=== PATIENT | female | born 1945 | race Caucasian/White ===

== ENCOUNTER 2018-12-17 12:11 | Inpatient (IN) | payer MEDICARE ==
[2018-12-17] VITALS (9 sets, daily range): BP systolic 96–147; BP diastolic 62–96
[~2018-12-17] VITALS: Ht 152.4 cm; Wt 45.4 kg
--- NOTE | 2018-12-17 12:18 | NUR ---
PT CALLED BACK, PT REQUESTS TO USE RESTROOM. THIS RN REMOVED PTS EARRINGS, NECKLACE, AND CLOTHES. PLACED IN PT BELONGING BAG. AFTER USING RESTROOM, PT TAKEN DIRECTLY TO CT SCANNER.
[2018-12-17 12:30] LABS: BILIRUBIN,URINE NEGATIVE (NEGATIVE); CLARITY,URINE VERY CLOUDY; COLOR,URINE YELLOW; GLUCOSE, URINE (UA) NEGATIVE (NEGATIVE); KETONES,URINE NEGATIVE (NEGATIVE); LEUKOCYTE ESTERASE ,URINE 1+ (NEGATIVE); NITRITE,URINE POSITIVE (NEGATIVE); PH,URINE 7 (5-9); PROTEIN,URINE NEGATIVE (NEGATIVE); UROBILINOGEN,URINE NORMAL (NORMAL)
--- NOTE | 2018-12-17 12:39 | Diagnostic Imaging Report ---
PROCEDURE: CT head wo r/o stroke. TECHNIQUE: Multiple contiguous axial images were obtained through the brain without the use of intravenous contrast. Auto Exposure Controls were utilized during the CT exam to meet ALARA standards for radiation dose reduction. INDICATION: Left eye blurred vision as well as dizziness and left-sided headache. FINDINGS: Imaging of the globes does show diffuse homogeneous hyperdensity throughout the left globe. The right globe is unremarkable. Intracranially, the ventricles and sulci are within normal limits. There is no hydrocephalus. No sulcal effacement or midline shift is seen. No acute intra-axial or extra-axial hemorrhage is detected. The cisterns are patent. The visualized paranasal sinuses are clear. IMPRESSION: 1. Homogeneous increased density throughout the left globe. This can be seen with vitreous hemorrhage. Reportedly, the patient has undergone an ophthalmology treatment with injection of the left globe. This could conceivably be post therapeutic. 2. No acute intracranial process is detected. Results were discussed with Dr. Jackman of the Emergency Department prior to this dictation. Dictated by: Dictated on workstation # [id number]
[2018-12-17 12:40] LABS: BACTERIA,URINE MODERATE /HPF
[2018-12-17 12:49] LABS: BASOPHILS % (AUTO) 1 % (0-10); EOSINOPHILS # (AUTO) 0.3 10^3/uL (0.0-0.3); EOSINOPHILS % (AUTO) 4 % (0-10); HEMATOCRIT 29 % (35-52); HEMOGLOBIN 8.6 G/DL (11.5-16.0); LYMPHOCYTES # (AUTO) 1.7 X 10^3 (1.0-4.0); LYMPHOCYTES % (AUTO) 22 % (12-44); MEAN CORPUSCULAR HEMOGLOBIN 23 PG (25-34); MEAN CORPUSCULAR HGB CONC 30 G/DL (32-36); MEAN CORPUSCULAR VOLUME 77 FL (80-99); MEAN PLATELET VOLUME 10.5 FL (7.4-10.4); MONOCYTES # (AUTO) 0.9 X 10^3 (0.0-1.0); MONOCYTES % (AUTO) 11 % (0-12); NEUTROPHILS % (AUTO) 63 % (42-75); PLATELET COUNT 430 10^3/uL (130-400); RED CELL DISTRIBUTION WIDTH 17.2 % (10.0-14.5); WHITE BLOOD COUNT 7.9 10^3/uL (4.3-11.0)
[2018-12-17 13:04] LABS: FIBRIN DEGRADATION PRODUCTS 0.68 UG/ML (0.00-0.49); PROTHROMBIN TIME PATIENT 12.9 SEC (12.2-14.7)
[2018-12-17 13:10] LABS: ALANINE AMINOTRANSFERASE 10 U/L (0-55); ALBUMIN 3.4 GM/DL (3.2-4.5); ALKALINE PHOSPHATASE 104 U/L (40-136); BILIRUBIN,TOTAL 0.3 MG/DL (0.1-1.0); BUN/CREATININE RATIO 16; CALCIUM 8.3 MG/DL (8.5-10.1); CARBON DIOXIDE 23 MMOL/L (21-32); CHLORIDE 110 MMOL/L (98-107); CREATININE SERUM 0.75 MG/DL (0.60-1.30); GFR ESTIMATED > 60; GLUCOSE 90 MG/DL (70-105); POTASSIUM 4.8 MMOL/L (3.6-5.0); SODIUM 139 MMOL/L (135-145)
[2018-12-17] MEDS ORDERED: HYDR-3812 (13:14)
[2018-12-17] MEDS ORDERED: PRED5TAB (13:14)
[2018-12-17] MEDS ORDERED: DEXL60CA (13:14)
[2018-12-17] MEDS ORDERED: CITA40TA11 (13:14)
[2018-12-17] MEDS ORDERED: LORA0.5T (13:14)
[2018-12-17] MEDS ORDERED: OXYB5TAB9 (13:14)
[2018-12-17] MEDS ORDERED: QUET100T69 (13:14)
[2018-12-17] MEDS ORDERED: ALTEPLASE 100 MG/VIAL (ACTIVASE) IV ONE (13:30)
[2018-12-17] MEDS ORDERED: LORazepam INJ 2 MG/ML (ATIVAN) VIAL ONE (13:31)
--- NOTE | 2018-12-17 13:55 | ED Neurological Problem ---
General Chief Complaint: Neuro-Stroke Like Symptoms Stated Complaint: OFF BALANCE EYE HAS MOVED TO THE RIGHT Nursing Triage Note: PT BROUGHT IN BY [employer]ERS FROM WORK. PT STATES SHE IS DIZZY, AND HAS LEFT EYE VISION PROBLEMS. 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 PT AMB TO ER BATHROOM, PT NOTICIABLY LEANING TOWARDS RIGHT SIDE. PT STATES SHE HAS A LEFT SIDED HEADACHE. STATES LEFT EYE VISION IS WORSE THAN NORMAL. Nursing Sepsis Screen: No Definite Risk Source: patient Exam Limitations: no limitations History of Present Illness Date Seen by Provider: Dec 17, 2018 Time Seen by Provider: 12:17 Initial Comments Here with report of acute onset of dizziness at 10 AM this morning when she was out feeding her animals. She went back inside afterwards and noted that her left eye is now pointing in the wrong direction and was pointing upward and outward. She got ready for work and went to work where she was noted to be stumbling when she was walking and having the disconjugate gaze. They brought her here for further evaluation. 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 She has oil infused a I now and is always blurry. She was able to get up and move about without difficulty and would not feed animals. She states that it was right at 10 AM when this started but may have been his late as 10:30. Patient lives in [place]. She has no local doctors. She normally seen in [place] at [facility]. Denies nausea, vomiting, chest pain or weakness. Does report urinary incontinence that is chronic but states that has been worse recently. Timing/Duration: 1-3 hours Severity: moderate Associated Symptoms: No confusion, No fever/chills, No nausea/vomiting, No numbness in legs/feet, No paresthesia, No slurred speech; trouble walking, vision changes; No weakness Allergies and Home Medications Allergies Coded Allergies: No Known Drug Allergies (Unverified , 12/17/18) Patient Home Medication List Home Medication List Reviewed: Yes Review of Systems Review of Systems Constitutional: see HPI; No chills; fever Eyes: See HPI, Blurred Vision, Decreased Acuity, Vision Changes Ears, Nose, Mouth, Throat: no symptoms reported Respiratory: no symptoms reported Cardiovascular: no symptoms reported Gastrointestinal: No abdominal pain, No nausea, No vomiting Genitourinary: No dysuria; incontinence : No Musculoskeletal: no symptoms reported Skin: no symptoms reported Psychiatric/Neurological: See HPI, Anxiety; Denies Cognitive Dysfunction Endocrine: No Symptoms Reported All Other Systems Reviewed Negative Unless Noted: Yes Past Nmbmgct-Mojhmj-Fbysnu Hx Past Med/Social Hx: Reviewed Nursing Past Med/Soc Hx Patient Social History Alcohol Use: Occasionally Uses Recreational Drug Use: No Smoking Status: Never a Smoker Recent Foreign Travel: No Contact w/Someone Who Travel: No Recent Infectious Disease Expo: No Recent Hopitalizations: No Immunizations Up To Date Tetanus Booster (TDap): Unknown Seasonal Allergies Seasonal Allergies: No Past Medical History Surgeries: Yes (esophagus, colostomy) Abdominal, 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 Respiratory: No Cardiac: No Neurological: No CENSUS TAKER History: 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 Genitourinary: No Gastrointestinal: Yes Musculoskeletal: Yes Arthritis Endocrine: No HEENT: Yes (detached retina x3) Colon What Type of Treatment Did You: Surgical Intervention Psychosocial: Yes Anxiety, Depression Integumentary: No Family Medical History Reviewed Nursing Family Hx Physical Exam Vital Signs Vital Signs - First Documented 12/17/18 12:18 Temp 97.7 Pulse 64 Resp 14 B/P (MAP) 147/96 (113) Pulse Ox 100 O2 Delivery Room Air Capillary Refill : Less Than 3 Seconds Height, Weight, BMI Height: 0'0" Weight: 0lbs. oz. 0.706019pf; BMI Method:Stated General Appearance: WD/WN, mild distress HEENT: pharynx normal, other (disconjugate gaze to the left eye pointing lateral and upward. Unable to bring left eye past midline to the medial position.) Neck: full range of motion, supple Respiratory: lungs clear, normal breath sounds Cardiovascular: regular rate, rhythm, no murmur Gastrointestinal: non tender, soft Back: normal inspection, no CVA tenderness, no vertebral tenderness Extremities: non-tender, normal inspection Neurologic/Psychiatric: alert, oriented x 3 Crainal Nerves: normal hearing, normal speech, abnormal eye position, gaze palsy Coordination/Gait: abnormal gait, ABN nose to finger (R) (slowed), ABN nose to finger (L) (slowed) Motor/Sensory: no sensory deficit, no pronator drift Skin: normal color, warm/dry Stroke NIH Stroke Scale Assessment Level of Consciousness: 0=Alert (0), Level of Consciousness-Questions: 0= Answers both month/age (0), Visual Cowan: 0=No visual loss (0), Facial Movement (Facial Paresis): 0=Normal symmetrical mnt (0), Motor Function-Arms Right: 0=No drift (0), Motor Function-Arms Left: 0=No drift (0), Motor Function- Legs Right: 0=No drift (0), Motor Function-Legs Left: 0=No drift (0), Limb Ataxia: 0=Absent (0), Sensory: 0=Normal:no loss (0), Best Language: 0=No aphasia (0), Dysarthria: 0=Normal (0), Extinction & Inattention: 0=No abnormality (0), Total: Focused Exam Lactate Level 12/17/18 13:40: Lactic Acid Level 0.90 Lactic Acid Level Laboratory Tests Test 12/17/18 13:40 Lactic Acid Level 0.90 MMOL/L (0.50-2.00) Progress/Results/Core Measures Results/Orders Lab Results Laboratory Tests Test 12/17/18 12:20 12/17/18 12:40 12/17/18 12:47 12/17/18 13:40 Range/Units Urine Color YELLOW Urine Clarity VERY CLOUDY H Urine pH 7 5-9 Urine Specific Mckinney 1.010 L 1.016-1.022 Urine Protein NEGATIVE NEGATIVE Urine Glucose (UA) NEGATIVE NEGATIVE Urine Ketones NEGATIVE NEGATIVE Urine Nitrite POSITIVE H NEGATIVE Urine Bilirubin NEGATIVE NEGATIVE Urine Urobilinogen NORMAL NORMAL MG/DL Urine Leukocyte Esterase 1+ H NEGATIVE Urine RBC (Auto) NEGATIVE NEGATIVE Urine RBC NONE /HPF Urine WBC 10-25 H /HPF Urine Crystals NONE /LPF Urine Bacteria MODERATE H /HPF Urine Casts NONE /LPF Urine Mucus NEGATIVE /LPF Urine Culture Indicated YES White Blood Count 7.9 4.3-11.0 10^3/uL Red Blood Count 3.80 L 4.35-5.85 10^6/uL Hemoglobin 8.6 L 11.5-16.0 G/DL Hematocrit 29 L 35-52 % Mean Corpuscular Volume 77 L 80-99 FL Mean Corpuscular Hemoglobin 23 L 25-34 PG Mean Corpuscular Hemoglobin Concent 30 L 32-36 G/DL Red Cell Distribution Width 17.2 H 10.0-14.5 % Platelet Count 430 H 130-400 10^3/uL Mean Platelet Volume 10.5 H 7.4-10.4 FL Neutrophils (%) (Auto) 63 42-75 % Lymphocytes (%) (Auto) 22 12-44 % Monocytes (%) (Auto) 11 0-12 % Eosinophils (%) (Auto) 4 0-10 % Basophils (%) (Auto) 1 0-10 % Neutrophils # (Auto) 5.0 1.8-7.8 X 10^3 Lymphocytes # (Auto) 1.7 1.0-4.0 X 10^3 Monocytes # (Auto) 0.9 0.0-1.0 X 10^3 Eosinophils # (Auto) 0.3 0.0-0.3 10^3/uL Basophils # (Auto) 0.0 0.0-0.1 10^3/uL Prothrombin Time 12.9 12.2-14.7 SEC INR Comment 1.0 0.8-1.4 Activated Partial Thromboplast Time 20 L 24-35 SEC D-Dimer 0.68 H 0.00-0.49 UG/ML Sodium Level 139 135-145 MMOL/L Potassium Level 4.8 3.6-5.0 MMOL/L Chloride Level 110 H 98-107 MMOL/L Carbon Dioxide Level 23 21-32 MMOL/L Anion Gap 6 5-14 MMOL/L Blood Urea Nitrogen 12 7-18 MG/DL Creatinine 0.75 0.60-1.30 MG/DL Estimat Glomerular Filtration Rate > 60 BUN/Creatinine Ratio 16 Glucose Level 90 70-105 MG/DL Calcium Level 8.3 L 8.5-10.1 MG/DL Corrected Calcium 8.8 8.5-10.1 MG/DL Total Bilirubin 0.3 0.1-1.0 MG/DL Aspartate Amino Transf (AST/SGOT) 18 5-34 U/L Alanine Aminotransferase (ALT/SGPT) 10 0-55 U/L Alkaline Phosphatase 104 40-136 U/L Troponin I < 0.028 <0.028 NG/ML Total Protein 6.0 L 6.4-8.2 GM/DL Albumin 3.4 3.2-4.5 GM/DL Glucometer 97 70-110 MG/DL Lactic Acid Level 0.90 0.50-2.00 MMOL/L My Orders Orders - ASSINIBOINE [facility] [place],MILLIE D MD Ct Head Perfusion W/ Contrast (12/17/18 12:40) Ct Angio Head/Neck (12/17/18 12:40) Lactic Acid Analyzer (12/17/18 13:07) Blood Culture (12/17/18 13:07) Alteplase (Activase) (Activase Injection (12/17/18 13:30) Post Thrombolytic Adminstratio (12/17/18 13:17) Ct Head Wo (12/18/18 13:17) Lorazepam Injection (Ativan Injection) (12/17/18 13:31) Ceftriaxone For Iv Use (Rocephin For I (12/17/18 15:00) Saline Lock/Iv-Start (12/17/18 15:00) Ns Iv 1000 Ml (Sodium Chloride 0.9%) (12/17/18 15:00) Medications Given in ED Current Medications Medications Dose Ordered Sig/Tequila Route Start Time Stop Time Status Last Admin Dose Admin Alteplase, Recombinant (0.9mg/ kg-max 90mg) with ... ONCE ONCE IV 12/17/18 13:30 12/17/18 13:31 DC 12/17/18 13:46 47 MG Ceftriaxone Sodium 1000 mg/ Sterile Water 10 ml @ 200 mls/hr ONCE ONCE IV 12/17/18 15:00 12/17/18 15:03 DC 12/17/18 15:15 200 MLS/HR Lorazepam 2 mg STK-MED ONCE .ROUTE 12/17/18 13:31 12/17/18 13:33 DC 12/17/18 13:35 0.5 MG Sodium Chloride 1,000 ml @ 0 mls/hr Q0M ONCE IV 12/17/18 15:00 12/17/18 15:03 DC 12/17/18 15:11 0 MLS/HR Vital Signs/I&O 12/17/18 12:18 Temp 97.7 Pulse 64 Resp 14 B/P (MAP) 147/96 (113) Pulse Ox 100 O2 Delivery Room Air iStat Bedside Lab Testing Sodium (Na): 142.00 Potassium (K): 4.70 Chloride (CI): 107.00 TCO2: 25.00 Glucose (Glu): 88.00 Urea Nitrogen (BUN)/Urea: 12.00 Creatinine (Crea): 0.70 Anion Gap*: 15.00 FSBG Bedside Testing Finger Stick Blood Glucose: 97 Progress Progress Note : Progress Note Seen and evaluated on arrival. Stroke team activation initiated. Rapid CT assessment. Difficult to initially determined time of onset but ultimately found to be at about 10 AM to 10:30 AM. No contraindications to TPA. I did discuss this with the patient. We will go ahead and CT angiogram and CT perfusion study. I will discuss the case with the stroke neurologist at . I did initiate call with at 1306 [address] patient was in CT. Patient is at the 3 are marked currently but TPA would be indicated at this point for concerns of posterior circulation stroke. This was discussed with Dr. Red. We did review initial CT scan current labs as well as findings and he agrees that TPA would be indicated. I did discuss this again with the patient and her family as well via phone on her return from CT and they agree to TPA. This was ordered to be initiated. Saba catheter placed. 1458: I have discussed the case with Dr. Crespo and he accepts patient in consult to the ICU. 1505: I discussed the case with Dr. Espitia and she accepts patient for admission, inpatient status. She has requested cardiology consult which will be placed. 1509: Discussed case with cardiology and accepts patient in consult. Reexamination of the patient shows that the eye movement is improved currently. Patient states she is feeling a little better. Rocephin is running. Patient has urinary tract infections but knows findings of sepsis or severe sepsis. This is discussed with Dr. Crespo who agrees after reviewing labs. Admit, inpatient status. Normal saline 1 L bolus ordered to flush contrast and we will keep that going at 75 mL an hour afterwards. Nothing by mouth until after dysphagia screening past. Lipids to be ordered in the morning. Initial ECG Impression Date: Dec 17, 2018 Initial ECG Impression Time: 13:49 Initial ECG Rate: 63 Initial ECG Rhythm: Normal Sinus Comment Sinus rhythm with normal axis. No evidence of ST elevation NC. No previous available for comparison. Interpreted by me. Diagnostic Imaging Diagonstic Imaging: CT Plain Films/CT/US/NM/MRI: head Comments [email or web address] [place], [place] NAME: NYDIA KIRK [facility] REC#: [id number] PT STATUS: REG ER : 1945 PHYSICIAN: LEE ANN RAZO APRN ADMIT DATE: 12/17/18/ER Draft Date of Exam:12/17/18 CT HEAD WO-R/O STROKE PROCEDURE: CT head wo r/o stroke. TECHNIQUE: Multiple contiguous axial images were obtained through the brain without the use of intravenous contrast. Auto Exposure Controls were utilized during the CT exam to meet ALARA standards for radiation dose reduction. INDICATION: Left eye blurred vision as well as dizziness and left-sided headache. FINDINGS: Imaging of the globes does show diffuse homogeneous hyperdensity throughout the left globe. The right globe is unremarkable. Intracranially, the ventricles and sulci are within normal limits. There is no hydrocephalus. No sulcal effacement or midline shift is seen. No acute intra-axial or extra-axial hemorrhage is detected. The cisterns are patent. The visualized paranasal sinuses are clear. IMPRESSION: 1. Homogeneous increased density throughout the left globe. This can be seen with vitreous hemorrhage. Reportedly, the patient has undergone an ophthalmology treatment with injection of the left globe. This could conceivably be post therapeutic. 2. No acute intracranial process is detected. Results were discussed with Dr. Jackman of the Emergency Department prior to this dictation. Dictated on workstation # [id number] Dict: 12/17/18 1231 Trans: 12/17/[address] [facility] [id number] Interpreted by: REGGIE BEGUM MD Electronically signed by: Diagonsduane Imaging: CT Plain Films/CT/US/NM/MRI: head, other Comments [place], [place] NAME: NYDIA KIRK [facility] REC#: [id number] PT STATUS: REG ER : 1945 PHYSICIAN: MILLIE HOLLINS MD ADMIT DATE: 12/17/18/ER Draft Date of Exam:12/17/18 CT ANGIO HEAD/NECK PROCEDURE: CT angiography of the head and CT angiography of the neck with and without contrast. TECHNIQUE: Contiguous noncontrast images were obtained from the skull base through the vertex. After intravenous contrast administration, helical CT angiography of the neck was performed. Source data was reformatted into multiple MIP projections. Delayed post contrast acquisition was also obtained. Auto Exposure Controls were utilized during the CT exam to meet ALARA standards for radiation dose reduction. INDICATION: Left eye blurred vision. FINDINGS: Cervical vertebral arteries are patent, the right dominant, the left somewhat small but nonfocal. The bilateral common carotids are patent. There is mild non-stenosing calcified plaque at the right carotid bulb and bifurcation. Cervical internal carotids are somewhat tortuous but widely patent and showed no substantial plaque. Within the head, the intracranial ICAs were widely patent. The intrathecal vertebral arteries, the basilar and the bilateral [employer]ATIC ART TE[employer]ER segments unremarkable. The right [employer] TE[employer]ER is of origin off the anterior circulation. The anterior and middle cerebral arterial branches and segments were unremarkable. No large vessel occlusion or intraluminal thrombus. No aneurysm or vascular malformation. IMPRESSION: Unremarkable CT angiographic evaluation of the neck and head. No large vessel occlusion, aneurysm, branch occlusion, vascular malformation or hemodynamically significant degree of stenosis. Dictated on workstation # [id number] Dict: 12/17/18 1343 Trans: 12/17/18 1353 [facility] [id number] Interpreted by: KATIE GILLIAM Electronically signed by: Diagonstic Imaging: CT Plain Films/CT/US/NM/MRI: head Comments [facility] [place] [place] NAME: NYDIA KIRK [facility] REC#: [id number] PT STATUS: REG ER : 1945 PHYSICIAN: MILLIE HOLLINS MD ADMIT DATE: 12/17/18/ER Draft Date of Exam:12/17/18 CT HEAD PERFUSION W/ CONTRAST INDICATION: Stroke. CT perfusion protocol was utilized. No prolonged mean transit time or elevated Tmax is identified. No decreased cerebral blood flow or reduced cerebral blood volume is seen. No mismatch is identified. IMPRESSION: Normal CT perfusion study. Dictated on workstation # [id number] Dict: 12/17/18 1344 Trans: 12/17/[address] [facility] [id number] Interpreted by: REGGIE BEGUM MD Electronically signed by: Diagonstic Imaging: Xray Plain Films/CT/US/NM/MRI: chest Comments [email or web address] [place], [place] NAME: NYDIA KIRK [facility] REC#: [id number] PT STATUS: REG ER : 1945 PHYSICIAN: LEE ANN RAZO APRN ADMIT DATE: 12/17/18/ER Draft Date of Exam:12/17/18 CHEST 1 VIEW, AP/PA ONLY INDICATION: Dizziness and left eye visual changes Frontal chest obtained at 159 hours p.m. There is cardiomegaly. Aorta is tortuous. There is no focal infiltrate or pneumothorax or pleural fluid. IMPRESSION: Cardiomegaly with no acute process in the chest. Dictated on workstation # [id number] Dict: 12/17/18 1412 Trans: 12/17/[address] [facility] [id number] Interpreted by: ALISHA MCPHERSON MD Electronically signed by: Departure Communication (Admissions) Time/Spoke to Admitting Phy: 15:05 Time/Spoke to Consulting Phy: 14:58 Impression Primary Impression: Cerebrovascular accident due to cerebral artery occlusion Additional Impression: Urinary tract infection Qualified Codes: N30.00 - Acute cystitis without hematuria Disposition: ADMITTED INPATIENT Condition: Stable Admissions Decision to Admit Reason: Admit from ER (General) Decision to Admit/Date: Dec 17, 2018 Time/Decision to Admit Time: 15:22 MILLIE HOLLINS MD Dec 17, 2018 13:55
--- NOTE | 2018-12-17 14:00 | Diagnostic Imaging Report ---
INDICATION: Stroke. CT perfusion protocol was utilized. No prolonged mean transit time or elevated Tmax is identified. No decreased cerebral blood flow or reduced cerebral blood volume is seen. No mismatch is identified. IMPRESSION: Normal CT perfusion study. Dictated by: Dictated on workstation # [id number]
--- NOTE | 2018-12-17 14:14 | Diagnostic Imaging Report ---
INDICATION: Dizziness and left eye visual changes Frontal chest obtained at 159 hours p.m. There is cardiomegaly. Aorta is tortuous. There is no focal infiltrate or pneumothorax or pleural fluid. IMPRESSION: Cardiomegaly with no acute process in the chest. Dictated by: Dictated on workstation # [id number]
[2018-12-17] MEDS ORDERED: cefTRIAXone FOR IV USE 1,000 MG in WATER (STERILE) FOR INJECTION 10 ML IV ONE (15:00)
[2018-12-17] MEDS ORDERED: NS IV 1000 ML 1,000 ML IV ONE (15:00)
--- NOTE | 2018-12-17 16:21 | Consultation-Cardiology ---
HPI-Cardiology Cardiology Consultation Date of Consultation 12/17/18 Date of Admission Time Seen by Provider: 16:17 Indication: acute CVA HPI 73-year-old lady with history of depression, admitted with acute CVA, reported episode of dizziness around 10 in the morning then noted that her left eye was pointing in the wrong direction, contrary to boric and noted that she had difficulty walking, slurred speech and facial droop. Came to the emergency room and the stroke team were activated and she was given TPA. Patient reported improvement in her gaze and her facial weakness. Denied any chest pain. Denied any syncope or near syncopal episode. Denied any palpitation. She reported that she follows with a physician in [facility], no local physician. Home Medications & Allergies Allergies: Coded Allergies: No Known Drug Allergies (Unverified , 12/17/18) [id number] Hx Patient Social History Alcohol Use: Occasionally Uses Recreational Drug Use: No Smoking Status: Never a Smoker Recent Foreign Travel: No Recent Infectious Disease Expo: No Recent Hopitalizations: No Immunizations Up To Date Tetanus Booster (TDap): Unknown Past Medical History Past medical history as described below Family Medical History Family Medical Hx Noncontributory to her current condition Review of Systems Constitutional: see HPI, malaise EENTM: see HPI Respiratory: see HPI; No cough, No dyspnea on exertion, No hemoptysis, No orthopnea, No phlegm, No short of breath, No stridor, No wheezing, No other Cardiovascular: see HPI; No chest pain, No edema, No Hx of Intervention, No palpitations, No syncope, No vascular heart diseas, No other Gastrointestinal: no symptoms reported, see HPI Genitourinary: no symptoms reported, see HPI Musculoskeletal: see HPI, joint pain, muscle weakness Skin: see HPI Psychiatric/Neurological: No Symptoms Reported, See HPI Reviewed Test Results Reviewed Test Results Lab Laboratory Tests Test 12/17/18 12:20 12/17/18 12:40 12/17/18 12:47 12/17/18 13:40 Range/Units Urine Color YELLOW Urine Clarity VERY CLOUDY H Urine pH 7 5-9 Urine Specific [place] 1.010 L 1.016-1.022 Urine Protein NEGATIVE NEGATIVE Urine Glucose (UA) NEGATIVE NEGATIVE Urine Ketones NEGATIVE NEGATIVE Urine Nitrite POSITIVE H NEGATIVE Urine Bilirubin NEGATIVE NEGATIVE Urine Urobilinogen NORMAL NORMAL MG/DL Urine Leukocyte Esterase 1+ H NEGATIVE Urine RBC (Auto) NEGATIVE NEGATIVE Urine RBC NONE /HPF Urine WBC 10-25 H /HPF Urine Crystals NONE /LPF Urine Bacteria MODERATE H /HPF Urine Casts NONE /LPF Urine Mucus NEGATIVE /LPF Urine Culture Indicated YES White Blood Count 7.9 4.3-11.0 10^3/uL Red Blood Count 3.80 L 4.35-5.85 10^6/uL Hemoglobin 8.6 L 11.5-16.0 G/DL Hematocrit 29 L 35-52 % Mean Corpuscular Volume 77 L 80-99 FL Mean Corpuscular Hemoglobin 23 L 25-34 PG Mean Corpuscular Hemoglobin Concent 30 L 32-36 G/DL Red Cell Distribution Width 17.2 H 10.0-14.5 % Platelet Count 430 H 130-400 10^3/uL Mean Platelet Volume 10.5 H 7.4-10.4 FL Neutrophils (%) (Auto) 63 42-75 % Lymphocytes (%) (Auto) 22 12-44 % Monocytes (%) (Auto) 11 0-12 % Eosinophils (%) (Auto) 4 0-10 % Basophils (%) (Auto) 1 0-10 % Neutrophils # (Auto) 5.0 1.8-7.8 X 10^3 Lymphocytes # (Auto) 1.7 1.0-4.0 X 10^3 Monocytes # (Auto) 0.9 0.0-1.0 X 10^3 Eosinophils # (Auto) 0.3 0.0-0.3 10^3/uL Basophils # (Auto) 0.0 0.0-0.1 10^3/uL Prothrombin Time 12.9 12.2-14.7 SEC INR Comment 1.0 0.8-1.4 Activated Partial Thromboplast Time 20 L 24-35 SEC D-Dimer 0.68 H 0.00-0.49 UG/ML Sodium Level 139 135-145 MMOL/L Potassium Level 4.8 3.6-5.0 MMOL/L Chloride Level 110 H 98-107 MMOL/L Carbon Dioxide Level 23 21-32 MMOL/L Anion Gap 6 5-14 MMOL/L Blood Urea Nitrogen 12 7-18 MG/DL Creatinine 0.75 0.60-1.30 MG/DL Estimat Glomerular Filtration Rate > 60 BUN/Creatinine Ratio 16 Glucose Level 90 70-105 MG/DL Calcium Level 8.3 L 8.5-10.1 MG/DL Corrected Calcium 8.8 8.5-10.1 MG/DL Total Bilirubin 0.3 0.1-1.0 MG/DL Aspartate Amino Transf (AST/SGOT) 18 5-34 U/L Alanine Aminotransferase (ALT/SGPT) 10 0-55 U/L Alkaline Phosphatase 104 40-136 U/L Troponin I < 0.028 <0.028 NG/ML Total Protein 6.0 L 6.4-8.2 GM/DL Albumin 3.4 3.2-4.5 GM/DL Glucometer 97 70-110 MG/DL Lactic Acid Level 0.90 0.50-2.00 MMOL/L Physical Exam Vital Signs Vital Signs - First Documented 12/17/18 12:18 Temp 97.7 Pulse 64 Resp 14 B/P (MAP) 147/96 (113) Pulse Ox 100 O2 Delivery Room Air Capillary Refill : Less Than 3 Seconds Height, Weight, BMI Height: 5'0.00" Weight: 115lbs. 0.6oz. 52.516197ly; 22.5 BMI Method:Stated General Appearance: WD/WN, Mild Distress Eyes: Bilateral Eye Normal Inspection, Bilateral Eye PERRL, Bilateral Eye EOMI HEENT: PERRL/EOMI, TMs Normal, Normal ENT Inspection, Pharynx Normal Neck: Full Range of Motion, Normal Inspection, Non Tender, Supple, Carotid Bruit Respiratory: Chest Non Tender, Lungs Clear, Normal Breath Sounds, No Accessory Muscle Use, No Respiratory Distress Cardiovascular: Regular Rate, Rhythm, No Edema, No Gallop, No JVD, Normal Peripheral Pulses, Systolic Murmur Gastrointestinal: Normal Bowel Sounds, No Organomegaly, No Pulsatile Mass, Non Tender, Soft Back: Normal Inspection, No CVA Tenderness, No Vertebral Tenderness Extremity: Normal Capillary Refill, Normal Inspection, Normal Range of Motion, Non Tender, No Calf Tenderness, No Pedal Edema Neurologic/Psychiatric: Alert, Oriented x3, Normal Mood/Affect, Other (slight weakness in the left lower extremity) Skin: Normal Color, Warm/Dry Lymphatic: No Adenopathy A/P-Cardiology Admission Diagnosis Acute CVA Anemia Mitral regurgitation Sinus bradycardia Assessment/Plan Acute CVA, given TPA in the emergency room and reported significant improvement , still having mild weakness in the left lower extremity. Managed by primary care team, started physical therapy. Anemia, received TPA, monitor H&H closely and consider transfusion if needed. Systolic murmur at the left sternal border suggestive of mitral regurgitation and aortic sclerosis. I will evaluate 2-D echocardiogram. Sinus bradycardia, noted on telemetry, continue to monitor at this time, did not initiate any beta blockers Questionable hyperlipidemia, I will evaluate lipid profile Depression, managed by primary care physician Psoriasis. Managed by primary care physician Clinical Quality Measures DVT/VTE Risk/Contraindication: Risk Factor Score Per Nursin RFS Level Per Nursing on Admit: 3=High Stroke: Date of last known well: Dec 17, 2018 DIONNE MALAVE MD Dec 17, 2018 16:21
[2018-12-17] MEDS ORDERED: FLU QUADRIvalent (5+ YOA) 2018-2019 (AFLURIA) 0.5 ML IM ONE (16:45)
[2018-12-17] MEDS ORDERED: ONDANSETRON 4 MG/2 ML (SDV) Z0FRAN IV PRN (16:45)
[2018-12-17] MEDS ORDERED: CATHETER FLUSH 10 ML SYR IV PRN (16:45)
[2018-12-17] MEDS: NS IV 1000 ML 1,000 ML IV SCH (16:52)
[2018-12-17] MEDS ORDERED: RT-ALBUTEROL SULF 2.5 MG/3 ML PRE-MIX VIAL INH PRN (17:00)
[2018-12-17] MEDS ORDERED: CALCIUM CARBONATE 500 MG (TUMS) TAB.CHEW PO PRN (22:15)
[2018-12-17] MEDS ORDERED: MELATONIN 3 MG TABLET PO PRN (22:15)
[2018-12-17] MEDS ORDERED: diphenhydrAMINE 25 MG TAB (BENADRYL) PO PRN (22:15)
[2018-12-17] MEDS ORDERED: fentaNYL INJECTION 100 MCG/2 ML AMP IVP PRN (22:15)
[2018-12-17] MEDS ORDERED: HYDROcodone/APAP 5 MG/325 MG (LORTAB) TAB PO PRN (22:15)
[2018-12-17] MEDS ORDERED: LOPERAMIDE 2 MG (IMODIUM) CAP PO PRN (22:15)
[2018-12-17] MEDS ORDERED: DOCUSATE SODIUM 100 MG (COLACE) CAP PO PRN (22:15)
[2018-12-18] VITALS (23 sets, daily range): BP systolic 86–147; BP diastolic 55–91
[2018-12-18] MEDS: ALPRAZolam 0.25 MG (XANAX) TAB PO PRN ×2 (02:33→21:29)
[2018-12-18 03:48] LABS: MEAN PLATELET VOLUME 10.3 FL (7.4-10.4); RED CELL DISTRIBUTION WIDTH 17.4 % (10.0-14.5); WHITE BLOOD COUNT 8.7 10^3/uL (4.3-11.0)
[2018-12-18 04:15] LABS: ALANINE AMINOTRANSFERASE 8 U/L (0-55); ALBUMIN 2.8 GM/DL (3.2-4.5); ALKALINE PHOSPHATASE 88 U/L (40-136); BILIRUBIN,TOTAL 0.2 MG/DL (0.1-1.0); BUN/CREATININE RATIO 13; CALCIUM 7.7 MG/DL (8.5-10.1); CARBON DIOXIDE 20 MMOL/L (21-32); CHLORIDE 112 MMOL/L (98-107); CHOLESTEROL 164 MG/DL (< 200); CREATININE SERUM 0.76 MG/DL (0.60-1.30); GFR ESTIMATED > 60; GLUCOSE 150 MG/DL (70-105); HDL CHOLESTEROL 41 MG/DL (40-60); MAGNESIUM 1.9 MG/DL (1.8-2.4); POTASSIUM 3.5 MMOL/L (3.6-5.0); SODIUM 142 MMOL/L (135-145); TRIGLYCERIDES 75 MG/DL (<150); VLDL CHOLESTEROL 15 MG/DL (5-40)
--- NOTE | 2018-12-18 05:15 | NUR ---
PATIENT COMPLAINS OF CHEST PAIN. RATES IT AT 9/10 FROM LEFT SHOULDER THROUGH HER CHEST AND IN HER BACK. EKG OBTAINED. DR. NORIEGA ON THE FLOOR LOOKED AT EKG, ORDERED TROPONIN AND A GI COCKTAIL. 0600-PATIENT STATES THAT PAIN IS STILL THERE BUT HAS DECREASED AND SHE FELT LIKE THE COCKTAIL HELPED.
--- NOTE | 2018-12-18 05:41 | Pulmonary Consultation ---
History of Present Illness History of Present Illness Date of Consultation 12/18/18 05:41 Date of Admission Reason for Visit: acute CVA Allergies and Home Medications Allergies Coded Allergies: No Known Drug Allergies (Unverified , 12/17/18) Past Wfyfeal-Hqwnwv-Knzswu Hx Past Med/Social Hx: Reviewed Nursing Past Med/Soc Hx Patient Social History Alcohol Use: Occasionally Uses Recreational Drug Use: No Smoking Status: Never a Smoker Recent Foreign Travel: No Contact w/Someone Who Travel: No Recent Infectious Disease Expo: No Recent Hopitalizations: No Immunizations Up To Date Tetanus Booster (TDap): Unknown Seasonal Allergies Seasonal Allergies: No Past Medical History Surgeries: Yes (esophagus, colostomy) Abdominal, 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 Respiratory: No Cardiac: No Neurological: 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 0.6oz. 52.005020fy; 22.5 BMI Method:Stated Exam Exam Vital Signs Date Time Temp Pulse Resp B/P (MAP) Pulse Ox O2 Delivery O2 Flow Rate FiO2 12/18/18 04:00 95 Room Air 12/18/18 01:00 57 12/18/18 01:00 57 20 111/75 (87) 94 Room Air 12/18/18 00:00 53 17 116/71 (86) 93 Room Air 12/18/18 00:00 98.2 12/18/18 00:00 95 Room Air 12/17/18 23:00 64 13 109/86 (94) 95 Room Air 12/17/18 22:00 62 28 120/89 (99) 98 Room Air 12/17/18 21:00 61 21 101/72 (82) 96 Room Air 12/17/18 20:00 96 Room Air 12/17/18 20:00 51 14 96/62 (73) 95 Room Air 12/17/18 20:00 97.4 12/17/18 19:00 70 19 115/68 (84) 97 Room Air 12/17/18 19:00 70 12/17/18 18:00 70 55 98/80 (86) 96 Room Air 12/17/18 17:00 67 145/86 (105) 99 Room Air 12/17/18 16:35 64 100 21 12/17/18 16:21 55 12/17/18 16:15 64 20 154/87 (109) 97 Room Air 12/17/18 16:00 45 128/74 (92) 98 Room Air 12/17/18 12:18 97.7 64 14 147/96 (113) 100 Room Air I & O 12/18/18 07:00 Intake Total 1605 ml Output Total 2100 ml Balance -495 ml Height & Weight Height: 5'0.00" Weight: 115lbs. 0.6oz. 52.531757ox; 22.5 BMI Method:Stated General Appearance: WD/WN, Mild Distress HEENT: PERRL/EOMI, TMs Normal, Normal ENT Inspection, Pharynx Normal Neck: Full Range of Motion, Normal Inspection, Non Tender, Supple, Carotid Bruit Respiratory: Chest Non Tender, Lungs Clear, Normal Breath Sounds, No Accessory Muscle Use, No Respiratory Distress Cardiovascular: Regular Rate, Rhythm, No Edema, No Gallop, No JVD, Normal Peripheral Pulses, Systolic Murmur Capillary Refill: Less Than 3 Seconds Gastrointestinal: non tender, soft Extremity: Normal Capillary Refill, Normal Inspection, Normal Range of Motion, Non Tender, No Calf Tenderness, No Pedal Edema Neurologic/Psychiatric: Alert, Oriented x3, Normal Mood/Affect, Other (slight weakness in the left lower extremity) Skin: Normal Color, Warm/Dry Lymphatic: No Adenopathy Results Lab Laboratory Tests 12/17/18 12:40 12/18/18 03:20 BRADNON NORIEGA DO Dec 18, 2018 05:41
[2018-12-18] MEDS ORDERED: ANTACID SUSP 30 ML UDC (MYLANTA) PO ONE (05:45)
[2018-12-18] MEDS ORDERED: LIDOCAINE 2% VISCOUS 15 ML UDC PO ONE (05:45)
[2018-12-18] MEDS: NS IV 1000 ML 1,000 ML IV SCH ×2 (05:51→19:26)
[2018-12-18] MEDS ORDERED: POTASSIUM CL 10MEQ/50ML IVPB 50 ML IV SCH (06:00)
[2018-12-18] MEDS ORDERED: MAGNESIUM 1 GM/100 ML IVPB 100 ML IV SCH (06:00)
[2018-12-18] MEDS ORDERED: KCL 20 MEQ TAB (K-DUR) PO SCH (06:00)
[2018-12-18] MEDS ORDERED: KCL 20 MEQ TAB (K-DUR) PO ONE (06:00)
--- NOTE | 2018-12-18 06:52 | Diagnostic Imaging Report ---
Indication: Respiratory distress Portable chest 3:59 AM The patient has bilateral breast implants with calcified fibrous capsules. Heart size and pulmonary vascularity are normal. Lungs are clear. There are no effusions or pneumothoraces. Impression: No acute abnormalities in the chest. Dictated by: Dictated on workstation # [id number]
--- NOTE | 2018-12-18 06:58 | Pulmonary Progress Note ---
Subjective Time Seen by a Provider: 06:58 Subjective/Events-last exam Pt is doing better. She states left sided weakness is improved. Sepsis Event Evaluation Height, Weight, BMI Height: 5'0.00" Weight: 115lbs. 0.6oz. 52.353268vo; 22.5 BMI Method:Stated Focused Exam Lactate Level 12/17/18 13:40: Lactic Acid Level 0.90 Exam Exam Vital Signs Date Time Temp Pulse Resp B/P (MAP) Pulse Ox O2 Delivery O2 Flow Rate FiO2 12/18/18 06:00 98.4 12/18/18 06:00 69 17 99/55 (70) 91 Room Air 12/18/18 05:20 63 8 130/77 (94) 100 Room Air 12/18/18 04:00 95 Room Air 12/18/18 04:00 75 11 95 Room Air 12/18/18 03:00 56 20 108/68 (81) 93 Room Air 12/18/18 02:00 62 23 145/90 (108) 95 Room Air 12/18/18 01:00 57 12/18/18 01:00 57 20 111/75 (87) 94 Room Air 12/18/18 00:00 53 17 116/71 (86) 93 Room Air 12/18/18 00:00 98.2 12/18/18 00:00 95 Room Air 12/17/18 23:00 64 13 109/86 (94) 95 Room Air 12/17/18 22:00 62 28 120/89 (99) 98 Room Air 12/17/18 21:00 61 21 101/72 (82) 96 Room Air 12/17/18 20:00 96 Room Air 12/17/18 20:00 51 14 96/62 (73) 95 Room Air 12/17/18 20:00 97.4 12/17/18 19:00 70 19 115/68 (84) 97 Room Air 12/17/18 19:00 70 12/17/18 18:00 70 55 98/80 (86) 96 Room Air 12/17/18 17:00 67 145/86 (105) 99 Room Air 12/17/18 16:35 64 100 21 12/17/18 16:21 55 12/17/18 16:15 64 20 154/87 (109) 97 Room Air 12/17/18 16:00 45 128/74 (92) 98 Room Air 12/17/18 12:18 97.7 64 14 147/96 (113) 100 Room Air I & O 12/18/18 07:00 Intake Total 2605 ml Output Total 3150 ml Balance -545 ml Height & Weight Height: 5'0.00" Weight: 115lbs. 0.6oz. 52.057718ne; 22.5 BMI Method:Stated General Appearance: No Apparent Distress, WD/WN HEENT: PERRL/EOMI, TMs Normal, Normal ENT Inspection, Pharynx Normal Neck: Full Range of Motion, Normal Inspection, Non Tender, Supple, Carotid Bruit Respiratory: Chest Non Tender, Lungs Clear, Normal Breath Sounds, No Accessory Muscle Use, No Respiratory Distress Cardiovascular: Regular Rate, Rhythm, No Edema, No Gallop, No JVD, Normal Peripheral Pulses, Systolic Murmur Capillary Refill: Less Than 3 Seconds Gastrointestinal: non tender, soft Extremity: Normal Capillary Refill, Normal Inspection, Normal Range of Motion, Non Tender, No Calf Tenderness, No Pedal Edema Neurologic/Psychiatric: Alert, Oriented x3, Normal Mood/Affect, Other (slight weakness in the left lower extremity) Skin: Normal Color, Warm/Dry Lymphatic: No Adenopathy Results Lab Laboratory Tests 12/17/18 12:40 12/18/18 03:20 Assessment/Plan Assessment/Plan Acute CVA s/p TPA -Echo pending -Repeat CT scan today possible FRANTZ -Out pt testing CP - improved after GI cocktail Anemia -Monitor Sinus luisa -Cardiology is following BRANDON NORIEGA DO Dec 18, 2018 06:58
[2018-12-18] MEDS: PANTOPRAZOLE 40 MG (PROTONIX) TAB PO SCH (07:30)
--- NOTE | 2018-12-18 08:46 | Cardiology Progress Note ---
Subjective Date Seen by Provider: Dec 18, 2018 Time Seen by Provider: 08:44 Subjective/Events-last exam patient is laying down in bed, reporting improvement in her symptoms, muscle strength is back to normal. Review of Systems General: No Chills, No Night Sweats, No Fatigue, No Malaise, No Appetite, No Other HEENT: No Head Aches, No Visual Changes, No Eye Pain, No Ear Pain, No Dysphasia , No Sinus Congestion, No Post Nasal Drip, No Sore Throat, No Other Pulmonary: No Dyspnea, No Cough, No Pleuritic Chest Pain, No Other Cardiovascular: No: Chest Pain, Palpitations, Orthopnea, Paroxysmal Noc. Dyspnea, Edema, Lt Headedness, Other Focused Exam Lactate Level 12/17/18 13:40: Lactic Acid Level 0.90 Objective-Cardiology Exam Last Set of Vital Signs Vital Signs 12/17/18 12/18/18 12/18/18 16:35 07:47 08:00 Temp 98.0 Pulse 58 Resp 20 B/P (MAP) 91/59 (70) Pulse Ox 95 O2 Delivery Room Air FiO2 21 Capillary Refill : Less Than 3 Seconds I&O Intake and Output 12/18/18 00:00 Intake Total 1485 ml Output Total 1750 ml Balance -265 ml Intake Oral 475 ml IV Total 1010 ml Output Urine Total 1750 ml Daily Weight Change No General: Alert, Oriented X3, Cooperative HEENT: Atraumatic, PERRLA Neck: Supple, No JVD, No Thyromegaly Lungs: Clear to Auscultation, Normal Air Movement Heart: Regular Rate, Normal S1, Normal S2, Other (systolic murmur at the left sternal border) Abdomen: Normal Bowel Sounds, Soft, No Tenderness, No Hepatosplenomegaly, No Masses Extremities: No Clubbing, No Cyanosis, No Edema, Normal Pulses, No Tenderness/ Swelling Skin: No Rashes, No Breakdown, No Significant Lesion Neuro: Normal Gait, Normal Speech, Strength at 5/5 X4 Ext, Normal Tone, Sensation Intact Psych/Mental Status: Mental Status NL, Mood NL Results Lab Laboratory Tests 12/17/18 12:40 12/18/18 03:20 A/P-Cardiology Admission Diagnosis Acute CVA Anemia Mitral regurgitation Sinus bradycardia Assessment/Plan Acute CVA, given TPA in the emergency room and reported significant improvement , for repeat CTA. Continue on current medication Anemia, received TPA, monitor H&H closely and consider transfusion if needed. Systolic murmur at the left sternal border suggestive of mitral regurgitation and aortic sclerosis. echo is pending Sinus bradycardia, noted on telemetry, continue to monitor at this time, did not initiate any beta blockers Lipid profile showed total cholesterol 164, LDL 112, I will start low-dose statin Depression, managed by primary care physician Psoriasis. Managed by primary care physician Clinical Quality Measures DVT/VTE Risk/Contraindication: Risk Factor Score Per Nursin RFS Level Per Nursing on Admit: 3=High Stroke: Date of last known well: Dec 17, 2018 DIONNE MALAVE MD Dec 18, 2018 08:46
--- NOTE | 2018-12-18 09:35 | NUR ---
PHYSICAL THERAPY IN ROOM WITH PATIENT, SAT PATIENT UP ON SIDE OF BED, PATIENT BECAME NAUSEOUS AT THIS TIME ET COMPLAINED OF HEADACHE. THIS NURSE ENTERED ROOM TO ASSESS PATIENT. PATIENT LAYED BACK DOWN IN BED, PATIENT STATED HEAD ET NAUSEA FEELS BETTER LAYING DOWN. 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
[2018-12-18] MEDS: ACETAMINOPHEN 500 MG TAB (TYLENOL) PO PRN (09:51)
[2018-12-18] MEDS: POLYETHYLENE GLYCOL 17 GM (MIRALAX) PACK PO SCH ×2 (09:51→21:31)
--- NOTE | 2018-12-18 09:56 | Physical Therapy Evaluation ---
PT Evaluation-General Medical Diagnosis Admission Date Dec 17, 2018 at 15:19 Medical Diagnosis: CVA/UTI Onset Date: Dec 17, 2018 Therapy Diagnosis Therapy Diagnosis: generalized weakness/debility Height/Weight Height (Feet): 5 Height (Inches): 0.00 Weight (Pounds): 115 Weight (Ounces): 8.0 Precautions Precautions/Isolations: Fall Prevention, Standard Precautions Referral Physician: Omkar Reason for Referral: Evaluation/Treatment Medical History Additional Medical History detached retina x 3 left Current History ER via coworkers secondary to neuro like symptoms and left eye deviation/s/p TPA Reviewed History: Yes Social History Home: Single Level Current Living Status: Alone Prior/Core FIM Prior Level of Function Therapy Code Descriptions/Definitions Functional [place] Measure: 0=Not Assessed/NA 4=Minimal Assistance 1=Total Assistance 5=Supervision or Setup 2=Maximal Assistance 6=Modified [place] 3=Moderate Assistance 7=Complete [place] Therapy Quality Codes: 6 Independent with activity with or without an assistive device 5 Patient requires set up or clean up by helper. Patient completes activity by themselves 4 Supervision or touching assist (CGA). [place] provide cues , steadying assist 3 The helper provides less than half the effort to complete the activity 2 The helper provides more than half the effort to complete the activity 1 Dependent. The helper does all the effort to complete an activity 7 Patient refused to complete or attempt activity 9 The patient did not perform the activity before the current illness or injury 88 Not attempted due to Medical conditions or safety concerns Functional Abilities and Goals: Independent: Patient completed the activities by him/herself, with or without an assistive device, with no assistance from a helper. Needed Some Help: Patient needed partial assistance from another person to complete activities. Dependent: A helper completed the activities for the patient. Unknown: Not Applicable: Bed Mobility: 7 Transfers (B,C,W/C) (FIM): 7 Gait: 7 Stairs: 7 Indoor Mobility (Ambulation): Independent Stairs: Independent Prior Devices Use: None works at [employer] PT Evaluation-Current Subjective Patient states she is feeling much better than yesterday and feels like she is back to normal. Agrees to PT. Pain Numeric Pain Scale: 10-Worst Possible Pain Location: Left Location Body Site: Temporal Pain Description: Ache, Pressure, Stabbing Comment: RN notified this began as patient attained sitting EOB from supine Objective Patient Orientation: Normal For Age Problem Solving: Good Attachments: Saba Catheter, IV ROM/Strength ROM Lower Extremities bilateral LE WFL Strength Lower Extremities bilateral LE 4/5 grossly bilateral LE Integumentary/Posture Integumentary refer to nursing notes Bladder Incontinence: Saba Cath Posture WFL Neuromuscular (Tone, Coordination, Reflexes) noted total body tremor with sit to stand and sidestepping (this continued in supine after RN notified of increase in symptoms) Sensory Vision: Wears Glasses Hearing: Functional Sensation Right Lower Extremit: Intact Sensation Left Lower Extremity: Intact Transfers Therapy Code Descriptions/Definitions Functional [place] Measure: 0=Not Assessed/NA 4=Minimal Assistance 1=Total Assistance 5=Supervision or Setup 2=Maximal Assistance 6=Modified [place] 3=Moderate Assistance 7=Complete [place] Transfers (B, C, W/C) (FIM): 6 Scootin Rollin Supine to/from Sit: 6 Sit to/from Stand: 6 Gait Mode of Locomotion: Walk Anticipated Mode of Locomotion: Walk Gait (FIM): 1 Distance (FIM): 1=up to 49 ft Distance: 5' Gait Level of Assist: 5 Gait Persons Needed: 1 Gait Assistive Device: None Comments/Gait Description did to perform distance due to increase in WELCH and tremors Balance Sitting Static: Normal Sitting Dynamic: Normal Standing Static: Fair Standing Dynamic: Fair Assessment/Needs 73 y.o. female, will benefit from skilled PT to address functional mobility to ensure safe return to home and work. Patient had increase c/o WELCH left temporal region with RN notified and performing neuro check. Rehab Potential: Guarded PT Nursing Home Goals Roving Winder Goals PT Roving Winder Goals Time Frame: Dec 27, 2018 Transfers (B,C,W/C) (FIM): 7 Gait (FIM): 7 Gait distance (FIM): 3=150 ft Distance: >300' Gait Level of Assist: 7 Gait Assistive Device: None PT Plan Problem List Problem List: Activity Tolerance, Functional Strength, Balance, Gait Treatment/Plan Treatment Plan: Continue Plan of Care Treatment Plan: Bed Mobility, Education, Functional Activity Snheal, Functional Strength, Gait, Safety, Therapeutic Exercise, Transfers Treatment Duration: Dec 27, 2018 Frequency: 6-11/wk Estimated Hrs Per Day: .25 hour per day Patient and/or Family Agrees t: Yes Safety Risks/Education Patient Education: Safety Issues Teaching Recipient: Patient Teaching Methods: Discussion Response to Teaching: Verbalize Understanding Discharge Recommendations Therapy D/C Recommendations: Home Independently Time/GCodes Time In: 915 Time Out: 928 Total Billed Treatment Time: 13 [facility] DORIS GIRARD PT Dec 18, 2018 09:56
--- NOTE | 2018-12-18 10:45 | History & Physical-Hospitalist ---
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 She lives in [place] and has a doctor in [place]. She is given TPA after stroke protocol followed at this current time her deficits are much improved. She will start aspirin at 1500 today following TPA protocol and cardiology and pulmonology critical care consultations are appreciated. Physical therapy did get her up today and did well although dizziness and has a headache. CT scan of the brain without contrast will be obtained in the very near future. Inpatient rehabilitation eval will be placed in case she has any needs or residual from stroke. Source: patient, RN/MD Exam Limitations: no limitations Date Seen 12/18/18 Time Seen by a Provider: 09:30 Attending Physician Cecile Espitia DO PCP [place],Bertha Malhotra MD Referring Physician Date of Admission Dec 17, 2018 at 15:19 Home Medications & Allergies Home Medications Reviewed patient Home Medication Reconciliation performed by pharmacy medication reconciliations sugarcane research technician and/or nursing. Patients Allergies have been reviewed. Allergies Allergies Coded Allergies No Known Drug Allergies (Unverified12/17/18) Past Bhtpzpf-Cwxodx-Hwvyqw Hx Past Med/Social Hx: Reviewed Nursing Past Med/Soc Hx, Reviewed and Corrections made Patient Social History Marrital Status: single Employed/Student: employed Alcohol Use: Occasionally Uses Recreational Drug Use: No Smoking Status: Never a Smoker Recent Foreign Travel: No Contact w/other who traveled: No Recent Hopitalizations: No Recent Infectious Disease Expo: No Immunizations Up To Date Tetanus Booster (TDap): Unknown Seasonal Allergies Seasonal Allergies: No Past Medical History Surgeries: Abdominal, 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 Musculoskeletal: Arthritis Cancer: Colon What Type of Treatment Did You: Surgical Intervention Psychosocial: Anxiety, Depression Family History Reviewed Nursing Family Hx Review of Systems Constitutional: see HPI, weakness EENTM: blurred vision, double vision, eye pain, vision loss Respiratory: no symptoms reported Cardiovascular: no symptoms reported Gastrointestinal: no symptoms reported Genitourinary: no symptoms reported Musculoskeletal: no symptoms reported Skin: no symptoms reported Psychiatric/Neurological: Numbness, Weakness All Other Systems Reviewed Negative Unless Noted: Yes Physical Exam Physical Exam Vital Signs Vital Signs - First Documented 12/17/18 12/17/18 12:18 16:35 Temp 97.7 Pulse 64 Resp 14 B/P (MAP) 147/96 (113) Pulse Ox 100 O2 Delivery Room Air FiO2 21 Capillary Refill : Less Than 3 Seconds Height, Weight, BMI Height: 5'0.00" Weight: 115lbs. 8.0oz. 52.119790lm; 22.5 BMI Method:Stated General Appearance: No Apparent Distress, WD/WN, Chronically ill, Thin Eyes: Right Eye Normal Inspection, Right Eye PERRL HEENT: PERRL/EOMI, Normal ENT Inspection, Pharynx Normal, Moist Mucous Membranes Neck: Full Range of Motion, Normal Inspection, Non Tender Respiratory: Chest Non Tender, Lungs Clear, Normal Breath Sounds, No Accessory Muscle Use, No Respiratory Distress Cardiovascular: Regular Rate, Rhythm, No Edema, No Gallop, No JVD, No Murmur, Normal Peripheral Pulses Gastrointestinal: Normal Bowel Sounds, No Organomegaly, No Pulsatile Mass, Non Tender, Soft Back: Normal Inspection, No CVA Tenderness, No Vertebral Tenderness Extremity: Normal Capillary Refill, Normal Inspection, Normal Range of Motion, Non Tender, No Calf Tenderness, No Pedal Edema Neurologic/Psychiatric: Alert, Oriented x3, No Motor/Sensory Deficits, Motor Weakness (subtle weakness 4.5/5 all extremities, left eye direction to left) Skin: Normal Color, Warm/Dry Lymphatic: No Adenopathy Results Results/Procedures Labs Laboratory Tests 12/17/18 12:40 12/18/18 03:20 Patient resulted labs reviewed. 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
--- NOTE | 2018-12-18 11:00 | NUR ---
Pastoral care visit.
--- NOTE | 2018-12-18 11:35 | Physical Therapy Daily Note ---
PT Daily Note-Current Subjective Patient seen for second session with decrease c/o WELCH and improved mobility. Agrees to PT. Mental Status Patient Orientation: Normal For Age Attachments: Saba Catheter, IV Transfers Therapy Code Descriptions/Definitions Functional [facility] Measure: 0=Not Assessed/NA 4=Minimal Assistance 1=Total Assistance 5=Supervision or Setup 2=Maximal Assistance 6=Modified [facility] 3=Moderate Assistance 7=Complete [facility] Therapy Quality Codes: 6 Independent with activity with or without an assistive device 5 Patient requires set up or clean up by helper. Patient completes activity by themselves 4 Supervision or touching assist (CGA). [place] provide cues , steadying assist 3 The helper provides less than half the effort to complete the activity 2 The helper provides more than half the effort to complete the activity 1 Dependent. The helper does all the effort to complete an activity 7 Patient refused to complete or attempt activity 9 The patient did not perform the activity before the current illness or injury 88 Not attempted due to Medical conditions or safety concerns Transfers (B, C, W/C) (FIM): 7 Scootin Supine to/from Sit: 7 Sit to/from Stand: 7 Gait Training Gait (FIM): 7 Distance (FIM): 3=150 ft Distance: 225' Gait Level of Assist: 7 Gait Assistive Device: None NBOS and decreased step length due to fear per patient report Assessment Patient tolerated treatment well and returned to bed with needs met. PT to increase activity as tolerated by patient. PT Chcf Goals Chcf Goals PT Chcf Goals Time Frame: Dec 27, 2018 Transfers (B,C,W/C) (FIM): 7 Gait (FIM): 7 Gait distance (FIM): 3=150 ft Distance: >300' Gait Level of Assist: 7 Gait Assistive Device: None PT Plan Treatment/Plan Treatment Plan: Continue Plan of Care Treatment Plan: Bed Mobility, Education, Functional Activity Snehal, Functional Strength, Gait, Safety, Therapeutic Exercise, Transfers Treatment Duration: Dec 27, 2018 Frequency: 6-11/wk Estimated Hrs Per Day: .25 hour per day Patient and/or Family Agrees t: Yes Time/GCodes Time In: 1105 Time Out: 1120 Total Billed Treatment Time: 15 Total Billed Treatment 1 visit GT 15 min DORIS GIRARD PT Dec 18, 2018 11:35
--- NOTE | 2018-12-18 13:25 | Occupational Therapy Eval ---
OT Evaluation-General/PLF Medical Diagnosis Admission Date Dec 17, 2018 at 15:19 Medical Diagnosis: CVA/UTI Onset Date: Dec 17, 2018 Therapy Diagnosis Therapy Diagnosis: decreased self care Height/Weight Height (Feet): 5 Height (Inches): 0.00 Weight (Pounds): 115 Weight (Ounces): 8.0 Precautions Precautions/Isolations: Fall Prevention, Standard Precautions Safety Interventions: None Referral Physician: Omkar Medical History Additional Medical History detached retina, depression, anxiety Reviewed History: Yes Social History Home: Single Level Current Living Status: Alone ADL-Prior Level of Function Therapy Code Descriptions/Definitions Functional [place] Measure: 0=Not Assessed/NA 4=Minimal Assistance 1=Total Assistance 5=Supervision or Setup 2=Maximal Assistance 6=Modified [place] 3=Moderate Assistance 7=Complete [place] Therapy Quality Codes: 6 Independent with activity with or without an assistive device 5 Patient requires set up or clean up by helper. Patient completes activity by themselves 4 Supervision or touching assist (CGA). [place] provide cues , steadying assist 3 The helper provides less than half the effort to complete the activity 2 The helper provides more than half the effort to complete the activity 1 Dependent. The helper does all the effort to complete an activity 7 Patient refused to complete or attempt activity 9 The patient did not perform the activity before the current illness or injury 88 Not attempted due to Medical conditions or safety concerns Functional Abilities and Goals: Independent: Patient completed the activities by him/herself, with or without an assistive device, with no assistance from a helper. Needed Some Help: Patient needed partial assistance from another person to complete activities. Dependent: A helper completed the activities for the patient. Unknown: Not Applicable: ADL PLOF Comments Pt reports being independent with self care and mobility. Pt states she is active and still carries feed for her horses. Was not using any assistive devices. 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 Denied pain at this time. Mental Status/Objective Patient Orientation: Person, Place, Situation Attachments: Saba Catheter, IV Current Glasses/Contacts: Yes Hearing Aids: No Dentures/Partials: Yes Hand Dominance: Right Upper Extremity ROM Grossly WFL Upper Extremity Coordination Intact Upper Extremity Sensation Intact per pt report ADL-Treatment ADL-Current Pt supine to sit with SBA. Pt sit to stand and transfer to chair with SBA secondary to multiple lines. UE assessment completed while seated. Pt demonstrated ability to doff/don socks without assist while seated. Pt states she was able to feed herself breakfast without assistance. Education provided regarding role of OT and plan of care. Pt states understanding and is in agreement. Will increase activity as tolerated. Pt sitting in chair with needs met after session. RN notified. Therapy Code Descriptions/Definitions Functional [place] Measure: 0=Not Assessed/NA 4=Minimal Assistance 1=Total Assistance 5=Supervision or Setup 2=Maximal Assistance 6=Modified [place] 3=Moderate Assistance 7=Complete [place] Therapy Quality Codes: 6 Independent with activity with or without an assistive device 5 Patient requires set up or clean up by helper. Patient completes activity by themselves 4 Supervision or touching assist (CGA). [place] provide cues , steadying assist 3 The helper provides less than half the effort to complete the activity 2 The helper provides more than half the effort to complete the activity 1 Dependent. The helper does all the effort to complete an activity 7 Patient refused to complete or attempt activity 9 The patient did not perform the activity before the current illness or injury 88 Not attempted due to Medical conditions or safety concerns Eating (FIM): 6 (Per pt report) Lower Body Dressing (FIM): 5 (socks only) Transfers (B, C, W/C) (FIM): 5 Education OT Patient Education: Rehab process Teaching Recipient: Patient Teaching Methods: Discussion Response to Teaching: Verbalize Understanding OT Short Term Goals Short Term Goals 1=Demonstrate adherence to instructed precautions during ADL tasks. 2=Patient will verbalize/demonstrate understanding of assistive devices/ modifications for ADL. 3=Patient will improve strength/tolerance for activity to enable patient to perform ADL's. OT Group Home Goals Gun Examiner Goals Time Frame: Dec 25, 2018 Grooming(FIM): 6 Bathing(FIM): 6 Upper Body Dressing(FIM): 6 Lower Body Dressing(FIM): 6 Toileting(FIM): 6 Toilet/Commode Transfer(FIM): 6 Additional Goals: 1-Demonstrate ADL Tasks, 2-Verbalize Understanding, 3- ImproveStrength/Snehal 1=Demonstrate adherence to instructed precautions during ADL tasks. 2=Patient will verbalize/demonstrate understanding of assistive devices/ modifications for ADL. 3=Patient will improve strength/tolerance for activity to enable patient to perform ADL's. OT Education/Plan Problem List/Assessment Assessment: Decreased UE Strength, Dependent Transfers, Impaired Self-Care Skills Pt to benefit from skilled OT intervention for ADL training, transfers, strengthening, and safety education to increase level of function and allow safe discharge Discharge Recommendations Plan/Recommendations: Continue POC Treatment Plan/Plan of Care Treatment,Training & Education: Yes Patient would benefit from OT for education, treatment and training to promote independence in ADL's, mobility, safety and/or upper extremity function for ADL' s. Plan of Care: ADL Retraining, Functional Mobility, UE Funct Exercise/Act Treatment Duration: Dec 25, 2018 Frequency: 5 times per week Estimated Hrs Per Day: .25 hour per day Agreement: Yes Rehab Potential: Good Time/GCodes Start Time: 10:38 Stop Time: 10:57 Total Time Billed (hr/min): 19 Billed Treatment Time 1 visit, EVMarya(19minutes) FAUSTO WILLARD OT Dec 18, 2018 13:25
--- NOTE | 2018-12-18 13:50 | Diagnostic Imaging Report ---
PROCEDURE: CT head without contrast. TECHNIQUE: Multiple contiguous axial images were obtained through the brain without the use of intravenous contrast. Auto Exposure Controls were utilized during the CT exam to meet ALARA standards for radiation dose reduction. INDICATION: Status post infarct. Left-sided headache. Left blurred vision. Right-sided weakness COMPARISON: 12/17/2018 FINDINGS: The ventricles and cortical sulci are diffusely prominent, compatible with age-related volume loss. There are confluent areas of abnormal, low attenuation in the periventricular white matter. This is consistent with chronic small vessel ischemic changes. There is no midline shift or mass-effect. No acute intra-axial hemorrhage is seen. There are no abnormal areas of increased or decreased density to suggest acute hemorrhage or edema. No extra-axial masses or collections are present. The bony calvarium is intact. The visualized paranasal sinuses are unremarkable. The mastoid air cells are clear. Note is again made of diffuse increased density of the left globe. IMPRESSION: 1. No acute intracranial abnormality. No CT evidence of mass, acute infarct or intracranial hemorrhage. 2. Chronic small vessel ischemic changes in deep white matter. 3. Stable persistent diffuse increased density of the left globe with same differential considerations as before. Dictated by: Dictated on workstation # [id number]
--- NOTE | 2018-12-18 14:38 | NUR ---
IRF Evaluation: Order received to evaluate patient for the ARU. Chart reviewed and according to PT/OT notes patient does not require intensive therapies at this time. Patient is ambulating (225ft, no AD) and transferring with independence. Additionally, patient is supervision with LE dressing. Thank you for this referral.
[2018-12-18] MEDS ORDERED: cefTRIAXone 1,000 MG/SWFI 10 ML IV PUSH IV SCH ×2 (15:00)
--- NOTE | 2018-12-18 15:00 | NUR ---
REPORT CALLED TO CRISTOBAL RONQUILLO ON 4TH FLOOR AT THIS TIME.
[2018-12-18] MEDS: ASPIRIN 81 MG CHEW (CHILDREN'S ASA) PO SCH (15:11)
--- NOTE | 2018-12-18 15:38 | NUR ---
PATIENT TRANSPORTED TO ROOM 426 BY THIS NURSE AT THIS TIME. BELONGINGS SENT WITH PATIENT.
--- NOTE | 2018-12-18 15:39 | NUR ---
RECEIVED FROM ICU, ALERT, SAUNDERS PATENT WITH RICKY COLOR URINE, IV SITE WITHOUT REDNESS OR SWELLING, CALL LIGHT WITHIN REACH, MOVES ALL EXTREMITIES WITHOUT DIFFICULTY, HAND MANAGER ROOM EQUAL AND STRONG, SPEECH CLEAR, DENIES PAIN OR BLURRED VISION, ON ROOM AIR, SAT 98 PERCENT, WILL CONTINUE TO MONITOR
[2018-12-18] MEDS ORDERED: ATORVASTATIN 10 MG (LIPITOR) TABLET PO SCH (21:00)
[2018-12-19 00:42] VITALS: BP 142/76
[2018-12-19 04:26] VITALS: BP 122/71
[2018-12-19] MEDS: ALPRAZolam 0.25 MG (XANAX) TAB PO PRN (06:07)
[2018-12-19] MEDS: ACETAMINOPHEN 500 MG TAB (TYLENOL) PO PRN (06:08)
--- NOTE | 2018-12-19 06:27 | NUR ---
PT COMPLAINING OF LEFT EYE PAIN. SWELLING AND BLURRED VISION. PT STATES SHE NORMALLY HAS BLURRED VISION BUT FELT LIKE IT WAS WORSENING. NIH STOKE SCALE IS 1. TYLENOL AND XANAX GIVEN. SPOKE WITH DR. MCCLELLAN AND INFORMED HIM OF PTS NEW FINDINGS. NO NEW ORDERS AT THIS TIME. WILL CONTINUE TO MONITOR PT.
[2018-12-19 07:18] LABS: BUN/CREATININE RATIO 9; CALCIUM 8.3 MG/DL (8.5-10.1); CARBON DIOXIDE 23 MMOL/L (21-32); CHLORIDE 110 MMOL/L (98-107); CREATININE SERUM 0.64 MG/DL (0.60-1.30); GFR ESTIMATED > 60; GLUCOSE 90 MG/DL (70-105); MAGNESIUM 2.1 MG/DL (1.8-2.4); POTASSIUM 4.4 MMOL/L (3.6-5.0); SODIUM 139 MMOL/L (135-145)
[2018-12-19 08:00] VITALS: BP 91/53
--- NOTE | 2018-12-19 08:00 | Pulmonary Progress Note ---
Subjective Time Seen by a Provider: 07:58 Subjective/Events-last exam No complications noted. Sepsis Event Evaluation Height, Weight, BMI Height: 5'0.00" Weight: 100lbs. 3.2oz. 45.477994be; 22.5 BMI Method:Stated Focused Exam Lactate Level 12/17/18 13:40: Lactic Acid Level 0.90 Exam Exam Vital Signs Date Time Temp Pulse Resp B/P (MAP) Pulse Ox O2 Delivery O2 Flow Rate FiO2 12/19/18 07:00 60 12/19/18 04:26 97.6 66 12 122/71 (88) 97 Room Air 12/19/18 01:00 61 12/19/18 00:42 98.7 56 20 142/76 (98) 96 Room Air 12/18/18 20:18 Room Air 12/18/18 20:00 98.8 63 20 147/68 (94) 99 Room Air 12/18/18 20:00 Room Air 12/18/18 19:00 73 12/18/18 16:22 96 Room Air 12/18/18 14:00 57 26 112/59 (76) 95 Room Air 12/18/18 13:00 67 19 138/88 (105) 96 Room Air 12/18/18 13:00 56 12/18/18 12:00 65 17 114/70 (85) 96 Room Air 12/18/18 12:00 96 Room Air 12/18/18 11:00 64 12 98/65 (76) 95 Room Air 12/18/18 10:00 70 16 128/81 (97) 95 Room Air 12/18/18 09:30 70 129/91 (104) Room Air 12/18/18 09:15 66 13 95/72 (80) 98 Room Air 12/18/18 09:00 70 22 114/68 (83) 95 Room Air 12/18/18 08:45 66 9 116/71 (86) 95 Room Air 12/18/18 08:30 64 14 104/63 (77) 96 Room Air 12/18/18 08:15 58 22 95/62 (73) 93 Room Air 12/18/18 08:00 58 20 91/59 (70) 95 Room Air I & O 12/19/18 07:00 Intake Total 1392 ml Output Total 3850 ml Balance -2458 ml Height & Weight Height: 5'0.00" Weight: 100lbs. 3.2oz. 45.683581kk; 22.5 BMI Method:Stated General Appearance: No Apparent Distress, WD/WN, Chronically ill, Thin HEENT: PERRL/EOMI, Normal ENT Inspection, Pharynx Normal, Moist Mucous Membranes Neck: Full Range of Motion, Normal Inspection, Non Tender Respiratory: Chest Non Tender, Lungs Clear, Normal Breath Sounds, No Accessory Muscle Use, No Respiratory Distress Cardiovascular: Regular Rate, Rhythm, No Edema, No Gallop, No JVD, No Murmur, Normal Peripheral Pulses Capillary Refill: Less Than 3 Seconds Gastrointestinal: non tender, soft Extremity: Normal Capillary Refill, Normal Inspection, Normal Range of Motion, Non Tender, No Calf Tenderness, No Pedal Edema Neurologic/Psychiatric: Alert, Oriented x3, No Motor/Sensory Deficits, Motor Weakness (subtle weakness 4.5/5 all extremities, left eye direction to left) Skin: Normal Color, Warm/Dry Lymphatic: No Adenopathy Results Lab Laboratory Tests 12/17/18 12:40 12/18/18 03:20 12/19/18 06:25 Assessment/Plan Assessment/Plan Acute CVA s/p TPA -Echo reviewed -Repeat CT scan is negative possible FRANTZ -Out pt testing CP - improved after GI cocktail Anemia -Monitor Sinus luisa -Cardiology is following I am going to sign off. Please call with any questions or concerns. BRANDON NORIEGA DO Dec 19, 2018 08:00
[2018-12-19] MEDS: ASPIRIN 81 MG CHEW (CHILDREN'S ASA) PO SCH (08:55)
[2018-12-19] MEDS: POLYETHYLENE GLYCOL 17 GM (MIRALAX) PACK PO SCH (08:55)
[2018-12-19] MEDS: PANTOPRAZOLE 40 MG (PROTONIX) TAB PO SCH (08:55)
[2018-12-19] MEDS ORDERED: ASPI-586 PO (09:05)
--- NOTE | 2018-12-19 09:33 | Physical Therapy Daily Note ---
PT Daily Note-Current Subjective States that she is doing well and ready to go home. Transfers Therapy Code Descriptions/Definitions Functional [place] Measure: 0=Not Assessed/NA 4=Minimal Assistance 1=Total Assistance 5=Supervision or Setup 2=Maximal Assistance 6=Modified [place] 3=Moderate Assistance 7=Complete [place] Therapy Quality Codes: 6 Independent with activity with or without an assistive device 5 Patient requires set up or clean up by helper. Patient completes activity by themselves 4 Supervision or touching assist (CGA). [place] provide cues , steadying assist 3 The helper provides less than half the effort to complete the activity 2 The helper provides more than half the effort to complete the activity 1 Dependent. The helper does all the effort to complete an activity 7 Patient refused to complete or attempt activity 9 The patient did not perform the activity before the current illness or injury 88 Not attempted due to Medical conditions or safety concerns Transfers (B, C, W/C) (FIM): 7 Scootin Rollin Supine to/from Sit: 7 Sit to/from Stand: 7 Gait Training Gait (FIM): 7 Distance: 1500' Gait Level of Assist: 7 Gait Persons Needed: 0 Gait Assistive Device: None Assessment Current Status: Excellent Progress Patient should be safe returning home. PT Penitentiary Goals Penitentiary Goals PT Penitentiary Goals Time Frame: Dec 27, 2018 Transfers (B,C,W/C) (FIM): 7 Gait (FIM): 7 Gait distance (FIM): 3=150 ft Distance: >300' Gait Level of Assist: 7 Gait Assistive Device: None PT Plan Treatment/Plan Treatment Plan: Continue Plan of Care Treatment Plan: Bed Mobility, Education, Functional Activity Snehal, Functional Strength, Gait, Safety, Therapeutic Exercise, Transfers Treatment Duration: Dec 27, 2018 Frequency: 6-11/wk Estimated Hrs Per Day: .25 hour per day Patient and/or Family Agrees t: Yes Time/GCodes Time In: 919 Time Out: 929 Total Billed Treatment Time: 10 Total Billed Treatment 1, GT x 10' PAUL LORENZO PT Dec 19, 2018 09:33
--- NOTE | 2018-12-19 09:44 | Cardiology Progress Note ---
Subjective Date Seen by Provider: Dec 19, 2018 Time Seen by Provider: 09:43 Subjective/Events-last exam patient is laying down in bed, feeling well, asking to go home. No new complaint Review of Systems General: No Chills, No Night Sweats, No Fatigue, No Malaise, No Appetite, No Other HEENT: No Head Aches, No Visual Changes, No Eye Pain, No Ear Pain, No Dysphasia , No Sinus Congestion, No Post Nasal Drip, No Sore Throat, No Other Pulmonary: No Dyspnea, No Cough, No Pleuritic Chest Pain, No Other Cardiovascular: No: Chest Pain, Palpitations, Orthopnea, Paroxysmal Noc. Dyspnea, Edema, Lt Headedness, Other Focused Exam Lactate Level 12/17/18 13:40: Lactic Acid Level 0.90 Objective-Cardiology Exam Last Set of Vital Signs Vital Signs 12/17/18 12/19/18 16:35 08:00 Temp 97.2 Pulse 50 Resp 18 B/P (MAP) 91/53 (66) Pulse Ox 94 O2 Delivery Room Air FiO2 21 Capillary Refill : Less Than 3 Seconds I&O Intake and Output 12/19/18 00:00 Intake Total 2412 ml Output Total 4250 ml Balance -1838 ml Intake Oral 1412 ml IV Total 1000 ml Output Urine Total 4250 ml General: Alert, Oriented X3, Cooperative HEENT: Atraumatic, PERRLA Neck: Supple, No JVD, No Thyromegaly Lungs: Clear to Auscultation, Normal Air Movement Heart: Regular Rate, Normal S1, Normal S2, Other (systolic murmur at the left sternal border) Abdomen: Normal Bowel Sounds, Soft, No Tenderness, No Hepatosplenomegaly, No Masses Extremities: No Clubbing, No Cyanosis, No Edema, Normal Pulses, No Tenderness/ Swelling Skin: No Rashes, No Breakdown, No Significant Lesion Neuro: Normal Gait, Normal Speech, Strength at 5/5 X4 Ext, Normal Tone, Sensation Intact Psych/Mental Status: Mental Status NL, Mood NL Results Lab Laboratory Tests 12/19/18 06:25 A/P-Cardiology Admission Diagnosis Acute CVA Anemia Mitral regurgitation Sinus bradycardia Assessment/Plan Status post acute CVA, given TPA in the emergency room and reported significant improvement, continue current medication Anemia, received TPA, monitor H&H closely and consider transfusion if needed. Systolic murmur at the left sternal border suggestive of mitral regurgitation and aortic sclerosis. echo is pending Sinus bradycardia, noted on telemetry, continue to monitor at this time, did not initiate any beta blockers Lipid profile showed total cholesterol 164, LDL 112, I will start low-dose statin Depression, managed by primary care physician Psoriasis. Managed by primary care physician Follow-up as an outpatient Clinical Quality Measures DVT/VTE Risk/Contraindication: Risk Factor Score Per Nursin RFS Level Per Nursing on Admit: 3=High Stroke: Date of last known well: Dec 17, 2018 DIONNE MALAVE MD Dec 19, 2018 09:44
--- NOTE | 2018-12-19 12:00 | Discharge Summary-Hospitalist ---
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 (3) Urinary tract infection Status: Acute Discharge Summary Discharge Physical Exam Allergies: Coded Allergies: No Known Drug Allergies (Unverified , 12/17/18) Vitals & I&Os Vital Signs Date Time Temp Pulse Resp B/P (MAP) Pulse Ox O2 Delivery O2 Flow Rate FiO2 12/19/18 08:55 Room Air 12/19/18 08:00 97.2 50 18 91/53 (66) 94 12/17/18 16:35 21 General Appearance: No Apparent Distress, WD/WN Respiratory: Chest Non Tender, Lungs Clear, Normal Breath Sounds, No Accessory Muscle Use, No Respiratory Distress Cardiovascular: Regular Rate, Rhythm, No Edema, No Gallop, No JVD, No Murmur, Normal Peripheral Pulses Neurologic/Psychiatric: Alert, Oriented x3, Other (Gaze intermittently disconjugate chronic poor vision in the left eye of due to previous retinal detachment and the fact that patient still has an oil emulsion in the left eye from previous injection therapy per her report. The right pupil is several millimeters bigger than the left likely due to oil installation both react normally and extraocular muscles are intact with no gaze palsies being noted currently.) Hospital Course Due to concerns of possible posterior circulation CVA and despite normal CTA of the head and neck the patient received TPA. Follow-up CT head revealed no evidence for bleed. The following morning left-sided headache symptoms were better and other than some disconjugate gaze that appeared to be intermittent no other neurologic abnormalities were appreciated. Echocardiography revealed no potential embolic sites with an ejection fraction of 55 percent mild tricuspid insufficiency was present with mild elevation in pulmonary systolic pressure estimated at 43 mmHg. Patient had evidence for aortic sclerosis without evidence for aortic stenosis and left atrium was mildly dilated at 4 cm with no thrombus being identified on transthoracic echo. 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 She was discharged stable vital signs and what appears to be baseline neurologic status safe for possible intermittent disconjugate gaze. On UA evaluation the patient did have a moderate number of bacteria and 10-25 white cells. She denied any UTI type symptomatology that she received 2 doses of Rocephin with subsequent culture reports revealing Klebsiella oxytoca sensitive to Rocephin 2 doses were deemed to be enough considering she reported no urinary tract symptoms. She is not being discharged on antibiotic therapy. She was told to be wary of any burning frequency hematuria or pyuria would need further investigation. Labs (last 24 hrs) Laboratory Tests 12/19/18 06:25: Sodium Level 139, Potassium Level 4.4, Chloride Level 110H, Carbon Dioxide Level 23, Anion Gap 6, Blood Urea Nitrogen 6L, Creatinine 0.64, Estimat Glomerular Filtration Rate > 60, BUN/Creatinine Ratio 9, Glucose Level 90, Calcium Level 8.3L, Magnesium Level 2.1 Microbiology 12/17/18 Blood Culture - Preliminary, Resulted No growth 12/17/18 MRSA Screen - Final, Complete MRSA not isolated 12/17/18 Urine Culture - Final, Complete Klebsiella oxytoca Patient resulted labs reviewed. Pending Labs Laboratory Tests 12/19/18 06:25: Sodium Level 139, Potassium Level 4.4, Chloride Level 110, Carbon Dioxide Level 23, Anion Gap 6, Blood Urea Nitrogen 6, Creatinine 0.64, Estimat Glomerular Filtration Rate > 60, BUN/Creatinine Ratio 9, Glucose Level 90, Calcium Level 8.3, Magnesium Level 2.1 Discussion & Recommendations Discharge Planning: >30 minutes discharge planning Discharge Home Medications: Active Scripts Active Aspir 81 (Aspirin) 81 Mg Tablet. 81 Mg PO DAILY 30 Days Reported Dexilant (Dexlansoprazole) 60 Mg Cap.bp Lorazepam 0.5 Mg Tablet Oxybutynin Chloride 5 Mg Tablet Citalopram HBr (Citalopram Hydrobromide) 40 Mg Tablet Quetiapine Fumarate 100 Mg Tablet Prednisone 5 Mg Tablet Hydrocodone-Acetamin 5-325 mg (Hydrocodone/Acetaminophen) 1 Each Tablet Instructions to patient/family Please see electronic discharge instructions given to patient. Clinical Quality Measures DVT/VTE Risk/Contraindication: Risk Factor Score Per Nursin RFS Level Per Nursing on Admit: 3=High Stroke: Date of last known well: Dec 17, 2018 Copy Copies To 2: LUISA KESSLER MD Problem Qualifiers (1) Urinary tract infection: Urinary tract infection type: acute cystitis Hematuria presence: without hematuria Qualified Codes: N30.00 - Acute cystitis without hematuria MYNOR MCCLELLAN MD Dec 19, 2018 12:00
[2018-12-19 13:36] VITALS: BP 100/54
== END 2018-12-19 13:36 | disposition home or self-care (01) | DRG 62 ==
LOC: ER 12:17 → ICU 15:19 → 4TH 12-18 15:28
PROVIDERS: ADMIT Internal Medicine; ATTEND Internal Medicine
DX: I63.50 Cerebral infarction due to unspecified occlusion or stenosis of unspecified cerebral artery (principal); G81.94 Hemiplegia, unspecified affecting left nondominant side; H53.8 Other visual disturbances; N30.00 Acute cystitis without hematuria; I34.0 Nonrheumatic mitral (valve) insufficiency; R00.1 Bradycardia, unspecified; R01.1 Cardiac murmur, unspecified; F41.9 Anxiety disorder, unspecified; F32.9 Major depressive disorder, single episode, unspecified; R32 Unspecified urinary incontinence; D64.9 Anemia, unspecified; L40.9 Psoriasis, unspecified; G47.33 Obstructive sleep apnea (adult) (pediatric); Z85.038 Personal history of other malignant neoplasm of large intestine
CPT/HCPCS: 0042T; 36415; 51702; 70450; 70496; 70498; 71045; 80048; 80053; 80061; 81000; 82962; 83605; 83735; 84484; 85025; 85027; 85379; 85610; 85730; 87040; 87077; 87081; 87088; 87186; 93005; 93041; 93306; 96361; 96365; 96367; 96375

== ENCOUNTER 2019-09-05 08:57 | Emergency (ER) | payer MEDICARE ==
[~2019-09-05] VITALS: Ht 149.8 cm; Wt 47.8 kg
[~2019-09-05 08:57] MED LIST: ASPI-586 PO; CITA40TA11; DEXL60CA; HYDR-3812; LORA0.5T; OXYB5TAB13; PRED5TAB; QUET100T69
[2019-09-05] MEDS ORDERED: NS IV 500 ML 500 ML IV ONE (09:13)
[2019-09-05] MEDS ORDERED: PANTOPRAZOLE 40 MG (PROTONIX) VIAL IV ONE (09:15)
[2019-09-05] MEDS ORDERED: RT-ALBUTEROL SULF 2.5 MG/3 ML PRE-MIX VIAL INH STA (09:18)
--- NOTE | 2019-09-05 09:18 | ED Cough/URI ---
General Chief Complaint: General Problems/Pain Stated Complaint: WEAKNESS Source: patient, other Exam Limitations: no limitations History of Present Illness Date Seen by Provider: Sep 05, 2019 Time Seen by Provider: 09:03 Initial Comments Patient presents with chief complaint of cough and cold-like syndrome worse over the past 5 days with runny nose, productive cough, malaise, fatigue. She's also having a headache in her left sikh region which she gets from time to time and will typically use Tylenol 3 but she does not want anything for it right now. She has a history of left-sided detached retina secondary to infection secondary to cataract surgery years ago. She's having no visual changes today. She denies any fever or chills. She denies a history of COPD asthma or smoking or tobacco use. She has a history of colon cancer and spent 8 weeks on chemotherapy radiation and has colostomy. She is followed by primary care in [place]. Her surgeons are in [place] as well. She is on excellent for esophageal ectasia and says whenever she runs out of it she feels pressure nausea and increased indigestion. She says oftentimes she will come to the ER and they will give her Prevacid which usually fixes her symptoms. She says she has a prescription at the pharmacy she just has not had the energy to go get it since she has a cold. She has not been on antibiotics or steroids recently. She has nausea but no vomiting. When asked to rate her pain she says she does not actually consider it a pain just some pressure and indigestion. When pressed to put a number to it she calls it a 10 out of 10. She denies any cardiovascular history but does have a history of right-sided stroke status post TPA with no residual deficits. Allergies and Home Medications Allergies Coded Allergies: No Known Drug Allergies (Unverified , 12/17/18) Home Medications Aspirin 81 Mg Tablet., 81 MG PO DAILY Prescribed by: MYNOR MCCLELLAN on 12/19/18 0905 Patient Home Medication List Home Medication List Reviewed: Yes Review of Systems Review of Systems Constitutional: No chills, No diaphoresis EENTM: nose congestion; No ear discharge, No ear pain Respiratory: cough, phlegm; No short of breath, No wheezing Cardiovascular: No chest pain, No edema, No Hx of Intervention, No syncope, No vascular heart diseas Gastrointestinal: No abdominal pain, No constipation, No diarrhea, No heartburn Genitourinary: No discharge, No dysuria : No Musculoskeletal: No back pain, No joint pain Skin: No pruritus, No rash Psychiatric/Neurological: Headache; Denies Numbness, Denies Paresthesia, Denies Seizure Past Ufbbyeb-Uxpsly-Vnvsqz Hx Patient Social History Alcohol Use: Denies Use Recreational Drug Use: No Smoking Status: Never a Smoker Recent Hopitalizations: No Immunizations Up To Date Tetanus Booster (TDap): Unknown Seasonal Allergies Seasonal Allergies: No Past Medical History Surgeries: Yes (esophagus, colostomy) Abdominal, 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 Respiratory: No Cardiac: No 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 3.2oz. [id number]; 22.5 BMI Method:Stated General Appearance: WD/WN, no apparent distress Eyes: Bilateral Eye Normal Inspection, Bilateral Eye PERRL, Bilateral Eye EOMI HEENT: PERRL/EOMI, normal ENT inspection, TMs normal (mild mucoid effusion but no loss of landmarks); No pharynx normal (oropharynx is dry mildly erythematous without exudate) Neck: non-tender, full range of motion, normal inspection Respiratory: chest non-tender, no respiratory distress (oxygen saturation 98% on room air.), no accessory muscle use, wheezing, expiration Cardiovascular: normal peripheral pulses, regular rate, rhythm Gastrointestinal: normal bowel sounds, non tender, soft, other (colostomy with dusky RAYMUNDO pink appearance.) Extremities: non-tender, normal inspection, normal capillary refill Neurologic/Psychiatric: alert, oriented x 3, other (anxious affect) Skin: normal color, warm/dry Progress/Results/Core Measures Suspected Sepsis SIRS Temperature: Pulse: Respiratory Rate: Laboratory Tests 09/05/19 09:25: White Blood Count 13.2H Blood Pressure / Mean: Laboratory Tests 12/8/19 09:25: Creatinine 0.72, Platelet Count 483H, Total Bilirubin 0.3 Results/Orders Lab Results Laboratory Tests Test 09/05/19 09:00 09/05/19 09:25 Range/Units Urine Color YELLOW Urine Clarity CLOUDY H Urine pH 7.5 5-9 Urine Specific [place] 1.015 L 1.016-1.022 Urine Protein NEGATIVE NEGATIVE Urine Glucose (UA) NEGATIVE NEGATIVE Urine Ketones NEGATIVE NEGATIVE Urine Nitrite POSITIVE H NEGATIVE Urine Bilirubin NEGATIVE NEGATIVE Urine Urobilinogen 0.2 < = 1.0 MG/DL Urine Leukocyte Esterase 2+ H NEGATIVE Urine RBC (Auto) NEGATIVE NEGATIVE Urine RBC NONE /HPF Urine WBC >100 H /HPF Urine Squamous Epithelial Cells 5-10 /HPF Urine Crystals NONE /LPF Urine Bacteria LARGE H /HPF Urine Casts NONE /LPF Urine Mucus SMALL H /LPF Urine Culture Indicated YES White Blood Count 13.2 H 4.3-11.0 10^3/uL Red Blood Count 4.70 4.35-5.85 10^6/uL Hemoglobin 10.2 L 11.5-16.0 G/DL Hematocrit 35 35-52 % Mean Corpuscular Volume 74 L 80-99 FL Mean Corpuscular Hemoglobin 22 L 25-34 PG Mean Corpuscular Hemoglobin Concent 30 L 32-36 G/DL Red Cell Distribution Width 18.8 H 10.0-14.5 % Platelet Count 483 H 130-400 10^3/uL Mean Platelet Volume 9.4 7.4-10.4 FL Neutrophils (%) (Auto) 65 42-75 % Lymphocytes (%) (Auto) 19 12-44 % Monocytes (%) (Auto) 9 0-12 % Eosinophils (%) (Auto) 6 0-10 % Basophils (%) (Auto) 1 0-10 % Neutrophils # (Auto) 8.6 H 1.8-7.8 X 10^3 Lymphocytes # (Auto) 2.5 1.0-4.0 X 10^3 Monocytes # (Auto) 12.0 H 0.0-1.0 X 10^3 Eosinophils # (Auto) 0.7 H 0.0-0.3 10^3/uL Basophils # (Auto) 0.1 0.0-0.1 10^3/uL Erythrocyte Sedimentation Rate 25 0-30 MM/HR Sodium Level 140 135-145 MMOL/L Potassium Level 3.8 3.6-5.0 MMOL/L Chloride Level 106 98-107 MMOL/L Carbon Dioxide Level 22 21-32 MMOL/L Anion Gap 12 5-14 MMOL/L Blood Urea Nitrogen 8 7-18 MG/DL Creatinine 0.72 0.60-1.30 MG/DL Estimat Glomerular Filtration Rate > 60 BUN/Creatinine Ratio 11 Glucose Level 101 70-105 MG/DL Calcium Level 8.5 8.5-10.1 MG/DL Corrected Calcium 8.8 8.5-10.1 MG/DL Total Bilirubin 0.3 0.1-1.0 MG/DL Aspartate Amino Transf (AST/SGOT) 13 5-34 U/L Alanine Aminotransferase (ALT/SGPT) 8 0-55 U/L Alkaline Phosphatase 104 40-136 U/L Troponin I < 0.30 <0.30 NG/ML C-Reactive Protein 0.28 <0.50 MG/DL Total Protein 6.8 6.4-8.2 GM/DL Albumin 3.6 3.2-4.5 GM/DL Micro Results Microbiology 09/05/19 Influenza Types A,B Antigen (AYANA) - Final, Complete My Orders Orders - LUCIAN FELDMAN Chest Pa/Lat (2 View) (09/05/19 09:13) Cbc With Automated Diff (09/05/19 09:13) Comprehensive Metabolic Panel (09/05/19 09:13) Crp Fs (09/05/19 09:13) Erythrocyte Sedimentation Rate (09/05/19 09:13) Influenza A And B Antigens (09/05/19 09:13) Ua Culture If Indicated (09/05/19 09:13) Ed Iv/Invasive Line Start (09/05/19 09:13) Ns Iv 500 Ml (Sodium Chloride 0.9%) (09/05/19 09:13) Pantoprazole Injection (Protonix Injecti (09/05/19 09:15) Ondansetron Injection (Zofran Injectio (09/05/19 09:30) Albuterol Pre-Mix Nebs (Rt) (Proventil (09/05/19 09:18) Svn Small Volume Nebulizer (09/05/19 09:18) Troponin I Fs (09/05/19 09:27) Ekg Tracing (09/05/19 09:27) Continuous Ekg Monitoring (09/05/19 09:27) Urine Culture (09/05/19 09:00) Ceftriaxone For Iv Use (Rocephin For I (09/05/19 10:15) Ns (Ivpb) (Sodium Chloride 0.9% Ivpb Bag (09/05/19 10:31) Ns (Ivpb) (Sodium Chloride 0.9% Ivpb Bag (09/05/19 10:45) Medications Given in ED Current Medications Medications Dose Ordered Sig/Tequila Route Start Time Stop Time Status Last Admin Dose Admin Ceftriaxone Sodium 1000 mg/ Sterile Water 10 ml @ 200 mls/hr ONCE ONCE IV 09/05/19 10:15 09/05/19 10:17 DC 09/05/19 10:20 200 MLS/HR Ondansetron HCl 4 mg ONCE ONCE IVP 09/05/19 09:30 09/05/19 09:31 DC 09/05/19 09:45 4 MG Pantoprazole 40 mg ONCE ONCE IV 09/05/19 09:15 09/05/19 09:16 DC 09/05/19 09:44 40 MG Sodium Chloride 100 ml ONCE ONCE IV 09/05/19 10:45 09/05/19 10:46 DC 09/05/19 10:38 100 ML Sodium Chloride 500 ml @ 0 mls/hr Q0M ONCE IV 09/05/19 09:13 09/05/19 09:16 DC 09/05/19 09:44 999 MLS/HR Vital Signs/I&O 09/05/19 09:00 Temp 36.5 Pulse 96 Resp 16 B/P (MAP) 126/94 (105) Pulse Ox 99 O2 Delivery Room Air Capillary Refill : Progress Note #1: Time: 09:25 Progress Note Plan to give her pantoprazole for her indigestion and since she has a wheeze we'll give her an albuterol treatment get a chest x-ray and some basic labs. Since she's having a headache in her left sikh mildly reproducible to direct tapping we'll check a CRP and ESR to rule out GCA. She seems to be having upper respiratory cold/bronchitis likely viral. Finally she's been having symptoms for 5 days single EKG and troponin should be adequate to rule out acute coronary syndrome. She denies having any chest pain just pressure in her epigastric region that is consistent with her indigestion. If the pantoprazole helps her symptoms then were on the right track. Zofran for her nausea. Echocardiogram Dr. Jackson November 2018: Cavity size is normal wall thickness mildly increased left ventricle and an EF of 55-65%. Grade 1 diastolic dysfunction. Mildly calcified annulus of the mitral valve with mild regurgitation. Aortic valve is thickened, sclerotic. Peak gradient across the aortic valve is 18 mmHg. Progress Note #2: Time: 10:51 Progress Note ESR and CRP are unremarkable. Influenza B with aseptic vital signs and good oxygenation no labored breathing. Breath sounds improved after the albuterol so we'll send her home with a inhaler prescription. We gave her a gram of Rocephin and some fluids and we'll put her on Keflex. We have discussed return precautions. At this time would be reasonable to trial outpatient therapy. Since her symptoms started on Friday, 6 days ago it would be of little value to start Tamiflu. After discussing this plan and the patient is in agreement and will go get her dexilant as well. We'll send some Zofran case she experiences nausea. ECG Initial ECG Impression Date: Sep 05, 2019 Initial ECG Impression Time: 09:30 Initial ECG Rate: 82 Initial ECG Rhythm: Normal Sinus Initial ECG Intervals: Normal Initial ECG Impression: Normal Initial ECG Comparisson: Unchanged Comment No clinically relevant ST elevation or depression noted. Diagnostic Imaging Diagonstic Imaging: Xray Plain Films/CT/US/NM/MRI: chest (2v) Comments NAME: NYIDA KIRK [facility] REC#: [id number] PT STATUS: REG ER : 1945 PHYSICIAN: LUCIAN FELDMAN MD ADMIT DATE: 09/05/19/ER FS Draft POSDate of Exam:09/05/19 CHEST PA/LAT (2 VIEW) INDICATION: Weakness, not feeling well. COMPARISON: 12/18/2018. TECHNIQUE: 2 radiographs of the chest dated 09/05/2019. FINDINGS: Bilateral peripherally calcified breast implants are present. The lungs are clear. No pleural effusion. No pneumothorax. Lungs are mildly hyperinflated. Cardiac silhouette is within normal limits in size. No significant pulmonary vascular congestion. Post surgical changes associated with the left shoulder. No acute osseous abnormality. IMPRESSION: Mild pulmonary hyperinflation. No additional superimposed acute cardiopulmonary abnormality with postsurgical and chronic findings as above. Dictated on workstation # [id number] Dict: 09/05/19 0946 Trans: 09/05/19 0950 [id number] Interpreted by: RASHAD DAVIS MD Electronically signed by: Reviewed: Reviewed by Me Departure Impression Primary Impression: Influenza B Additional Impressions: GERD (gastroesophageal reflux disease) Qualified Codes: K21.0 - Gastro-esophageal reflux disease with esophagitis UTI (urinary tract infection) Qualified Codes: N30.00 - Acute cystitis without hematuria Disposition: HOME, SELF-CARE Condition: Stable Departure-Patient Inst. Decision time for Depature: 10:52 Referrals: MICHAEL ELY MD (PCP/Family) Primary Care Physician Patient Instructions: Urinary Tract Infection, Adult (DC), Flu Add. Discharge Instructions: Drink plenty of fluids. Sports drinks are encouraged. If you have nausea you can use one tablet of ondansetron every 6 hours under the tongue as needed. Tylenol 1000 g every 8 hours as needed for body aches, fever or pain. Ibuprofen 600 mg every 8 hours as needed for body aches, fever or pain. Keflex one capsule twice daily starting tomorrow for the next 5 days for a bladder infection. Humidifiers and vapor rubs such as Vicks or Mentholatum can be helpful. Expect to be sick for one to 2 weeks. If you're having increasing shortness of breath or unable to keep up with your fluid intake or other worrisome symptoms please return to the nearest ER for further evaluation. All discharge instructions reviewed with patient and/or family. Voiced understanding. Scripts Cephalexin (Keflex) 500 Mg Capsule 500 MG PO BID for 5 Days, #10 CAP 0 Refills Prov: LUCIAN FELDMAN 09/05/19 Ondansetron (Ondansetron Odt) 4 Mg Tab.rapdis 4 MG PO Q6H PRN for NAUSEA/VOMITING, #8 TAB 0 Refills Prov: LUCIAN FELDMAN 09/05/19 Work/School Note: Work Release Form Date Seen in the Emergency Department: Sep 05, 2019 Return to Work: Sep 13, 2019 Restrictions: No Restrictions LUCIAN FELDMAN Sep 05, 2019 09:18 POS
[2019-09-05] MEDS ORDERED: ONDANSETRON 4 MG/2 ML (SDV) Z0FRAN IVP ONE (09:30)
--- NOTE | 2019-09-05 09:50 | Diagnostic Imaging Report ---
INDICATION: Weakness, not feeling well. COMPARISON: 12/18/2018. TECHNIQUE: 2 radiographs of the chest dated 09/05/2019. FINDINGS: Bilateral peripherally calcified breast implants are present. The lungs are clear. No pleural effusion. No pneumothorax. Lungs are mildly hyperinflated. Cardiac silhouette is within normal limits in size. No significant pulmonary vascular congestion. Post surgical changes associated with the left shoulder. No acute osseous abnormality. IMPRESSION: Mild pulmonary hyperinflation. No additional superimposed acute cardiopulmonary abnormality with postsurgical and chronic findings as above. Dictated by: Dictated on workstation # [id number]
[2019-09-05 10:06] LABS: HEMATOCRIT 35 % (35-52); HEMOGLOBIN 10.2 G/DL (11.5-16.0); MEAN CORPUSCULAR HEMOGLOBIN 22 PG (25-34); MEAN CORPUSCULAR HGB CONC 30 G/DL (32-36); MEAN CORPUSCULAR VOLUME 74 FL (80-99); MEAN PLATELET VOLUME 9.4 FL (7.4-10.4); PLATELET COUNT 483 10^3/uL (130-400); RED CELL DISTRIBUTION WIDTH 18.8 % (10.0-14.5); WHITE BLOOD COUNT 13.2 10^3/uL (4.3-11.0)
[2019-09-05 10:07] LABS: BASOPHILS # (AUTO) 0.1 10^3/uL (0.0-0.1); BASOPHILS % (AUTO) 1 % (0-10); EOSINOPHILS # (AUTO) 0.7 10^3/uL (0.0-0.3); EOSINOPHILS % (AUTO) 6 % (0-10); LYMPHOCYTES # (AUTO) 2.5 X 10^3 (1.0-4.0); LYMPHOCYTES % (AUTO) 19 % (12-44); MONOCYTES % (AUTO) 9 % (0-12); NEUTROPHILS # (AUTO) 8.6 X 10^3 (1.8-7.8); NEUTROPHILS % (AUTO) 65 % (42-75)
[2019-09-05 10:08] LABS: BILIRUBIN,URINE NEGATIVE (NEGATIVE); CLARITY,URINE CLOUDY; COLOR,URINE YELLOW; GLUCOSE, URINE (UA) NEGATIVE (NEGATIVE); KETONES,URINE NEGATIVE (NEGATIVE); LEUKOCYTE ESTERASE ,URINE 2+ (NEGATIVE); NITRITE,URINE POSITIVE (NEGATIVE); PH,URINE 7.5 (5-9); PROTEIN,URINE NEGATIVE (NEGATIVE); WBC,URINE >100 /HPF
[2019-09-05 10:09] LABS: BACTERIA,URINE LARGE /HPF
[2019-09-05] MEDS ORDERED: cefTRIAXone FOR IV USE 1,000 MG in WATER (STERILE) FOR INJECTION 10 ML IV ONE (10:15)
[2019-09-05 10:21] LABS: ALANINE AMINOTRANSFERASE 8 U/L (0-55); ALKALINE PHOSPHATASE 104 U/L (40-136); BILIRUBIN,TOTAL 0.3 MG/DL (0.1-1.0); BUN/CREATININE RATIO 11; CALCIUM 8.5 MG/DL (8.5-10.1); CARBON DIOXIDE 22 MMOL/L (21-32); CHLORIDE 106 MMOL/L (98-107); CREATININE SERUM 0.72 MG/DL (0.60-1.30); GFR ESTIMATED > 60; GLUCOSE 101 MG/DL (70-105); POTASSIUM 3.8 MMOL/L (3.6-5.0); SODIUM 140 MMOL/L (135-145)
[2019-09-05 10:22] LABS: ALBUMIN 3.6 GM/DL (3.2-4.5); TOTAL PROTEIN 6.8 GM/DL (6.4-8.2)
[2019-09-05] MEDS ORDERED: NS (IVPB) 100 ML ONE (10:31)
[2019-09-05 10:35] LABS: ERYTHROCYTE SEDIMENTATION RATE 25 MM/HR (0-30)
[2019-09-05] MEDS ORDERED: NS 100 ML (IVPB) BAG IV ONE (10:45)
[2019-09-05] MEDS ORDERED: ONDA4TAB11 PO (10:57)
[2019-09-05] MEDS ORDERED: CEPH-507 PO (10:57)
[2019-09-05 11:25] VITALS: BP 124/68
--- NOTE | 2019-09-05 11:25 | NUR ---
Pt discharged to home driven by a neighbor which is an [employer]PER[employer] provider. Pt verbalizes understanding of home instructions and the understanding of expectation of continued illness sx for 1-2 weeks more. Pt is to return to ED if worsening and no longer able to manage at home. Pt's friend is going to drive to [place] to obtain patient's meds at [facility] as pt works there and chosen as her pharmacy. Work note provided off to 09/13/19.
--- OUTSIDE RECORDS SUMMARY | 2019-09-30 18:17 | XMS REPORT | Continuity of Care Document ---
Author Organization Unknown Address Unknown Phone Unavailable Allergies There is no data. Medications There is no data. Problems There is no data. Procedures There is no data. Results There is no data. Encounters ACCT No. Visit Date/Time Discharge Status Pt. Type Provider Facility Loc./Unit Complaint [id number] 09/13/2019 12:00:00 09/13/2019 23:59: 59 CLS Outpatient [facility]
== END 2019-09-05 11:25 | disposition home or self-care (01) ==
LOC: EDUNIT# 08:57 → ER FS 08:58
DX: J10.1 Influenza due to other identified influenza virus with other respiratory manifestations (principal); K21.9 Gastro-esophageal reflux disease without esophagitis; N39.0 Urinary tract infection, site not specified; Z85.038 Personal history of other malignant neoplasm of large intestine; Z86.73 Personal history of transient ischemic attack (TIA), and cerebral infarction without residual deficits; Z79.82 Long term (current) use of aspirin; Z90.710 Acquired absence of both cervix and uterus
CPT/HCPCS: 36415; 71046; 80053; 81000; 84484; 85025; 85652; 86141; 87077; 87088; 87186; 87804; 93005; 96374; 96375

== ENCOUNTER 2020-09-23 07:00 | Observation (INO) | payer MEDICARE ==
[~2020-09-23] VITALS: Ht 152 cm; Wt 46.2 kg
[~2020-09-23 07:00] MED LIST changes: +ACHD5005; +CEPH-507 PO; -HYDR-3812; +ONDA4TAB11 PO; +QUET100T33; -QUET100T69
[2020-09-23] MEDS ORDERED: ONDANSETRON 4 MG/2 ML (SDV) Z0FRAN IVP STA (07:15)
[2020-09-23] MEDS ORDERED: NS IV 1000 ML 1,000 ML IV STA (07:15)
[2020-09-23] MEDS ORDERED: PANTOPRAZOLE 40 MG (PROTONIX) VIAL IV STA (07:17)
--- NOTE | 2020-09-23 07:32 | ED GI ---
General Chief Complaint: Abdominal/GI Problems Stated Complaint: N/V & DIARRHEA Source of Information: Patient, EMS History of Present Illness Date Seen by Provider: Sep 23, 2020 Time Seen by Provider: 07:03 Initial Comments 75 yo female presenting by EMS with complaints of n/v for the last several days. She states that she has a history of bowel obstructions and has a colostomy because of that. She has had decreased output from the colostomy since yesterday. She states that she has not been able to eat or drink anything for the last 2 days. She has not had any nausea medicine. Her primary care provider is in [facility]. She also has had some intermittent chills and subjective fevers. She is chronically incontinent of urine. Allergies and Home Medications Allergies Coded Allergies: No Known Drug Allergies (Unverified , 12/17/18) Home Medications Aspirin 81 Mg Tablet.dr, 81 MG PO DAILY Prescribed by: MYNOR MCCLELLAN on 12/19/18 0905 Cephalexin 500 Mg Capsule, 500 MG PO BID Prescribed by: LUCIAN FELDMAN on 09/05/19 1057 Ondansetron 4 Mg Tab.rapdis, 4 MG PO Q6H PRN for NAUSEA/VOMITING Prescribed by: LUCIAN FELDMAN on 09/05/19 1057 Patient Home Medication List Home Medication List Reviewed: Yes Review of Systems Review of Systems Constitutional: see HPI EENTM: No Symptoms Reported Respiratory: No Symptoms Reported Cardiovascular: No Symptoms Reported Gastrointestinal: See HPI, Abdominal Pain (cramping pain), Nausea, Vomiting, Other (decreased output into the colostomy in last 48 hours) Genitourinary: Burning, Incontinence (chronic) Musculoskeletal: no symptoms reported Skin: no symptoms reported Psychiatric/Neurological: Anxiety, Weakness (general) Past Nmszaqa-Ebwsck-Xwhiiw Hx Past Med/Social Hx: Reviewed Nursing Past Med/Soc Hx Patient Social History Alcohol Use: Denies Use Recreational Drug Use: No Smoking Status: Never a Smoker 2nd Hand Smoke Exposure: No Recent Hopitalizations: No Immunizations Up To Date Tetanus Booster (TDap): Unknown Seasonal Allergies Seasonal Allergies: No Past Medical History Surgeries: Yes (esophagus, colostomy) Abdominal, 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 Respiratory: No Cardiac: Yes (states Murmur but did not f/u with Dr Jackson) 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 Stroke 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 3.2oz. 45.837700wk; 21.00 BMI Method:Stated General Appearance: mild distress, thin HEENT: other (slightly dry mucous membranes) Neck: non-tender, full range of motion, supple Respiratory: chest non-tender, lungs clear, normal breath sounds, no respiratory distress, no accessory muscle use Cardiovascular: normal peripheral pulses, regular rate, rhythm Gastrointestinal: soft, no pulsatile mass, abnormal bowel sounds (decreased), guarding; No rebound; tenderness (diffuse) Rectal: deferred Extremities: normal range of motion, non-tender, normal capillary refill Neurologic/Psychiatric: alert, oriented x 3, other (anxious) Skin: normal color, warm/dry Images 1 - complains of diffuse pain 2 - colostomy present with no output in bag that she reports placing yesterday Focused Exam Lactate Level 09/23/20 07:30: Lactic Acid Level 1.36 Lactic Acid Level Laboratory Tests Test 09/23/20 07:30 Lactic Acid Level 1.36 MMOL/L (0.50-2.00) Progress/Results/Core Measures Results/Orders Lab Results Laboratory Tests Test 09/23/20 07:30 09/23/20 08:05 Range/Units White Blood Count 6.8 4.3-11.0 10^3/uL Red Blood Count 4.63 4.35-5.85 10^6/uL Hemoglobin 10.3 L 11.5-16.0 G/DL Hematocrit 34 L 35-52 % Mean Corpuscular Volume 73 L 80-99 FL Mean Corpuscular Hemoglobin 22 L 25-34 PG Mean Corpuscular Hemoglobin Concent 31 L 32-36 G/DL Red Cell Distribution Width 18.1 H 10.0-14.5 % Platelet Count 367 130-400 10^3/uL Mean Platelet Volume 9.7 7.4-10.4 FL Immature Granulocyte % (Auto) 0 % Neutrophils (%) (Auto) 73 42-75 % Lymphocytes (%) (Auto) 11 L 12-44 % Monocytes (%) (Auto) 14 H 0-12 % Eosinophils (%) (Auto) 1 0-10 % Basophils (%) (Auto) 0 0-10 % Neutrophils # (Auto) 5.0 1.8-7.8 X 10^3 Lymphocytes # (Auto) 0.8 L 1.0-4.0 X 10^3 Monocytes # (Auto) 0.9 0.0-1.0 X 10^3 Eosinophils # (Auto) 0.1 0.0-0.3 10^3/uL Basophils # (Auto) 0.0 0.0-0.1 10^3/uL Immature Granulocyte # (Auto) 0.0 0.0-0.1 10^3/uL Sodium Level 136 135-145 MMOL/L Potassium Level 3.8 3.6-5.0 MMOL/L Chloride Level 101 98-107 MMOL/L Carbon Dioxide Level 25 21-32 MMOL/L Anion Gap 10 5-14 MMOL/L Blood Urea Nitrogen 8 7-18 MG/DL Creatinine 0.70 0.60-1.30 MG/DL Estimat Glomerular Filtration Rate > 60 BUN/Creatinine Ratio 11 Glucose Level 96 70-105 MG/DL Lactic Acid Level 1.36 0.50-2.00 MMOL/L Calcium Level 8.4 L 8.5-10.1 MG/DL Corrected Calcium 8.6 8.5-10.1 MG/DL Total Bilirubin 0.4 0.1-1.0 MG/DL Aspartate Amino Transf (AST/SGOT) 20 5-34 U/L Alanine Aminotransferase (ALT/SGPT) 11 0-55 U/L Alkaline Phosphatase 109 40-136 U/L Total Protein 6.6 6.4-8.2 GM/DL Albumin 3.8 3.2-4.5 GM/DL Lipase 26 8-78 U/L Urine Color YELLOW Urine Clarity CLEAR Urine pH 7.0 5-9 Urine Specific [place] 1.015 L 1.016-1.022 Urine Protein TRACE H NEGATIVE Urine Glucose (UA) NEGATIVE NEGATIVE Urine Ketones NEGATIVE NEGATIVE Urine Nitrite NEGATIVE NEGATIVE Urine Bilirubin NEGATIVE NEGATIVE Urine Urobilinogen 0.2 < = 1.0 MG/DL Urine Leukocyte Esterase NEGATIVE NEGATIVE Urine RBC (Auto) NEGATIVE NEGATIVE Urine RBC NONE /HPF Urine WBC 0-2 /HPF Urine Squamous Epithelial Cells RARE /HPF Urine Crystals NONE /LPF Urine Bacteria NONE /HPF Urine Casts NONE /LPF Urine Mucus SMALL H /LPF Urine Culture Indicated NO My Orders Orders - RIKA DAS MD Comprehensive Metabolic Panel (09/23/20 07:15) Lipase (09/23/20 07:15) Ua Culture If Indicated (09/23/20 07:15) Ed Iv/Invasive Line Start (09/23/20 07:15) Cbc With Automated Diff (09/23/20 07:15) Ns Iv 1000 Ml (Sodium Chloride 0.9%) (09/23/20 07:15) Ondansetron Injection (Zofran Injectio (09/23/20 07:15) Straight Cath For Spec.-Adult (09/23/20 07:16) Pantoprazole Injection (Protonix Injecti (09/23/20 07:17) Ct Abdomen/Pelvis Wo (09/23/20 07:17) Lactic Acid Analyzer (09/23/20 07:32) Fentanyl Injection (Sublimaze Injection (09/23/20 07:38) Metoclopramide Injection (Reglan Injecti (09/23/20 08:12) Diphenhydramine Injection (Benadryl Inje (09/23/20 08:12) Urine Culture (09/23/20 08:05) Vital Signs/I&O 09/23/20 07:23 Temp 38.0 Pulse 70 Resp 20 B/P (MAP) 133/77 (95) Pulse Ox 98 Progress Progress Note #1: Progress Note check labs, urine, CT abd/pelvis to look for obstruction or blockage. Give IVF for hydration, Zofran for nausea since she reports that usually helps her, Fentanyl for pain, Protonix for pain/gastritis. Lactic acid to help look for ischemia Progress Note #2: Time: 08:07 Progress Note Labs show CBC with normal WBC count of 6.8 without left shift. She has chronic anemia with stable Hgb 10.3 and low MCV that appears stable from Aug 2019. Ch emistry and Lactic acid do not show any acute significant abnormality to account for her symptoms. she has no acute significant electrolyte abnormality considering she reports not eating or drinking for 2-3 days due to n/v and not being able to keep anything down. CT scan shows abdominal wall hernia without obstruction. No definite source for obstruction or reason for her to be having n/v. She continues to have n/v after zofran. Can try Reglan with low dose benadryl and see if that does any better. Will see what the urine shows. Progress Note #3: Time: 08:54 Progress Note her urine does not show UTI. Her symptoms are slightly improved after reglan and benadryl. D/w Dr. Varela for hospitalist and he was agreeable to admit as observation stay for hydration, pain control and making sure she tolerates po before discharge home. Consult Dr. Varela from surgery as well in case his assistance is needed since pt has had recurrent obstructions in the past. Diagnostic Imaging Diagonstic Imaging: CT Plain Films/CT/US/NM/MRI: abdomen, pelvis Comments NAME: NYDIA KIRK [facility] REC#: [id number] PT STATUS: REG ER : 1945 PHYSICIAN: RIKA DAS MD ADMIT DATE: 09/23/20/ER FS Draft Date of Exam:09/23/20 CT ABDOMEN/PELVIS WO PROCEDURE: CT abdomen and pelvis without contrast. TECHNIQUE: Multiple contiguous axial images were obtained through the abdomen and pelvis without the use of intravenous contrast. Auto Exposure Controls were utilized during the CT exam to meet ALARA standards for radiation dose reduction. DATE: September 23, 2020. COMPARISON: None. INDICATION: 75-year-old female, nausea and vomiting. Abdominal pain. History of colon cancer. FINDINGS: There are limitations for evaluation of the abdominal organs, neoplastic processes, abscess, and limited evaluation of the vasculature relating to the lack of intravenous contrast. There are bilateral breast implants. The visualized portions of the lung bases are clear. The heart is not enlarged. There is no identified pericardial effusion. There is low-attenuation of the blood pool suggesting anemia. Recommend correlation with laboratory values. The liver is unremarkable in size and contour. The gallbladder is unremarkable. There is no biliary ductal dilation. The main pancreatic duct is not abnormally dilated. Limited noncontrast evaluation of the pancreatic parenchyma is unremarkable. The spleen is normal in size. The adrenal glands are unremarkable. There is mild right hydronephrosis. There is no identified right or left renal or ureteral stone. Urinary bladder is grossly unremarkable in appearance. There are sutures at the level of the distal sigmoid colon. There is a small hiatal hernia. There is an anterior abdominal wall hernia containing segments of bowel without associated obstruction. There is a mildly distended segment of bowel in the right lower quadrant on axial image 64 measuring up to 3.0 cm in diameter. The intestinal tract is otherwise nondistended. There is fecalization of contents in small bowel compatible with slow intestinal transit. There is no free intraperitoneal air. There is no drainable fluid collection. There is no free pelvic fluid. There are atherosclerotic calcifications. There is scoliosis. There are multilevel degenerative changes of the spine. There is grade 1 anterolisthesis of L3 on L4. There is no identified acute bony abnormality. IMPRESSION: CT ABDOMEN AND PELVIS. 1. Anterior abdominal wall hernia containing segments of bowel without associated obstruction. No clear evidence of a bowel obstruction. There is fecalization of contents within small bowel consistent with slow intestinal transit. 2. Mild right hydronephrosis without identified cause of etiology. 3. Small hiatal hernia. Dictated on workstation # [id number] Dict: 09/23/20 0755 Trans: 09/23/20 0806 [facility] [id number] Interpreted by: PRETTY KAM MD Electronically signed by: Departure Communication (Admissions) Time/Spoke to Admitting Phy: 08:54 d/w Dr. Varela about hospitalist admit for observation stay with her having intractable n/v, abdominal pain and decreased colostomy output. He did request surgery consult so will notify Dr. Arias as well. Time/Spoke to Consulting Phy: 08:58 d/w Dr. Arias and advised of consult for patient. Impression Primary Impression: Intractable nausea and vomiting Additional Impression: Diffuse abdominal pain Disposition: 30 STILL A PATIENT Condition: Stable Admissions Decision to Admit Reason: Admit from ER (General) Decision to Admit/Date: Sep 23, 2020 Time/Decision to Admit Time: 08:54 Departure-Patient Inst. Referrals: FELLOWS,MICHAEL Malhotra MD (PCP/Family) Primary Care Physician RIKA DAS MD Sep 23, 2020 07:32
[2020-09-23] MEDS ORDERED: fentaNYL INJECTION 100 MCG/2 ML AMP IVP STA (07:38)
[2020-09-23 07:43] LABS: EOSINOPHILS % (AUTO) 1 % (0-10); HEMATOCRIT 34 % (35-52); HEMOGLOBIN 10.3 G/DL (11.5-16.0); LYMPHOCYTES % (AUTO) 11 % (12-44); MEAN CORPUSCULAR HEMOGLOBIN 22 PG (25-34); MEAN CORPUSCULAR HGB CONC 31 G/DL (32-36); MEAN CORPUSCULAR VOLUME 73 FL (80-99); MEAN PLATELET VOLUME 9.7 FL (7.4-10.4); MONOCYTES % (AUTO) 14 % (0-12); NEUTROPHILS % (AUTO) 73 % (42-75); PLATELET COUNT 367 10^3/uL (130-400); WHITE BLOOD COUNT 6.8 10^3/uL (4.3-11.0)
[2020-09-23 07:44] LABS: BASOPHILS % (AUTO) 0 % (0-10); EOSINOPHILS # (AUTO) 0.1 10^3/uL (0.0-0.3); LYMPHOCYTES # (AUTO) 0.8 X 10^3 (1.0-4.0); MONOCYTES # (AUTO) 0.9 X 10^3 (0.0-1.0)
[2020-09-23 08:02] LABS: ALANINE AMINOTRANSFERASE 11 U/L (0-55); ALBUMIN 3.8 GM/DL (3.2-4.5); ALKALINE PHOSPHATASE 109 U/L (40-136); BILIRUBIN,TOTAL 0.4 MG/DL (0.1-1.0); BUN/CREATININE RATIO 11; CALCIUM 8.4 MG/DL (8.5-10.1); CARBON DIOXIDE 25 MMOL/L (21-32); CHLORIDE 101 MMOL/L (98-107); GFR ESTIMATED > 60; GLUCOSE 96 MG/DL (70-105); LIPASE 26 U/L (8-78); POTASSIUM 3.8 MMOL/L (3.6-5.0); SODIUM 136 MMOL/L (135-145); TOTAL PROTEIN 6.6 GM/DL (6.4-8.2)
--- NOTE | 2020-09-23 08:06 | Diagnostic Imaging Report ---
PROCEDURE: CT abdomen and pelvis without contrast. TECHNIQUE: Multiple contiguous axial images were obtained through the abdomen and pelvis without the use of intravenous contrast. Auto Exposure Controls were utilized during the CT exam to meet ALARA standards for radiation dose reduction. DATE: September 23, 2020. COMPARISON: None. INDICATION: 75-year-old female, nausea and vomiting. Abdominal pain. History of colon cancer. FINDINGS: There are limitations for evaluation of the abdominal organs, neoplastic processes, abscess, and limited evaluation of the vasculature relating to the lack of intravenous contrast. There are bilateral breast implants. The visualized portions of the lung bases are clear. The heart is not enlarged. There is no identified pericardial effusion. There is low-attenuation of the blood pool suggesting anemia. Recommend correlation with laboratory values. The liver is unremarkable in size and contour. The gallbladder is unremarkable. There is no biliary ductal dilation. The main pancreatic duct is not abnormally dilated. Limited noncontrast evaluation of the pancreatic parenchyma is unremarkable. The spleen is normal in size. The adrenal glands are unremarkable. There is mild right hydronephrosis. There is no identified right or left renal or ureteral stone. Urinary bladder is grossly unremarkable in appearance. There are sutures at the level of the distal sigmoid colon. There is a small hiatal hernia. There is an anterior abdominal wall hernia containing segments of bowel without associated obstruction. There is a mildly distended segment of bowel in the right lower quadrant on axial image 64 measuring up to 3.0 cm in diameter. The intestinal tract is otherwise nondistended. There is fecalization of contents in small bowel compatible with slow intestinal transit. There is no free intraperitoneal air. There is no drainable fluid collection. There is no free pelvic fluid. There are atherosclerotic calcifications. There is scoliosis. There are multilevel degenerative changes of the spine. There is grade 1 anterolisthesis of L3 on L4. There is no identified acute bony abnormality. IMPRESSION: CT ABDOMEN AND PELVIS. 1. Anterior abdominal wall hernia containing segments of bowel without associated obstruction. No clear evidence of a bowel obstruction. There is fecalization of contents within small bowel consistent with slow intestinal transit. 2. Mild right hydronephrosis without identified cause of etiology. 3. Small hiatal hernia. Dictated by: Dictated on workstation # [id number]
[2020-09-23] MEDS ORDERED: diphenhydrAMINE 50 MG/ML INJ (BENADRYL) IVP STA (08:12)
[2020-09-23] MEDS ORDERED: METOCLOPRAMIDE INJ 10 MG/2 ML (REGLAN) IVP STA (08:12)
[2020-09-23 08:13] LABS: BILIRUBIN,URINE NEGATIVE (NEGATIVE); CLARITY,URINE CLEAR; COLOR,URINE YELLOW; GLUCOSE, URINE (UA) NEGATIVE (NEGATIVE); KETONES,URINE NEGATIVE (NEGATIVE); LEUKOCYTE ESTERASE ,URINE NEGATIVE (NEGATIVE); NITRITE,URINE NEGATIVE (NEGATIVE); PROTEIN,URINE TRACE (NEGATIVE); SQUAMOUS EPITHELIAL CELL,UR RARE /HPF; WBC,URINE 0-2 /HPF
--- NOTE | 2020-09-23 10:30 | NUR ---
NYDIA KIRK admitted to room 424-1, with an admitting diagnosis of N/V AB AIN, on 09/23/20 from ED via AMBULANCE, accompanied by EMS.NYDIA KIRK introduced to surroundings, call light, bed controls, phone, TV, temperature control, lights, meal times, smoking policy, visitor policy, side rail policy, bathrooms and showers. Patient Rights given to patient in the handbook. NYDIA KIRK verbalizes understanding that [facility] is not responsible for the loss or damage to any personal effects or valuables that are kept in the patients posession during their hospitalization.
[2020-09-23] MEDS ORDERED: METOCLOPRAMIDE INJ 10 MG/2 ML (REGLAN) ONE (10:38)
[2020-09-23] MEDS ORDERED: fentaNYL INJECTION 100 MCG/2 ML AMP ONE (10:55)
[2020-09-23 10:56] VITALS: BP 163/88
[2020-09-23] MEDS ORDERED: fentaNYL INJECTION 100 MCG/2 ML AMP IVP PRN (11:15)
--- NOTE | 2020-09-23 11:26 | Consultation - Surgery ---
History of Present Illness History of Present Illness Patient Consulted On(ree/time) 09/23/20 11:19 Time Seen by Provider: 10:28 History of Present Illness Surgery asked to consult regarding PSBO, abd pain, intractable N/V. HPI per ED: 75 yo female presenting by EMS with complaints of n/v for the last several days. She states that she has a history of bowel obstructions and has a colostomy because of that. She has had decreased output from the colostomy since yesterday. She states that she has not been able to eat or drink anything for the last 2 days. She has not had any nausea medicine. Her primary care provider is in [facility]. She also has had some intermittent chills and subjective fevers. She is chronically incontinent of urine. When I saw pt she had just gotten to the floor and she was writhing in pain, getting up to walk and move because it was so bad. She described a 10 out of 10 pain, sharp and crampy all over her abdomen. She has hx of intestinal resection 6 yrs ago for perforation; but can't tell me what perforated. She states 2weeks after that she went back in for surgery; "for herniation". She states she gets occasional bowel obstructions but it has been more than 2 years "at least" that she has needed to be hospitalized for one. She denies any abdominal surgery since the last one 6 years ago. She was told she could not get reversal of the ostomy, she is unsure exactly what intestine was removed. She states small and large intestine removed. Pt states this episode started with N/V and pain at around the same time, she also had diarrhea for a few days and now hasn't had any output in her bag for a day or so. Allergies and Home Medications Allergies Coded Allergies: No Known Drug Allergies (Unverified , 12/17/18) Home Medications Aspirin 81 Mg Tablet.dr, 81 MG PO DAILY Prescribed by: MYNOR MCCLELLAN on 12/19/18 0905 Cephalexin 500 Mg Capsule, 500 MG PO BID Prescribed by: LUCIAN FELDMAN on 09/05/19 1057 Ondansetron 4 Mg Tab.rapdis, 4 MG PO Q6H PRN for NAUSEA/VOMITING Prescribed by: LUCIAN FELDMAN on 09/05/19 1057 Patient Home Medication List Home Medication List Reviewed: Yes Past Qcjcncs-Rbhled-Cpjjzr Hx Patient Social History Alcohol Use: Denies Use Recreational Drug Use: No Smoking Status: Never a Smoker 2nd Hand Smoke Exposure: No Recent Foreign Travel: No Contact w/Someone Who Travel: No Recent Infectious Disease Expo: No Recent Hopitalizations: No Immunizations Up To Date Tetanus Booster (TDap): Unknown Seasonal Allergies Seasonal Allergies: No Surgeries History of Surgeries: Yes (esophagus, colostomy) Surgeries: Abdominal, 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 Respiratory History of Respiratory Disorde: No Cardiovascular History of Cardiac Disorders: Yes (states Murmur but did not f/u with Dr Jackson) Neurological History of Neurological Disord: Yes Neurological Disorders: Stroke 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: 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 Genitourinary History of Genitourinary Disor: Yes (incontinent of urine, can't control when it occurs and wears "a pad") Gastrointestinal History of Gastrointestinal Di: Yes (Colostomy) Gastrointestinal Disorders: Gastroesophageal Reflux, Obstructive Bowel, Esophagitis, Hiatal Hernia Musculoskeletal History of Musculoskeletal Dis: Yes Musculoskeletal Disorders: Arthritis Endocrine History of Endocrine Disorders: No HEENT History of HEENT Disorders: Yes (detached retina x3-surgeries x 5) Hearing Impairment: Denies Cancer History of Cancer: Yes Cancer: Colon Psychosocial History of Psychiatric Problem: Yes Behavioral Health Disorders: Anxiety, Depression Integumentary History of Skin or Integumenta: No Blood Transfusions History of Blood Disorders: No Family Medical History Significant Family History: Heart Disease (Mother - thinks she of CAD), Cancer (Father - lung and colon) Review of Systems-General Constitutional: malaise, weakness EENTM: No blurred vision, No mouth pain, No mouth swelling, No epistaxis, No throat swelling Respiratory: No cough, No dyspnea on exertion, No hemoptysis, No phlegm Cardiovascular: No edema, No palpitations Gastrointestinal: abdominal pain; No hematemesis, No jaundice; loss of appetite, nausea, vomiting Genitourinary: No dysuria, No hematuria; incontinence Musculoskeletal: joint pain, joint swelling, muscle pain, muscle stiffness Skin: No change in color, No change in hair/nails Psychiatric/Neurological: Anxiety, Depressed; Denies Seizure, Denies Tremors Other Pt denies any hx of abnormal bleeding or bruising Physical Exam-General Problems Physical Exam Vital Signs Vital Signs - First Documented 09/23/20 09/23/20 07:23 10:56 Temp 38.0 Pulse 70 Resp 20 B/P (MAP) 133/77 (95) Pulse Ox 98 O2 Delivery Room Air Capillary Refill : Less Than 3 Seconds General Appearance: severe distress Eyes: Bilateral Eye PERRL, Bilateral Eye EOMI HEENT: pharynx normal; No scleral icterus (R), No scleral icterus (L); other (edentulous) Neck: non-tender, supple Respiratory: lungs clear, normal breath sounds, no respiratory distress, no accessory muscle use Cardiovascular: regular rate, rhythm, no murmur Gastrointestinal: abnormal bowel sounds, guarding (voluntary), rebound, tenderness (diffusely), other (ostomy is pink, no fxn) Back: no CVA tenderness, no vertebral tenderness Extremities: no pedal edema, no calf tenderness, normal capillary refill Neurologic/Psychiatric: 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 room supervisor II-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 nml as tested, alert, oriented x 3 Skin: normal color, warm/dry Lymphatic: no adenopathy (neck, axilla or groin) Data Review Labs Laboratory Tests 09/23/20 07:30: White Blood Count 6.8, Red Blood Count 4.63, Hemoglobin 10.3L, Hematocrit 34L, Mean Corpuscular Volume 73L, Mean Corpuscular Hemoglobin 22L, Mean Corpuscular Hemoglobin Concent 31L, Red Cell Distribution Width 18.1H, Platelet Count 367, Mean Platelet Volume 9.7, Immature Granulocyte % (Auto) 0, Neutrophils (%) (Auto) 73, Lymphocytes (%) (Auto) 11L, Monocytes (%) (Auto) 14H, Eosinophils (%) (Auto) 1, Basophils (%) (Auto) 0, Neutrophils # (Auto) 5.0, Lymphocytes # (Auto) 0.8L, Monocytes # (Auto) 0.9, Eosinophils # (Auto) 0.1, Basophils # (Auto) 0.0, Immature Granulocyte # (Auto) 0.0, Sodium Level 136, Potassium Level 3.8, Chloride Level 101, Carbon Dioxide Level 25, Anion Gap 10, Blood Urea Nitrogen 8, Creatinine 0.70, Estimat Glomerular Filtration Rate > 60, BUN/Creatinine Ratio 11, Glucose Level 96, Lactic Acid Level 1.36, Calcium Level 8.4L, Corrected Calcium 8.6, Total Bilirubin 0.4, Aspartate Amino Transf (AST/SGOT) 20, Alanine Aminotransferase (ALT/SGPT) 11, Alkaline Phosphatase 109, Total Protein 6.6, Albumin 3.8, Lipase 26 09/23/20 08:05: Urine Color YELLOW, Urine Clarity CLEAR, Urine pH 7.0, Urine Specific [place] 1.015L, Urine Protein TRACEH, Urine Glucose (UA) NEGATIVE, Urine Ketones NEGATIVE, Urine Nitrite NEGATIVE, Urine Bilirubin NEGATIVE, Urine Urobilinogen 0.2, Urine Leukocyte Esterase NEGATIVE, Urine RBC (Auto) NEGATIVE, Urine RBC NONE, Urine WBC 0-2, Urine Squamous Epithelial Cells RARE, Urine Crystals NONE, Urine Bacteria NONE, Urine Casts NONE, Urine Mucus SMALLH, Urine Culture Indicated NO Radiology Date of Exam:09/23/20 CT ABDOMEN/PELVIS WO PROCEDURE: CT abdomen and pelvis without contrast. TECHNIQUE: Multiple contiguous axial images were obtained through the abdomen and pelvis without the use of intravenous contrast. Auto Exposure Controls were utilized during the CT exam to meet ALARA standards for radiation dose reduction. DATE: September 23, 2020. COMPARISON: None. INDICATION: 75-year-old female, nausea and vomiting. Abdominal pain. History of colon cancer. FINDINGS: There are limitations for evaluation of the abdominal organs, neoplastic processes, abscess, and limited evaluation of the vasculature relating to the lack of intravenous contrast. There are bilateral breast implants. The visualized portions of the lung bases are clear. The heart is not enlarged. There is no identified pericardial effusion. There is low-attenuation of the blood pool suggesting anemia. Recommend correlation with laboratory values. The liver is unremarkable in size and contour. The gallbladder is unremarkable. There is no biliary ductal dilation. The main pancreatic duct is not abnormally dilated. Limited noncontrast evaluation of the pancreatic parenchyma is unremarkable. The spleen is normal in size. The adrenal glands are unremarkable. There is mild right hydronephrosis. There is no identified right or left renal or ureteral stone. Urinary bladder is grossly unremarkable in appearance. There are sutures at the level of the distal sigmoid colon. There is a small hiatal hernia. There is an anterior abdominal wall hernia containing segments of bowel without associated obstruction. There is a mildly distended segment of bowel in the right lower quadrant on axial image 64 measuring up to 3.0 cm in diameter. The intestinal tract is otherwise nondistended. There is fecalization of contents in small bowel compatible with slow intestinal transit. There is no free intraperitoneal air. There is no drainable fluid collection. There is no free pelvic fluid. There are atherosclerotic calcifications. There is scoliosis. There are multilevel degenerative changes of the spine. There is grade 1 anterolisthesis of L3 on L4. There is no identified acute bony abnormality. IMPRESSION: CT ABDOMEN AND PELVIS. 1. Anterior abdominal wall hernia containing segments of bowel without associated obstruction. No clear evidence of a bowel obstruction. There is fecalization of contents within small bowel consistent with slow intestinal transit. 2. Mild right hydronephrosis without identified cause of etiology. 3. Small hiatal hernia. Dictated by: Dictated on workstation # [id number] Dict: 09/23/20 0755 Trans: 09/23/20 0851 [facility] [id number] Interpreted by: PRETTY KAM MD Electronically signed by: PRETTY KAM MD 09/23/20 0851 Assessment/Plan Assessment/Plan Assessment/Plan PSBO Abdominal pain Nausea and Vomiting Arthritis Anxiety and Depression Parastomal hernia Pt appears to be in distress secondary to the pain; did get some relief with pain meds. I spoke with ER physician and IM/Hospitalist regarding her case; I also went over the CT myself and saw the anastomoses and parastomal hernias. She has small bowel and large bowel in the hernia. There is a lot of stool in the colon with fecalization into small intestine. Pt needs pain relief, anti-emetics, IV fluids and will order a SBFT to make sure there is not a complete obstruction. I am also trying to get old Op reports sent to us from [facility] and may try to get initial Op report; however, she was not sure which hospital in [place] it was done at....."maybe [facility]". Will keep her NPO for now, encouraged to ambulate and take deep breaths. Ok to start home meds for anxiety and depression. We did talk a little about possible surgery and even in the future reversal of colostomy; need to get all reports and info first for possible reversal. LONA SY DO Sep 23, 2020 11:25
--- NOTE | 2020-09-23 11:59 | NUR ---
PT HAVING SEVERE AB PAIN WHEN SHE CAME TO FLOOR. EMS REPORTED THAT [facility]GL[facility] WORKED THE BEST FOR HER. THIS RN ADMIN BEFORE TIME DUE. DR SY AWARE, IN ROOM AT THE TIME I ADMIN MED.
[2020-09-23] MEDS ORDERED: DIATRIZOATE MEGLUM/SODIUM 37% 120 ML (GASTROGRAFIN) PO ONE (12:00)
[2020-09-23 12:05] VITALS: BP 152/94
[2020-09-23] MEDS ORDERED: LORazepam INJ 2 MG/ML (ATIVAN) VIAL IVP PRN (12:15)
[2020-09-23] MEDS ORDERED: ONDANSETRON 4 MG/2 ML (SDV) Z0FRAN ONE (12:16)
[2020-09-23] MEDS: HYDROmorphone 2 MG/ML VIAL (DILAUDID) IV PRN ×3 (12:39→20:19)
[2020-09-23] MEDS ORDERED: METOCLOPRAMIDE INJ 10 MG/2 ML (REGLAN) IVP PRN (14:00)
[2020-09-23] MEDS ORDERED: diphenhydrAMINE 50 MG/ML INJ (BENADRYL) IVP PRN (14:00)
--- NOTE | 2020-09-23 14:14 | History & Physical-Hospitalist ---
History of Present Illness HPI/Chief Complaint Loan Acevedo is a 75 year old female with PMH bowel resection, colostomy in place, depression, anxiety, who presented with nausea and vomiting. Upon my examination, she is writhing in pain. She is having diffuse abdominal pain. She has to get up to move around the room because it is so bad. She has a history of bowel resection and colostomy. She reports that she had two different surgeries for bowel resections. She says they were unable to reverse her colostomy for unclear reasons. She has been having decreased ostomy output. She has reportedly been having fevers and chills. She did not report any shortness of breath or cough. Source: patient Exam Limitations: no limitations Date Seen 09/23/20 Time Seen by a Provider: 10:45 Attending Physician Peri Bagley MD PCP Goltry,Bertha Malhotra MD Referring Physician Date of Admission Sep 23, 2020 at 08:54 Home Medications & Allergies Home Medications Reviewed patient Home Medication Reconciliation performed by pharmacy medication reconciliations installation and repair technician and/or nursing. Patients Allergies have been reviewed. Allergies Allergies Coded Allergies No Known Drug Allergies (Unverified12/17/18) Past Ireoqmh-Zxapfr-Vencuv Hx Past Med/Social Hx: Reviewed Nursing Past Med/Soc Hx Patient Social History Alcohol Use: Denies Use Recreational Drug Use: No Smoking Status: Never a Smoker 2nd Hand Smoke Exposure: No Recent Foreign Travel: No Contact w/other who traveled: No Recent Hopitalizations: No Recent Infectious Disease Expo: No Immunizations Up To Date Tetanus Booster (TDap): Unknown Seasonal Allergies Seasonal Allergies: No Past Medical History Surgeries: Abdominal, 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 Neurological: Stroke 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 Gastrointestinal: Gastroesophageal Reflux, Obstructive Bowel, Esophagitis, Hiatal Hernia Musculoskeletal: Arthritis Hearing Impairment: Denies Cancer: Colon What Type of Treatment Did You: Surgical Intervention Psychosocial: Anxiety, Depression History of Blood Disorders: No Family History Heart Disease (Mother - thinks she of CAD), Cancer (Father - lung and colon) Review of Systems Constitutional: chills, fever EENTM: no symptoms reported Respiratory: no symptoms reported Cardiovascular: no symptoms reported Gastrointestinal: abdominal pain, nausea, vomiting, other (decreased ostomy output) Genitourinary: incontinence Musculoskeletal: no symptoms reported Skin: no symptoms reported Psychiatric/Neurological: No Symptoms Reported Physical Exam Physical Exam Vital Signs Vital Signs - First Documented 09/23/20 09/23/20 07:23 10:56 Temp 38.0 Pulse 70 Resp 20 B/P (MAP) 133/77 (95) Pulse Ox 98 O2 Delivery Room Air Capillary Refill : Less Than 3 Seconds Height, Weight, BMI Height: 5'0.00" Weight: 100lbs. 3.2oz. [id number]; 19.99 BMI Method:Stated General Appearance: Severe Distress (uncomfortable, writhing in pain) HEENT: PERRL/EOMI, Pharynx Normal Neck: Normal Inspection, Supple Respiratory: Lungs Clear, Normal Breath Sounds, No Respiratory Distress Cardiovascular: Regular Rate, Rhythm, No Edema, No Murmur Gastrointestinal: Normal Bowel Sounds, Soft, Tenderness, Other (colostomy in place) Extremity: Normal Inspection, Non Tender, No Pedal Edema Neurologic/Psychiatric: Alert, No Motor/Sensory Deficits, Normal Mood/Affect Results Results/Procedures Labs Laboratory Tests 09/23/20 07:30 Patient resulted labs reviewed. Imaging: Reviewed Imaging Report Assessment/Plan Admission Diagnosis Intractable nausea and vomiting Admission Status: Observation Assessment and Plan Intractable nausea and vomiting Abdominal pain History of small bowel obstruction History of bowel resection Colostomy in place General surgery consulted, appreciate assistance CT without evidence of obstruction Small bowel follow through negative for obstruction Pain regimen Antiemetics Fever COVID-19 COVID SUHA positive Obtain chest xray No respiratory symptoms at this time Microcytic anemia Hgb 10 Check iron studies Depression Anxiety GERD Chronic steroid use Continue home meds DVT prophylaxis: Lovenox Diagnosis/Problems Diagnosis/Problems (1) Intractable nausea and vomiting Status: Acute (2) Diffuse abdominal pain Status: Acute (3) Colostomy in place Status: Chronic (4) History of small bowel obstruction Status: Chronic (5) History of bowel resection Status: Chronic (6) COVID-19 Status: Acute (7) Fever Status: Acute (8) GERD (gastroesophageal reflux disease) Status: Chronic (9) Chronic steroid use Status: Chronic (10) Anxiety and depression Status: Chronic (11) Anemia Status: Acute PERI BAGLEY MD Sep 23, 2020 14:14
[2020-09-23] MEDS ORDERED: LORazepam 0.5 MG (ATIVAN) TABLET PO PRN (14:15)
[2020-09-23] MEDS ORDERED: PATIENT MAY USE OWN MED,SINGLE MED PO SCH (14:45)
[2020-09-23] MEDS: LACTATED RINGERS 1,000 ML IV SCH (15:49)
--- NOTE | 2020-09-23 16:21 | NUR ---
PT CAME TO HOSPITAL WITH INTRACTABLE N/V, LACK OF APPETITE, HEADACHE, BODY ACHES AND RN WAS TOLD SHE WORKED AT [facility] WITH THE PUBLIC. THIS RN ASKED LEONELA ESQUIVEL RN AT ED BEFORE TRANSFER IF SHE HAD BEEN TESTED FOR COVID AND THEY HAD NOT D/T NO TESTING AVAILABLE IN ED. RN ADMITTED PT AND ASKED DR BAGLEY IF WE COULD RAPID TEST HER D/T WORKING AT [facility] AND THE LATTER SYMPTOMS LISTED ABOVE. PT ALSO HAD LOW GRADE FEVER AT 100.4 F AT ED AND HAD COME DOWN TO 98.8 BEFORE TRANSFER. PT DOES HAVE LOTS OF ABD PAIN ALONG WITH HEADACHE. RAPID COVID WAS DONE BY THIS RN AND COMPA CALLED ME AT 1545 TO LET ME KNOW THAT PT WAS IN FACT POSITIVE FOR COVID. EMERGENCY CONTACT, OSCAR ANTHONY, NOTIFIED ALONG WITH MATERIAL HANDLER, PHARMACY, DR BAGLEY AND DR SY. SHE WILL BE TRANSFERRED TO ROOM 424. 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
[2020-09-23 16:30] VITALS: BP 107/68
[2020-09-23] MEDS: DEXLANSOPRAZOLE 60 MG PO SCH (17:00)
--- NOTE | 2020-09-23 17:38 | Diagnostic Imaging Report ---
Exam: Small bowel follow-through exam. Date: September 23, 2020. Indication: 75-year-old female, nausea and vomiting. History of bowel obstruction. Abdominal pain. History of colon cancer. Comparison: CT abdomen pelvis September 23, 2020. Findings: Patient swallowed contrast material by mouth. Subsequent images were serially obtained. There is contrast in the distal esophagus which could relate to slow passage of administered contrast material and/or gastroesophageal reflux. There is a small hiatal hernia present. There is prompt passage of contrast from the stomach into small bowel. There are mildly dilated segments of small bowel in the pelvis measuring up to an estimated 2.8 cm in diameter. There is passage of contrast into the colon by 2 hours. Impression: 1. Contrast extending into the colon by 2 hours excluding a complete small bowel obstruction. 2. Mildly dilated segments of small bowel in the pelvis measuring up to roughly 3 cm in diameter. Dictated by: Dictated on workstation # [id number]
[2020-09-23] MEDS ORDERED: ENOXAPARIN 30 MG/0.3 ML (LOVENOX) SYR SC SCH (18:00)
--- NOTE | 2020-09-23 18:30 | Diagnostic Imaging Report ---
EXAMINATION: Chest 1 view. HISTORY: Covid positive. COMPARISON: 09/05/2019. FINDINGS: Calcified breast implants are present. No pleural effusion or pneumothorax. No edema or pneumonia. Heart size is normal. IMPRESSION: Clear lungs. Dictated by: Dictated on workstation # [id number]
[2020-09-23] MEDS ORDERED: ENOXAPARIN 30 MG/0.3 ML (LOVENOX) SYR ONE (19:57)
[2020-09-23 20:04] VITALS: BP 136/75
[2020-09-23] MEDS: ONDANSETRON 4 MG/2 ML (SDV) Z0FRAN IVP PRN (20:19)
[2020-09-23] MEDS ORDERED: QUEtiapine 100 MG (SEROquel) TAB IMMEDIATE RELEASE PO SCH (21:00)
[2020-09-23] MEDS: ACETAMINOPHEN 325 MG TABLET PO PRN (21:46)
[2020-09-23 23:33] VITALS: BP 82/58
[2020-09-23 23:52] VITALS: BP 85/53
[2020-09-24] MEDS: LACTATED RINGERS 1,000 ML IV SCH ×2 (01:53→13:21)
[2020-09-24] MEDS: ACETAMINOPHEN 325 MG TABLET PO PRN (01:54)
[2020-09-24 04:35] VITALS: BP 110/57
[2020-09-24 06:06] LABS: BASOPHILS % (AUTO) 0 % (0-10); EOSINOPHILS % (AUTO) 1 % (0-10); HEMATOCRIT 29 % (35-52); HEMOGLOBIN 8.4 g/dL (11.5-16.0); LYMPHOCYTES # (AUTO) 1.3 10^3/uL (1.0-4.0); LYMPHOCYTES % (AUTO) 25 % (12-44); MEAN CORPUSCULAR HEMOGLOBIN 22 pg (25-34); MEAN CORPUSCULAR HGB CONC 29 g/dL (32-36); MEAN CORPUSCULAR VOLUME 76 fL (80-99); MEAN PLATELET VOLUME 10.3 fL (9.0-12.2); MONOCYTES # (AUTO) 0.9 10^3/uL (0.0-1.0); MONOCYTES % (AUTO) 18 % (0-12); NEUTROPHILS # (AUTO) 2.9 10^3/uL (1.8-7.8); NEUTROPHILS % (AUTO) 56 % (42-75); PLATELET COUNT 221 10^3/uL (130-400); WHITE BLOOD COUNT 5.2 10^3/uL (4.3-11.0)
[2020-09-24 06:18] LABS: CHLORIDE 105 MMOL/L (98-107); POTASSIUM 3.8 MMOL/L (3.6-5.0); SODIUM 136 MMOL/L (135-145)
[2020-09-24 06:20] LABS: CALCIUM 7.7 MG/DL (8.5-10.1)
[2020-09-24 06:21] LABS: GLUCOSE 103 MG/DL (70-105); TOTAL PROTEIN 5.5 GM/DL (6.4-8.2)
[2020-09-24 06:22] LABS: CARBON DIOXIDE 21 MMOL/L (21-32)
[2020-09-24 06:23] LABS: BILIRUBIN,TOTAL 0.6 MG/DL (0.1-1.0)
[2020-09-24 06:24] LABS: ALKALINE PHOSPHATASE 70 U/L (40-136); CREATININE SERUM 0.75 MG/DL (0.60-1.30); GFR ESTIMATED > 60
[2020-09-24 06:25] LABS: BUN/CREATININE RATIO 21
[2020-09-24 06:27] LABS: ALANINE AMINOTRANSFERASE 32 U/L (0-55)
[2020-09-24] MEDS ORDERED: predniSONE 5 MG TAB PO SCH (07:00)
[2020-09-24 08:00] VITALS: BP 99/54
[2020-09-24] MEDS: DEXLANSOPRAZOLE 60 MG PO SCH (08:40)
--- NOTE | 2020-09-24 11:26 | Progress Note - Surgery ---
Subjective Time Seen by a Provider: 09:13 Subjective/Events-last exam Pt seen and examined, states she feels much better than yesterday. Still has some abdominal pain, but is having output in ostomy bag. Review of Systems General: No Night Sweats; Fatigue, Malaise Pulmonary: No Dyspnea, No Cough Cardiovascular: No: Chest Pain, Palpitations Gastrointestinal: Nausea, Abdominal Pain; No: Vomiting Focused Exam Lactate Level 09/23/20 07:30: Lactic Acid Level 1.36 Objective Exam Vital Signs Date Time Temp Pulse Resp B/P (MAP) Pulse Ox O2 Delivery O2 Flow Rate FiO2 09/24/20 08:00 Room Air 09/24/20 08:00 36.2 64 16 99/54 (69) 96 Nasal Cannula 2.00 09/24/20 04:35 36.3 60 20 110/57 (74) 97 Nasal Cannula 2.00 09/24/20 03:00 36.8 09/24/20 01:54 37.6 09/23/20 23:52 82 20 85/53 (64) 93 Nasal Cannula 2.00 09/23/20 23:33 38.5 80 19 82/58 (66) 92 Nasal Cannula 2.00 09/23/20 22:29 37.3 09/23/20 21:46 38.0 09/23/20 20:19 92 Room Air 09/23/20 20:04 38.0 73 22 136/75 (95) 92 Room Air 09/23/20 16:30 37.5 79 20 107/68 (81) 92 Room Air 09/23/20 12:05 37.0 90 18 152/94 (113) 98 Room Air I & O 09/24/20 07:00 Intake Total 1660 ml Output Total 850 ml Balance 810 ml Capillary Refill : Less Than 3 Seconds General Appearance: Mild Distress HEENT: PERRL/EOMI, Pharynx Normal Respiratory: Lungs Clear, Normal Breath Sounds, No Respiratory Distress Cardiovascular: Regular Rate, Rhythm, No Murmur Gastrointestinal: abnormal bowel sounds, guarding (voluntary), rebound, tenderness (diffusely but mild and much better than yesterday), other (ostomy is pin and fxn today) Extremity: Non Tender, No Pedal Edema Neurologic/Psychiatric: Alert Results Lab Laboratory Tests 09/23/20 15:14: Coronavirus 2019 (SUHA) PositiveH 09/24/20 05:31: White Blood Count 5.2, Red Blood Count 3.83, Hemoglobin 8.4L, Hematocrit 29L, Mean Corpuscular Volume 76L, Mean Corpuscular Hemoglobin 22L, Mean Corpuscular Hemoglobin Concent 29L, Red Cell Distribution Width 17.8H, Platelet Count 221, Mean Platelet Volume 10.3, Immature Granulocyte % (Auto) 0, Neutrophils (%) (Auto) 56, Lymphocytes (%) (Auto) 25, Monocytes (%) (Auto) 18H, Eosinophils (%) (Auto) 1, Basophils (%) (Auto) 0, Neutrophils # (Auto) 2.9, Lymphocytes # (Auto) 1.3, Monocytes # (Auto) 0.9, Eosinophils # (Auto) 0.0, Basophils # (Auto) 0.0, Immature Granulocyte # (Auto) 0.0, Sodium Level 136, Potassium Level 3.8, Chloride Level 105, Carbon Dioxide Level 21, Anion Gap 10, Blood Urea Nitrogen 16, Creatinine 0.75, Estimat Glomerular Filtration Rate > 60, BUN/Creatinine Ratio 21, Glucose Level 103, Calcium Level 7.7L, Corrected Calcium 8.5, Total Bilirubin 0.6, Aspartate Amino Transf (AST/SGOT) 24, Alanine Aminotransferase (ALT/SGPT) 32, Alkaline Phosphatase 70, Total Protein 5.5L, Albumin 3.0L 09/24/20 05:35: D-Dimer 0.67H, C-Reactive Protein High Sensitivity 3.55H Assessment/Plan Assessment/Plan Assessment/Plan PSBO - resolved Abdominal pain -improving Nausea and Vomiting -resolved Arthritis Anxiety and Depression Parastomal hernia Covid-19 positive Pt appears to be much better today with minimal pain. SBFT showed no obstruction. I am still trying to get old Op reports sent to us from [facility] and may try to get initial Op report; however, she was not sure which hospital in it was done at....."maybe [facility]". She is on diet as tolerated, encouraged to ambulate and take deep breaths. Ok to start home meds for anxiety and depression. I told her to f/u as outpt regarding future reversal of colostomy; need to get all reports and info first for possible reversal. Clinical Quality Measures DVT/VTE Risk/Contraindication: Risk Factor Score Per Nursin RFS Level Per Nursing on Admit: 4+=Very High LONA SY DO Sep 24, 2020 11:26
[2020-09-24 12:00] VITALS: BP 102/57
[2020-09-24] MEDS: HYDROmorphone 2 MG/ML VIAL (DILAUDID) IV PRN (12:26)
[2020-09-24] MEDS: ONDANSETRON 4 MG/2 ML (SDV) Z0FRAN IVP PRN (12:26)
--- NOTE | 2020-09-24 12:50 | Discharge Summary ---
Discharge Summary Hospital Course Was the Problem List Reviewed?: Yes Problems/Dx: (1) Intractable nausea and vomiting Status: Acute (2) Diffuse abdominal pain Status: Acute (3) Colostomy in place Status: Chronic (4) History of small bowel obstruction Status: Chronic (5) History of bowel resection Status: Chronic (6) COVID-19 Status: Acute (7) Fever Status: Acute (8) GERD (gastroesophageal reflux disease) Status: Chronic (9) Chronic steroid use Status: Chronic (10) Anxiety and depression Status: Chronic (11) Anemia Status: Acute Hospital Course Date of Admission: Sep 23, 2020 at 08:54 Admission Diagnosis: intractable nausea and vomiting, abdominal pain Family Physician/Provider: Bertha Alexander MD Date of Discharge: 09/24/20 Discharge Diagnosis: COVID-19, intractable nausea and vomiting, abdominal pain Hospital Course: Loan Acevedo is a 75-year-old female who presented with intractable nausea, vomiting, and abdominal pain. Surgery was consulted and assisted with her care. She has a complex past surgical history involving two surgeries with colon resections and a colostomy in place currently. She had a CT scan which did not reveal any evidence of obstruction or other explanation for her abdominal pain. She had a small bowel follow-through which again revealed no evidence of obstruction. She was having good output from her ostomy. Her nausea, vomiting, and abdominal pain resolved. She had one fever and was thus swab for COVID and the rapid test came back positive. She is not having any respiratory symptoms. She was discharged home in stable condition. She should follow-up with her primary care physician in a couple weeks. She should follow-up with surgery in a month to discuss ostomy reversal. Labs and Pending Lab Test: Laboratory Tests 09/23/20 15:14: Coronavirus 2019 ([facility]) PositiveH 09/24/20 05:31: White Blood Count 5.2, Red Blood Count 3.83, Hemoglobin 8.4L, Hematocrit 29L, Mean Corpuscular Volume 76L, Mean Corpuscular Hemoglobin 22L, Mean Corpuscular Hemoglobin Concent 29L, Red Cell Distribution Width 17.8H, Platelet Count 221, Mean Platelet Volume 10.3, Immature Granulocyte % (Auto) 0, Neutrophils (%) (Auto) 56, Lymphocytes (%) (Auto) 25, Monocytes (%) (Auto) 18H, Eosinophils (%) (Auto) 1, Basophils (%) (Auto) 0, Neutrophils # (Auto) 2.9, Lymphocytes # (Auto) 1.3, Monocytes # (Auto) 0.9, Eosinophils # (Auto) 0.0, Basophils # (Auto) 0.0, Immature Granulocyte # (Auto) 0.0, Sodium Level 136, Potassium Level 3.8, Chloride Level 105, Carbon Dioxide Level 21, Anion Gap 10, Blood Urea Nitrogen 16, Creatinine 0.75, Estimat Glomerular Filtration Rate > 60, BUN/Creatinine Ratio 21, Glucose Level 103, Calcium Level 7.7L, Corrected Calcium 8.5, Iron Level [Pending], Total Iron Binding Capacity [Pending], Unsaturated Iron Binding Capacity [Pending], Transferrin % Saturation [Pending], Ferritin [Pending], T otal Bilirubin 0.6, Aspartate Amino Transf (AST/SGOT) 24, Alanine Aminotransferase (ALT/SGPT) 32, Alkaline Phosphatase 70, Total Protein 5.5L, Albumin 3.0L 09/24/20 05:35: D-Dimer 0.67H, C-Reactive Protein High Sensitivity 3.55H Home Meds Active Keflex (Cephalexin) 500 Mg Capsule 500 Mg PO BID 5 Days Ondansetron Odt (Ondansetron) 4 Mg Tab.rapdis 4 Mg PO Q6H PRN Aspir 81 (Aspirin) 81 Mg Tablet. 81 Mg PO DAILY 30 Days Reported Dexilant (Dexlansoprazole) 60 Mg Cap.bp Lorazepam 0.5 Mg Tablet Oxybutynin Chloride 5 Mg Tablet Citalopram HBr (Citalopram Hydrobromide) 40 Mg Tablet Quetiapine Fumarate 100 Mg Tablet Prednisone 5 Mg Tablet Lortab 5 Mg Tablet (Acetaminophen/Hydrocodone Bitart) 1 Each Tablet Assessment/Pt Instructions take medications as prescribed. Follow-up with your primary care physician. Follow-up with surgery. Return with worsening abdominal pain, intractable nausea and vomiting, shortness of breath, or if you feel like you're getting worse. Discharge Planning: <30 minutes discharge planning Discharge Instructions Discharge Diet: No Restrictions Activity as Tolerated: Yes Pneumonia Vaccine Order Indica: Yes Discharge Physical Examination Vital Signs Vital Signs Date Time Temp Pulse Resp B/P (MAP) Pulse Ox O2 Delivery O2 Flow Rate FiO2 09/24/20 08:00 Room Air 09/24/20 08:00 36.2 64 16 99/54 (33) 96 2.00 General Appearance: No Apparent Distress, Thin HEENT: PERRL/EOMI, Pharynx Normal Respiratory: Lungs Clear, Normal Breath Sounds, No Respiratory Distress Cardiovascular: Regular Rate, Rhythm, No Edema, No Murmur Gastrointestinal: Normal Bowel Sounds, Soft, Tenderness (mild), Other (c olostomy in place) Extremity: Normal Inspection, Non Tender, No Pedal Edema Skin: Normal Color, Warm/Dry Neurologic/Psychiatric: Alert, Oriented x3, No Motor/Sensory Deficits, Normal Mood/Affect Allergies: Coded Allergies: No Known Drug Allergies (Unverified , 12/17/18) Discharge Summary Date of Admission Sep 23, 2020 at 08:54 Date of Discharge Discharge Date: Sep 24, 2020 Discharge Time: 12:49 Admission Diagnosis Intractable nausea and vomiting Consults/Procedures Consulations general surgery Discharge Diagnosis COVID-19, intractable nausea and vomiting, abdominal pain (1) Intractable nausea and vomiting Status: Acute (2) Diffuse abdominal pain Status: Acute (3) Colostomy in place Status: Chronic (4) History of small bowel obstruction Status: Chronic (5) History of bowel resection Status: Chronic (6) COVID-19 Status: Acute (7) Fever Status: Acute (8) GERD (gastroesophageal reflux disease) Status: Chronic (9) Chronic steroid use Status: Chronic (10) Anxiety and depression Status: Chronic (11) Anemia Status: Acute Clinical Quality Measures DVT/VTE Risk/Contraindication: Risk Factor Score Per Nursin RFS Level Per Nursing on Admit: 4+=Very High PERI BAGLEY MD Sep 24, 2020 12:49
[2020-09-24 15:53] VITALS: BP 102/57
[2020-09-24] MEDS ORDERED: ENOXAPARIN 40 MG/0.4 ML (LOVENOX) SYR SC SCH (18:00)
== END 2020-09-24 12:41 | disposition home or self-care (01) ==
LOC: EDUNIT# 07:00 → ER FS 07:06 → UNDOADMOB 08:54 → 4TH 08:54 → ER FS 09:42 → 4TH 10:30 → UNDODISOB 09-24 15:00
PROVIDERS: ADMIT Internal Medicine; ATTEND Internal Medicine
DX: U07.1 COVID-19 (principal); R11.2 Nausea with vomiting, unspecified; R10.9 Unspecified abdominal pain; R50.9 Fever, unspecified; F41.9 Anxiety disorder, unspecified; F32.9 Major depressive disorder, single episode, unspecified; D64.9 Anemia, unspecified; K21.00 Gastro-esophageal reflux disease with esophagitis, without bleeding; K44.9 Diaphragmatic hernia without obstruction or gangrene; M19.90 Unspecified osteoarthritis, unspecified site; Z79.82 Long term (current) use of aspirin; Z79.899 Other long term (current) drug therapy; Z90.710 Acquired absence of both cervix and uterus; Z93.3 Colostomy status; Z90.49 Acquired absence of other specified parts of digestive tract; Z80.1 Family history of malignant neoplasm of trachea, bronchus and lung; Z80.0 Family history of malignant neoplasm of digestive organs
CPT/HCPCS: 36415; 51701; 71045; 74176; 74250; 80053 ×2; 81000; 82728; 83540; 83605; 83690; 85025 ×2; 85379; 86141; 87088; 99284; G0378; U0002; 87635

== ENCOUNTER → 2020-10-06 | Outpatient (CLI) | payer MEDICARE ==
--- NOTE | 2020-10-06 15:24 | Diagnostic Imaging Report ---
Indication: Shortness of breath and fever. Time of exam: 1:16 PM Correlation is made with prior chest 09/23/2020. Heart size is stable. There is some minimal infiltrate or atelectasis in the right base. Otherwise lungs are clear. No effusion or pneumothorax is seen. Impression: Minimal right basilar infiltrate or atelectasis. Dictated by: Dictated on workstation # [id number]
== END ==
LOC: RAD FS 13:03
PROVIDERS: ATTEND Nurse Practitioner Family
DX: R06.02 Shortness of breath (principal); R50.9 Fever, unspecified
CPT/HCPCS: 71046

== ENCOUNTER 2020-10-11 14:52 | Emergency (ER) | payer MEDICARE ==
[~2020-10-11] VITALS: Ht 152 cm; Wt 55.0 kg
[2020-10-11] MEDS ORDERED: NS IV 1000 ML 1,000 ML IV SCH (15:15)
[2020-10-11] MEDS ORDERED: fentaNYL INJECTION 100 MCG/2 ML AMP IVP PRN (15:15)
--- NOTE | 2020-10-11 15:15 | ED Abdominal Pain ---
General Chief Complaint: Abdominal/GI Problems Stated Complaint: NAUSEA; ABD PAIN; HEADACHE Source of Information: Patient Exam Limitations: No Limitations History of Present Illness Date Seen by Provider: Oct 11, 2020 Time Seen by Provider: 15:10 Initial Comments 75-year-old female presents with 1 week of abdominal pain, across her lower abdomen that is waxed and waned since "her last ER visit". Patient with a history of a colostomy for the past 5 years, states that she's had normal stool without blood. Denies fever or chills, but is having some shortness of air. Diagnosed with COVID-19 around 22 September while she was in the hospital. Allergies and Home Medications Allergies Coded Allergies: No Known Drug Allergies (Unverified , 12/17/18) Home Medications Aspirin 81 Mg Tablet.dr, 81 MG PO DAILY Prescribed by: MYNOR MCCLELLAN on 12/19/18 0905 Hyoscyamine Sulfate 0.125 Mg Tab.subl, 0.125 MG SL Q4H Prescribed by: JULIA HARDY on 10/11/20 1628 Ondansetron 4 Mg Tab.rapdis, 4 MG PO Q6H PRN for NAUSEA/VOMITING Prescribed by: LUCIAN FELDMAN on 09/05/19 1057 Patient Home Medication List Home Medication List Reviewed: Yes Review of Systems Review of Systems Constitutional: see HPI; No fever; malaise, weakness EENTM: No Symptoms Reported Respiratory: Denies Cough; Shortness of Air; Denies Stridor, Denies Wheezing Cardiovascular: Denies Chest Pain, Denies Edema, Denies Irregular Heart Rate, Denies Palpitations, Denies Syncope Gastrointestinal: Abdominal Pain (lower abdomen); Denies Diarrhea, Denies Nausea; Poor Appetite; Denies Vomiting Skin: No change in color, No rash Psychiatric/Neurological: Denies Headache, Denies Numbness, Denies Paresthesia, Denies Seizure Past Rxwkehv-Fsfzwr-Avzszg Hx Past Med/Social Hx: Reviewed Nursing Past Med/Soc Hx Patient Social History Alcohol Use: Denies Use 2nd Hand Smoke Exposure: No Recent Hopitalizations: No Immunizations Up To Date Tetanus Booster (TDap): Unknown Seasonal Allergies Seasonal Allergies: No Past Medical History Surgeries: Yes (esophagus, colostomy) Abdominal, 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 Respiratory: No Cardiac: Yes (states Murmur but did not f/u with Dr Jackson) 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 Genitourinary: Yes (incontinent of urine, can't control when it occurs and wears "a pad") Gastrointestinal: Yes (Colostomy) Gastroesophageal Reflux, Obstructive Bowel, Esophagitis, Hiatal Hernia Musculoskeletal: Yes Arthritis Endocrine: No HEENT: Yes (detached retina x3-surgeries x 5) Hearing Impairment: Denies Cancer: Yes Colon What Type of Treatment Did You: Surgical Intervention Psychosocial: Yes Anxiety, Depression Integumentary: No Blood Disorders: No Family Medical History Heart Disease, Cancer Physical Exam Vital Signs Vital Signs - First Documented 10/11/20 15:00 Temp 36.5 Pulse 70 Resp 18 B/P (MAP) 130/84 (99) Pulse Ox 97 O2 Delivery Room Air Capillary Refill : Height/Weight/BMI Height: 5'0.00" Weight: 100lbs. 3.2oz. [id number]; 19.99 BMI Method:Stated General Appearance: WD/WN, no apparent distress HEENT: PERRL/EOMI, normal ENT inspection Respiratory: chest non-tender, lungs clear, normal breath sounds, no respiratory distress, no accessory muscle use Cardiovascular: regular rate, rhythm, no edema, no gallop, no JVD Gastrointestinal: normal bowel sounds, soft, no organomegaly, no pulsatile mass; No distended; guarding; No rebound; tenderness (diffuse lower abdomen ) Extremities: normal range of motion, non-tender, no pedal edema Back: normal inspection, no CVA tenderness Focused Exam Lactate Level 10/11/20 15:25: Lactic Acid Level 0.99 Lactic Acid Level Laboratory Tests Test 10/11/20 15:25 Lactic Acid Level 0.99 MMOL/L (0.50-2.00) Progress/Results/Core Measures Results/Orders Lab Results Laboratory Tests Test 10/11/20 15:25 Range/Units White Blood Count 10.4 4.3-11.0 10^3/uL Red Blood Count 4.34 L 4.35-5.85 10^6/uL Hemoglobin 9.5 L 11.5-16.0 G/DL Hematocrit 32 L 35-52 % Mean Corpuscular Volume 74 L 80-99 FL Mean Corpuscular Hemoglobin 22 L 25-34 PG Mean Corpuscular Hemoglobin Concent 30 L 32-36 G/DL Red Cell Distribution Width 18.2 H 10.0-14.5 % Platelet Count 448 H 130-400 10^3/uL Mean Platelet Volume 9.7 7.4-10.4 FL Immature Granulocyte % (Auto) 1 % Neutrophils (%) (Auto) 75 42-75 % Lymphocytes (%) (Auto) 13 12-44 % Monocytes (%) (Auto) 9 0-12 % Eosinophils (%) (Auto) 2 0-10 % Basophils (%) (Auto) 0 0-10 % Neutrophils # (Auto) 7.8 1.8-7.8 X 10^3 Lymphocytes # (Auto) 1.4 1.0-4.0 X 10^3 Monocytes # (Auto) 0.9 0.0-1.0 X 10^3 Eosinophils # (Auto) 0.2 0.0-0.3 10^3/uL Basophils # (Auto) 0.0 0.0-0.1 10^3/uL Immature Granulocyte # (Auto) 0.1 0.0-0.1 10^3/uL Sodium Level 138 135-145 MMOL/L Potassium Level 3.9 3.6-5.0 MMOL/L Chloride Level 106 98-107 MMOL/L Carbon Dioxide Level 25 21-32 MMOL/L Anion Gap 7 5-14 MMOL/L Blood Urea Nitrogen 11 7-18 MG/DL Creatinine 0.67 0.60-1.30 MG/DL Estimat Glomerular Filtration Rate > 60 BUN/Creatinine Ratio 16 Glucose Level 89 70-105 MG/DL Lactic Acid Level 0.99 0.50-2.00 MMOL/L Calcium Level 8.2 L 8.5-10.1 MG/DL Corrected Calcium 8.8 8.5-10.1 MG/DL Total Bilirubin 0.3 0.1-1.0 MG/DL Aspartate Amino Transf (AST/SGOT) 13 5-34 U/L Alanine Aminotransferase (ALT/SGPT) 8 0-55 U/L Alkaline Phosphatase 105 40-136 U/L Troponin I < 0.30 <0.30 NG/ML Total Protein 6.0 L 6.4-8.2 GM/DL Albumin 3.2 3.2-4.5 GM/DL Lipase 19 8-78 U/L My Orders Orders - JULIA HARDY DO Ed Iv/Invasive Line Start (10/11/20 15:15) Cbc With Automated Diff (10/11/20 15:15) Comprehensive Metabolic Panel (10/11/20 15:15) Urinalysis (10/11/20 15:15) Lipase (10/11/20 15:15) Lactic Acid Analyzer (10/11/20 15:15) Troponin I Fs (10/11/20 15:15) Acute Abd Series (10/11/20 15:15) Ns Iv 1000 Ml (Sodium Chloride 0.9%) (10/11/20 15:15) Fentanyl Injection (Sublimaze Injection (10/11/20 15:15) Medications Given in ED Current Medications Medications Dose Ordered Sig/Tequila Route Start Time Stop Time Status Last Admin Dose Admin Fentanyl Citrate 25 mcg Q1H PRN IVP 10/11/20 15:15 10/11/20 16:42 DC 10/11/20 15:39 25 MCG Vital Signs/I&O 10/11/20 10/11/20 15:00 16:39 Temp 36.5 36.0 Pulse 70 62 Resp 18 18 B/P (MAP) 130/84 (99) 112/72 Pulse Ox 97 99 O2 Delivery Room Air Room Air Initial ECG Impression Date: Oct 11, 2020 Initial ECG Impression Time: 15:15 Initial ECG Rate: 60 Initial ECG Rhythm: Normal Sinus Initial ECG Intervals: Normal Initial ECG Impression: Normal Diagnostic Imaging Diagonstic Imaging: Xray Plain Films/CT/US/NM/MRI: chest, abdomen Comments Date of Exam:10/11/20 ACUTE ABD SERIES EXAMINATION: Acute abdomen series at 3:34 PM INDICATION: Abdominal pain The accompanying erect PA chest shows the heart size to be stable when compared to the prior exam of 10/06/2020. The right basilar atelectasis/infiltrate and small right pleural effusion seen previously are also again evident and no different. There may be a small amount of fluid in the left lung base as well. This finding is unchanged as well. The upper lungs are generally clear. Bilateral calcified breast implants are again noted. There is no sign of a pneumoperitoneum. Supine and erect views of the abdomen were obtained. There is some gas in both the large and small bowel in a nonspecific fashion. There does seem to be much less gas within the ascending and transverse colon than noted on the prior small bowel exam of 09/23/2020. The bowel gas pattern is nonspecific. There is no evidence for bowel obstruction. There is no mass or organomegaly appreciated. Surgical clips are again seen. The osseous structures are intact. IMPRESSION: 1. The bowel gas pattern is nonspecific. There is no acute abnormality identified. 2. There is persistent involvement of the right lung base by atelectasis/infiltrate and fluid. A small amount of fluid is also suspected in the left lung base. Dictated on workstation # [id number] Dict: 10/11/20 1549 Trans: 10/11/20 1555 [facility] [id number] Interpreted by: KELSEY MONET MD Electronically signed by: Departure Impression Primary Impression: Abdominal pain Qualified Codes: R10.30 - Lower abdominal pain, unspecified Disposition: HOME, SELF-CARE Condition: Improved Departure-Patient Inst. Decision time for Depature: 16:27 Referrals: MICHAEL ELY MD (PCP/Family) Primary Care Physician Patient Instructions: Severe Abdominal Pain, Adult (DC) Add. Discharge Instructions: see your doctor for your scheduled appointment on 16 October. REturn to the ER for any worsening of your abdominal pain All discharge instructions reviewed with patient and/or family. Voiced understanding. Scripts Hyoscyamine Sulfate (Levsin-Sl) 0.125 Mg Tab.subl 0.125 MG SL Q4H, #10 TAB 0 Refills Prov: JULIA HARDY DO 10/11/20 JULIA HARDY DO Oct 11, 2020 15:15
[2020-10-11 15:50] LABS: HEMATOCRIT 32 % (35-52); HEMOGLOBIN 9.5 G/DL (11.5-16.0); MEAN CORPUSCULAR HEMOGLOBIN 22 PG (25-34); MEAN CORPUSCULAR HGB CONC 30 G/DL (32-36); MEAN CORPUSCULAR VOLUME 74 FL (80-99); MEAN PLATELET VOLUME 9.7 FL (7.4-10.4); PLATELET COUNT 448 10^3/uL (130-400); WHITE BLOOD COUNT 10.4 10^3/uL (4.3-11.0)
[2020-10-11 15:51] LABS: BASOPHILS % (AUTO) 0 % (0-10); EOSINOPHILS % (AUTO) 2 % (0-10); LYMPHOCYTES % (AUTO) 13 % (12-44); MONOCYTES % (AUTO) 9 % (0-12); NEUTROPHILS # (AUTO) 7.8 X 10^3 (1.8-7.8); NEUTROPHILS % (AUTO) 75 % (42-75)
[2020-10-11 15:52] LABS: EOSINOPHILS # (AUTO) 0.2 10^3/uL (0.0-0.3); LYMPHOCYTES # (AUTO) 1.4 X 10^3 (1.0-4.0); MONOCYTES # (AUTO) 0.9 X 10^3 (0.0-1.0)
--- NOTE | 2020-10-11 15:56 | Diagnostic Imaging Report ---
EXAMINATION: Acute abdomen series at 3:34 PM INDICATION: Abdominal pain The accompanying erect PA chest shows the heart size to be stable when compared to the prior exam of 10/06/2020. The right basilar atelectasis/infiltrate and small right pleural effusion seen previously are also again evident and no different. There may be a small amount of fluid in the left lung base as well. This finding is unchanged as well. The upper lungs are generally clear. Bilateral calcified breast implants are again noted. There is no sign of a pneumoperitoneum. Supine and erect views of the abdomen were obtained. There is some gas in both the large and small bowel in a nonspecific fashion. There does seem to be much less gas within the ascending and transverse colon than noted on the prior small bowel exam of 09/23/2020. The bowel gas pattern is nonspecific. There is no evidence for bowel obstruction. There is no mass or organomegaly appreciated. Surgical clips are again seen. The osseous structures are intact. IMPRESSION: 1. The bowel gas pattern is nonspecific. There is no acute abnormality identified. 2. There is persistent involvement of the right lung base by atelectasis/infiltrate and fluid. A small amount of fluid is also suspected in the left lung base. Dictated by: Dictated on workstation # [id number]
[2020-10-11 16:06] LABS: ALANINE AMINOTRANSFERASE 8 U/L (0-55); ALBUMIN 3.2 GM/DL (3.2-4.5); ALKALINE PHOSPHATASE 105 U/L (40-136); BILIRUBIN,TOTAL 0.3 MG/DL (0.1-1.0); BUN/CREATININE RATIO 16; CALCIUM 8.2 MG/DL (8.5-10.1); CARBON DIOXIDE 25 MMOL/L (21-32); CHLORIDE 106 MMOL/L (98-107); CREATININE SERUM 0.67 MG/DL (0.60-1.30); GFR ESTIMATED > 60; GLUCOSE 89 MG/DL (70-105); POTASSIUM 3.9 MMOL/L (3.6-5.0); SODIUM 138 MMOL/L (135-145)
[2020-10-11 16:07] LABS: LIPASE 19 U/L (8-78)
[2020-10-11] MEDS ORDERED: HYOS0.1283 SL (16:28)
[2020-10-11 16:39] VITALS: BP 112/72
== END 2020-10-11 16:42 | disposition home or self-care (01) ==
LOC: EDUNIT# 14:52 → ER FS 14:55
DX: R10.84 Generalized abdominal pain (principal); Z82.49 Family history of ischemic heart disease and other diseases of the circulatory system; Z80.9 Family history of malignant neoplasm, unspecified; Z85.038 Personal history of other malignant neoplasm of large intestine; Z79.82 Long term (current) use of aspirin
CPT/HCPCS: 36415; 74022; 80053; 83605; 83690; 84484; 85025; 93005

== ENCOUNTER 2020-11-07 07:12 | Outpatient (RCR) | payer MEDICARE ==
[~2020-11-07] VITALS: Ht 152.4 cm; Wt 48.0 kg
[~2020-11-07 07:12] MED LIST changes: -CITA40TA11; +CITA40TA11 PO; -DEXL60CA; +DEXL60CA PO; +HYOS0.1283 SL; -OXYB5TAB13; +OXYB5TAB13 PO; -PRED5TAB; +PRED5TAB PO; -QUET100T33; +QUET100T33 PO
[2020-11-08] MEDS ORDERED: LORA-404 PO (09:39)
[2020-11-08] MEDS ORDERED: ASPI-999 PO (09:39)
[2020-11-08] MEDS ORDERED: IBUP-30 PO (09:39)
[2020-11-08] MEDS ORDERED: ACET1TAB43 PO (09:39)
== END 2020-11-09 09:54 | disposition home or self-care (01) ==
LOC: PREOP 07:12
PROVIDERS: ATTEND Surgery
DX: Z01.818 Encounter for other preprocedural examination (principal)

== ENCOUNTER 2020-11-13 09:32 | Day surgery (SDC) | payer MEDICARE ==
[~2020-11-13] VITALS: Ht 152 cm; Wt 48.0 kg
[~2020-11-13 09:32] MED LIST changes: +ACET1TAB43 PO; +ASPI-999 PO; +IBUP-30 PO; +LACTATED RINGERS 1,000 ML IV ONE; +LORA-404 PO; +MIDAZOLAM 2 MG/2 ML (VERSED) VIAL ONE; +PROPOFOL INJECTION 50 ML IV ONE
[2020-11-13] MEDS ORDERED: LACTATED RINGERS 1,000 ML IV STA (09:42)
--- NOTE | 2020-11-13 09:45 | Progress Note-Pre Operative ---
Pre-Operative Progress Note H&P Reviewed The H&P was reviewed, patient examined and no changes noted. Time Seen by Provider: 09:43 Date H&P Reviewed: Nov 13, 2020 Time H&P Reviewed: 09:44 Pre-Operative Diagnosis: Hx of bowel perf, work-up for possible colostomy r LONA Barney DO Nov 13, 2020 09:45
[2020-11-13 09:51] VITALS: BP 127/66
[2020-11-13 10:40] VITALS: BP 83/53
[2020-11-13 10:45] VITALS: BP 95/66
--- NOTE | 2020-11-13 10:49 | Progress Note-Post Operative ---
Post-Operative Progess Note Surgeon (s)/Healthcare Translator (s) Surgeon LONA SY DO Healthcare Translator: none Pre-Operative Diagnosis Hx of bowel perf, work-up for possible colostomy reversal Post-Operative Diagnosis Colonic ulcer internal hemorrhoids ?Colitis Procedure & Operative Findings Date of Procedure 11/13/20 Procedure Performed/Findings Colon with bx Flex Sig Anesthesia Type IV sedation by [employer] Estimated Blood Loss Estimated blood loss (mL): scant Specimens/Packing Specimens Removed colon bx, near stoma LONA SY DO Nov 13, 2020 10:49
--- NOTE | 2020-11-13 10:50 | Endoscopy Discharge Instruct ---
Endo Procedure/Findings Findings 1.: Other Findings (Colonic ulcer) 2.: Other Findings (??Colitis) 3.: Internal Hemorrhoids Discharge Instructions - Activity: You might feel a little sleepy until tomorrow. This is due to the medicine you received to relax you. Until tomorrow, you should: NOT drive a car, operate machinery or power tools. NOT drink any alcoholic beverages. NOT make any important decisions or sign importortant papers. Do not return to work until tomorrow, unless otherwise instructed. Resume previ ous activities tomorrow. Diet: Start by taking liquids. If you tolerate liquids, advance to solid food. 1.: Colonoscopy in 1 year Notify Physician - If you experience excessive bleeding, unusual abdominal pain, fever, or chest pain, contact your doctor immediately. LONA SY DO Nov 13, 2020 10:50
[2020-11-13 11:20] VITALS: BP 82/50
[2020-11-13 11:35] VITALS: BP 82/50
--- NOTE | 2020-11-13 11:52 | Anesthesia-General Post-Op ---
MAC Patient Condition Mental Status/LOC: Same as Preop Cardiovascular: Satisfactory Nausea/Vomiting: Absent Respiratory: Satisfactory Pain: Controlled Complications: Absent Post Op Complications Complications None Follow Up Care/Instructions Patient Instructions None needed. Anesthesiology Discharge Order Discharge Order Patient is doing well, no complaints, stable vital signs, no apparent adverse anesthesia problems. No complications reported per nursing. KAVIN ROBISON CRNA Nov 13, 2020 11:52
--- NOTE | 2020-11-14 03:12 | OPERATIVE REPORT ---
DATE OF SERVICE: 11/13/2020 PREOPERATIVE DIAGNOSES: History of bowel perforation with colostomy formation, need for assessment of colon for possible colostomy reversal. PROCEDURE: Colonoscopy, which included a flex-sig for the distal segment and colonoscopy for the upper segment. SURGEON: Todd Arias DO REELER OPERATOR: None. ANESTHESIA: IV sedation by the QUARANTINE INSPECTOR. SPECIMEN: Biopsies from the descending colon. BLOOD LOSS: Scant. FLUIDS: Per anesthesia. POSTOPERATIVE CONDITION: Stable. INDICATION FOR PROCEDURE: The patient is a 75-year-old female who has had a colostomy formed for bowel perforation and then actually had to go back and have a small portion of small bowel removed. She has been having some rectal bleeding and would like to get a reversal. FINDINGS: The patient had some mild disuse colitis. She had what looked like colonic ulcers and she had some internal hemorrhoids. Procedure was colonoscopy, which included basically a flex-sig for below and then a completion colonoscopy through the colostomy. PROCEDURE NOTE: After informed consent was obtained, the patient was brought to the endoscopy suite, placed in bed in left lateral decubitus position. She was administered IV sedation by the QUARANTINE INSPECTOR who then monitored her vitals the entire time, heart rate, blood pressure and pulse ox and started by placing the scope through the rectum up to the sigmoid colon about the 30 cm in, got to the distal portion could see the staple line, took a picture of this, there was some mild bleeding, looked like might have been the colitis or probably just a disuse colitis, also noted to have some hemorrhoids. No other obvious pathology. I then went above and placed the scope through the colostomy, pushed all the way to the cecum, took a picture of appendiceal orifice, noted the ileocecal valve and then slowly withdrew the scope insufflating the circumferential walker looking at the cecum, up the ascending colon to the hepatic flexure, then down the transverse colon to the splenic flexure and then up to the descending colon just proximal to the colostomy, saw some large what looked like ulcers, took a picture of this and then did a biopsy of these, they also looked like they could have been caused by the scope, but there was no bleeding. So, this looked like it was old, may have been from her parastomal hernia. A picture was taken. Biopsy done. At this point, then removed the scope. The patient tolerated the procedure, recovered in endoscopy suite. Job ID: [id number] DocumentID: [id number] Dictated Date: 11/13/2020 14:41:46 Utilization Review Rn Date: 11/13/2020 19:01:59 Dictated By: DO KITTY PADILLA
== END 2020-11-13 11:35 | disposition home or self-care (01) ==
LOC: ENDO 09:32
PROVIDERS: ATTEND Surgery
DX: K55.9 Vascular disorder of intestine, unspecified (principal); F41.9 Anxiety disorder, unspecified; F32.9 Major depressive disorder, single episode, unspecified; K21.9 Gastro-esophageal reflux disease without esophagitis; D64.9 Anemia, unspecified; I34.0 Nonrheumatic mitral (valve) insufficiency; K43.5 Parastomal hernia without obstruction or gangrene; K56.51 Intestinal adhesions [bands], with partial obstruction; U07.1 COVID-19; Z79.899 Other long term (current) drug therapy; Z79.51 Long term (current) use of inhaled steroids; Z86.73 Personal history of transient ischemic attack (TIA), and cerebral infarction without residual deficits; Z87.891 Personal history of nicotine dependence; Z90.710 Acquired absence of both cervix and uterus; Z93.3 Colostomy status
CPT/HCPCS: 88305

== ENCOUNTER 2020-11-27 10:19 | Outpatient (RCR) | payer MEDICARE ==
[~2020-11-27] VITALS: Ht 152.4 cm; Wt 48.2 kg
[~2020-11-27 10:19] MED LIST changes: -LACTATED RINGERS 1,000 ML IV ONE; -MIDAZOLAM 2 MG/2 ML (VERSED) VIAL ONE; -PROPOFOL INJECTION 50 ML IV ONE
== END 2020-11-27 10:42 | disposition home or self-care (01) ==
LOC: PREOP 10:19
PROVIDERS: ATTEND Surgery
DX: Z01.818 Encounter for other preprocedural examination (principal)

== ENCOUNTER 2020-11-29 07:43 | Inpatient (IN) | payer MEDICARE ==
[~2020-11-29] VITALS: Ht 152 cm; Wt 48.2 kg
[2020-11-29] VITALS (12 sets, daily range): BP systolic 94–124; BP diastolic 58–75
[2020-11-29] MEDS ORDERED: ceFAZolin 2 GM IV Premixed 50 ML IV ONE (08:30)
[2020-11-29] MEDS ORDERED: metroNIDAZOLE 500MG/100ML IVPB 100 ML IV ONE (08:30)
[2020-11-29] MEDS: LACTATED RINGERS 1,000 ML IV PRN ×2 (08:55→15:53)
[2020-11-29 09:02] LABS: BASOPHILS % (AUTO) 1 % (0-10); EOSINOPHILS # (AUTO) 0.6 10^3/uL (0.0-0.3); EOSINOPHILS % (AUTO) 10 % (0-10); HEMATOCRIT 30 % (35-52); HEMOGLOBIN 8.8 g/dL (11.5-16.0); LYMPHOCYTES # (AUTO) 2.2 10^3/uL (1.0-4.0); LYMPHOCYTES % (AUTO) 38 % (12-44); MEAN CORPUSCULAR HEMOGLOBIN 22 pg (25-34); MEAN CORPUSCULAR HGB CONC 29 g/dL (32-36); MEAN CORPUSCULAR VOLUME 77 fL (80-99); MEAN PLATELET VOLUME 9.4 fL (9.0-12.2); MONOCYTES # (AUTO) 0.6 10^3/uL (0.0-1.0); MONOCYTES % (AUTO) 10 % (0-12); NEUTROPHILS # (AUTO) 2.5 10^3/uL (1.8-7.8); NEUTROPHILS % (AUTO) 42 % (42-75); PLATELET COUNT 467 10^3/uL (130-400); WHITE BLOOD COUNT 5.9 10^3/uL (4.3-11.0)
--- NOTE | 2020-11-29 09:33 | Progress Note-Pre Operative ---
Pre-Operative Progress Note H&P Reviewed The H&P was reviewed, patient examined and no changes noted. Time Seen by Provider: 09:28 Date H&P Reviewed: Nov 29, 2020 Time H&P Reviewed: 09:29 Pre-Operative Diagnosis: Colostomy complications LONA SY DO Nov 29, 2020 09:33
[2020-11-29] MEDS ORDERED: LIDOCAINE PF 2% 5 ML (XYLOCAINE) VIAL ONE (09:40)
[2020-11-29] MEDS ORDERED: ROCURONIUM 10 MG/ML 5 ML SYRINGE IV ONE (09:40)
[2020-11-29] MEDS ORDERED: ONDANSETRON 4 MG/2 ML (SDV) Z0FRAN ONE (09:40)
[2020-11-29] MEDS ORDERED: LIDOCAINE/EPI 1%-1:100,000 (XYLOCAINE) 50 ML ONE (09:40)
[2020-11-29] MEDS ORDERED: proPOfol 200 MG/20 ML (DIPRIVAN) VIAL IV ONE (09:40)
[2020-11-29] MEDS ORDERED: MIDAZOLAM 2 MG/2 ML (VERSED) VIAL ONE (09:41)
[2020-11-29] MEDS ORDERED: fentaNYL INJECTION 100 MCG/2 ML AMP ONE (09:41)
[2020-11-29] MEDS ORDERED: NEOSTIGMINE 3 MG/3 ML VIAL ONE (12:18)
[2020-11-29] MEDS ORDERED: GLYCOPYRROLATE 0.2 MG/ML (ROBINUL) 2 ML VIAL ONE (12:18)
[2020-11-29] MEDS ORDERED: HYDROCORTISONE 100 MG/2 ML (Solu-CORTEF) VIAL ONE (12:19)
[2020-11-29] MEDS ORDERED: PHENYLEPHRINE 100 MCG/ML 10 ML (ANESTHESIA) SYR ONE (12:19)
--- NOTE | 2020-11-29 12:24 | Progress Note-Post Operative ---
Post-Operative Progess Note Surgeon (s)/Air Quality Technician (s) Surgeon LONA SY DO Air Quality Technician: [place] Pre-Operative Diagnosis Colostomy complications Post-Operative Diagnosis same Procedure & Operative Findings Date of Procedure 11/29/20 Procedure Performed/Findings Partial Colon resection with colostomy reversal and colo-rectal anastomosis, below oeritoneal reflection Anesthesia Type GET Estimated Blood Loss Estimated blood loss (mL): less than 50ml Specimens/Packing Specimens Removed portion of colon, anastomotic rings LONA SY DO Nov 29, 2020 12:24
[2020-11-29] MEDS ORDERED: BUPIVACAINE 0.5% 30 ML (SENSORCAINE) VIAL ONE (12:56)
[2020-11-29] MEDS ORDERED: ONDANSETRON 4 MG/2 ML (SDV) Z0FRAN IVP PRN (13:00)
[2020-11-29] MEDS ORDERED: HYDROmorphone 2 MG/ML VIAL (DILAUDID) IV ONE (13:00)
[2020-11-29] MEDS ORDERED: morphine INJ 10 MG/ML 1ML (SYR OR VIAL) IVP ONE (13:00)
[2020-11-29] MEDS ORDERED: KETOROLAC 30 MG/ML VIAL ONE (13:27)
[2020-11-29] MEDS ORDERED: morphine INJ 10 MG/ML 1ML (SYR OR VIAL) ONE (13:28)
[2020-11-29] MEDS: KETOROLAC 30 MG/ML VIAL IVP SCH ×2 (13:34→19:43)
[2020-11-29] MEDS: ACETAMINOPHEN 500 MG TAB (TYLENOL) PO SCH ×2 (14:15→21:04)
[2020-11-29] MEDS: ONDANSETRON 4 MG/2 ML (SDV) Z0FRAN IVP PRN (14:46)
[2020-11-29] MEDS: morphine INJ 4 MG/ML 1 ML (VIAL/SYRINGE) IVP PRN ×3 (15:53→21:07)
[2020-11-29] MEDS: metroNIDAZOLE 500MG/100ML IVPB 100 ML IV SCH (16:20)
--- NOTE | 2020-11-29 17:15 | OPERATIVE REPORT ---
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 POSTOPERATIVE DIAGNOSIS: Colostomy complication in colostomy status as well as a parastomal hernia. PROCEDURE: Partial colon resection with colostomy reversal and low colorectal anastomosis below the peritoneal reflection as well as repair of parastomal hernia. SURGEON: Lona Arias DO TIMBER SELECTOR: Bruce Momin DO ANESTHESIA: General endotracheal tube. SPECIMEN: Portion of colon and an anastomotic rings. BLOOD LOSS: Less than 50 mL. FLUIDS: Per anesthesia. POSTOPERATIVE CONDITION: Stable. INDICATION FOR PROCEDURE: The patient is a 75-year-old female who had a colostomy. She actually had a perforation of the intestine at a colostomy and then had another anastomotic leak or another perforation had at her second surgery. She has had this colostomy now for a number of years and she has been having complications with trouble with the ostomy bag, diarrhea and is wanted to get this reversed. She also had trouble because she had a parastomal hernia and a lot of intestine was up through the fascia at the colostomy site. FINDINGS: The patient had a parastomal hernia. She had a lot of adhesions in the abdomen and we did a colostomy reversal. PROCEDURE NOTE: After informed consent was obtained, the patient was brought to the operating room, placed on the operating table in supine lithotomy position. Had thought about possibly trying to do this laparoscopically; however, because she had her colostomy move it was up a little bit too high in the left upper quadrant to be able to start with the scopes and she is very, very small patient so elected to just do a midline incision. Main incision with #15 blade, carried down through the skin into subcutaneous tissue, then deepened down to subcutaneous tissue with Bovie electrocautery down to the fascia. Fascia was incised with Bovie electrocautery, then placed a hand in the abdomen and protecting the bowel and then opened superiorly and inferiorly to get a better access to grasp the sides with Uzma's and then used some Haji's started taking the adhesions down. Once able to take all the adhesions down, could see the colostomy and elected to come across this with a BENI-75 clamped and fired, thereby transecting, dropped this back into the abdomen and then elected to remove the colostomy. Cut this out with a #15 blade, an elliptical incision to cut this out. Carried down through the skin into subcutaneous tissue, then deepened down to subcutaneous tissue with Bovie electrocautery, going down and around this portion of colon to the fascia and then able to get into the abdomen and then carefully start taking this colon and hernia sac out. Once it was completely removed, then elected to close this with #1 double stranded PDS suture running from the lateral aspect to the medial aspect tying to itself. I then went down below, had started trying to find the sigmoid colon. It was deep in the pelvis, lot of adhesions, had to take the cecum as well as small intestine out of the pelvis to move this out away to be able to find the sigmoid colon. There were also adhesions of the bladder. These were carefully pushed away with some blunt dissection as well as Bovie electrocautery. Once we had everything freed up, Dr. Momin went down below, placed a 25, 28 and then 31 dilator. Able to get this to go in, but unfortunately did not go up the rest of the colon. It was just below the peritoneal reflection. The rest of the sigmoid colon or rectum was stuck down on the right side of the pelvis and actually could not even get the rigid sigmoidoscope up in here, so I elected to just come out at this point with the anastomosis, placed a pursestring applicator across the proximal portion of the descending colon, clamped and fired then cut this off and then placed a 29 ILS anvil into here and then tied this down, cut off the fat around this to free it up, so just the intestine was attached and visible to make a good connection with ILS stapler. Dr. Momin then placed the ILS stapler. The patient was in slight Trendelenburg position, watched this come through had most pushed everything out of the way, came through nicely without any difficulty. Attached the anvil and then tightened this down till went to the bottom portion of the green section of the stapler, held for 30 seconds, clamped and fired, held for 20 seconds and then turned 3/4 turn, able to easily remove this, had 2 good anastomotic rings. At this point, I then placed some fluid in the pelvis and clamped the descending colon. Dr. Momin then insufflated good distention of the colon. No leak or bubble seen. At this point, I released the air, pulled the small intestine, which had been kind of under the descending colon, pulled it out. Pulled on top, so we could not get an internal hernia. I irrigated little bit more with a liter of warm normal saline, suctioned this out and at this point, then placed the patient supine. She had been slightly Trendelenburg and elected to close the midline incision with #1 double stranded PDS suture running from the inferior portion to superior portion tying to itself, copiously irrigated all incisions then closed the two incisions with kavon. Area was cleaned and dried, dressings placed. The patient tolerated the procedure. She was transferred to recovery room in stable condition. Sponge, instrument and needle count correct at the end of the case. Dr. Momin assisted on this case helping to make incisions, close incisions, identify anatomy and hold anatomy out of the way. Job ID: [id number] DocumentID: [id number] Dictated Date: 11/29/2020 14:02:08 Operating System Programmer Date: 11/29/2020 17:14:54 Dictated By: LONA ARIAS DO MTDGarret
[2020-11-29] MEDS: ceFAZolin 2 GM IV Premixed 50 ML IV SCH (17:30)
[2020-11-30] MEDS: ceFAZolin 2 GM IV Premixed 50 ML IV SCH (00:44)
[2020-11-30] MEDS: KETOROLAC 30 MG/ML VIAL IVP SCH ×2 (00:45→05:42)
[2020-11-30] MEDS: metroNIDAZOLE 500MG/100ML IVPB 100 ML IV SCH (00:45)
[2020-11-30 03:50] VITALS: BP 110/56
[2020-11-30] MEDS: ACETAMINOPHEN 500 MG TAB (TYLENOL) PO SCH ×3 (05:43→21:38)
[2020-11-30] MEDS: morphine INJ 4 MG/ML 1 ML (VIAL/SYRINGE) IVP PRN ×3 (06:30→21:43)
[2020-11-30] MEDS: ONDANSETRON 4 MG/2 ML (SDV) Z0FRAN IVP PRN ×2 (06:53→10:12)
--- NOTE | 2020-11-30 07:27 | Progress Note - Surgery ---
KRYSTEN DANG MED STUDENT 11/30/20 0727: Subjective Date Seen by a Provider: Nov 30, 2020 Time Seen by a Provider: 07:15 Subjective/Events-last exam Patient is laying in bed awake and alert watching TV. States that she is pretty uncomfortable but the pain medications she received earlier in the morning are helping a lot. Has been passing gas this morning and feels that the pain in her abdomen is gas pains. No bowel movement yet. Has been given water to drink but states she is not thirsty and has not drank very much. no nausea, vomiting, or other problems with drinking clear liquids. Has not ambulated yet. Collins catheter in place, which she states she also has urinary incontinence so its helpful to her. Breathing okay, 94% on RA, states she does not have a history of COPD or other breathing problems. Pain limiting her ability to inhale deeply. No had labs drawn today yet. No other questions or concerns this morning. Objective Exam Vital Signs Date Time Temp Pulse Resp B/P (MAP) Pulse Ox O2 Delivery O2 Flow Rate FiO2 11/30/20 03:50 37.0 68 18 110/56 (74) 94 Room Air 11/29/20 23:46 36.8 65 16 101/60 (74) 91 Room Air 11/29/20 20:59 92 Room Air 11/29/20 20:59 35.8 68 16 94/58 (70) 92 Room Air 11/29/20 19:48 93 Room Air 11/29/20 16:00 35.8 61 18 99/58 (72) 93 Room Air 11/29/20 14:05 35.1 58 20 105/69 (81) 95 Room Air 11/29/20 14:05 95 Room Air 11/29/20 13:50 Room Air 11/29/20 13:50 36.7 16 114/68 (83) 100 Room Air 11/29/20 13:40 15 124/75 (91) 100 OxyMask 11/29/20 13:30 18 111/74 (86) 100 OxyMask 1 11/29/20 13:30 OxyMask 1 11/29/20 13:20 20 122/66 (84) 100 OxyMask 2 11/29/20 13:15 OxyMask 4 11/29/20 13:10 19 121/73 (89) 100 OxyMask 4 11/29/20 13:00 36.5 20 123/75 (91) 100 OxyMask 6 11/29/20 13:00 OxyMask 6 11/29/20 12:46 OxyMask 10 11/29/20 12:46 18 109/71 (84) 100 OxyMask 10 11/29/20 08:47 36.1 56 20 111/65 (80) 100 Room Air 11/29/20 08:42 100 I & O 11/30/20 07:00 Intake Total 750 ml Output Total 600 ml Balance 150 ml Capillary Refill : General Appearance: No Apparent Distress Respiratory: Chest Non Tender, Lungs Clear, Normal Breath Sounds, No Respiratory Distress Cardiovascular: Regular Rate, Rhythm, No Edema, No Murmur, Normal Peripheral Pulses Peripheral Pulses: 2+ Radial Pulses (R), 2+ Radial Pulses (L) Gastrointestinal: normal bowel sounds, soft, other (Incision covered with pad, no leaking, bleeding, or redness noted around incision. ) Extremity: No Calf Tenderness, No Pedal Edema Neurologic/Psychiatric: Alert, Oriented x3 Skin: Normal Color, Warm/Dry Results Lab Laboratory Tests 11/29/20 08:50: White Blood Count 5.9, Red Blood Count 3.92, Hemoglobin 8.8L, Hematocrit 30L, Mean Corpuscular Volume 77L, Mean Corpuscular Hemoglobin 22L, Mean Corpuscular Hemoglobin Concent 29L, Red Cell Distribution Width 18.2H, Platelet Count 467H, Mean Platelet Volume 9.4, Immature Granulocyte % (Auto) 1, Neutrophils (%) (Auto) 42, Lymphocytes (%) (Auto) 38, Monocytes (%) (Auto) 10, Eosinophils (%) (Auto) 10, Basophils (%) (Auto) 1, Neutrophils # (Auto) 2.5, Lymphocytes # (Auto) 2.2, Monocytes # (Auto) 0.6, Eosinophils # (Auto) 0.6H, Basophils # (Auto) 0.0, Immature Granulocyte # (Auto) 0.0 Assessment/Plan Assessment/Plan Admission Diagonsis Status post colostomy reversal Assessment/Plan 1. Status post colostomy reversal -Patient passing gas, no BM -Tolerating clear liquids, remain on liquid diet. -Pain is controlled with IV and oral medications, Continue medications -Ambulate with PT when pain is more tolerable -Catheter remain until pt can ambulate 2. Anemia -Draw CBC, ensure no elevated white count or worsening anemia -Obtain BMP to check basic metabolites -Already received T/S TODD SY DO 11/30/20 1103: Subjective Time Seen by a Provider: 15:49 Subjective/Events-last exam Pt seen and examined, states she has moderate amount of pain; which she calls gas pain. She is not able to drink very much because of the pain and is not really moving around much either. Review of Systems General: Fatigue, Malaise Pulmonary: No Dyspnea, No Cough Cardiovascular: No: Chest Pain, Palpitations Gastrointestinal: Nausea, Abdominal Pain Objective Exam General Appearance: Mild Distress (secondary to pain), Thin Respiratory: Lungs Clear, Normal Breath Sounds, No Respiratory Distress Cardiovascular: Regular Rate, Rhythm, No Murmur Gastrointestinal: soft, abnormal bowel sounds (hypoactive), tenderness (mostly at incisions), other (Incision covered with pad, no leaking, bleeding, or redness noted around incision. ) Assessment/Plan Assessment/Plan Assessment/Plan S/P Colostomy reversal - Pt encouraged to ambulate and use IS, collins d/c'd and told to increase PO intake. Continue pain control and anti-emetics as needed. Anemia - chronic for pt and has not changed Supervisory-Addendum Brief Verification & Attestation Participated in pt care: history, MDM, physical Personally performed: exam, history, MDM Care discussed with: Medical Student Procedures: n/a Verification and Attestation of Medical Student E/M Service A medical student performed and documented this service. I then reviewed and verified all information documented by the medical student and made modifications to such information, when appropriate. I personally performed a physical exam, medical decision making and then discussed any differences between the notes and made revisions as necessary to create one note. Todd Sy , 11/30/20 , 11:05 KRYSTEN DANG MED STUDENT Nov 30, 2020 07:27 TODD SY DO Nov 30, 2020 11:03
[2020-11-30 08:00] VITALS: BP 93/55
--- NOTE | 2020-11-30 08:08 | Anesthesia-General Post-Op ---
General Patient Condition Mental Status/LOC: Same as Preop Cardiovascular: Satisfactory Nausea/Vomiting: Absent Respiratory: Satisfactory Pain: Controlled Complications: Absent Post Op Complications Complications None Follow Up Care/Instructions Patient Instructions None needed. Anesthesia/Patient Condition Patient Condition Patient is doing well, is C/O abdominal and gas pain which is to be expected, stable vital signs, no apparent adverse anesthesia problems. MILLIE LORENZO DO Nov 30, 2020 08:08
[2020-11-30] MEDS: PANTOPRAZOLE 40 MG (PROTONIX) VIAL IVP SCH (08:16)
[2020-11-30] MEDS ORDERED: SIMETHICONE 80 MG (MYLICON) CHEW PO PRN (09:00)
[2020-11-30 11:53] VITALS: BP 102/63
[2020-11-30] MEDS: ENOXAPARIN 40 MG/0.4 ML (LOVENOX) SYR SC SCH ×2 (12:57→13:31)
[2020-11-30] MEDS: KETOROLAC 15 MG/ML VIAL IV SCH ×3 (12:58→23:25)
[2020-11-30] MEDS ORDERED: LORazepam 0.5 MG (ATIVAN) TABLET PO PRN (14:30)
[2020-11-30 15:24] VITALS: BP 122/74
[2020-11-30 19:45] VITALS: BP 130/82
[2020-11-30] MEDS: QUEtiapine 100 MG (SEROquel) TAB IMMEDIATE RELEASE PO SCH (21:38)
[2020-11-30 23:27] VITALS: BP 107/69
[2020-12-01 04:24] VITALS: BP 107/71
[2020-12-01 05:40] LABS: HEMOGLOBIN 7.3 g/dL (11.5-16.0); MEAN PLATELET VOLUME 9.4 fL (9.0-12.2); WHITE BLOOD COUNT 10.7 10^3/uL (4.3-11.0)
[2020-12-01] MEDS: KETOROLAC 15 MG/ML VIAL IV SCH ×4 (06:15→23:21)
[2020-12-01] MEDS: ACETAMINOPHEN 500 MG TAB (TYLENOL) PO SCH ×3 (06:16→22:34)
--- NOTE | 2020-12-01 07:21 | Progress Note - Surgery ---
KRYSTEN DANG MED STUDENT 12/01/20 0721: Subjective Date Seen by a Provider: Dec 01, 2020 Time Seen by a Provider: 07:10 Subjective/Events-last exam Patient is asleep in bed this morning but easily woken and alert. Pain is a bit better this morning, rated 5/10. Gas pains helped substantially w/ GasX, currently not experiencing gas pains. Still only drinking water, had soda and powerade but won't drink them because she doesn't like them. She ambulated yesterday and went for a lap down the hallway, states she did fine. Is passing blood, nurse states it was minimal amount, no pain, still passing gas. On 1L NC due to sats being a bit low during sleep, she does not use O2 at home. Has used her spirometer a few times, says its helping. No issues with her incision or dressing, does not notice any distension. Has no other questions or concerns this morning. Review of Systems General: No Chills, No Night Sweats, No Fatigue, No Malaise, No Appetite, No Other HEENT: No Head Aches, No Visual Changes, No Sore Throat Pulmonary: No Dyspnea, No Cough, No Pleuritic Chest Pain Cardiovascular: No: Chest Pain, Palpitations, Edema Gastrointestinal: Nausea, Abdominal Pain, Hematochezia (Nurse states minimal amount); No: Vomiting, Diarrhea, Constipation Genitourinary: No Dysuria, No Frequency, No Hematuria Neurological: No: Weakness, Numbness Objective Exam Vital Signs Date Time Temp Pulse Resp B/P (MAP) Pulse Ox O2 Delivery O2 Flow Rate FiO2 12/01/20 04:24 36.7 71 16 107/71 (83) 93 Nasal Cannula 1.00 11/30/20 23:27 36.6 76 20 107/69 (82) 92 Nasal Cannula 1.00 11/30/20 19:45 98 Room Air 11/30/20 19:45 36.6 63 18 130/82 (98) 98 Room Air 11/30/20 15:24 36.7 66 18 122/74 (90) 95 Room Air 11/30/20 11:53 36.5 60 20 102/63 (76) 94 Room Air 11/30/20 09:00 Room Air 11/30/20 08:00 36.6 62 16 93/55 (68) 94 Room Air I & O 12/01/20 07:00 Intake Total 490 ml Output Total 50 ml Balance 440 ml Capillary Refill : General Appearance: No Apparent Distress, Mild Distress (secondary to pain), Thin Respiratory: Lungs Clear, Normal Breath Sounds, No Respiratory Distress Cardiovascular: Regular Rate, Rhythm, No Murmur Peripheral Pulses: 2+ Radial Pulses (R), 2+ Radial Pulses (L) Gastrointestinal: soft, abnormal bowel sounds (hypoactive), tenderness (mostly at incisions), other (Incision covered with pad, no leaking, bleeding, or redness noted around incision. ) Extremity: No Calf Tenderness, No Pedal Edema Neurologic/Psychiatric: Alert, Oriented x3 Skin: Normal Color, Warm/Dry Results Lab Laboratory Tests 12/01/20 05:20: White Blood Count 10.7, Red Blood Count 3.22L, Hemoglobin 7.3L, Hematocrit 24L, Mean Corpuscular Volume 75L, Mean Corpuscular Hemoglobin 23L, Mean Corpuscular Hemoglobin Concent 30L, Red Cell Distribution Width 18.3H, Platelet Count 361, Mean Platelet Volume 9.4, Creatinine 0.64 Microbiology 11/29/20 MRSA Screen - Final, Complete MRSA not isolated Assessment/Plan Assessment/Plan Assessment/Plan S/P Colostomy reversal - Pt encouraged to ambulate and use IS, collins d/c'd and told to increase PO intake. Continue pain control and anti-emetics as needed. Anemia - chronic for pt and has not changed 1. S/P Colostomy Reversal -Continue to ambulate patient -Encourage pt to try other liquids besides water, Increase overall intake -Continue incentive spirometer use -Pain, Gas, and Nausea medication as needed 2. Anemia -Chronic for patient -Decreased to 7.3 this morning -Pt currently asymptomatic, if HGB falls below 7 or becomes symptomatic consider transfusion -Pt already has T/S TODD SY DO 12/01/20 1018: Subjective Time Seen by a Provider: 09:44 Subjective/Events-last exam Pt seen and examined, laying in bed comfortable. Pt states her pain is better and she is passing gas. Tolerating clears, but nurse says not taking much in. Nurse also states she is not moving much. Review of Systems General: No Chills, No Night Sweats; Fatigue, Malaise HEENT: No Head Aches Pulmonary: No Dyspnea, No Cough Cardiovascular: No: Chest Pain, Palpitations Gastrointestinal: Abdominal Pain; No: Diarrhea, Constipation Objective Exam General Appearance: No Apparent Distress, Thin Respiratory: Lungs Clear, Normal Breath Sounds, No Respiratory Distress Cardiovascular: Regular Rate, Rhythm, No Murmur Gastrointestinal: soft, no organomegaly, tenderness (mostly at incisions), other (Incision c/d/i ) Extremity: No Calf Tenderness, No Pedal Edema Assessment/Plan Assessment/Plan Assessment/Plan S/P Colostomy reversal - Pt encouraged to ambulate and use IS, continue pain control and anti-emetics as needed. Increased to soft diet and ordered PT to make pt walk more. Supervisory-Addendum Brief Verification & Attestation Participated in pt care: history, MDM, physical Personally performed: exam, history, MDM Care discussed with: Medical Student Procedures: n/a Verification and Attestation of Medical Student E/M Service A medical student performed and documented this service. I then reviewed and verified all information documented by the medical student and made modifications to such information, when appropriate. I personally performed a physical exam, medical decision making and then discussed any differences between the notes and made revisions as necessary to create one note. Todd Sy , 12/01/20 , 10:28 KRYSTEN DANG MED STUDENT Dec 01, 2020 07:21 TODD SY DO Dec 01, 2020 10:18
[2020-12-01] MEDS: PANTOPRAZOLE 40 MG (PROTONIX) VIAL IVP SCH (07:47)
[2020-12-01] MEDS: LACTATED RINGERS 1,000 ML IV PRN (07:52)
[2020-12-01 08:00] VITALS: BP 88/51
[2020-12-01] MEDS ORDERED: ACET1TAB43 PO ×2 (10:31)
--- NOTE | 2020-12-01 10:31 | Discharge Inst-Surgical ---
Discharge Inst-Surgical Depart Medication/Instructions New, Converted or Re-Newed RX: RX Given to Pt/Family Patient Instructions Follow up Appt: Make appointment for 1 week. [phone] Instructions: No lifting greater than 20 pounds. No strenuous activity. May shower in 24 hours, no tub bath or soaking. Use incentive spirometer at home as directed. No Smoking Skin/Wound Care: May remove bandages in am. You need to leave the Dermabond on incision it will fall off on it's own. Symptoms to Report: Appetite Changes, Extremity Discoloration, Numbness/Tingling, Swelling Increased, Bleeding Excessive, Eyesight Changes, Pain Increased, Urine Color Change, Constipation(Persistent), Fever over 101 degree F, Pain/Pressure in chest, Urinating Difficulty, Cough Up/Vomit Blood, Heart Beat Irreg/Pounding, Pain/Pressure in jaw, Cramps in feet or legs, Lightheadedness, Pain/Pressure in shoulder, Diarrhea(Persistent), Memory Changes Suddenly, Questions/Concerns, Weight gain consecutive days, Dizziness/Fainting, Nausea/Vomiting, Shortness of Breath, Weight gain over 2 pounds If questions or concerns contact your physician Or seek help at emergency department. Activity Activity as Tolerated: Yes Activity Instructions: Avoid Stress to Incision Driving Instructions: No Driving/Refer to Dr. Marquez Discharge Diet: No Restrictions Diet After 24 Hours: Clear Liquid if Nauseous If Any Problems/Questions/Issu: Contact Your Physician, Go to Emergency Room Skin/Wound Care Infection Signs and Symptoms: Increased Redness, Foul Odor of Wound, Increased Drainage, Skin Itchy or Has a Rash, Increased Swelling, Temperature Above 101 F Bathing Instructions: Shower Stitches/Riky/Dermabond Dis: Care of LONA Urbano DO Dec 01, 2020 10:31
[2020-12-01 12:00] VITALS: BP 129/76
[2020-12-01] MEDS: ENOXAPARIN 40 MG/0.4 ML (LOVENOX) SYR SC SCH (13:05)
--- NOTE | 2020-12-01 14:16 | Physical Therapy Evaluation ---
PT Evaluation-General Medical Diagnosis Admission Date Nov 29, 2020 at 07:43 Medical Diagnosis: colostomy reversal Onset Date: Nov 29, 2020 Therapy Diagnosis Therapy Diagnosis: debility Height/Weight Height (Feet): 5 Height (Inches): 0.00 Weight (Pounds): 100 Weight (Ounces): 3.2 Precautions Precautions/Isolations: Standard Precautions Referral Physician: [place] Reason for Referral: Evaluation/Treatment Medical History Current History s/p SBO in Oct per report Reviewed History: Yes Social History Home: Single Level Current Living Status: Alone Prior Prior Level of Function SCALE: Activities may be completed with or without assistive devices. 5-[id number]-[id number] completes the activity by him/herself with no assistance from a helper. 5-Set-up or Clean-up Assistance-helper sets up or cleans up; patient completes activity. Whiting assists only prior to or following the activity. 4-Supervision or Touching Assistance-helper provides verbal cues and/or touching/steadying and/or contact guard assistance as patient completes activity. Assistance may be provided throughout the activity or intermittently. 3-Partial/Moderate Assistance-helper does LESS THAN HALF the effort. Whiting lifts, holds or supports trunk or limbs, but provides less than half the effort. 2-Substantial/Maximal Assistance-helper does MORE THAN HALF the effort. Whiting lifts or holds trunk or limbs and provides more than half the effort. 4-Moldimzpk-kivyap does ALL the effort. Patient does none of the effort to complete the activity. Or, the assistance of 2 or more helpers is required for the patient to complete the activity. If activity was not attempted, code reason: 7-Patient Refused. 9-Not Applicable-not attempted and the patient did not perform the activity before the current illness, exacerbation or injury. 10-Not Attempted due to Environmental Limitations-(lack of equipment, weather restraints, etc.). 88-Not Attempted due to Medical Conditions or Safety Concerns. Bed Mobility: 6 Transfers (B,C,W/C): 6 Gait: 6 Stairs: 6 Indoor Mobility (Ambulation): Independent Stairs: Independent Prior Devices Use: None PT Evaluation-Current Subjective Patient reports she has been up independently in room PRN. Reluctantly agrees to PT. Pain Numeric Pain Scale: 5-Moderate Pain Location: Right, Lower Location Body Site: Abdomen Pain Description: Ache Objective Patient Orientation: Normal For Age Attachments: IV ROM/Strength ROM Lower Extremities bilateral LE WFL Strength Lower Extremities 4/5 grossly bilateral LE Integumentary/Posture Integumentary refer to nursing notes Bowel Incontinence: No Bladder Incontinence: No Posture WFL Neuromuscular (Tone, Coordination, Reflexes) grossly intact Sensory Vision: Functional Hearing: Functional Sensation Right Lower Extremit: Intact Sensation Left Lower Extremity: Intact Transfers Roll Left to Right (QC): 6 Sit to Lying (QC): 6 Lying to Sitting/Side of Bed(Q: 6 Sit to Stand (QC): 6 Chair/Mgy-rk-Ecsff Xfer(QC): 6 Toilet Transfer (QC): 6 Gait Does the Patient Walk?: Yes Mode of Locomotion: Walk Anticipated Mode of Locomotion: Walk Walk 10 feet (QC): 6 Walk 50 ft with 2 Turns(QC): 6 Walk 150 ft (QC): 6 Distance: 300' Gait Assistive Device: FWW Comments/Gait Description safe and functional with no deviation Wheelchair Training Does the Pt Use a Wheelchair?: No Balance Sitting Static: Normal Sitting Dynamic: Normal Standing Static: Normal Standing Dynamic: Normal Assessment/Needs 75 y.o. female, is currently at independent [facility] with all gross motor skills and does not require skilled therapy intervention. Patient instructed to ambulate PRN in hallway independently with mask on. RN notified. Rehab Potential: Fair PT Plan Treatment/Plan Treatment Plan: Discontinue PT, goals met Treatment Duration: Dec 01, 2020 Frequency: 1 time per week Patient and/or Family Agrees t: Yes Time/GCodes Time In: 1330 Time Out: 1343 Total Billed Treatment Time: 13 Total Billed Treatment 1 visit EVLow 13 min DORIS GIRARD PT Dec 01, 2020 14:16
[2020-12-01 15:45] VITALS: BP 116/71
[2020-12-01] MEDS: QUEtiapine 100 MG (SEROquel) TAB IMMEDIATE RELEASE PO SCH (19:57)
[2020-12-01 20:10] VITALS: BP 117/72
[2020-12-01 23:45] VITALS: BP 101/60
[2020-12-02 04:06] VITALS: BP 124/83
[2020-12-02] MEDS: KETOROLAC 15 MG/ML VIAL IV SCH (05:14)
[2020-12-02] MEDS: ACETAMINOPHEN 500 MG TAB (TYLENOL) PO SCH (05:15)
[2020-12-02 07:50] VITALS: BP 101/61
[2020-12-02] MEDS ORDERED: PANTOPRAZOLE 40 MG (PROTONIX) TAB PO SCH (09:00)
--- NOTE | 2020-12-02 10:26 | Progress Note ---
Subjective Date Seen by a Provider: Dec 02, 2020 Time Seen by a Provider: 09:50 Subjective/Events-last exam Patient seen with Dr. Mariscal. Patient reports doing well. Denies any abdominal pain, nausea, vomiting. Tolerating diet. Ambulating and has been having diarrhea. Objective Exam Vital Signs Date Time Temp Pulse Resp B/P (MAP) Pulse Ox O2 Delivery O2 Flow Rate FiO2 12/02/20 07:50 36.4 72 14 101/61 (74) 96 Room Air 12/02/20 04:06 36.6 68 18 124/83 (97) 97 Room Air 12/01/20 23:45 36.7 79 20 101/60 (74) 94 Room Air 12/01/20 20:45 Room Air 12/01/20 20:10 36.6 70 20 117/72 (87) 96 Room Air 12/01/20 15:45 36.5 72 16 116/71 (86) 95 Room Air 12/01/20 12:00 36.4 62 18 129/76 (93) 96 Room Air I & O 12/02/20 07:00 Intake Total 770 ml Balance 770 ml Capillary Refill : General Appearance: No Apparent Distress, WD/WN Neck: Full Range of Motion, Supple Respiratory: Normal Breath Sounds, No Accessory Muscle Use, No Respiratory Distress Cardiovascular: Regular Rate, Rhythm, No Edema Gastrointestinal: normal bowel sounds, non tender, soft Extremity: Normal Inspection, Normal Range of Motion Neurologic/Psychiatric: Alert, Oriented x3 Skin: Normal Color, Warm/Dry, Other (Midline abdominal incision C/D/I with no redness, erythema, or drainage noted. Skin kavon in place.) Results Lab Microbiology 11/29/20 MRSA Screen - Final, Complete MRSA not isolated Assessment/Plan Assessment/Plan Assess & Plan/Chief Complaint S/P Colostomy reversal VSS Ambulate and use IS Pain and nausea meds as needed Continue diet Ok to DC home JOHNNY GUERRERO APRN Dec 02, 2020 10:26
[2020-12-02 11:35] VITALS: BP 118/68
== END 2020-12-02 12:55 | disposition home or self-care (01) | DRG 331 ==
LOC: 4TH 07:43 → SURG 07:44 → 4TH 14:00
PROVIDERS: ADMIT Surgery; ATTEND Surgery
PROC: 0WQF0ZZ Repair Abdominal Wall, Open Approach (ICD-10-PCS; 2020-11-29)
PROC: 0DBN0ZZ Excision of Sigmoid Colon, Open Approach (ICD-10-PCS; principal; 2020-11-29 10:06)
DX: K43.5 Parastomal hernia without obstruction or gangrene (principal); D64.9 Anemia, unspecified; J44.9 Chronic obstructive pulmonary disease, unspecified; R32 Unspecified urinary incontinence; F32.9 Major depressive disorder, single episode, unspecified; I34.0 Nonrheumatic mitral (valve) insufficiency; Z86.73 Personal history of transient ischemic attack (TIA), and cerebral infarction without residual deficits
CPT/HCPCS: 36415; 82565; 85025; 85027; 86850; 86900; 86901; 87081; 94760

== ENCOUNTER 2021-01-02 09:57 | Inpatient (IN) | payer MEDICARE ==
[~2021-01-02] VITALS: Ht 157.4 cm; Wt 47.4 kg
--- NOTE | 2021-01-02 10:04 | ED Abdominal Pain ---
General Stated Complaint: VOMITING History of Present Illness Date Seen by Provider: Jan 02, 2021 Time Seen by Provider: 10:04 Initial Comments 75-year-old female presents with abdominal pain, vomiting and diarrhea. Patient reports that she has had some vomiting and diarrhea for about a month but it got worse or the last day or so. That she has had vomiting and diarrhea every hour. She has pain in the middle of her abdomen. She reports that about a month ago she had a hernia repair in [place]. Allergies and Home Medications Allergies Coded Allergies: No Known Drug Allergies (Unverified , 12/17/18) Home Medications Acetaminophen with Codeine 1 Each Tablet, 1 EACH PO Q6HR PRN for PAIN Prescribed by: LONA ARIAS on 12/01/20 1031 Citalopram Hydrobromide 40 Mg Tablet, 40 MG PO HS, (Reported) Dexlansoprazole 60 Mg Frank., 60 MG PO DAILY, (Reported) Lorazepam 0.5 Mg Tablet, 0.5 MG PO HS PRN for RESTLESS LEGS, (Reported) PLACE UNDER TONGUE AND ADD SMALL AMOUNT OF WATER TO DISOLVE TABLET Oxybutynin Chloride 5 Mg Tablet, 5 MG PO HS, (Reported) Prednisone 5 Mg Tablet, 5 MG PO HS, (Reported) Quetiapine Fumarate 100 Mg Tablet, 100 MG PO HS, (Reported) Patient Home Medication List Home Medication List Reviewed: Yes Review of Systems Review of Systems Constitutional: No chills, No fever Respiratory: Denies Cough, Denies Shortness of Air Cardiovascular: Denies Chest Pain Gastrointestinal: Abdomen Distended, Nausea, Vomiting Genitourinary: No Symptoms Reported Musculoskeletal: no symptoms reported Skin: no symptoms reported Psychiatric/Neurological: No Symptoms Reported Endocrine: No Symptoms Reported Hematologic/Lymphatic: No Symptoms Reported Past [id number]-Pqekek-Vmeyfz Hx Past Med/Social Hx: Reviewed Nursing Past Med/Soc Hx Patient Social History 2nd Hand Smoke Exposure: No Recent Hopitalizations: No Immunizations Up To Date Tetanus Booster (TDap): Unknown Seasonal Allergies Seasonal Allergies: No Past Medical History Surgeries: Yes (esophagus, colostomy; BLADDER/RECTAL SURGERY X5) Abdominal, Bladder Surgery, 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, Rectal Respiratory: No Currently Using CPAP: No Currently Using BIPAP: No Cardiac: Yes Heart Murmur 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 (CVA 2019) Stroke [employer] History: 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 Genitourinary: Yes (incontinent of urine, can't control when it occurs and wears "a pad") UTI-Chronic Gastrointestinal: Yes (Colostomy) Gastroesophageal Reflux, Obstructive Bowel, Esophagitis, Hiatal Hernia Musculoskeletal: Yes Arthritis Endocrine: No HEENT: Yes (detached retina x3-surgeries x 5) Cataract Loss of Vision: Left Hearing Impairment: Denies Cancer: Yes Skin, Colon Did You Recieve Any Treatments: Yes What Type of Treatment Did You: Surgical Intervention Psychosocial: Yes Anxiety, Depression Integumentary: Yes ("BREAK OUT IN HIVES.") Blood Disorders: No Family Medical History Heart Disease, Cancer Physical Exam Vital Signs Vital Signs - First Documented 01/02/21 10:02 Temp 36.9 Pulse 83 Resp 18 B/P (MAP) 125/78 (94) Pulse Ox 98 O2 Delivery Room Air Capillary Refill : Height/Weight/BMI Height: 5'0.00" Weight: 100lbs. 3.2oz. 45.613478dm; 20.86 BMI Method:Stated General Appearance: moderate distress Neck: supple, normal inspection Respiratory: lungs clear, normal breath sounds Cardiovascular: normal peripheral pulses, regular rate, rhythm Gastrointestinal: tenderness Extremities: normal range of motion, non-tender Neurologic/Psychiatric: alert, oriented x 3 Skin: other (Mild erythema and induration near surgical incision,) Focused Exam Lactate Level 01/02/21 10:35: Lactic Acid Level 1.89 Lactic Acid Level Laboratory Tests Test 01/02/21 10:35 Lactic Acid Level 1.89 MMOL/L (0.50-2.00) Progress/Results/Core Measures Results/Orders Lab Results Laboratory Tests Test 01/02/21 10:35 Range/Units White Blood Count 10.7 4.3-11.0 10^3/uL Red Blood Count 4.02 L 4.35-5.85 10^6/uL Hemoglobin 8.8 L 11.5-16.0 G/DL Hematocrit 29 L 35-52 % Mean Corpuscular Volume 72 L 80-99 FL Mean Corpuscular Hemoglobin 22 L 25-34 PG Mean Corpuscular Hemoglobin Concent 30 L 32-36 G/DL Red Cell Distribution Width 18.0 H 10.0-14.5 % Platelet Count 451 H 130-400 10^3/uL Mean Platelet Volume 9.7 7.4-10.4 FL Immature Granulocyte % (Auto) 1 % Neutrophils (%) (Auto) 61 42-75 % Lymphocytes (%) (Auto) 20 12-44 % Monocytes (%) (Auto) 15 H 0-12 % Eosinophils (%) (Auto) 3 0-10 % Basophils (%) (Auto) 1 0-10 % Neutrophils # (Auto) 6.6 1.8-7.8 X 10^3 Lymphocytes # (Auto) 2.2 1.0-4.0 X 10^3 Monocytes # (Auto) 1.6 H 0.0-1.0 X 10^3 Eosinophils # (Auto) 0.3 0.0-0.3 10^3/uL Basophils # (Auto) 0.1 0.0-0.1 10^3/uL Immature Granulocyte # (Auto) 0.1 0.0-0.1 10^3/uL Sodium Level 131 L 135-145 MMOL/L Potassium Level 4.0 3.6-5.0 MMOL/L Chloride Level 98 98-107 MMOL/L Carbon Dioxide Level 23 21-32 MMOL/L Anion Gap 10 5-14 MMOL/L Blood Urea Nitrogen 8 7-18 MG/DL Creatinine 0.67 0.60-1.30 MG/DL Estimat Glomerular Filtration Rate > 60 BUN/Creatinine Ratio 12 Glucose Level 100 70-105 MG/DL Lactic Acid Level 1.89 0.50-2.00 MMOL/L Calcium Level 8.0 L 8.5-10.1 MG/DL Corrected Calcium 8.9 8.5-10.1 MG/DL Total Bilirubin 0.6 0.1-1.0 MG/DL Aspartate Amino Transf (AST/SGOT) 10 5-34 U/L Alanine Aminotransferase (ALT/SGPT) 5 0-55 U/L Alkaline Phosphatase 121 40-136 U/L Total Protein 6.1 L 6.4-8.2 GM/DL Albumin 2.9 L 3.2-4.5 GM/DL Lipase 16 8-78 U/L My Orders Orders - SCHULTZ,JAVI L DO Cbc With Automated Diff (01/02/21 10:08) Comprehensive Metabolic Panel (01/02/21 10:08) Lactic Acid Analyzer (01/02/21 10:08) Lipase (01/02/21 10:08) Ua Culture If Indicated (01/02/21 10:08) Fentanyl Inj (Sublimaze Injection) (01/02/21 10:08) Ondansetron Injection (Zofran Injectio (01/02/21 10:15) Lactated Ringers (Lr 1000 Ml Iv Solution (01/02/21 10:08) Acute Abd Series (01/02/21 10:08) Ct Abdomen/Pelvis W (01/02/21 11:25) Iohexol Injection (Omnipaque 350 Mg/Ml 1 (01/02/21 11:30) Received Contrast (Hold Metformin- Contr (01/02/21 11:30) Sodium Chloride Flush (Catheter Flush Sy (01/02/21 11:30) Ns (Ivpb) (Sodium Chloride 0.9% Ivpb Bag (01/02/21 11:30) Medications Given in ED Current Medications Medications Dose Ordered Sig/Tequila Route Start Time Stop Time Status Last Admin Dose Admin Iohexol 100 ml ONCE ONCE IV 01/02/21 11:30 01/02/21 11:31 DC 01/02/21 12:01 100 ML Ondansetron HCl 4 mg ONCE ONCE IVP 01/02/21 10:15 01/02/21 10:16 DC 01/02/21 10:49 4 MG Sodium Chloride 10 ml NEEDED PRN IV 01/02/21 11:30 01/02/21 12:01 10 ML Sodium Chloride 100 ml ONCE ONCE IV 01/02/21 11:30 01/02/21 11:31 DC 01/02/21 12:01 80 ML Vital Signs/I&O 01/02/21 10:02 Temp 36.9 Pulse 83 Resp 18 B/P (MAP) 125/78 (94) Pulse Ox 98 O2 Delivery Room Air Progress Progress Note : Progress Note Patient with ileus, colitis per CT scan. Called and discussed with Dr. Arias. We will admit patient for observation. Patient also has significant amount of stool on CT. We will give her some IV fluids along with Dulcolax suppository. Patient was transferred in stable condition Diagnostic Imaging Diagonstic Imaging: CT Comments PT STATUS: DEP ER : 1945 PHYSICIAN: JAIV SCHULTZ DO ADMIT DATE: 01/02/21/ER FS Signed Date of Exam:01/02/21 CT ABDOMEN/PELVIS W PROCEDURE: CT abdomen and pelvis with contrast. TECHNIQUE: Multiple contiguous axial images were obtained through the abdomen and pelvis after administration of intravenous contrast. Auto Exposure Controls were utilized during the CT exam to meet ALARA standards for radiation dose reduction. All CT scans use one or more of the following dose optimizing techniques: automated exposure control, MA and/or KvP adjustment based on patient size and exam type or iterative reconstruction. INDICATION: Abdominal pain. COMPARISON: September 23, 2020. FINDINGS: Peripherally calcified bilateral breast implants are partially visualized. Small right and trace left pleural effusions are present. Small hiatal hernia. Tiny hypodensity within the right hepatic lobe is too small to completely characterize, though stable from the prior exam. The liver is otherwise unremarkable. The spleen is unremarkable. The adrenal glands are unremarkable. The pancreas is unremarkable. The gallbladder is unremarkable. Right extrarenal pelvis. The kidneys are otherwise unremarkable. No aneurysmal dilatation of the abdominal aorta. The urinary bladder is unremarkable. The uterus is not visualized, likely surgically absent. Interval repair of previously noted bowel-containing anterior abdominal wall hernia. No focal fluid collection at this location. Persisting small fat-containing left periumbilical anterior abdominal wall hernia is present, having decreased in size since the prior exam. Postsurgical changes are noted associated with the bowel. This includes an end-to-side anastomosis involving the distal sigmoid colon. Mural thickening is noted throughout the majority of the colon, greatest involving the sigmoid and descending colon. This is associated with adjacent fat stranding. Postsurgical changes associated with the small bowel are present. No evidence of bowel obstruction. No abnormally dilated loops of large or small bowel. Stool is noted throughout the colon. No pneumatosis. Tiny fluid-containing right inguinal hernia. Small amount of free fluid within the lower pelvis. No significant adenopathy. No free air. Significant apex left curvature of the spine. Postsurgical changes associated with the pubic symphysis. Degenerative grade 1 anterolisthesis of L3 on L4. No acute osseous abnormality. IMPRESSION: Diffuse mural thickening and inflammatory stranding associated with the colon. Findings are favored to relate to underlying colitis, likely of an infectious or inflammatory nature. Ischemic etiology would be an additional consideration, though felt less likely given distribution. Additionally, the superior mesenteric artery and superior mesenteric vein appear patent within the limits of the exam. Postsurgical changes throughout the bowel, including anastomosis within the sigmoid colon. Interval repair of previously noted anterior abdominal wall hernia without focal fluid collection at this location. Small right and trace left bibasilar pleural effusions. Small amount of free fluid and inflammatory stranding throughout the abdomen and pelvis. Departure Impression Primary Impression: Colitis Additional Impressions: Ileus Constipation Qualified Codes: K59.00 - Constipation, unspecified Disposition: 30 STILL A PATIENT Condition: Stable Admissions Decision to Admit Reason: Admit from ER (General) Decision to Admit/Date: Jan 02, 2021 Time/Decision to Admit Time: 13:00 Departure-Patient Inst. Referrals: ZAHIRA WILCOX APRN (PCP) Primary Care Physician [facility] (Family) Primary Care Physician JAVI SCHULTZ DO Jan 02, 2021 10:04
[2021-01-02] MEDS ORDERED: fentaNYL INJ 100 MCG/2 ML AMP IVP STA (10:08)
[2021-01-02] MEDS ORDERED: LACTATED RINGERS 1,000 ML IV STA (10:08)
[2021-01-02] MEDS ORDERED: ONDANSETRON 4 MG/2 ML (SDV) Z0FRAN IVP ONE (10:15)
[2021-01-02 10:53] LABS: HEMATOCRIT 29 % (35-52); HEMOGLOBIN 8.8 G/DL (11.5-16.0); MEAN CORPUSCULAR HEMOGLOBIN 22 PG (25-34); MEAN CORPUSCULAR HGB CONC 30 G/DL (32-36); MEAN CORPUSCULAR VOLUME 72 FL (80-99); WHITE BLOOD COUNT 10.7 10^3/uL (4.3-11.0)
[2021-01-02 10:54] LABS: BASOPHILS # (AUTO) 0.1 10^3/uL (0.0-0.1); BASOPHILS % (AUTO) 1 % (0-10); EOSINOPHILS # (AUTO) 0.3 10^3/uL (0.0-0.3); EOSINOPHILS % (AUTO) 3 % (0-10); LYMPHOCYTES # (AUTO) 2.2 X 10^3 (1.0-4.0); LYMPHOCYTES % (AUTO) 20 % (12-44); MEAN PLATELET VOLUME 9.7 FL (7.4-10.4); MONOCYTES # (AUTO) 1.6 X 10^3 (0.0-1.0); MONOCYTES % (AUTO) 15 % (0-12); NEUTROPHILS # (AUTO) 6.6 X 10^3 (1.8-7.8); NEUTROPHILS % (AUTO) 61 % (42-75); PLATELET COUNT 451 10^3/uL (130-400)
[2021-01-02 11:21] LABS: BUN/CREATININE RATIO 12; CARBON DIOXIDE 23 MMOL/L (21-32); CHLORIDE 98 MMOL/L (98-107); CREATININE SERUM 0.67 MG/DL (0.60-1.30); GFR ESTIMATED > 60; GLUCOSE 100 MG/DL (70-105); SODIUM 131 MMOL/L (135-145)
[2021-01-02 11:22] LABS: ALANINE AMINOTRANSFERASE 5 U/L (0-55); ALBUMIN 2.9 GM/DL (3.2-4.5); ALKALINE PHOSPHATASE 121 U/L (40-136); BILIRUBIN,TOTAL 0.6 MG/DL (0.1-1.0); LIPASE 16 U/L (8-78); TOTAL PROTEIN 6.1 GM/DL (6.4-8.2)
[2021-01-02] MEDS ORDERED: IOHEXOL 350 MG/ML 100 ML (OMNIPAQUE 350) VIAL IV ONE (11:30)
[2021-01-02] MEDS ORDERED: NS 100 ML (IVPB) BAG IV ONE (11:30)
[2021-01-02] MEDS ORDERED: CATHETER FLUSH 10 ML SYR IV PRN ×2 (11:30→16:00)
[2021-01-02] MEDS ORDERED: HOLD METFORMIN - RECEIVED CONTRAST 20 ML VIAL IV SCH (11:30)
--- NOTE | 2021-01-02 12:12 | Diagnostic Imaging Report ---
INDICATION: Abdominal pain, 4 weeks post bowel surgery TECHNIQUE: Single view chest with supine and upright radiographs of the abdomen. CORRELATION STUDY: 10/11/2020 FINDINGS: Heart size enlarged. Calcification of the aortic arch. Vasculature within normal limits. Lung bases are partially obscured by calcification over bilateral breast implants. Elevated right diaphragm is likely minimal atelectasis and effusion at the right lung base. Multiple surgical clips at the epigastric region. There is presence of a few gas-filled loops of small bowel. There is moderate amount of stool particularly in the distal colon. IMPRESSION: 1. Likely combination of effusion and/or pleural thickening along with minimal atelectasis at the right lung base. 2. A few gas-filled small bowel air-fluid levels. Favors probable mild ileus pattern. Partial or early bowel obstruction however is not excluded. Follow-up imaging if clinically warranted. Moderate distal colonic fecal loading. Dictated by: Dictated on workstation # [id number]
--- NOTE | 2021-01-02 12:44 | Diagnostic Imaging Report ---
PROCEDURE: CT abdomen and pelvis with contrast. TECHNIQUE: Multiple contiguous axial images were obtained through the abdomen and pelvis after administration of intravenous contrast. Auto Exposure Controls were utilized during the CT exam to meet ALARA standards for radiation dose reduction. All CT scans use one or more of the following dose optimizing techniques: automated exposure control, MA and/or KvP adjustment based on patient size and exam type or iterative reconstruction. INDICATION: Abdominal pain. COMPARISON: September 23, 2020. FINDINGS: Peripherally calcified bilateral breast implants are partially visualized. Small right and trace left pleural effusions are present. Small hiatal hernia. Tiny hypodensity within the right hepatic lobe is too small to completely characterize, though stable from the prior exam. The liver is otherwise unremarkable. The spleen is unremarkable. The adrenal glands are unremarkable. The pancreas is unremarkable. The gallbladder is unremarkable. Right extrarenal pelvis. The kidneys are otherwise unremarkable. No aneurysmal dilatation of the abdominal aorta. The urinary bladder is unremarkable. The uterus is not visualized, likely surgically absent. Interval repair of previously noted bowel-containing anterior abdominal wall hernia. No focal fluid collection at this location. Persisting small fat-containing left periumbilical anterior abdominal wall hernia is present, having decreased in size since the prior exam. Postsurgical changes are noted associated with the bowel. This includes an end-to-side anastomosis involving the distal sigmoid colon. Mural thickening is noted throughout the majority of the colon, greatest involving the sigmoid and descending colon. This is associated with adjacent fat stranding. Postsurgical changes associated with the small bowel are present. No evidence of bowel obstruction. No abnormally dilated loops of large or small bowel. Stool is noted throughout the colon. No pneumatosis. Tiny fluid-containing right inguinal hernia. Small amount of free fluid within the lower pelvis. No significant adenopathy. No free air. Significant apex left curvature of the spine. Postsurgical changes associated with the pubic symphysis. Degenerative grade 1 anterolisthesis of L3 on L4. No acute osseous abnormality. IMPRESSION: Diffuse mural thickening and inflammatory stranding associated with the colon. Findings are favored to relate to underlying colitis, likely of an infectious or inflammatory nature. Ischemic etiology would be an additional consideration, though felt less likely given distribution. Additionally, the superior mesenteric artery and superior mesenteric vein appear patent within the limits of the exam. Postsurgical changes throughout the bowel, including anastomosis within the sigmoid colon. Interval repair of previously noted anterior abdominal wall hernia without focal fluid collection at this location. Small right and trace left bibasilar pleural effusions. Small amount of free fluid and inflammatory stranding throughout the abdomen and pelvis. Additional findings, as described above. Dictated by: Dictated on workstation # [id number]
[2021-01-02 14:07] LABS: BILIRUBIN,URINE NEGATIVE (NEGATIVE); CLARITY,URINE SL CLOUDY; COLOR,URINE YELLOW; GLUCOSE, URINE (UA) NEGATIVE (NEGATIVE); KETONES,URINE NEGATIVE (NEGATIVE); LEUKOCYTE ESTERASE ,URINE 2+ (NEGATIVE); NITRITE,URINE NEGATIVE (NEGATIVE); PH,URINE 7.5 (5-9); PROTEIN,URINE NEGATIVE (NEGATIVE)
[2021-01-02 14:08] LABS: BACTERIA,URINE LARGE /HPF; YEAST,URINE FEW /HPF
[2021-01-02] MEDS ORDERED: NS IV 1000 ML 1,000 ML ONE (15:36)
[2021-01-02] MEDS ORDERED: ONDANSETRON 4 MG/2 ML (SDV) Z0FRAN ONE (15:43)
[2021-01-02] MEDS: ONDANSETRON 4 MG/2 ML (SDV) Z0FRAN IVP PRN ×2 (15:57→20:04)
[2021-01-02] MEDS: NS IV 1000 ML 1,000 ML IV SCH ×2 (15:57→23:22)
[2021-01-02 16:00] VITALS: BP 126/74
[2021-01-02] MEDS ORDERED: BISACODYL 10 MG SUPP (DULCOLAX) PR PRN (16:00)
--- NOTE | 2021-01-02 16:41 | History & Physical-Surgical ---
LEE ANN BAER MED STUDENT 01/02/21 1641: History of Present Illness History of Present Illness Reason for visit/HPI Loan Acevedo is a 75 yo F with history including colostomy reversal 1 month ago who complains of dairrhea, abdominal pain, and vomiting. The patient reports a month of abdominal pain with diarrhea and some dark stools. She states her episodes of diarrhea have been occurring every hour for most of the month. Loan also complains of non-radiating intermittent sharp mid-abdominal pain, current severity 7/10, at severity 9/10 when at its worst, and worse over the past week. Her pain is worse with movement and improves with pain pills and laying still. She reports several episodes of nausea and vomiting. The patient denies chest pain, back pain, and blood in the vomit. The patient was admitted from the ER due to continued symptoms as well as CT scan indicating colitis. Date of Admission Jan 02, 2021 at 15:00 I consulted on this patient on 01/02/21 16:30 Attending Physician Lona Sy DO Admitting Physician Angi Sainz Aprn Consult Allergies and Home Medications Allergies Coded Allergies: No Known Drug Allergies (Unverified , 12/17/18) Home Medications Acetaminophen with Codeine 1 Each Tablet, 1 EACH PO BID, (Reported) Cephalexin 500 Mg Capsule, 500 MG PO BID, (Reported) FILLED 12-29-2020 #10/5 DAY SUPPLY Citalopram Hydrobromide 40 Mg Tablet, 40 MG PO HS, (Reported) Dexlansoprazole 60 Mg , 60 MG PO DAILY, (Reported) LAST FILLED 10-25-2020 #30 Ferrous Sulfate 325 Mg Tablet, 325 MG PO DAILY, (Reported) Hyoscyamine Sulfate 0.125 Mg Tab.subl, 0.125 MG SL Q4H PRN for ABDOMINAL CRAMPING, (Reported) Ibuprofen 200 Mg Capsule, 400 MG PO Q8H PRN for PAIN-MILD (1-4), (Reported) Loperamide HCl 2 Mg Tablet, 2-4 MG PO UD PRN for DIARRHEA, (Reported) Lorazepam 0.5 Mg Tablet, 0.5 MG PO HS, (Reported) Oxybutynin Chloride 5 Mg Tablet, 5 MG PO HS, (Reported) Peg 400/Hypromellose/Glycerin 15 Ml Drops, 1-2 DROPS OU PRN PRN for DRY EYES, (R eported) Prednisone 5 Mg Tablet, 5 MG PO HS, (Reported) Quetiapine Fumarate 100 Mg Tablet, 100 MG PO HS, (Reported) Past [id number]-[id number]-Ubjxys Hx Patient Social History Smoking Status: Never a Smoker 2nd Hand Smoke Exposure: No Recent Hopitalizations: No Immunizations Up To Date Tetanus Booster (TDap): Unknown Seasonal Allergies Seasonal Allergies: No Surgeries History of Surgeries: Yes (esophagus, colostomy; BLADDER/RECTAL SURGERY X5, anastomosis, hernia repair) Surgeries: Abdominal (colostomy placement d/t perforated bowel (2015), colostomy takedown (Nov 2020)), Bladder Surgery, Bowel Surgery, 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 (no oophorectomy), Rectal Respiratory History of Respiratory Disorde: No Cardiovascular History of Cardiac Disorders: Yes Cardiac Disorders: Heart Murmur Neurological History of Neurological Disord: Yes (CVA 2019 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) Neurological Disorders: Stroke Reproductive System COAL WEIGHER History: 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 Genitourinary History of Genitourinary Disor: Yes (incontinent of urine, can't control when it occurs and wears "a pad") Genitourinary Disorders: UTI-Chronic Gastrointestinal History of Gastrointestinal Di: Yes (Colostomy) Gastrointestinal Disorders: Gastroesophageal Reflux, Obstructive Bowel, Esophagitis, Hiatal Hernia Musculoskeletal History of Musculoskeletal Dis: Yes Musculoskeletal Disorders: Arthritis Endocrine History of Endocrine Disorders: No HEENT History of HEENT Disorders: Yes (detached retina x3-surgeries x 5) HEENT Disorders: Cataract Loss of Vision: Left Hearing Impairment: Denies Cancer History of Cancer: Yes Cancer: Skin, Colon Psychosocial History of Psychiatric Problem: Yes Behavioral Health Disorders: Anxiety, Depression Integumentary History of Skin or Integumenta: Yes ("BREAK OUT IN HIVES.") Blood Transfusions History of Blood Disorders: No Family Medical History Significant Family History: Heart Disease, Cancer, Other Conditions/Hx (unable to obtain detailed family history as patient became frustrated with questions and refused to answer ) Review of Systems Constitutional: chills, fever EENTM: No hearing loss, No vision loss Respiratory: No hemoptysis, No short of breath Cardiovascular: No chest pain, No edema Gastrointestinal: abdominal pain (periumbilicial), diarrhea; No hematemesis; nausea, vomiting, other (incontinence of stool, dark stool) Musculoskeletal: No back pain, No joint pain Skin: No pruritus, No rash Psychiatric/Neurological: Denies Headache, Denies Numbness All Other Systems Reviewed Negative Unless Noted: Yes Physical Exam Vital Signs Vital Signs - First Documented 01/02/21 10:02 Temp 36.9 Pulse 83 Resp 18 B/P (MAP) 125/78 (94) Pulse Ox 98 O2 Delivery Room Air Capillary Refill : Less Than 3 Seconds Height, Weight, BMI Height: 5'0.00" Weight: 100lbs. 3.2oz. [id number]; 19.00 BMI Method:Stated General Appearance: Mild Distress, Thin HEENT: PERRL/EOMI Neck: Normal Inspection Respiratory: Chest Non Tender, Lungs Clear, Normal Breath Sounds, No Accessory Muscle Use, No Respiratory Distress Cardiovascular: Regular Rate, Rhythm, No Edema, No JVD Gastrointestinal: Abnormal Bowel Sounds (hyperactive); No Distended, No Guarding; Tenderness (moderate periumbilical and LLQ tenderness to palpation. Increased abdominal warmth. Midline surgical scar appears well-healed. herniation underlying surgical scar site.) Rectal: Deferred Extremity: No Pedal Edema Neurologic/Psychiatric: Alert, Oriented x3, Depressed Affect Skin: Normal Color, Warm/Dry; No Diaphoresis, No Erythema Data Review Labs Laboratory Tests 01/02/21 10:35: White Blood Count 10.7, Red Blood Count 4.02L, Hemoglobin 8.8L, Hematocrit 29L, Mean Corpuscular Volume 72L, Mean Corpuscular Hemoglobin 22L, Mean Corpuscular Hemoglobin Concent 30L, Red Cell Distribution Width 18.0H, Platelet Count 451H, Mean Platelet Volume 9.7, Immature Granulocyte % (Auto) 1, Neutrophils (%) (Auto) 61, Lymphocytes (%) (Auto) 20, Monocytes (%) (Auto) 15H, Eosinophils (%) (Auto) 3, Basophils (%) (Auto) 1, Neutrophils # (Auto) 6.6, Lymphocytes # (Auto) 2.2, Monocytes # (Auto) 1.6H, Eosinophils # (Auto) 0.3, Basophils # (Auto) 0.1, Immature Granulocyte # (Auto) 0.1, Sodium Level 131L, Potassium Level 4.0, Chloride Level 98, Carbon Dioxide Level 23, Anion Gap 10, Blood Urea Nitrogen 8, Creatinine 0.67, Estimat Glomerular Filtration Rate > 60, BUN/Creatinine Ratio 12, Glucose Level 100, Lactic Acid Level 1.89, Calcium Level 8.0L, Corrected Calcium 8.9, Total Bilirubin 0.6, Aspartate Amino Transf (AST/SGOT) 10, Alanine Aminotransferase (ALT/SGPT) 5, Alkaline Phosphatase 121, Total Protein 6.1L, Al bumin 2.9L, Lipase 16 01/02/21 13:35: Urine Color YELLOW, Urine Clarity SL CLOUDY, Urine pH 7.5, Urine Specific [place] 1.010L, Urine Protein NEGATIVE, Urine Glucose (UA) NEGATIVE, Urine Ketones NEGATIVE, Urine Nitrite NEGATIVE, Urine Bilirubin NEGATIVE, Urine Urobilinogen 0.2, Urine Leukocyte Esterase 2+H, Urine RBC (Auto) 1+H, Urine RBC 2-5H, Urine WBC 10-25H, Urine Squamous Epithelial Cells 2-5, Urine Crystals NONE, Urine Bacteria LARGEH, Urine Casts NONE, Urine Mucus SMALLH, Urine Yeast FEWH, Urine Culture Indicated YES 01/03/21 05:03: White Blood Count 7.5, Red Blood Count 3.44L, Hemoglobin 7.5L, Hematocrit 26L, Mean Corpuscular Volume 75L, Mean Corpuscular Hemoglobin 22L, Mean Corpuscular Hemoglobin Concent 29L, Red Cell Distribution Width 18.3H, Platelet Count 362, Mean Platelet Volume 9.4, Immature Granulocyte % (Auto) 0, Neutrophils (%) (Auto) 54, Lymphocytes (%) (Auto) 21, Monocytes (%) (Auto) 20H, Eosinophils (%) (Auto) 5, Basophils (%) (Auto) 1, Neutrophils # (Auto) 4.0, Lymphocytes # (Auto) 1.6, Monocytes # (Auto) 1.5H, Eosinophils # (Auto) 0.4H, Basophils # (Auto) 0.0, Immature Granulocyte # (Auto) 0.0, Sodium Level 135, Potassium Level 3.4L, Chloride Level 105, Carbon Dioxide Level 19L, Anion Gap 11, Blood Urea Nitrogen 6L, Creatinine 0.62, Estimat Glomerular Filtration Rate > 60, BUN/Creatinine Ratio 10, Glucose Level 90, Calcium Level 7.1L, Corrected Calcium 8.5, Total Bilirubin 0.7, Aspartate Amino Transf (AST/SGOT) 8, Alanine Aminotransferase (ALT/SGPT) 6, Alkaline Phosphatase 82, Total Protein 4.7L, Albumin 2.3L Assessment/Plan Assessment/Plan Admission Diagonsis colitis post-operative diarrhea nausea and vomiting Assessment/Plan 1 month s/p colostomy takedown colitis -nonischemic: 1 week of pain, normal lactate in ER, CT showed patency of SMA and PRINCESS -Toradol 30mg IV PRN diarrhea symptoms -continue IVF -stool culture stool visible throughout intestine on CT. -bisacodyl suppository nausea -give 4mg IV LONA Quintero DO 01/03/21 1047: History of Present Illness History of Present Illness Reason for visit/HPI I saw pt yesterday and put in orders, this is a late entry note. Pt was very distressed yesterday and upset. She had severe diarrhea, which she described as "accidents". She stated she was weak and "very sick", with no energy. Time Seen by a Provider: 16:04 Allergies and Home Medications Allergies Coded Allergies: No Known Drug Allergies (Unverified , 12/17/18) Home Medications Acetaminophen with Codeine 1 Each Tablet, 1 EACH PO BID, (Reported) Cephalexin 500 Mg Capsule, 500 MG PO BID, (Reported) FILLED 12-29-2020 #10/5 DAY SUPPLY Citalopram Hydrobromide 40 Mg Tablet, 40 MG PO HS, (Reported) Dexlansoprazole 60 Mg , 60 MG PO DAILY, (Reported) LAST FILLED 10-25-2020 #30 Ferrous Sulfate 325 Mg Tablet, 325 MG PO DAILY, (Reported) Hyoscyamine Sulfate 0.125 Mg Tab.subl, 0.125 MG SL Q4H PRN for ABDOMINAL CRAMPING, (Reported) Ibuprofen 200 Mg Capsule, 400 MG PO Q8H PRN for PAIN-MILD (1-4), (Reported) Loperamide HCl 2 Mg Tablet, 2-4 MG PO UD PRN for DIARRHEA, (Reported) Lorazepam 0.5 Mg Tablet, 0.5 MG PO HS, (Reported) Oxybutynin Chloride 5 Mg Tablet, 5 MG PO HS, (Reported) Peg 400/Hypromellose/Glycerin 15 Ml Drops, 1-2 DROPS OU PRN PRN for DRY EYES, (Reported) Prednisone 5 Mg Tablet, 5 MG PO HS, (Reported) Quetiapine Fumarate 100 Mg Tablet, 100 MG PO HS, (Reported) Patient Home Medication List Home Medication List Reviewed: Yes Physical Exam General Appearance: Moderate Distress, Thin Respiratory: Chest Non Tender, Lungs Clear, Normal Breath Sounds, No Accessory Muscle Use, No Respiratory Distress Cardiovascular: Regular Rate, Rhythm, Systolic Murmur Gastrointestinal: Abnormal Bowel Sounds (hyperactive); No Distended, No Guarding; Tenderness (moderate periumbilical and LLQ tenderness to palpation. Increased abdominal warmth. Midline surgical scar appears well-healed. herniation underlying surgical scar site.) Assessment/Plan Assessment/Plan Admission Diagonsis colitis post-operative diarrhea nausea and vomiting Admission Status: Inpatient Order (span 2 midnights) Reason for Inpatient Admission: Pt is dehydrated and needs fluids and IV ABX Assessment/Plan colitis -nonischemic: 1 week of pain, normal lactate in ER, CT showed patency of SMA and PRINCESS -Toradol 30mg IV PRN diarrhea symptoms -continue IVF -stool culture stool visible throughout intestine on CT. -bisacodyl suppository nausea -give 4mg IV Zofran When I spoke to pt yesterday she was very upset and stated she had no emma in me, that if she had known "it was gonna be this bad, I wouldn't have done it". I reminded her that I told her she was going to have diarrhea after reconnection, this is normal after surgery. I told her we would try to help her with fluids, meds for pain. We are checking her urine, she may have a UTI. I also told her I would get her a second opinion and that she could have another doctor take over if that would help her. Supervisory-Addendum Brief Verification & Attestation Participated in pt care: history, MDM, physical Personally performed: exam, history, MDM Care discussed with: Medical Student Procedures: n/a Verification and Attestation of Medical Student E/M Service A medical student performed and documented this service. I then reviewed and verified all information documented by the medical student and made mod ifications to such information, when appropriate. I personally performed a physical exam, medical decision making and then discussed any differences between the notes and made revisions as necessary to create one note. Lona Sy , 01/03/21 , 10:48 LEE ANN BAER MED STUDENT Jan 02, 2021 16:41 LONA SY DO Jan 03, 2021 10:47
[2021-01-02] MEDS ORDERED: BISACODYL 10 MG SUPP (DULCOLAX) ONE (18:38)
[2021-01-02 20:00] VITALS: BP 128/74
[2021-01-02] MEDS: CIPROFLOXACIN IV 400MG/200ML 200 ML IV SCH (20:04)
[2021-01-02] MEDS: HYDROcodone/APAP 7.5 MG/325 MG (LORTAB, LORCET PLUS) TABLET PO PRN (20:05)
[2021-01-02] MEDS ORDERED: PANTOPRAZOLE 40 MG (PROTONIX) TAB PO ONE (20:05)
[2021-01-02] MEDS: PANTOPRAZOLE 40 MG (PROTONIX) TAB PO SCH (20:12)
[2021-01-02 23:15] VITALS: BP 94/55
[2021-01-03 04:00] VITALS: BP 109/61
[2021-01-03 05:27] LABS: BASOPHILS % (AUTO) 1 % (0-10); EOSINOPHILS # (AUTO) 0.4 10^3/uL (0.0-0.3); EOSINOPHILS % (AUTO) 5 % (0-10); HEMATOCRIT 26 % (35-52); HEMOGLOBIN 7.5 g/dL (11.5-16.0); LYMPHOCYTES # (AUTO) 1.6 10^3/uL (1.0-4.0); LYMPHOCYTES % (AUTO) 21 % (12-44); MEAN CORPUSCULAR HEMOGLOBIN 22 pg (25-34); MEAN CORPUSCULAR HGB CONC 29 g/dL (32-36); MEAN CORPUSCULAR VOLUME 75 fL (80-99); MEAN PLATELET VOLUME 9.4 fL (9.0-12.2); MONOCYTES # (AUTO) 1.5 10^3/uL (0.0-1.0); MONOCYTES % (AUTO) 20 % (0-12); NEUTROPHILS % (AUTO) 54 % (42-75); PLATELET COUNT 362 10^3/uL (130-400); WHITE BLOOD COUNT 7.5 10^3/uL (4.3-11.0)
[2021-01-03] MEDS: NS IV 1000 ML 1,000 ML IV SCH ×3 (05:33→14:58)
[2021-01-03 05:42] LABS: ALBUMIN 2.3 GM/DL (3.2-4.5); CHLORIDE 105 MMOL/L (98-107); POTASSIUM 3.4 MMOL/L (3.6-5.0); SODIUM 135 MMOL/L (135-145)
[2021-01-03 05:43] LABS: CALCIUM 7.1 MG/DL (8.5-10.1)
[2021-01-03 05:44] LABS: GLUCOSE 90 MG/DL (70-105); TOTAL PROTEIN 4.7 GM/DL (6.4-8.2)
[2021-01-03 05:45] LABS: CARBON DIOXIDE 19 MMOL/L (21-32)
[2021-01-03 05:46] LABS: BILIRUBIN,TOTAL 0.7 MG/DL (0.1-1.0)
[2021-01-03 05:47] LABS: ALKALINE PHOSPHATASE 82 U/L (40-136)
[2021-01-03 05:48] LABS: CREATININE SERUM 0.62 MG/DL (0.60-1.30); GFR ESTIMATED > 60
[2021-01-03 05:49] LABS: BUN/CREATININE RATIO 10
[2021-01-03 05:51] LABS: ALANINE AMINOTRANSFERASE 6 U/L (0-55)
[2021-01-03 07:18] VITALS: BP 104/55
--- NOTE | 2021-01-03 07:58 | Progress Note - Surgery ---
LEE ANN BAER MED STUDENT 01/03/21 0758: Subjective Date Seen by a Provider: Jan 03, 2021 Time Seen by a Provider: 07:35 Subjective/Events-last exam Loan has had 4 episodes of diarrhea overnight. RN said no blood in the stool or tarry stools, states it looks like undigested food. The patient says her pain is "fine, just sore". She denies new pain, nausea, vomiting. Focused Exam Lactate Level 01/02/21 10:35: Lactic Acid Level 1.89 Objective Exam Vital Signs Date Time Temp Pulse Resp B/P (MAP) Pulse Ox O2 Delivery O2 Flow Rate FiO2 01/03/21 07:18 36.8 60 14 104/55 (71) 94 Room Air 01/03/21 04:00 36.4 72 14 109/61 (77) 93 Room Air 01/02/21 23:15 36.6 68 16 94/55 (68) 94 Room Air 01/02/21 20:00 Room Air 01/02/21 20:00 36.9 80 18 128/74 (92) 95 Room Air 01/02/21 16:44 Room Air 01/02/21 16:00 36.7 74 22 126/74 (91) 95 Room Air 01/02/21 14:06 36.9 83 16 136/75 (94) 95 Room Air 01/02/21 10:02 36.9 83 18 125/78 (94) 98 Room Air I & O 01/03/21 07:00 Intake Total 720 ml Balance 720 ml Capillary Refill : Less Than 3 Seconds General Appearance: No Apparent Distress, Thin HEENT: PERRL/EOMI Neck: Normal Inspection Respiratory: Chest Non Tender, Lungs Clear, Normal Breath Sounds, No Accessory Muscle Use, No Respiratory Distress Cardiovascular: Regular Rate, Rhythm, No Edema, No JVD, Systolic Murmur Gastrointestinal: tenderness (mild diffuse abdominal tenderness) Extremity: No Pedal Edema, Other (increased abdominal warmth) Neurologic/Psychiatric: Alert, Oriented x3, Depressed Affect Skin: Normal Color, Warm/Dry; No Diaphoresis, No Erythema Results Lab Laboratory Tests 01/02/21 10:35: White Blood Count 10.7, Red Blood Count 4.02L, Hemoglobin 8.8L, Hematocrit 29L, Mean Corpuscular Volume 72L, Mean Corpuscular Hemoglobin 22L, Mean Corpuscular Hemoglobin Concent 30L, Red Cell Distribution Width 18.0H, Platelet Count 451H, Mean Platelet Volume 9.7, Immature Granulocyte % (Auto) 1, Neutrophils (%) (Auto) 61, Lymphocytes (%) (Auto) 20, Monocytes (%) (Auto) 15H, Eosinophils (%) (Auto) 3, Basophils (%) (Auto) 1, Neutrophils # (Auto) 6.6, Lymphocytes # (Auto) 2.2, Monocytes # (Auto) 1.6H, Eosinophils # (Auto) 0.3, Basophils # (Auto) 0.1, Immature Granulocyte # (Auto) 0.1, Sodium Level 131L, Potassium Level 4.0, Chloride Level 98, Carbon Dioxide Level 23, Anion Gap 10, Blood Urea Nitrogen 8, Creatinine 0.67, Estimat Glomerular Filtration Rate > 60, BUN/Creatinine Ratio 12, Glucose Level 100, Lactic Acid Level 1.89, Calcium Level 8.0L, Corrected Calcium 8.9, Total Bilirubin 0.6, Aspartate Amino Transf (AST/SGOT) 10, Alanine Aminotransferase (ALT/SGPT) 5, Alkaline Phosphatase 121, Total Protein 6.1L, Albumin 2.9L, Lipase 16 01/02/21 13:35: Urine Color YELLOW, Urine Clarity SL CLOUDY, Urine pH 7.5, Urine Specific [place] 1.010L, Urine Protein NEGATIVE, Urine Glucose (UA) NEGATIVE, Urine Ketones NEGATIVE, Urine Nitrite NEGATIVE, Urine Bilirubin NEGATIVE, Urine Urobil inogen 0.2, Urine Leukocyte Esterase 2+H, Urine RBC (Auto) 1+H, Urine RBC 2-5H, Urine WBC 10-25H, Urine Squamous Epithelial Cells 2-5, Urine Crystals NONE, Urine Bacteria LARGEH, Urine Casts NONE, Urine Mucus SMALLH, Urine Yeast FEWH, Urine Culture Indicated YES 01/03/21 05:03: White Blood Count 7.5, Red Blood Count 3.44L, Hemoglobin 7.5L, Hematocrit 26L, Mean Corpuscular Volume 75L, Mean Corpuscular Hemoglobin 22L, Mean Corpuscular Hemoglobin Concent 29L, Red Cell Distribution Width 18.3H, Platelet Count 362, Mean Platelet Volume 9.4, Immature Granulocyte % (Auto) 0, Neutrophils (%) (Auto) 54, Lymphocytes (%) (Auto) 21, Monocytes (%) (Auto) 20H, Eosinophils (%) (Auto) 5, Basophils (%) (Auto) 1, Neutrophils # (Auto) 4.0, Lymphocytes # (Auto) 1.6, Monocytes # (Auto) 1.5H, Eosinophils # (Auto) 0.4H, Basophils # (Auto) 0.0, Immature Granulocyte # (Auto) 0.0, Sodium Level 135, Potassium Level 3.4L, Chloride Level 105, Carbon Dioxide Level 19L, Anion Gap 11, Blood Urea Nitrogen 6L, Creatinine 0.62, Estimat Glomerular Filtration Rate > 60, BUN/Creatinine Ratio 10, Glucose Level 90, Calcium Level 7.1L, Corrected Calcium 8.5, Total Bilirubin 0.7, Aspartate Amino Transf (AST/SGOT) 8, Alanine Aminotransferase (ALT/SGPT) 6, Alkaline Phosphatase 82, Total Protein 4.7L, Albumin 2.3L Assessment/Plan Assessment/Plan Assessment/Plan 1 month s/p colostomy takedown colitis -nonischemic: 1 week of pain, normal lactate in ER, CT showed patency of SMA and PRINCESS diarrhea symptoms -continue IVF -stool culture -stop Cipro until toxin-producing bacteria excluded as cause of diarrhea nausea -IV Zofran PRN -says she is not nauseous unless taking a sip of water hypoalbuminemia -no proteinuria on initial UA; likely enteric loss -states she last ate Friday, nausea is mild enough that she "could try" to eat something today -high protein diet -continue to monitor anemia -HGB 7.5, was 8.8 yesterday -recheck tomorrow, transfuse if under 7 LONA SY DO 01/03/21 1053: Subjective Time Seen by a Provider: 10:31 Subjective/Events-last exam Pt seen, she was talking to Dr. Momin Review of Systems General: Fatigue, Malaise Pulmonary: No Dyspnea, No Cough Cardiovascular: No: Chest Pain, Palpitations Gastrointestinal: Nausea, Abdominal Pain, Diarrhea; No: Vomiting Genitourinary: Dysuria Objective Exam General Appearance: Mild Distress, Thin HEENT: PERRL/EOMI Respiratory: Lungs Clear, Normal Breath Sounds, No Accessory Muscle Use, No Respiratory Distress Cardiovascular: Regular Rate, Rhythm, Systolic Murmur Gastrointestinal: tenderness (mild diffuse abdominal tenderness) Assessment/Plan Assessment/Plan Assessment/Plan 1 month s/p colostomy takedown C. Diff colitis -started on oral Vancomycin diarrhea symptoms - secondary to above UTI - start oral Bactrim DS nausea -IV Zofran PRN -says she is not nauseous unless taking a sip of water hypoalbuminemia -no proteinuria on initial UA; likely enteric loss -states she last ate Friday, nausea is mild enough that she "could try" to eat something today -high protein diet -continue to monitor anemia -HGB 7.5, was 8.8 yesterday -recheck tomorrow, transfuse if under 7 Supervisory-Addendum Brief Verification & Attestation Participated in pt care: history, MDM, physical Personally performed: exam, history, MDM Care discussed with: Medical Student Procedures: n/a Verification and Attestation of Medical Student E/M Service A medical student performed and documented this service. I then reviewed and verified all information documented by the medical student and made modifications to such information, when appropriate. I personally performed a physical exam, medical decision making and then discussed any differences betwe en the notes and made revisions as necessary to create one note. Lona Sy , 01/03/21 , 10:53 LEE ANN BAER MED STUDENT Jan 03, 2021 07:58 LONA SY DO Jan 03, 2021 10:53
[2021-01-03] MEDS: PANTOPRAZOLE 40 MG (PROTONIX) TAB PO SCH (09:15)
[2021-01-03] MEDS: CIPROFLOXACIN IV 400MG/200ML 200 ML IV SCH (09:15)
[2021-01-03] MEDS: HYDROcodone/APAP 7.5 MG/325 MG (LORTAB, LORCET PLUS) TABLET PO PRN (09:16)
[2021-01-03] MEDS ORDERED: PEG15DRO9 OU (09:50)
[2021-01-03] MEDS ORDERED: IBUP-2185 PO (09:50)
[2021-01-03] MEDS ORDERED: LOPE-134 PO (09:50)
[2021-01-03] MEDS ORDERED: CEPH500C PO (09:50)
[2021-01-03] MEDS ORDERED: LORA-404 PO (09:50)
[2021-01-03] MEDS ORDERED: ACET1TAB43 PO (09:50)
[2021-01-03] MEDS ORDERED: HYOS-19 SL (09:50)
[2021-01-03] MEDS ORDERED: FERR-84 PO (09:50)
[2021-01-03] MEDS ORDERED: VANCOMYCIN INJECTION 0.1 MG in NS (IVPB) 250 ML IV SCH (11:00)
[2021-01-03 11:02] VITALS: BP 92/56
[2021-01-03] MEDS: VANCOMYCIN 125 MG CAPSULE PO SCH ×3 (12:35→23:19)
[2021-01-03 16:08] VITALS: BP 96/57
[2021-01-03] MEDS: TRIM/SULFAMETH 160/800 (SEPTRA DS) TAB PO SCH (16:53)
--- NOTE | 2021-01-03 18:14 | Consultation - Surgery ---
History of Present Illness History of Present Illness Patient Consulted On(ree/time) 01/03/21 10:11 Date Seen by Provider: Jan 03, 2021 Time Seen by Provider: 10:11 History of Present Illness Consult requested by Dr. Arias for second opinion requested by patient. Patient is a 75-year-old female who approximately 5 years ago had perforated bowel and had to have a colostomy. Patient thought it was not able to be reversed. Patient was found to be able to have reversed and 1 month ago underwent colostomy reversal and repair of hernia. Patient states ever having this done she always has been having significant diarrhea. She states she has minimal tenderness in the abdomen at this time which is all over. She is having diarrhea every stool. She states that sometimes she feels as if she cannot make it very far before having to have liquid stool. Patient is having nausea and vomiting as well at times. She states now she is just nauseous only when she tries to drink some water. She is taking in some liquids. Patient is in tears and just frustrated over overall condition. She states that she was told she could work but she feels that she cannot due to the diarrhea. Patient denies fever sweats chills shortness of breath or chest pain at this time. CT scan from 01/02/2021 IMPRESSION: Diffuse mural thickening and inflammatory stranding associated with the colon. Findings are favored to relate to underlying colitis, likely of an infectious or inflammatory nature. Ischemic etiology would be an additional consideration, though felt less likely given distribution. Additionally, the superior mesenteric artery and superior mesenteric vein appear patent within the limits of the exam. Postsurgical changes throughout the bowel, including anastomosis within the sigmoid colon. Interval repair of previously noted anterior abdominal wall hernia without focal fluid collection at this location. Small right and trace left bibasilar pleural effusions. Small amount of free fluid and inflammatory stranding throughout the abdomen and pelvis. Allergies and Home Medications Allergies Coded Allergies: No Known Drug Allergies (Unverified , 12/17/18) Home Medications Acetaminophen with Codeine 1 Each Tablet, 1 EACH PO BID, (Reported) Cephalexin 500 Mg Capsule, 500 MG PO BID, (Reported) FILLED 12-29-2020 #10/5 DAY SUPPLY Citalopram Hydrobromide 40 Mg Tablet, 40 MG PO HS, (Reported) Dexlansoprazole 60 Mg , 60 MG PO DAILY, (Reported) LAST FILLED 10-25-2020 #30 Ferrous Sulfate 325 Mg Tablet, 325 MG PO DAILY, (Reported) Hyoscyamine Sulfate 0.125 Mg Tab.subl, 0.125 MG SL Q4H PRN for ABDOMINAL CRAMPING, (Reported) Ibuprofen 200 Mg Capsule, 400 MG PO Q8H PRN for PAIN-MILD (1-4), (Reported) Loperamide HCl 2 Mg Tablet, 2-4 MG PO UD PRN for DIARRHEA, (Reported) Lorazepam 0.5 Mg Tablet, 0.5 MG PO HS, (Reported) Oxybutynin Chloride 5 Mg Tablet, 5 MG PO HS, (Reported) Peg 400/Hypromellose/Glycerin 15 Ml Drops, 1-2 DROPS OU PRN PRN for DRY EYES, (Reported) Prednisone 5 Mg Tablet, 5 MG PO HS, (Reported) Quetiapine Fumarate 100 Mg Tablet, 100 MG PO HS, (Reported) Patient Home Medication List Home Medication List Reviewed: Yes Past Feouxta-Yunsrx-Rrsxvj Hx Patient Social History Smoking Status: Never a Smoker 2nd Hand Smoke Exposure: No Recent Hopitalizations: No Alcohol Use?: No Have you traveled recently?: No Immunizations Up To Date Tetanus Booster (TDap): Unknown Seasonal Allergies Seasonal Allergies: No Surgeries History of Surgeries: Yes (esophagus, colostomy; BLADDER/RECTAL SURGERY X5, anastomosis, hernia repair) Surgeries: Abdominal (colostomy placement d/t perforated bowel (2015), colostomy takedown (Nov 2020)), Bladder Surgery, Bowel Surgery, 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 (no oophorectomy), Rectal Respiratory History of Respiratory Disorde: No Cardiovascular History of Cardiac Disorders: Yes Cardiac Disorders: Heart Murmur Neurological History of Neurological Disord: Yes (CVA 2019 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) Neurological Disorders: Stroke 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 Genitourinary History of Genitourinary Disor: Yes (incontinent of urine, can't control when it occurs and wears "a pad") Genitourinary Disorders: UTI-Chronic Gastrointestinal History of Gastrointestinal Di: Yes (Colostomy) Gastrointestinal Disorders: Gastroesophageal Reflux, Obstructive Bowel, Esophagitis, Hiatal Hernia Musculoskeletal History of Musculoskeletal Dis: Yes Musculoskeletal Disorders: Arthritis Endocrine History of Endocrine Disorders: No HEENT History of HEENT Disorders: Yes (detached retina x3-surgeries x 5) HEENT Disorders: Cataract Loss of Vision: Left Hearing Impairment: Denies Cancer History of Cancer: Yes Cancer: Skin, Colon Psychosocial History of Psychiatric Problem: Yes Behavioral Health Disorders: Anxiety, Depression Integumentary History of Skin or Integumenta: Yes ("BREAK OUT IN HIVES.") Blood Transfusions History of Blood Disorders: No Reviewed Nursing Assessment Reviewed/Agree w Nursing PMH: Yes Family Medical History Significant Family History: Heart Disease, Cancer, Other Conditions/Hx (unable to obtain detailed family history as patient became frustrated with questions and refused to answer ) Review of Systems-General Constitutional: No chills, No diaphoresis; weakness EENTM: No blurred vision, No double vision Respiratory: No dyspnea on exertion, No short of breath Cardiovascular: No chest pain, No palpitations Gastrointestinal: abdominal pain (Diffuse), diarrhea, nausea, vomiting Genitourinary: No decreased output Musculoskeletal: No back pain, No gout, No joint pain Skin: No change in color, No change in hair/nails Psychiatric/Neurological: Anxiety, Emotional Problems All Other Systems Reviewed Negative Unless Noted: Yes (Negative excepted noted.) Physical Exam-General Problems Physical Exam Vital Signs Vital Signs - First Documented 01/02/21 10:02 Temp 36.9 Pulse 83 Resp 18 B/P (MAP) 125/78 (94) Pulse Ox 98 O2 Delivery Room Air Capillary Refill : Less Than 3 Seconds General Appearance: WD/WN (Upset and crying) HEENT: PERRL/EOMI, normal ENT inspection Neck: non-tender, supple Respiratory: chest non-tender, no respiratory distress, no accessory muscle use Cardiovascular: regular rate, rhythm, no JVD Gastrointestinal: soft, tenderness (Minimal diffuse, incision healed no signs of infection) Rectal: deferred Back: no CVA tenderness, no vertebral tenderness Extremities: non-tender, normal inspection Neurologic/Psychiatric: educational advisor II-XII nml as tested, no motor/sensory deficits, alert, oriented x 3, depressed affect Skin: normal color, warm/dry Lymphatic: no adenopathy Data Review Labs Laboratory Tests 01/03/21 05:03: White Blood Count 7.5, Red Blood Count 3.44L, Hemoglobin 7.5L, Hematocrit 26L, Mean Corpuscular Volume 75L, Mean Corpuscular Hemoglobin 22L, Mean Corpuscular Hemoglobin Concent 29L, Red Cell Distribution Width 18.3H, Platelet Count 362, Mean Platelet Volume 9.4, Immature Granulocyte % (Auto) 0, Neutrophils (%) (Auto) 54, Lymphocytes (%) (Auto) 21, Monocytes (%) (Auto) 20H, Eosinophils (%) (Auto) 5, Basophils (%) (Auto) 1, Neutrophils # (Auto) 4.0, Lymphocytes # (Auto) 1.6, Monocytes # (Auto) 1.5H, Eosinophils # (Auto) 0.4H, Basophils # (Auto) 0.0, Immature Granulocyte # (Auto) 0.0, Sodium Level 135, Potassium Level 3.4L, Ch loride Level 105, Carbon Dioxide Level 19L, Anion Gap 11, Blood Urea Nitrogen 6L , Creatinine 0.62, Estimat Glomerular Filtration Rate > 60, BUN/Creatinine Ratio 10, Glucose Level 90, Calcium Level 7.1L, Corrected Calcium 8.5, Total Bilirubin 0.7, Aspartate Amino Transf (AST/SGOT) 8, Alanine Aminotransferase (ALT/SGPT) 6, Alkaline Phosphatase 82, Total Protein 4.7L, Albumin 2.3L Microbiology 01/02/21 C. difficile GD Antigen & Toxins - Final, Resulted 01/02/21 Stool Culture, Resulted Pending 01/02/21 Urine Culture - Preliminary, Resulted Gram Negative Kris Gram Negative Kris#2 Assessment/Plan Assessment/Plan Assessment/Plan 1 month s/p colostomy takedown C. Diff colitis -on oral Vancomycin and added probiotic diarrhea - secondary to above UTI - on oral Bactrim DS nausea -IV Zofran PRN hypoalbuminemia-continue to monitor diet as tolerates anemia her hemoglobin 7.5 continue to follow and trend may need transfusion if continues to drop. She is not having any bleeding per rectum, likely multifactorial I discussed patient currently she needs to be treated for her C. difficile colitis. With oral vancomycin this should continue to improve it. Agree with current management. KATLYN DANIEL DO Jan 03, 2021 18:14
[2021-01-03 19:10] VITALS: BP 108/61
--- NOTE | 2021-01-03 21:01 | Progress Note ---
Progress Note Reviewed case Added labs to existing blood in lab Anemia noted UCx likely Proteus on Bactrim and C diff on Vanc PO Reviewed vitals Colitis pain noted AM labs ordered Assessment: C diff colitis UTI Anemia Emotional problems GERD Low albumin Prednisone dependency Full consult will follow in morning CORNELIO LARSEN DO Jan 03, 2021 21:01
[2021-01-03] MEDS ORDERED: ARTIFICAL TEARS 0.4 ML UNIT DOSE (REFRESH PLUS) OU PRN (21:45)
[2021-01-03] MEDS ORDERED: LOPERAMIDE 2 MG (IMODIUM) TABLET PO PRN (21:45)
[2021-01-03] MEDS ORDERED: HYOSCYAMINE 0.125 MG (LEVSIN) TAB SL PRN (21:45)
[2021-01-03] MEDS: LORazepam 0.5 MG (ATIVAN) TABLET PO SCH (21:58)
[2021-01-03] MEDS: QUEtiapine 100 MG (SEROquel) TAB IMMEDIATE RELEASE PO SCH (21:58)
[2021-01-03] MEDS: predniSONE 5 MG TAB PO SCH (21:58)
[2021-01-03 23:15] VITALS: BP 97/57
[2021-01-04] MEDS: NS IV 1000 ML 1,000 ML IV SCH ×4 (00:10→20:47)
[2021-01-04 04:51] VITALS: BP 105/54
[2021-01-04] MEDS: VANCOMYCIN 125 MG CAPSULE PO SCH ×4 (05:30→23:56)
[2021-01-04 06:04] LABS: BASOPHILS % (AUTO) 0 % (0-10); EOSINOPHILS % (AUTO) 1 % (0-10); HEMATOCRIT 26 % (35-52); HEMOGLOBIN 7.5 g/dL (11.5-16.0); LYMPHOCYTES # (AUTO) 0.9 10^3/uL (1.0-4.0); LYMPHOCYTES % (AUTO) 19 % (12-44); MEAN CORPUSCULAR HEMOGLOBIN 22 pg (25-34); MEAN CORPUSCULAR HGB CONC 29 g/dL (32-36); MEAN CORPUSCULAR VOLUME 75 fL (80-99); MEAN PLATELET VOLUME 9.4 fL (9.0-12.2); MONOCYTES # (AUTO) 0.5 10^3/uL (0.0-1.0); MONOCYTES % (AUTO) 11 % (0-12); NEUTROPHILS # (AUTO) 3.1 10^3/uL (1.8-7.8); NEUTROPHILS % (AUTO) 68 % (42-75); PLATELET COUNT 382 10^3/uL (130-400); WHITE BLOOD COUNT 4.6 10^3/uL (4.3-11.0)
[2021-01-04 06:08] LABS: ALBUMIN 2.2 GM/DL (3.2-4.5); CHLORIDE 112 MMOL/L (98-107); POTASSIUM 3.3 MMOL/L (3.6-5.0); SODIUM 140 MMOL/L (135-145)
[2021-01-04 06:09] LABS: CALCIUM 7.1 MG/DL (8.5-10.1)
[2021-01-04 06:10] LABS: GLUCOSE 114 MG/DL (70-105); TOTAL PROTEIN 4.6 GM/DL (6.4-8.2)
[2021-01-04 06:11] LABS: CARBON DIOXIDE 19 MMOL/L (21-32)
[2021-01-04 06:12] LABS: BILIRUBIN,TOTAL 0.3 MG/DL (0.1-1.0)
[2021-01-04 06:13] LABS: ALKALINE PHOSPHATASE 97 U/L (40-136)
[2021-01-04 06:14] LABS: CREATININE SERUM 0.63 MG/DL (0.60-1.30); GFR ESTIMATED > 60
[2021-01-04 06:15] LABS: BUN/CREATININE RATIO 6
[2021-01-04 06:17] LABS: ALANINE AMINOTRANSFERASE < 6 U/L (0-55)
--- NOTE | 2021-01-04 07:23 | Progress Note - Surgery ---
Subjective Date Seen by a Provider: Jan 04, 2021 Time Seen by a Provider: 07:00 Subjective/Events-last exam Loan feels better compared to yesterday. Denies abdominal pain, states she is eating and drinking without nausea, says her diarrhea is less severe. Denies CP, SOB. Review of Systems General: Fatigue, Appetite HEENT: No Head Aches, No Sore Throat Pulmonary: No Dyspnea, No Cough Cardiovascular: No: Chest Pain Gastrointestinal: No: Nausea, Abdominal Pain Focused Exam Lactate Level 01/02/21 10:35: Lactic Acid Level 1.89 Objective Exam Vital Signs Date Time Temp Pulse Resp B/P (MAP) Pulse Ox O2 Delivery O2 Flow Rate FiO2 01/04/21 04:51 36.4 67 18 105/54 (71) 92 Room Air 01/03/21 23:15 36.7 88 18 97/57 (70) 93 Room Air 01/03/21 20:55 Room Air 01/03/21 19:10 36.6 73 18 108/61 (77) 90 Room Air 01/03/21 16:08 36.0 61 18 96/57 (70) 97 Room Air 01/03/21 11:02 37.7 62 16 92/56 (68) 95 Room Air 01/03/21 08:00 Room Air I & O 01/04/21 07:00 Intake Total 910 ml Balance 910 ml Capillary Refill : Less Than 3 Seconds General Appearance: No Apparent Distress, Thin Neck: Normal Inspection Respiratory: Lungs Clear, Normal Breath Sounds, No Accessory Muscle Use, No Respiratory Distress Cardiovascular: Regular Rate, Rhythm, Systolic Murmur Gastrointestinal: soft, tenderness (Minimal diffuse, incision healed no signs of infection. abdomen less tender compared to yesterday.), other (increased abdominal warmth) Extremity: No Pedal Edema Neurologic/Psychiatric: Alert, Oriented x3, Depressed Affect Skin: Normal Color, Warm/Dry; No Diaphoresis, No Erythema Results Lab Laboratory Tests 01/04/21 05:26: White Blood Count 4.6, Red Blood Count 3.39L, Hemoglobin 7.5L, Hematocrit 26L, Mean Corpuscular Volume 75L, Mean Corpuscular Hemoglobin 22L, Mean Corpuscular Hemoglobin Concent 29L, Red Cell Distribution Width 18.5H, Platelet Count 382, Mean Platelet Volume 9.4, Immature Granulocyte % (Auto) 0, Neutrophils (%) (Auto) 68, Lymphocytes (%) (Auto) 19, Monocytes (%) (Auto) 11, Eosinophils (%) (Auto) 1, Basophils (%) (Auto) 0, Neutrophils # (Auto) 3.1, Lymphocytes # (Auto) 0.9L, Monocytes # (Auto) 0.5, Eosinophils # (Auto) 0.0, Basophils # (Auto) 0.0, Immature Granulocyte # (Auto) 0.0, Sodium Level 140, Potassium Level 3.3L, Chloride Level 112H, Carbon Dioxide Level 19L, Anion Gap 9, Blood Urea Nitrogen 4L, Creatinine 0.63, Estimat Glomerular Filtration Rate > 60, BUN/Creatinine Ratio 6, Glucose Level 114H, Calcium Level 7.1L, Corrected Calcium 8.5, Total Bilirubin 0.3, Aspartate Amino Transf (AST/SGOT) 6, Alanine Aminotransferase (ALT/SGPT) < 6, Alkaline Phosphatase 97, Total Protein 4.6L, Albumin 2.2L Microbiology 01/02/21 C. difficile GDH Antigen & Toxins - Final, Resulted 01/02/21 Stool Culture, Resulted Pending 01/02/21 Urine Culture - Preliminary, Resulted Gram Negative Kris Gram Negative Kris#2 Assessment/Plan Assessment/Plan Assessment/Plan 1 month s/p colostomy takedown C. Diff colitis -on oral Vancomycin and probiotic diarrhea - secondary to above UTI - on oral Bactrim DS monitor for dehydration - receiving NS 150ml/hr. VS reassuring. encourage drinking and eating hypoalbuminemia-continue to monitor, diet as tolerates. Encouraged use of Ensure and food. nausea -IV Zofran PRN anemia her hemoglobin 7.5 continue to follow and trend. Was 7.5 yesterday as well. may need transfusion if HGB drops. She is not having any bleeding per rectum, likely multifactorial At this time surgical oversight does not seem necessary. Patient is on course to improve with treatment of her infections. I discussed patient currently she needs to be treated for her C. difficile coli tis. With oral vancomycin this should continue to improve it. Agree with current management. LEE ANN BAER MED STUDENT Jan 04, 2021 07:23
[2021-01-04] MEDS: TRIM/SULFAMETH 160/800 (SEPTRA DS) TAB PO SCH ×2 (08:00→17:40)
[2021-01-04] MEDS: APAP 300 MG/CODEINE 30 MG (TYLENOL #3) TAB PO SCH ×2 (08:01→20:46)
[2021-01-04] MEDS: FERROUS SULF 325 MG (IRON) TAB PO SCH (08:01)
[2021-01-04] MEDS: LACTOBACILLUS ACIDOPHILUS (PROBIOTIC) CAPSULE PO SCH ×3 (08:01→17:40)
[2021-01-04] MEDS: PANTOPRAZOLE 40 MG (PROTONIX) TAB PO SCH (08:06)
[2021-01-04 08:36] VITALS: BP 122/74
[2021-01-04] MEDS ORDERED: PANTOPRAZOLE 40 MG (PROTONIX) TAB PO SCH (09:00)
[2021-01-04] MEDS ORDERED: KCL 20 MEQ TAB (K-DUR) PO NR (11:45)
[2021-01-04 11:53] LABS: RETICULOCYTE % 2.19 % (0.50-2.40)
[2021-01-04 11:59] VITALS: BP 109/70
--- NOTE | 2021-01-04 12:18 | Consultation - Hospitalist ---
DAPHNIE DAILY, MED STUDENT 01/04/21 1218: HPI History of Present Illness: HPI/Chief Complaint Loan Acevedo is a 75 y/o F w/ PMH of bowel perforation s/p colostomy 5 years ago w/ colostomy reversal and hernia repair 1 month ago who is presenting for a month history of abdominal pain, vomiting, and diarrhea that has been worse since yesterday. She is doing better this morning. Her episodes of diarrhea are now 4-5 per day which is decreased from having diarrhea every hour. She is now only nauseous and not having vomiting. She reports her stool has mucus but no blood. Source: patient Exam Limitations: no limitations Date Seen 01/04/21 Attending Physician Cecile Larsen DO PCP Angi Sainz Aprn Referring Physician Todd Arias DO Date of Admission Jan 03, 2021 at 12:52 Home Medications & Allergies Home Medications Reviewed patient Home Medication Reconciliation performed by pharmacy medication reconciliations pollution control technician and/or nursing. Patients Allergies have been reviewed. Allergies Allergies Coded Allergies No Known Drug Allergies (Unverified12/17/18) Patient Social History Tobacco Use?: No Smoking Status: Never a Smoker Use of E-Cig and/or Vaping dev: No Substance use?: No Alcohol Use?: No Pt stated abuse/neglect: No Immunizations Up To Date Influenza Vaccine Up-to-Date: No; Not Current Tetanus Booster (TDap): Unknown Hepatitis A: No Hepatitis B: No TB Skin Test: None Current Status Do you have an Advance Directi: No Communicates: Verbally Primary Language: Montenegrin Preferred Spoken Language: Montenegrin Is interpretation needed?: No Implanted or Applied Medical D: None Review of Systems Constitutional: No no symptoms reported, No see HPI, No chills, No diaphoresis, No dizziness, No fever, No malaise, No weakness, No weight gain, No weight loss, No other EENTM: No see HPI, No no symptoms reported, No ear discharge, No hearing loss, No ear pain, No blurred vision, No double vision, No eye pain, No tearing, No vision loss, No dental problems, No hoarseness, No mouth pain, No mouth swelling, No epistaxis, No nose congestion, No nose pain, No throat pain, No throat swelling, No other Respiratory: No no symptoms reported, No see HPI, No cough, No dyspnea on exertion, No hemoptysis, No orthopnea, No phlegm, No short of breath, No stridor, No wheezing, No other Cardiovascular: No no symptoms reported, No see HPI, No chest pain, No edema, No Hx of Intervention, No palpitations, No syncope, No vascular heart diseas, No other Gastrointestinal: diarrhea, heartburn Genitourinary: dysuria : No Musculoskeletal: No no symptoms reported, No see HPI, No back pain, No gout, No joint pain, No joint swelling, No muscle pain, No muscle stiffness, No muscle cramps, No muscle twitching, No muscle weakness, No neck pain, No other Skin: No no symptoms reported, No see HPI, No change in color, No change in hair/nails, No dryness, No hx of skin cancer, No lesions, No lumps, No pruritus, No rash, No other Psychiatric/Neurological: Denies No Symptoms Reported, Denies See HPI, Denies Anxiety, Denies Depressed, Denies Emotional Problems, Denies Headache, Denies Numbness, Denies Paresthesia, Denies Pre-Existing Deficit, Denies Seizure, Jonathan es Tingling, Denies Tremors, Denies Weakness, Denies Other Physical Exam Physical Exam Vital Signs Vital Signs - First Documented 01/02/21 10:02 Temp 36.9 Pulse 83 Resp 18 B/P (MAP) 125/78 (94) Pulse Ox 98 O2 Delivery Room Air Capillary Refill : Less Than 3 Seconds Height, Weight, BMI Height: 5'0.00" Weight: 100lbs. 3.2oz. 45.964963in; 41.33 BMI Method:Stated General Appearance: No Apparent Distress, WD/WN, Thin Eyes: Bilateral Eye Normal Inspection, Bilateral Eye EOMI Neck: Full Range of Motion, Normal Inspection, Non Tender Respiratory: Lungs Clear, Normal Breath Sounds, No Accessory Muscle Use, No Respiratory Distress Cardiovascular: Regular Rate, Rhythm, Systolic Murmur Gastrointestinal: Abnormal Bowel Sounds (hyperactive); No Distended, No Guarding; Tenderness (moderate periumbilical and LLQ tenderness to palpation. Increased abdominal warmth. Midline surgical scar appears well-healed. herniation underlying surgical scar site.) Rectal: Deferred Extremity: No Pedal Edema Neurologic/Psychiatric: Alert, Oriented x3, Depressed Affect Skin: Normal Color, Warm/Dry; No Diaphoresis, No Erythema Results Results/Procedures Labs Laboratory Tests 01/03/21 05:03 01/04/21 05:26 Patient resulted labs reviewed. Imaging: Reviewed Imaging Films, Reviewed Imaging Report Assessment/Plan Assessment and Plan Assess & Plan/Chief Complaint #C Diff Colitis - Confirmed via stool cultures - PO Vanc - Diarrhea decreased to 4-5 BMs per day - Antidiarrhea meds started Plan: > Continue PO Vanc #UTI - Chronic UTI - UA shows UTI, culture grew Klebsiella - Received Ciprofloxacin Plan: > Hold antibiotics other than PO Vanc for now > Reassess after PO Vanc #Anemia - B/l Hgb 8-9 - Hgb today is 7.5 - Denies blood in stool or vomiting blood - MCV 75 -> Microcytic - PO iron tablets o/p Plan: - Iron panel pending - B12, folate pending - Transfuse 1u when Hgb <7 - Potential iron infusion pending iron panel results - Likely anemia of chronic dx secondary to history of multiple surgeries and hospitalizations recently Prednisone Dependence - Unclear hx of start time or for what - O/p Prednisone 5mg Plan: > Continue Prednisone 5mg for now > Review hx Diagnosis/Problems Diagnosis/Problems (1) Anemia Status: Acute Qualifiers: Anemia type: unspecified type Qualified Codes: D64.9 - Anemia, unspecified (2) Chronic steroid use Status: Chronic (3) Colitis Status: Acute CECILE LARSEN DO 01/05/21 0552: HPI History of Present Illness: HPI/Chief Complaint CC: Abd pain with N/V HPI: This is a 75yoWF clinic patient of [facility] who is post op 1 mo ago following colostomy reversal. C diff colitis dx and UTI dx. Vanc PO and Bactrim ordered. Iron def anemia and hypokalemia noted. Poor access so port requested for IV iron Source: patient Patient Social History Marrital Status: single Physical Exam Physical Exam General Appearance: No Apparent Distress, WD/WN, Chronically ill Respiratory: Lungs Clear Cardiovascular: Regular Rate, Rhythm Neurologic/Psychiatric: Alert, Oriented x3, No Motor/Sensory Deficits, Normal Mood/Affect Assessment/Plan Assessment and Plan Assess & Plan/Chief Complaint Assessment: Abd pain Colitis from c diff UTI recurrent in type Hypokalemia Anemia severe Plan: Replace potassium Port requested IV iron Supervisory-Addendum Brief Verification & Attestation Participated in pt care: history, MDM, physical Personally performed: exam, history, MDM, supervision of care Care discussed with: Medical Student Procedures: n/a Results interpretation: Verified all documentation Verification and Attestation of Medical Student E/M Service A medical student performed and documented this service in my presence. I reviewed and verified all information documented by the medical student and made modifications to such information, when appropriate. I personally performed the physical exam and medical decision making. Cecile Larsen, Jan 05, 2021,05:48 DAPHNIE DAILY, MED STUDENT Jan 04, 2021 12:18 CECILE LARSEN DO Jan 05, 2021 05:52
[2021-01-04 16:00] VITALS: BP 105/68
[2021-01-04] MEDS: KCL 10 MEQ TAB (MICRO K) PO SCH (17:40)
[2021-01-04 20:00] VITALS: BP 111/73
[2021-01-04] MEDS: LORazepam 0.5 MG (ATIVAN) TABLET PO SCH (20:46)
[2021-01-04] MEDS: QUEtiapine 100 MG (SEROquel) TAB IMMEDIATE RELEASE PO SCH (20:46)
[2021-01-04] MEDS: ZINC OXIDE 16% OINT (BUTT PASTE) 57 GM TUBE TOP PRN ×2 (20:47→23:57)
[2021-01-04] MEDS: predniSONE 5 MG TAB PO SCH (20:47)
[2021-01-04 23:53] VITALS: BP 105/59
[2021-01-05] VITALS (10 sets, daily range): BP systolic 106–135; BP diastolic 59–84
[2021-01-05] MEDS: NS IV 1000 ML 1,000 ML IV SCH ×4 (05:25→23:57)
[2021-01-05] MEDS ORDERED: IRON DEXTRAN INJECTION 1,000 MG in NS (IVPB) 250 ML IV ONE (06:00)
[2021-01-05] MEDS ORDERED: IRON DEXTRAN INJECTION 25 MG in NS (IVPB) 5.75 ML, SYRINGE-IVPB 1 SYRINGE IV ONE ×3 (06:00)
[2021-01-05] MEDS ORDERED: CYANOCOBALAMIN INJ 1000 MCG/ML IM ONE (06:00)
[2021-01-05] MEDS: VANCOMYCIN 125 MG CAPSULE PO SCH ×4 (06:18→23:57)
[2021-01-05 07:01] LABS: BASOPHILS % (AUTO) 1 % (0-10); EOSINOPHILS # (AUTO) 0.1 10^3/uL (0.0-0.3); EOSINOPHILS % (AUTO) 1 % (0-10); HEMATOCRIT 26 % (35-52); HEMOGLOBIN 7.6 g/dL (11.5-16.0); LYMPHOCYTES # (AUTO) 1.5 10^3/uL (1.0-4.0); LYMPHOCYTES % (AUTO) 28 % (12-44); MEAN CORPUSCULAR HEMOGLOBIN 22 pg (25-34); MEAN CORPUSCULAR HGB CONC 29 g/dL (32-36); MEAN CORPUSCULAR VOLUME 77 fL (80-99); MEAN PLATELET VOLUME 9.6 fL (9.0-12.2); MONOCYTES # (AUTO) 0.5 10^3/uL (0.0-1.0); MONOCYTES % (AUTO) 9 % (0-12); NEUTROPHILS # (AUTO) 3.4 10^3/uL (1.8-7.8); NEUTROPHILS % (AUTO) 61 % (42-75); PLATELET COUNT 421 10^3/uL (130-400); WHITE BLOOD COUNT 5.6 10^3/uL (4.3-11.0)
[2021-01-05 07:16] LABS: ALBUMIN 2.4 GM/DL (3.2-4.5); CHLORIDE 114 MMOL/L (98-107); POTASSIUM 3.5 MMOL/L (3.6-5.0); SODIUM 139 MMOL/L (135-145)
[2021-01-05 07:17] LABS: CALCIUM 7.4 MG/DL (8.5-10.1)
[2021-01-05 07:19] LABS: GLUCOSE 98 MG/DL (70-105)
[2021-01-05 07:20] LABS: BILIRUBIN,TOTAL 0.1 MG/DL (0.1-1.0); CARBON DIOXIDE 16 MMOL/L (21-32)
[2021-01-05 07:22] LABS: ALKALINE PHOSPHATASE 93 U/L (40-136); CREATININE SERUM 0.64 MG/DL (0.60-1.30); GFR ESTIMATED > 60
[2021-01-05 07:23] LABS: BUN/CREATININE RATIO 5
[2021-01-05 07:25] LABS: ALANINE AMINOTRANSFERASE 6 U/L (0-55)
[2021-01-05] MEDS: APAP 300 MG/CODEINE 30 MG (TYLENOL #3) TAB PO SCH ×2 (08:14→20:28)
[2021-01-05] MEDS: FERROUS SULF 325 MG (IRON) TAB PO SCH (08:14)
[2021-01-05] MEDS: TRIM/SULFAMETH 160/800 (SEPTRA DS) TAB PO SCH ×2 (08:14→17:44)
[2021-01-05] MEDS: LACTOBACILLUS ACIDOPHILUS (PROBIOTIC) CAPSULE PO SCH ×3 (08:14→17:44)
[2021-01-05] MEDS: KCL 10 MEQ TAB (MICRO K) PO SCH ×2 (08:14→17:44)
[2021-01-05] MEDS: PANTOPRAZOLE 40 MG (PROTONIX) TAB PO SCH (08:14)
--- NOTE | 2021-01-05 10:56 | Occupational Therapy Eval ---
OT Evaluation-General/PLF Medical Diagnosis Admission Date Jan 03, 2021 at 12:52 Medical Diagnosis: colostomy reversal; c-diff Onset Date: Jan 02, 2021 Therapy Diagnosis Therapy Diagnosis: Decreased ADL status Height/Weight Height (Feet): 5 Height (Inches): 0.00 Weight (Pounds): 100 Weight (Ounces): 3.2 Precautions Precautions/Isolations: Fall Prevention, Standard Precautions Weight Bear Status Weight Bearing Restriction: Weight Bearing/Tolerated Referral Referral Reason: Activity Tolerance, Self Care, Evaluation/Treatment, Strengthening/ROM Medical History Current History admits 01/02 with increased n/v and colitis/ pain in abdomen. Colostomy reversal ~1 mo ago. Dx with cdiff. Reviewed History: Yes Social History Home: Single Level Current Living Status: Alone Entry Into Home: Stairs With Railing Steps Into Home: 3 Steps Inside Home: 0 ADL-Prior Level of Function SCALE: Activities may be completed with or without assistive devices. 6-Kxhdxmomzy-ixujgvi completes the activity by him/herself with no assistance from a helper. 5-Set-up or Clean-up Assistance-helper sets up or cleans up; patient completes activity. [place] assists only prior to or following the activity. 4-Supervision or Touching Assistance-helper provides verbal cues and/or touching/steadying and/or contact guard assistance as patient completes activity. Assistance may be provided throughout the activity or intermittently. 3-Partial/Moderate Assistance-helper does LESS THAN HALF the effort. [place] lifts, holds or supports trunk or limbs, but provides less than half the effort. 2-Substantial/Maximal Assistance-helper does MORE THAN HALF the effort. [place] lifts or holds trunk or limbs and provides more than half the effort. 2-Glrsfryit-vznfuf does ALL the effort. Patient does none of the effort to complete the activity. Or, the assistance of 2 or more helpers is required for the patient to complete the activity. If activity was not attempted, code reason: 7-Patient Refused. 9-Not Applicable-not attempted and the patient did not perform the activity before the current illness, exacerbation or injury. 10-Not Attempted due to Environmental Limitations-(lack of equipment, weather restraints, etc.). 88-Not Attempted due to Medical Conditions or Safety Concerns. 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 Pt states minimal pain. States getting port placed at noon. Mental Status/Objective Patient Orientation: Person, Place, Situation, Normal For Age Attachments: IV Current Hearing Aids: No Dentures/Partials: Yes Hand Dominance: Right Upper Extremity ROM WFL BUE Upper Extremity Coordination WFL BUE Upper Extremity Sensation WFL BUE Upper Extremity Strength WFL BUE ADL-Treatment Eating (QC): 6 Oral Hygiene (QC): 6 On/Off Footwear (QC): 6 Toileting Hygiene (QC): 4 Other Treatments ADLs taken per pt's statements and per clinical judgment. States BM clean up getting easier. Pt expresses she was IND prior and plans to d/c home. Pt bed mob supine to sit with SBA, ambulates with walker to chair with SBA, good balance/ good safety. Pt ROM/ MMT WFL. Pt denies issues upon d/c home. Based on pt's abilities, balance, and strength, pt close to PLOF and does not have any issues with d/c home. All needs met, call light in reach. Education OT Patient Education: Progress toward Goal/Update tx plan, Purpose of tx/functional activities, Safety issues Teaching Recipient: Patient Teaching Methods: Demonstration, Discussion Response to Teaching: Verbalize Understanding, Return Demonstration OT Clothing Supervisor Goals Clothing Supervisor Goals 1=Demonstrate adherence to instructed precautions during ADL tasks. 2=Patient will verbalize/demonstrate understanding of assistive devices/modifications for ADL. 3=Patient will improve strength/tolerance for activity to enable patient to perform ADL's. OT Education/Plan Problem List/Assessment Assessment: No Skilled OT Needs ID'd Discharge Recommendations Plan/Recommendations: Discharge/Goals Met Treatment Plan/Plan of Care Treatment,Training & Education: Yes Patient would benefit from OT for education, treatment and training to promote independence in ADL's, mobility, safety and/or upper extremity function for ADL's. Plan of Care: OTHER (eval and d/c) Treatment Duration: Jan 05, 2021 Frequency: 1 time per week (eval and d/c.) Time/GCodes Start Time: 10:38 Stop Time: 10:50 Total Time Billed (hr/min): 12 Billed Treatment Time 1, EVL (d/c) PAT BOYLE OTR Jan 05, 2021 10:56
[2021-01-05] MEDS ORDERED: LIDOCAINE/EPI 1%-1:100,000 (XYLOCAINE) 20ML ONE (11:46)
[2021-01-05] MEDS ORDERED: 0.9% SODIUM CHLORIDE PF INJ 20 ML VIAL ONE (11:46)
[2021-01-05] MEDS ORDERED: HEParin (CENTRAL IV FLUSH) 500 UNIT/5 ML SYR ONE (11:46)
[2021-01-05] MEDS ORDERED: proPOfol 200 MG/20 ML (DIPRIVAN) VIAL IV ONE (12:06)
[2021-01-05] MEDS ORDERED: MIDAZOLAM 2 MG/2 ML (VERSED) VIAL ONE (12:06)
--- NOTE | 2021-01-05 12:08 | Progress Note - Hospitalist ---
DAPHNIE DAILY, MED STUDENT 01/05/21 1208: Subjective HPI/CC On Admission CC: Abd pain with N/V HPI: This is a 75yoWF clinic patient of [facility] who is post op 1 mo ago following colostomy reversal. C diff colitis dx and UTI dx. Vanc PO and Bactrim ordered. Iron def anemia and hypokalemia noted. Poor access so port requested for IV iron Subjective/Events-last exam Pt is doing about the same as yesterday. She is still having 4-5 BMs per day. They still have a mucus like consistency but she did report having blood in them starting last night. She denies any nausea, vomiting, chest pain, or shortness of breath. Review of Systems General: No Chills, No Night Sweats, No Fatigue, No Malaise, No Appetite, No Other HEENT: No Head Aches, No Visual Changes, No Eye Pain, No Ear Pain, No Dysphasia, No Sinus Congestion, No Post Nasal Drip, No Sore Throat, No Other Pulmonary: No Dyspnea, No Cough, No Pleuritic Chest Pain, No Other Cardiovascular: No: Chest Pain, Palpitations, Orthopnea, Paroxysmal Noc. Dyspnea, Edema, Lt Headedness, Other Gastrointestinal: Diarrhea, Hematochezia Genitourinary: No Dysuria, No Frequency, No Incontinence, No Hematuria, No Retention, No Other Musculoskeletal: No: other, neck pain, shoulder pain, arm pain, back pain, hand pain, leg pain, foot pain Neurological: No: Weakness, Numbness, Incoordination, Change in speech, Confusion, Seizures, Other Objective Exam Vital Signs Vital Signs Date Time Temp Pulse Resp B/P (MAP) Pulse Ox O2 Delivery O2 Flow Rate FiO2 01/05/21 08:00 Room Air 01/05/21 07:15 37.5 62 16 112/68 (83) 92 Capillary Refill : Less Than 3 Seconds General Appearance: No Apparent Distress, WD/WN Neck: Full Range of Motion, Normal Inspection Respiratory: Chest Non Tender, Lungs Clear, Normal Breath Sounds, No Accessory Muscle Use, No Respiratory Distress Cardiovascular: Regular Rate, Rhythm, No Edema, No Gallop, No JVD, No Murmur, Normal Peripheral Pulses Gastrointestinal: No Organomegaly, No Pulsatile Mass, Non Tender, Soft Rectal: Deferred Back: Normal Inspection, No CVA Tenderness Extremity: Normal Capillary Refill, Normal Inspection, Normal Range of Motion, Non Tender, No Calf Tenderness Neurologic/Psychiatric: Alert, Oriented x3 Skin: Normal Color, Warm/Dry Results/Procedures Lab Laboratory Tests 01/05/21 06:50 Patient resulted labs reviewed. Imaging: Reviewed Imaging Films, Reviewed Imaging Report Assessment/Plan Assessment and Plan Assess & Plan/Chief Complaint #C Diff Colitis - Confirmed via stool cultures - PO Vanc - Diarrhea decreased to 4-5 BMs per day - Antidiarrhea meds started Plan: > Continue PO Vanc #UTI - Chronic UTI - UA shows UTI, culture grew Klebsiella - Received Ciprofloxacin, currently on bactrim Plan: > Continue bactrim > Reassess with a clean UA and straight cath #Anemia - B/l Hgb 8-9 - Hgb today is 7.5 - Denies blood in stool or vomiting blood - MCV 75 -> Microcytic - PO iron tablets o/p - Fe 7, Ferritin 58.6 - Retic count 75, retic% 2.19 Plan: - Iron and retic studies consistent with Anemia of chronic disease - Transfuse 1u when Hgb <7 - Iron infusion this morning - Likely anemia of chronic dx secondary to history of multiple surgeries and hospitalizations recently - Problems with IV access -> Dr. 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 - O/p Prednisone 5mg Plan: > Continue Prednisone 5mg for now #Hematochezia - report of blood in stool starting last night - Hgb unchanged this morning Plan: > FOBT to confirm > Potential GI consult for colonoscopy > Potential repeat stool cultures Dispo: Continue Inpatient care Diagnosis/Problems Diagnosis/Problems (1) Anemia Status: Acute Qualifiers: Qualified Codes: D64.9 - Anemia, unspecified (2) Chronic steroid use Status: Chronic (3) Colitis Status: Acute CECILE LARSEN DO 01/06/21 0613: Subjective HPI/CC On Admission Date Seen by Provider: Jan 05, 2021 Time Seen by Provider: 10:30 Subjective/Events-last exam Loose stools persist Monitored closely Groshong port placement today Venous access very poor chronically Review of Systems General: Fatigue Pulmonary: Dyspnea Objective Exam General Appearance: No Apparent Distress, WD/WN, Chronically ill Respiratory: Lungs Clear Cardiovascular: Regular Rate, Rhythm Neurologic/Psychiatric: Alert, Oriented x3 Assessment/Plan Assessment and Plan Assess & Plan/Chief Complaint Groshong port Monitor closely Supervisory-Addendum Brief Verification & Attestation Participated in pt care: history, MDM, physical Personally performed: exam, history, MDM, supervision of care Care discussed with: Medical Student Procedures: n/a Results interpretation: Verified all documentation Verification and Attestation of Medical Student E/M Service A medical student performed and documented this service in my presence. I reviewed and verified all information documented by the medical student and made modifications to such information, when appropriate. I personally performed the physical exam and medical decision making. Cecile Larsen, Jan 06, 2021,06:13 DAPHNIE DAILY, MED STUDENT Jan 05, 2021 12:08 CECILE LARSEN DO Jan 06, 2021 06:13
--- NOTE | 2021-01-05 12:13 | Physical Therapy Evaluation ---
PT Evaluation-General Medical Diagnosis Admission Date Jan 03, 2021 at 12:52 Medical Diagnosis: colostomy reversal; c-diff Onset Date: Jan 02, 2021 Therapy Diagnosis Therapy Diagnosis: debility Height/Weight Height (Feet): 5 Height (Inches): 0.00 Weight (Pounds): 100 Weight (Ounces): 3.2 Precautions Precautions/Isolations: Fall Prevention, Standard Precautions Referral Physician: Omkar Reason for Referral: Evaluation/Treatment Medical History Pertinent Medical History: CVA Additional Medical History colon cancer Current History ER secondary to vomiting and diarrhea Reviewed History: Yes Social History Home: Single Level Current Living Status: Alone Entry Into Home: Stairs With Railing PT Steps Into Home: 3 PT Steps Inside Home: 0 Prior Prior Level of Function SCALE: Activities may be completed with or without assistive devices. 9-Fvuqppnxwm-yaxskib completes the activity by him/herself with no assistance from a helper. 5-Set-up or Clean-up Assistance-helper sets up or cleans up; patient completes activity. [place] assists only prior to or following the activity. 4-Supervision or Touching Assistance-helper provides verbal cues and/or touching/steadying and/or contact guard assistance as patient completes activity. Assistance may be provided throughout the activity or intermittently. 3-Partial/Moderate Assistance-helper does LESS THAN HALF the effort. [place] lifts, holds or supports trunk or limbs, but provides less than half the effort. 2-Substantial/Maximal Assistance-helper does MORE THAN HALF the effort. [place] lifts or holds trunk or limbs and provides more than half the effort. 1-Jmyflgxlb-hatbrj does ALL the effort. Patient does none of the effort to complete the activity. Or, the assistance of 2 or more helpers is required for the patient to complete the activity. If activity was not attempted, code reason: 7-Patient Refused. 9-Not Applicable-not attempted and the patient did not perform the activity before the current illness, exacerbation or injury. 10-Not Attempted due to Environmental Limitations-(lack of equipment, weather restraints, etc.). 88-Not Attempted due to Medical Conditions or Safety Concerns. Bed Mobility: 6 Transfers (B,C,W/C): 6 Gait: 6 Stairs: 6 Indoor Mobility (Ambulation): Independent Stairs: Independent Prior Devices Use: None PT Evaluation-Current Subjective Patient agrees to PT. Objective Patient Orientation: Normal For Age Attachments: IV ROM/Strength ROM Lower Extremities bilateral LE WFL Strength Lower Extremities 4/5 grossly bilateral LE Integumentary/Posture Bowel Incontinence: No Bladder Incontinence: No Posture WFL Neuromuscular (Tone, Coordination, Reflexes) grossly intact Sensory Vision: Functional Hearing: Functional Hand Dominance: Right Transfers Roll Left to Right (QC): 6 Sit to Lying (QC): 6 Lying to Sitting/Side of Bed(Q: 6 Sit to Stand (QC): 6 Chair/Tkq-qu-Weyfm Xfer(QC): 6 Gait Does the Patient Walk?: Yes Mode of Locomotion: Walk Anticipated Mode of Locomotion: Walk Walk 10 feet (QC): 6 Walk 50 ft with 2 Turns(QC): 6 Walk 150 ft (QC): 6 Distance: 500' Gait Assistive Device: None Comments/Gait Description safe and functional with no deviation Balance Sitting Static: Normal Sitting Dynamic: Normal Standing Static: Normal Standing Dynamic: Normal Picking up an Object (QC): 6 Assessment/Needs 75 y.o. female, is currently at [facility] with all gross motor skills and does not require skilled therapy intervention. Rehab Potential: Fair PT Plan Treatment/Plan Treatment Plan: Discontinue PT, goals met Treatment Duration: Jan 05, 2021 Frequency: 1 time per week Estimated Hrs Per Day: .25 hour per day Patient and/or Family Agrees t: Yes Time/GCodes Time In: 1057 Time Out: 1110 Total Billed Treatment Time: 13 Total Billed Treatment 1 visit EVMod 13 min DORIS GIRARD PT Jan 05, 2021 12:13
[2021-01-05 12:29] LABS: BILIRUBIN,URINE NEGATIVE (NEGATIVE); CLARITY,URINE CLEAR; COLOR,URINE YELLOW; GLUCOSE, URINE (UA) NEGATIVE (NEGATIVE); KETONES,URINE NEGATIVE (NEGATIVE); LEUKOCYTE ESTERASE ,URINE NEGATIVE (NEGATIVE); NITRITE,URINE NEGATIVE (NEGATIVE); PROTEIN,URINE NEGATIVE (NEGATIVE)
--- NOTE | 2021-01-05 12:29 | Progress Note - Surgery ---
Subjective Date Seen by a Provider: Jan 05, 2021 Time Seen by a Provider: 12:11 Subjective/Events-last exam Patient feeling better. Less diarrhea. Abdominal discomfort better. Poor venous access. Port requested. Denies n/v fever sweats chills shortness of breath or chest pain at this time. Objective Exam Vital Signs Date Time Temp Pulse Resp B/P (MAP) Pulse Ox O2 Delivery O2 Flow Rate FiO2 01/05/21 08:00 Room Air 01/05/21 07:15 37.5 62 16 112/68 (83) 92 Room Air 01/05/21 04:42 36.9 61 14 106/62 (77) Room Air 01/04/21 23:53 36.9 66 16 105/59 (74) 91 01/04/21 20:00 36.9 72 20 111/73 (86) 95 Room Air 01/04/21 20:00 Room Air 01/04/21 16:00 36.6 59 20 105/68 (80) 98 Room Air I & O 01/05/21 07:00 Intake Total 2564 ml Balance 2564 ml Capillary Refill : Less Than 3 Seconds General Appearance: No Apparent Distress, WD/WN Neck: Full Range of Motion, Normal Inspection Respiratory: Chest Non Tender, Lungs Clear, Normal Breath Sounds, No Accessory Muscle Use, No Respiratory Distress Cardiovascular: Regular Rate, Rhythm, No Edema, No JVD, Normal Peripheral Pulses Gastrointestinal: soft, tenderness (Minimal diffuse, incision healed no signs of infection. ), other (increased abdominal warmth) Extremity: Normal Capillary Refill, Normal Inspection, Normal Range of Motion, Non Tender, No Calf Tenderness Neurologic/Psychiatric: Alert, Oriented x3 Skin: Normal Color, Warm/Dry Results Lab Laboratory Tests 01/05/21 06:50: White Blood Count 5.6, Red Blood Count 3.44L, Hemoglobin 7.6L, Hematocrit 26L, Mean Corpuscular Volume 77L, Mean Corpuscular Hemoglobin 22L, Mean Corpuscular Hemoglobin Concent 29L, Red Cell Distribution Width 18.7H, Platelet Count 421H, Mean Platelet Volume 9.6, Immature Granulocyte % (Auto) 0, Neutrophils (%) (Auto) 61, Lymphocytes (%) (Auto) 28, Monocytes (%) (Auto) 9, Eosinophils (%) (Auto) 1, Basophils (%) (Auto) 1, Neutrophils # (Auto) 3.4, Lymphocytes # (Auto) 1.5, Monocytes # (Auto) 0.5, Eosinophils # (Auto) 0.1, Basophils # (Auto) 0.0, Immature Granulocyte # (Auto) 0.0, Sodium Level 139, Potassium Level 3.5L, Chloride Level 114H, Carbon Dioxide Level 16L, Anion Gap 9, Blood Urea Nitrogen 3L, Creatinine 0.64, Estimat Glomerular Filtration Rate > 60, BUN/Creatinine Ratio 5, Glucose Level 98, Calcium Level 7.4L, Corrected Calcium 8.7, Total Bilirubin 0.1, Aspartate Amino Transf (AST/SGOT) 9, Alanine Aminotransferase (ALT/SGPT) 6, Alkaline Phosphatase 93, Total Protein 5.0L, Albumin 2.4L 01/05/21 09:05: Stool Occult Blood Immunoassay NEGATIVE 01/05/21 12:15: Microbiology 01/02/21 Cryptosporidium/Giardia - Final, Complete See Comments 01/02/21 Urine Culture - Preliminary, Resulted Klebsiella pneumoniae Escherichia coli Proteus species Assessment/Plan Assessment/Plan Assessment/Plan 1 month s/p colostomy takedown C. Diff colitis -on oral Vancomycin and probiotic diarrhea - secondary to above UTI - on oral Bactrim DS monitor for dehydration - receiving NS 150ml/hr. VS reassuring. encourage drinking and eating hypoalbuminemia-continue to monitor, diet as tolerates. Encouraged use of Ensure and food. nausea -IV Zofran PRN anemia trend poor venous access- discussed risks and benefits of port placement which she understands and wishes to proceed NPO, consent KATLYN DANIEL DO Jan 05, 2021 12:29
[2021-01-05] MEDS ORDERED: morphine INJ 10 MG/ML 1ML (SYR OR VIAL) IVP ONE ×2 (12:30→13:30)
[2021-01-05] MEDS ORDERED: ceFAZolin INJECTION 1,000 MG ONE (12:30)
[2021-01-05] MEDS ORDERED: LACTATED RINGERS 1,000 ML IV PRN (12:30)
[2021-01-05] MEDS ORDERED: ONDANSETRON 4 MG/2 ML (SDV) Z0FRAN IVP PRN (12:30)
[2021-01-05 12:51] LABS: BACTERIA,URINE TRACE /HPF; RBC,URINE RARE /HPF; WBC,URINE RARE /HPF
--- NOTE | 2021-01-05 13:22 | Progress Note-Post Operative ---
Post-Operative Progess Note Surgeon (s)/Ordnance Technician (s) Surgeon KATLYN DANIEL DO Ordnance Technician: na Pre-Operative Diagnosis poor venous access Post-Operative Diagnosis same Procedure & Operative Findings Date of Procedure 01/05/21 Procedure Performed/Findings PROCEDURE: Right internal jugular port placement using ultrasound guidance. COMPLICATIONS: None. INDICATIONS: The patient is a 75 year old female with poor venous access. Patient understands the risks and benefits of port placement and wished to proceed with the procedure. Consent was signed on the chart. PROCEDURE: The patient was taken to the operating suite, was prepped and draped in the sterile fashion. A surgical pause was performed. Ultrasound was used to locate the internal jugular vein. Once located anesthetic was infiltrated above it. Using micro-access kit, the right internal vein was accessed. Dark nonpulsatile blood was withdrawn. The wire was inserted. Fluoroscopy assured proper placement. The needle was removed. The micro-access dilator was advanced over the wire and the wire was removed. The regular wire was inserted and fluoroscopy assured proper placement. The wire was then secured. Local anesthetic was used to anesthetize from the neck for tunneling down to the right chest and for pocket creation. A 15 blade scalpel was used to make an incision over the right chest. Cautery was used to dissect down to the pectoral fascia. A pocket was created with blunt dissection. The dilator sheath was then advanced over the wire under fluoroscopy and the dilator and wire were removed. The Groshong catheter was inserted through the sheath and the sheath was then removed. The Groshong wire was removed. The catheter was then tunneled to the right chest pocket. Fluoroscopy was used to cut to length and this was then attached to the port which was then placed within the pocket. The port was then accessed without difficulty. It was then flushed with saline and then heparin. The subcutaneous tissues were then reapproximated using 3-0 Vicryl. The areas were then washed and dried. Skin Affix was placed over incision. The insertion point of the neck Skin Affix was placed over the incision. The patient tolerated the procedure well without complication and was taken to recovery room in stable condition. Chest x-ray is pending. Anesthesia Type mac c local Estimated Blood Loss Estimated blood loss (mL): minimal Specimens/Packing Specimens Removed KATLYN Benavides DO Jan 05, 2021 13:22
--- NOTE | 2021-01-05 13:46 | Diagnostic Imaging Report ---
EXAM: Portable erect AP chest at 1:31 PM INDICATION: Central line insertion In the interval since the exam performed earlier today at 12:54 PM a central venous catheter has been inserted on the right. The tip of a catheter overlies the mid portion of the superior vena cava and seems to be in good position. There is no sign of a pneumothorax. The overall appearance of the chest itself has not changed significantly. However there is now a vague floccular density overlying the right arm and periphery of the right lung. I suspect that this is extraneous to the patient. IMPRESSION: 1. There has been interval insertion of a central venous catheter on the right without apparent complication. The tip of the catheter overlies the midportion of the superior vena cava. 2. The area of increased density along the periphery of the right thorax and right upper extremity is probably extraneous to the patient. Even so, a follow-up study would be recommended for continued evaluation. Dictated by: Dictated on workstation # [id number]
--- NOTE | 2021-01-05 14:13 | Anesthesia-General Post-Op ---
MAC Patient Condition Mental Status/LOC: Same as Preop Cardiovascular: Satisfactory Nausea/Vomiting: Absent Respiratory: Satisfactory Pain: Controlled Complications: Absent Post Op Complications Complications None Follow Up Care/Instructions Patient Instructions None needed. Anesthesiology Discharge Order Discharge Order Patient is doing well, no complaints, stable vital signs, no apparent adverse anesthesia problems. MILLIE LORENZO DO Jan 05, 2021 14:13
[2021-01-05] MEDS ORDERED: FAMOTIDINE 20MG/2ML IV (PEPCID) ONE (14:14)
--- NOTE | 2021-01-05 14:47 | Diagnostic Imaging Report ---
INDICATION: Port-A-Cath insertion. EXAMINATION: Fluoroscopy at 1:06 p.m. FINDINGS: Fluoroscopic assistance was provided for Dr. Arias. 32 seconds of fluoroscopy time was utilized. Single spot film of the thorax was obtained. There is a Port-A-Cath in place on the right with the tip of the catheter overlying the mid/distal superior vena cava. IMPRESSION: Fluoroscopic assistance was provided for Dr. Arias. Dictated by: Dictated on workstation # [id number]
[2021-01-05] MEDS: QUEtiapine 100 MG (SEROquel) TAB IMMEDIATE RELEASE PO SCH (20:28)
[2021-01-05] MEDS: LORazepam 0.5 MG (ATIVAN) TABLET PO SCH (20:29)
[2021-01-05] MEDS: predniSONE 5 MG TAB PO SCH (20:42)
[2021-01-06] VITALS (9 sets, daily range): BP systolic 109–131; BP diastolic 60–77
[2021-01-06] MEDS: VANCOMYCIN 125 MG CAPSULE PO SCH ×3 (06:05→18:11)
[2021-01-06] MEDS: NS IV 1000 ML 1,000 ML IV SCH ×2 (06:06→15:41)
[2021-01-06 06:14] LABS: BASOPHILS % (AUTO) 1 % (0-10); EOSINOPHILS # (AUTO) 0.1 10^3/uL (0.0-0.3); EOSINOPHILS % (AUTO) 2 % (0-10); HEMATOCRIT 23 % (35-52); LYMPHOCYTES # (AUTO) 1.6 10^3/uL (1.0-4.0); LYMPHOCYTES % (AUTO) 25 % (12-44); MEAN CORPUSCULAR HEMOGLOBIN 22 pg (25-34); MEAN CORPUSCULAR HGB CONC 30 g/dL (32-36); MEAN CORPUSCULAR VOLUME 75 fL (80-99); MEAN PLATELET VOLUME 9.2 fL (9.0-12.2); MONOCYTES # (AUTO) 0.5 10^3/uL (0.0-1.0); MONOCYTES % (AUTO) 9 % (0-12); NEUTROPHILS % (AUTO) 62 % (42-75); PLATELET COUNT 430 10^3/uL (130-400); WHITE BLOOD COUNT 6.4 10^3/uL (4.3-11.0)
[2021-01-06 06:17] LABS: HEMOGLOBIN 6.9 g/dL (11.5-16.0)
[2021-01-06 06:39] LABS: ALANINE AMINOTRANSFERASE 6 U/L (0-55); ALBUMIN 2.1 GM/DL (3.2-4.5); ALKALINE PHOSPHATASE 86 U/L (40-136); BILIRUBIN,TOTAL 0.1 MG/DL (0.1-1.0); BUN/CREATININE RATIO 3; CALCIUM 7.3 MG/DL (8.5-10.1); CARBON DIOXIDE 19 MMOL/L (21-32); CHLORIDE 116 MMOL/L (98-107); CREATININE SERUM 0.62 MG/DL (0.60-1.30); GFR ESTIMATED > 60; GLUCOSE 84 MG/DL (70-105); SODIUM 141 MMOL/L (135-145); TOTAL PROTEIN 4.6 GM/DL (6.4-8.2)
[2021-01-06] MEDS ORDERED: NS IV 500 ML 500 ML IV SCH (06:45)
[2021-01-06] MEDS: FERROUS SULF 325 MG (IRON) TAB PO SCH (08:33)
[2021-01-06] MEDS: PANTOPRAZOLE 40 MG (PROTONIX) TAB PO SCH (08:33)
[2021-01-06] MEDS: KCL 10 MEQ TAB (MICRO K) PO SCH ×2 (08:33→18:11)
[2021-01-06] MEDS: LACTOBACILLUS ACIDOPHILUS (PROBIOTIC) CAPSULE PO SCH ×3 (08:33→18:11)
[2021-01-06] MEDS: TRIM/SULFAMETH 160/800 (SEPTRA DS) TAB PO SCH (08:33)
[2021-01-06] MEDS: APAP 300 MG/CODEINE 30 MG (TYLENOL #3) TAB PO SCH ×2 (08:33→21:06)
--- NOTE | 2021-01-06 12:23 | Progress Note - Hospitalist ---
Subjective HPI/CC On Admission Date Seen by Provider: Jan 06, 2021 Time Seen by Provider: 12:00 CC: Abd pain with N/V HPI: This is a 75yoWF clinic patient of [facility] who is post op 1 mo ago following colostomy reversal. C diff colitis dx and UTI dx. Vanc PO and Bactrim ordered. Iron def anemia and hypokalemia noted. Poor access so port requested for IV iron Subjective/Events-last exam Patient feels better Transfusion 1 unit ordered hgb 6.9 Checked meds and labs IV iron completed yesterday 1000mg Labs otherwise good Daughter coming from [place] s/p Vit B12 injection Review of Systems General: Fatigue, Malaise Objective Exam Vital Signs Vital Signs Date Time Temp Pulse Resp B/P (MAP) Pulse Ox O2 Delivery O2 Flow Rate FiO2 01/06/21 16:00 36.1 89 16 120/65 (83) 96 Room Air Capillary Refill : Less Than 3 SecondsLess Than 3 Seconds General Appearance: No Apparent Distress, WD/WN, Chronically ill Respiratory: Lungs Clear Cardiovascular: Regular Rate, Rhythm Skin: Normal Color, Warm/Dry Results/Procedures Lab Laboratory Tests 01/06/21 06:08 Patient resulted labs reviewed. Imaging: Reviewed Imaging Films, Reviewed Imaging Report Assessment/Plan Assessment and Plan Assess & Plan/Chief Complaint Assessment: C diff colitis UTI Anemia severe iron def s/p 1000mg IVP Transfusion 1 unit today Prednisone dependence Plan: 1 unit of blood HLIVF DC abx repeat UA CORNELIO Higgins DO Jan 06, 2021 12:23
[2021-01-06] MEDS: predniSONE 5 MG TAB PO SCH (21:05)
[2021-01-06] MEDS: QUEtiapine 100 MG (SEROquel) TAB IMMEDIATE RELEASE PO SCH (21:05)
[2021-01-06] MEDS: LORazepam 0.5 MG (ATIVAN) TABLET PO SCH (21:06)
[2021-01-07] MEDS: VANCOMYCIN 125 MG CAPSULE PO SCH ×4 (00:15→17:50)
[2021-01-07 06:58] LABS: BASOPHILS # (AUTO) 0.1 10^3/uL (0.0-0.1); BASOPHILS % (AUTO) 1 % (0-10); EOSINOPHILS # (AUTO) 0.3 10^3/uL (0.0-0.3); EOSINOPHILS % (AUTO) 4 % (0-10); HEMATOCRIT 30 % (35-52); HEMOGLOBIN 9.2 g/dL (11.5-16.0); LYMPHOCYTES # (AUTO) 1.5 10^3/uL (1.0-4.0); LYMPHOCYTES % (AUTO) 21 % (12-44); MEAN CORPUSCULAR HEMOGLOBIN 24 pg (25-34); MEAN CORPUSCULAR HGB CONC 31 g/dL (32-36); MEAN CORPUSCULAR VOLUME 76 fL (80-99); MEAN PLATELET VOLUME 8.8 fL (9.0-12.2); MONOCYTES # (AUTO) 0.6 10^3/uL (0.0-1.0); MONOCYTES % (AUTO) 8 % (0-12); NEUTROPHILS # (AUTO) 4.5 10^3/uL (1.8-7.8); NEUTROPHILS % (AUTO) 65 % (42-75); PLATELET COUNT 473 10^3/uL (130-400)
--- NOTE | 2021-01-07 06:59 | Progress Note - Hospitalist ---
Subjective HPI/CC On Admission Date Seen by Provider: Jan 07, 2021 Time Seen by Provider: 10:00 CC: Abd pain with N/V HPI: This is a 75yoWF clinic patient of [facility] who is post op 1 mo ago following colostomy reversal. C diff colitis dx and UTI dx. Vanc PO and Bactrim ordered. Iron def anemia and hypokalemia noted. Poor access so port requested for IV iron Subjective/Events-last exam Patient doing well Urinating in a depends instead of going to bathroom and she is up ad arjun so RN will address this Loose stools improved Hgb 9.2 after transfusion yesterday RLQ abdominal pain after eating at times Dr Momin to complete Colonoscopy as outpatient once c diff resolves Review of Systems General: Fatigue, Malaise Gastrointestinal: Diarrhea Objective Exam Vital Signs Vital Signs Date Time Temp Pulse Resp B/P (MAP) Pulse Ox O2 Delivery O2 Flow Rate FiO2 01/07/21 08:00 36.0 54 16 132/87 (102) 93 Room Air Capillary Refill : Less Than 3 SecondsLess Than 3 Seconds General Appearance: No Apparent Distress, WD/WN, Chronically ill, Thin Respiratory: Lungs Clear Cardiovascular: Regular Rate, Rhythm Neurologic/Psychiatric: Alert, Oriented x3, No Motor/Sensory Deficits, Normal Mood/Affect Results/Procedures Lab Laboratory Tests 01/07/21 06:50 Patient resulted labs reviewed. Imaging: Reviewed Imaging Films, Reviewed Imaging Report Assessment/Plan Assessment and Plan Assess & Plan/Chief Complaint Assessment: C diff colitis UTI Anemia severe iron def s/p 1000mg IVP Transfusion 1 unit today Prednisone dependence Plan: 1 unit of blood HLIVF DC abx repeat UA ok 01/07/21: Vanc po Monitor hgb DC home tomorrow CORNELIO LARSEN DO Jan 07, 2021 06:59
[2021-01-07 07:19] LABS: ALANINE AMINOTRANSFERASE 7 U/L (0-55); ALBUMIN 2.4 GM/DL (3.2-4.5); ALKALINE PHOSPHATASE 103 U/L (40-136); BILIRUBIN,TOTAL 0.4 MG/DL (0.1-1.0); BUN/CREATININE RATIO 3; CALCIUM 7.6 MG/DL (8.5-10.1); CARBON DIOXIDE 21 MMOL/L (21-32); CHLORIDE 111 MMOL/L (98-107); CREATININE SERUM 0.63 MG/DL (0.60-1.30); GFR ESTIMATED > 60; GLUCOSE 95 MG/DL (70-105); SODIUM 139 MMOL/L (135-145); TOTAL PROTEIN 5.2 GM/DL (6.4-8.2)
[2021-01-07 08:00] VITALS: BP 132/87
[2021-01-07] MEDS: KCL 10 MEQ TAB (MICRO K) PO SCH ×2 (09:14→17:50)
[2021-01-07] MEDS: FERROUS SULF 325 MG (IRON) TAB PO SCH (09:14)
[2021-01-07] MEDS: LACTOBACILLUS ACIDOPHILUS (PROBIOTIC) CAPSULE PO SCH ×3 (09:15→17:50)
[2021-01-07] MEDS: PANTOPRAZOLE 40 MG (PROTONIX) TAB PO SCH (09:15)
[2021-01-07] MEDS: APAP 300 MG/CODEINE 30 MG (TYLENOL #3) TAB PO SCH ×2 (09:15→21:18)
[2021-01-07 16:00] VITALS: BP 136/96
[2021-01-07] MEDS: LORazepam 0.5 MG (ATIVAN) TABLET PO SCH (21:18)
[2021-01-07] MEDS: QUEtiapine 100 MG (SEROquel) TAB IMMEDIATE RELEASE PO SCH (21:18)
[2021-01-07] MEDS: NYSTATIN CREAM (MYCOSTATIN) 30 GM TUBE TP SCH (21:19)
[2021-01-07] MEDS: MICONAZOLE 2% POWDER (DESENEX AF) 90 GM TOP SCH (21:19)
[2021-01-07] MEDS: predniSONE 5 MG TAB PO SCH (21:21)
[2021-01-08] MEDS: VANCOMYCIN 125 MG CAPSULE PO SCH ×3 (00:04→12:47)
[2021-01-08 00:39] VITALS: BP 131/64
[2021-01-08 05:15] LABS: BASOPHILS % (AUTO) 0 % (0-10); EOSINOPHILS # (AUTO) 0.3 10^3/uL (0.0-0.3); EOSINOPHILS % (AUTO) 3 % (0-10); HEMATOCRIT 30 % (35-52); LYMPHOCYTES # (AUTO) 1.5 10^3/uL (1.0-4.0); LYMPHOCYTES % (AUTO) 17 % (12-44); MEAN CORPUSCULAR HEMOGLOBIN 24 pg (25-34); MEAN CORPUSCULAR HGB CONC 31 g/dL (32-36); MEAN CORPUSCULAR VOLUME 77 fL (80-99); MEAN PLATELET VOLUME 8.9 fL (9.0-12.2); MONOCYTES # (AUTO) 0.7 10^3/uL (0.0-1.0); MONOCYTES % (AUTO) 8 % (0-12); NEUTROPHILS # (AUTO) 6.4 10^3/uL (1.8-7.8); NEUTROPHILS % (AUTO) 71 % (42-75); PLATELET COUNT 493 10^3/uL (130-400)
[2021-01-08 05:36] LABS: ALANINE AMINOTRANSFERASE 10 U/L (0-55); ALBUMIN 2.4 GM/DL (3.2-4.5); ALKALINE PHOSPHATASE 104 U/L (40-136); BILIRUBIN,TOTAL 0.3 MG/DL (0.1-1.0); BUN/CREATININE RATIO 10; CALCIUM 7.5 MG/DL (8.5-10.1); CARBON DIOXIDE 21 MMOL/L (21-32); CHLORIDE 111 MMOL/L (98-107); CREATININE SERUM 0.62 MG/DL (0.60-1.30); GFR ESTIMATED > 60; GLUCOSE 111 MG/DL (70-105); POTASSIUM 4.3 MMOL/L (3.6-5.0); SODIUM 140 MMOL/L (135-145); TOTAL PROTEIN 5.1 GM/DL (6.4-8.2)
[2021-01-08 07:50] VITALS: BP 129/71
[2021-01-08] MEDS: MICONAZOLE 2% POWDER (DESENEX AF) 90 GM TOP SCH (08:14)
[2021-01-08] MEDS: NYSTATIN CREAM (MYCOSTATIN) 30 GM TUBE TP SCH (08:14)
[2021-01-08] MEDS: LACTOBACILLUS ACIDOPHILUS (PROBIOTIC) CAPSULE PO SCH (08:15)
[2021-01-08] MEDS: FERROUS SULF 325 MG (IRON) TAB PO SCH (08:15)
[2021-01-08] MEDS: PANTOPRAZOLE 40 MG (PROTONIX) TAB PO SCH (08:15)
[2021-01-08] MEDS: APAP 300 MG/CODEINE 30 MG (TYLENOL #3) TAB PO SCH (08:15)
[2021-01-08] MEDS: KCL 10 MEQ TAB (MICRO K) PO SCH (08:15)
[2021-01-08] MEDS ORDERED: MICO90PO TOP (09:52)
[2021-01-08] MEDS ORDERED: VANC125C5 PO (09:52)
[2021-01-08] MEDS ORDERED: NYST15CR TP (09:52)
--- NOTE | 2021-01-08 09:53 | Discharge Summary ---
Diagnosis/Chief Complaint Date of Admission Jan 03, 2021 at 12:52 Date of Discharge Discharge Date: Jan 08, 2021 Discharge Diagnosis Assessment: C diff colitis UTI Anemia severe iron def s/p 1000mg IVP Transfusion 1 unit today Prednisone dependence Plan: 1 unit of blood HLIVF DC abx repeat UA ok 01/07/21: Vanc po Monitor hgb DC home tomorrow Discharge Summary Discharge Physical Examination Allergies: Coded Allergies: No Known Drug Allergies (Unverified , 12/17/18) Vitals & I&Os Vital Signs Date Time Temp Pulse Resp B/P (MAP) Pulse Ox O2 Delivery O2 Flow Rate FiO2 01/08/21 08:00 Room Air 01/08/21 07:50 36.9 69 18 129/71 (90) 96 General Appearance: Alert, Oriented X3, Cooperative Respiratory: Clear to Auscultation Cardiovascular: Regular Rate Neuro: Normal Gait Hospital Course Was the Problem List Reviewed?: Yes Hospital course: Pt had a lengthy hospital course after she was admitted for abdominal pain, colitis, and diarrhea. Pt was found to have UTI, placed on Bactrim by general surgery, was found to have C-Diff colitis, was placed on Vancomycin PO QID. Hemoglobin was severely low requiring one unit of blood transfusion in addition to 1000 mG of iron infusion and discharge hemoglobin was 9. She did have a [place] port placed due to poor vascular access and multiple medical issues will require IV access, and that was done by Dr. Momin. She will see Dr. Mariscal in consultation for colonoscopy and patient was discharged in improved condition. Labs (last 24 hrs) Laboratory Tests 01/02/21 10:35: White Blood Count 10.7, Red Blood Count 4.02L, Hemoglobin 8.8L, Hematocrit 29L, Mean Corpuscular Volume 72L, Mean Corpuscular Hemoglobin 22L, Mean Corpuscular Hemoglobin Concent 30L, Red Cell Distribution Width 18.0H, Platelet Count 451H, Mean Platelet Volume 9.7, Immature Granulocyte % (Auto) 1, Neutrophils (%) (Auto) 61, Lymphocytes (%) (Auto) 20, Monocytes (%) (Auto) 15H, Eosinophils (%) (Auto) 3, Basophils (%) (Auto) 1, Neutrophils # (Auto) 6.6, Lymphocytes # (Auto) 2.2, Monocytes # (Auto) 1.6H, Eosinophils # (Auto) 0.3, Basophils # (Auto) 0.1, Immature Granulocyte # (Auto) 0.1, Sodium Level 131L, Potassium Level 4.0, Chloride Level 98, Carbon Dioxide Level 23, Anion Gap 10, Blood Urea Nitrogen 8, Creatinine 0.67, Estimat Glomerular Filtration Rate > 60, BUN/Creatinine Ratio 12, Glucose Level 100, Lactic Acid Level 1.89, Calcium Level 8.0L, Corrected Calcium 8.9, Total Bilirubin 0.6, Aspartate Amino Transf (AST/SGOT) 10, Alanine Aminotransferase (ALT/SGPT) 5, Alkaline Phosphatase 121, Total Protein 6.1L, Albumin 2.9L, Lipase 16 01/02/21 13:35: Urine Color YELLOW, Urine Clarity SL CLOUDY, Urine pH 7.5, Urine Specific [place] y 1.010L, Urine Protein NEGATIVE, Urine Glucose (UA) NEGATIVE, Urine Ketones NEGATIVE, Urine Nitrite NEGATIVE, Urine Bilirubin NEGATIVE, Urine Urobilinogen 0.2, Urine Leukocyte Esterase 2+H, Urine RBC (Auto) 1+H, Urine RBC 2-5H, Urine WBC 10-25H, Urine Squamous Epithelial Cells 2-5, Urine Crystals NONE, Urine Bacteria LARGEH, Urine Casts NONE, Urine Mucus SMALLH, Urine Yeast FEWH, Urine Culture Indicated YES 01/03/21 05:03: White Blood Count 7.5, Red Blood Count 3.44L, Hemoglobin 7.5L, Hematocrit 26L, Mean Corpuscular Volume 75L, Mean Corpuscular Hemoglobin 22L, Mean Corpuscular Hemoglobin Concent 29L, Red Cell Distribution Width 18.3H, Platelet Count 362, Mean Platelet Volume 9.4, Immature Granulocyte % (Auto) 0, Neutrophils (%) (Auto) 54, Lymphocytes (%) (Auto) 21, Monocytes (%) (Auto) 20H, Eosinophils (%) (Auto) 5, Basophils (%) (Auto) 1, Neutrophils # (Auto) 4.0, Lymphocytes # (Auto) 1.6, Monocytes # (Auto) 1.5H, Eosinophils # (Auto) 0.4H, Basophils # (Auto) 0.0, Immature Granulocyte # (Auto) 0.0, Sodium Level 135, Potassium Level 3.4L, Chloride Level 105, Carbon Dioxide Level 19L, Anion Gap 11, Blood Urea Nitrogen 6L, Creatinine 0.62, Estimat Glomerular Filtration Rate > 60, BUN/Creatinine Ratio 10, Glucose Level 90, Calcium Level 7.1L, Corrected Calcium 8.5, Total Bilirubin 0.7, Aspartate Amino Transf (AST/SGOT) 8, Alanine Aminotransferase (ALT/SGPT) 6, Alkaline Phosphatase 82, Total Protein 4.7L, Albumin 2.3L 01/04/21 05:26: White Blood Count 4.6, Red Blood Count 3.42L, Hemoglobin 7.5L, Hematocrit 26L, Mean Corpuscular Volume 75L, Mean Corpuscular Hemoglobin 22L, Mean Corpuscular Hemoglobin Concent 29L, Red Cell Distribution Width 18.5H, Platelet Count 382, Mean Platelet Volume 9.4, Immature Granulocyte % (Auto) 0, Neutrophils (%) (Auto ) 68, Lymphocytes (%) (Auto) 19, Monocytes (%) (Auto) 11, Eosinophils (%) (Auto) 1, Basophils (%) (Auto) 0, Neutrophils # (Auto) 3.1, Lymphocytes # (Auto) 0.9L, Monocytes # (Auto) 0.5, Eosinophils # (Auto) 0.0, Basophils # (Auto) 0.0, Immature Granulocyte # (Auto) 0.0, Sodium Level 140, Potassium Level 3.3L, Chloride Level 112H, Carbon Dioxide Level 19L, Anion Gap 9, Blood Urea Nitrogen 4L, Creatinine 0.63, Estimat Glomerular Filtration Rate > 60, BUN/Creatinine Ratio 6, Glucose Level 114H, Calcium Level 7.1L, Corrected Calcium 8.5, Total Bilirubin 0.3, Aspartate Amino Transf (AST/SGOT) 6, Alanine Aminotransferase (ALT/SGPT) < 6, Alkaline Phosphatase 97, Total Protein 4.6L, Albumin 2.2L, Absolute Reticulocyte Count 75, Percent Reticulocyte Count 2.19, Iron Level 7L, Ferritin 58.6 01/05/21 06:50: White Blood Count 5.6, Red Blood Count 3.44L, Hemoglobin 7.6L, Hematocrit 26L, Mean Corpuscular Volume 77L, Mean Corpuscular Hemoglobin 22L, Mean Corpuscular Hemoglobin Concent 29L, Red Cell Distribution Width 18.7H, Platelet Count 421H, Mean Platelet Volume 9.6, Immature Granulocyte % (Auto) 0, Neutrophils (%) (Auto) 61, Lymphocytes (%) (Auto) 28, Monocytes (%) (Auto) 9, Eosinophils (%) (Auto) 1, Basophils (%) (Auto) 1, Neutrophils # (Auto) 3.4, Lymphocytes # (Auto) 1.5, Monocytes # (Auto) 0.5, Eosinophils # (Auto) 0.1, Basophils # (Auto) 0.0, Immature Granulocyte # (Auto) 0.0, Sodium Level 139, Potassium Level 3.5L, Chloride Level 114H, Carbon Dioxide Level 16L, Anion Gap 9, Blood Urea Nitrogen 3L, Creatinine 0.64, Estimat Glomerular Filtration Rate > 60, BUN/Creatinine Ratio 5, Glucose Level 98, Calcium Level 7.4L, Corrected Calcium 8.7, Total Bilirubin 0.1, Aspartate Amino Transf (AST/SGOT) 9, Alanine Aminotransferase (ALT/SGPT) 6, Alkaline Phosphatase 93, Total Protein 5.0L, Albumin 2.4L, Vitamin B12 Level 269 01/05/21 09:05: Stool Occult Blood Immunoassay NEGATIVE 01/05/21 12:15: Urine Color YELLOW, Urine Clarity CLEAR, Urine pH 7.0, Urine Specific [place] 1.025H, Urine Protein NEGATIVE, Urine Glucose (UA) NEGATIVE, Urine Ketones NEGATIVE, Urine Nitrite NEGATIVE, Urine Bilirubin NEGATIVE, Urine Urobilinogen 0.2, Urine Leukocyte Esterase NEGATIVE, Urine RBC (Auto) NEGATIVE, Urine RBC RARE, Urine WBC RARE, Urine Squamous Epithelial Cells 2-5, Urine Crystals NONE, Urine Bacteria TRACE, Urine Casts NONE, Urine Mucus SMALLH, Urine Culture Indicated NO 01/06/21 06:08: White Blood Count 6.4, Red Blood Count 3.11L, Hemoglobin 6.9*L, Hematocrit 23L, Mean Corpuscular Volume 75L, Mean Corpuscular Hemoglobin 22L, Mean Corpuscular Hemoglobin Concent 30L, Red Cell Distribution Width 18.7H, Platelet Count 430H, Mean Platelet Volume 9.2, Immature Granulocyte % (Auto) 1, Neutrophils (%) (Auto) 62, Lymphocytes (%) (Auto) 25, Monocytes (%) (Auto) 9, Eosinophils (%) (Auto) 2, Basophils (%) (Auto) 1, Neutrophils # (Auto) 4.0, Lymphocytes # (Auto) 1.6, Monocytes # (Auto) 0.5, Eosinophils # (Auto) 0.1, Basophils # (Auto) 0.0, Immature Granulocyte # (Auto) 0.1, Sodium Level 141, Potassium Level 4.0, Chloride Level 116H, Carbon Dioxide Level 19L, Anion Gap 6, Blood Urea Nitrogen < 2L, Creatinine 0.62, Estimat Glomerular Filtration Rate > 60, BUN/Creatinine Ratio 3, Glucose Level 84, Calcium Level 7.3L, Corrected Calcium 8.8, Total Bilirubin 0.1, Aspartate Amino Transf (AST/SGOT) 13, Alanine Aminotransferase (ALT/SGPT) 6, Alkaline Phosphatase 86, Total Protein 4.6L, Albumin 2.1L 01/07/21 06:50: White Blood Count 7.0, Red Blood Count 3.91, Hemoglobin 9.2#L, Hematocrit 30L, Mean Corpuscular Volume 76L, Mean Corpuscular Hemoglobin 24L, Mean Corpuscular Hemoglobin Concent 31L, Red Cell Distribution Width 20.4H, Platelet Count 473H, Mean Platelet Volume 8.8L, Immature Granulocyte % (Auto) 1, Neutrophils (%) (Auto) 65, Lymphocytes (%) (Auto) 21, Monocytes (%) (Auto) 8, Eosinophils (%) (Auto) 4, Basophils (%) (Auto) 1, Neutrophils # (Auto) 4.5, Lymphocytes # (Auto) 1.5, Monocytes # (Auto) 0.6, Eosinophils # (Auto) 0.3, Basophils # (Auto) 0.1, Immature Granulocyte # (Auto) 0.1, Sodium Level 139, Potassium Level 4.0, Chloride Level 111H, Carbon Dioxide Level 21, Anion Gap 7, Blood Urea Nitrogen 2L, Creatinine 0.63, Estimat Glomerular Filtration Rate > 60, BUN/Creatinine Ratio 3, Glucose Level 95, Calcium Level 7.6L, Corrected Calcium 8.9, Total Bilirubin 0.4, Aspartate Amino Transf (AST/SGOT) 12, Alanine Aminotransferase (ALT/SGPT) 7, Alkaline Phosphatase 103, Total Protein 5.2L, Albumin 2.4L 01/08/21 05:00: White Blood Count 9.0, Red Blood Count 3.82, Hemoglobin 9.0L, Hematocrit 30L, Mean Corpuscular Volume 77L, Mean Corpuscular Hemoglobin 24L, Mean Corpuscular Hemoglobin Concent 31L, Red Cell Distribution Width 20.9H, Platelet Count 493H, Mean Platelet Volume 8.9L, Immature Granulocyte % (Auto) 1, Neutrophils (%) (Auto) 71, Lymphocytes (%) (Auto) 17, Monocytes (%) (Auto) 8, Eosinophils (%) (Auto) 3, Basophils (%) (Auto) 0, Neutrophils # (Auto) 6.4, Lymphocytes # (Auto) 1.5, Monocytes # (Auto) 0.7, Eosinophils # (Auto) 0.3, Basophils # (Auto) 0.0, Immature Granulocyte # (Auto) 0.1, Sodium Level 140, Potassium Level 4.3, Chloride Level 111H, Carbon Dioxide Level 21, Anion Gap 8, Blood Urea Nitrogen 6L, Creatinine 0.62, Estimat Glomerular Filtration Rate > 60, BUN/Creatinine Ratio 10, Glucose Level 111H, Calcium Level 7.5L, Corrected Calcium 8.8, Total Bilirubin 0.3, Aspartate Amino Transf (AST/SGOT) 16, Alanine Aminotransferase (ALT/SGPT) 10, Alkaline Phosphatase 104, Total Protein 5.1L, Albumin 2.4L 01/08/21 13:54: Lab Scanned Report Transfusion Reaction Form Microbiology 01/02/21 Cryptosporidium/Giardia - Final, Complete See Comments 01/02/21 Urine Culture - Final, Complete Klebsiella pneumoniae Escherichia coli Proteus species Pending Labs Microbiology Date/Time Source Procedure Growth Status 01/02/21 16:00 Stool Cryptosporidium/Giardia - Final See Comments Complete 01/02/21 16:00 Stool C. difficile GDH Antigen & Toxins - Final Complete 01/02/21 16:00 Stool Stool Culture - Final Complete 01/02/21 13:35 Urine Clean Catch Urine Culture - Final Klebsiella pneumoniae Escherichia coli Proteus species Complete Laboratory Tests 01/02/21 10:35: White Blood Count 10.7, Red Blood Count 4.02, Hemoglobin 8.8, Hematocrit 29, Mean Corpuscular Volume 72, Mean Corpuscular Hemoglobin 22, Mean Corpuscular Hemoglobin Concent 30, Red Cell Distribution Width 18.0, Platelet Count 451, Mean Platelet Volume 9.7, Immature Granulocyte % (Auto) 1, Neutrophils (%) (Auto) 61, Lymphocytes (%) (Auto) 20, Monocytes (%) (Auto) 15, Eosinophils (%) (Auto) 3, Basophils (%) (Auto) 1, Neutrophils # (Auto) 6.6, Lymphocytes # (Auto) 2.2, Monocytes # (Auto) 1.6, Eosinophils # (Auto) 0.3, Basophils # (Auto) 0.1, Immature Granulocyte # (Auto) 0.1, Sodium Level 131, Potassium Level 4.0, Chloride Level 98, Carbon Dioxide Level 23, Anion Gap 10, Blood Urea Nitrogen 8, Creatinine 0.67, Estimat Glomerular Filtration Rate > 60, BUN/Creatinine Ratio 12, Glucose Level 100, Lactic Acid Level 1.89, Calcium Level 8.0, Corrected Calcium 8.9, Total Bilirubin 0.6, Aspartate Amino Transf (AST/SGOT) 10, Alanine Aminotransferase (ALT/SGPT) 5, Alkaline Phosphatase 121, Total Protein 6.1, Albumin 2.9, Lipase 16 01/02/21 13:35: Urine Color YELLOW, Urine Clarity SL CLOUDY, Urine pH 7.5, Urine Specific [place] 1.010, Urine Protein NEGATIVE, Urine Glucose (UA) NEGATIVE, Urine Ketones NEGATIVE, Urine Nitrite NEGATIVE, Urine Bilirubin NEGATIVE, Urine Urobilinogen 0.2, Urine Leukocyte Esterase 2+, Urine RBC (Auto) 1+, Urine RBC 2- 5, Urine WBC 10-25, Urine Squamous Epithelial Cells 2-5, Urine Crystals NONE, Urine Bacteria LARGE, Urine Casts NONE, Urine Mucus SMALL, Urine Yeast FEW, Urine Culture Indicated YES 01/03/21 05:03: White Blood Count 7.5, Red Blood Count 3.44, Hemoglobin 7.5, Hematocrit 26, Mean Corpuscular Volume 75, Mean Corpuscular Hemoglobin 22, Mean Corpuscular Hemoglobin Concent 29, Red Cell Distribution Width 18.3, Platelet Count 362, Mean Platelet Volume 9.4, Immature Granulocyte % (Auto) 0, Neutrophils (%) (Auto) 54, Lymphocytes (%) (Auto) 21, Monocytes (%) (Auto) 20, Eosinophils (%) (Auto) 5, Basophils (%) (Auto) 1, Neutrophils # (Auto) 4.0, Lymphocytes # (Auto) 1.6, Monocytes # (Auto) 1.5, Eosinophils # (Auto) 0.4, Basophils # (Auto) 0.0, Immature Granulocyte # (Auto) 0.0, Sodium Level 135, Potassium Level 3.4, Chloride Level 105, Carbon Dioxide Level 19, Anion Gap 11, Blood Urea Nitrogen 6, Creatinine 0.62, Estimat Glomerular Filtration Rate > 60, BUN/Creatinine Ratio 10, Glucose Level 90, Calcium Level 7.1, Corrected Calcium 8.5, Total Bilirubin 0.7, Aspartate Amino Transf (AST/SGOT) 8, Alanine Aminotransferase (ALT/SGPT) 6, Alkaline Phosphatase 82, Total Protein 4.7, Albumin 2.3 01/04/21 05:26: White Blood Count 4.6, Red Blood Count 3.42, Hemoglobin 7.5, Hematocrit 26, Mean Corpuscular Volume 75, Mean Corpuscular Hemoglobin 22, Mean Corpuscular Hemoglobin Concent 29, Red Cell Distribution Width 18.5, Platelet Count 382, Mean Platelet Volume 9.4, Immature Granulocyte % (Auto) 0, Neutrophils (%) (Auto) 68, Lymphocytes (%) (Auto) 19, Monocytes (%) (Auto) 11, Eosinophils (%) (Auto) 1, Basophils (%) (Auto) 0, Neutrophils # (Auto) 3.1, Lymphocytes # (Auto) 0.9, Monocytes # (Auto) 0.5, Eosinophils # (Auto) 0.0, Basophils # (Auto) 0.0, Immature Granulocyte # (Auto) 0.0, Sodium Level 140, Potassium Level 3.3, Chloride Level 112, Carbon Dioxide Level 19, Anion Gap 9, Blood Urea Nitrogen 4, Creatinine 0.63, Estimat Glomerular Filtration Rate > 60, BUN/Creatinine Ratio 6, Glucose Level 114, Calcium Level 7.1, Corrected Calcium 8.5, Total Bilirubin 0.3, Aspartate Amino Transf (AST/SGOT) 6, Alanine Aminotransferase (ALT/SGPT) < 6, Alkaline Phosphatase 97, Total Protein 4.6, Albumin 2.2, Absolute Reticulocyte Count 75, Percent Reticulocyte Count 2.19, Iron Level 7, Ferritin 58.6 01/05/21 06:50: White Blood Count 5.6, Red Blood Count 3.44, Hemoglobin 7.6, Hematocrit 26, Mean Corpuscular Volume 77, Mean Corpuscular Hemoglobin 22, Mean Corpuscular Hemoglobin Concent 29, Red Cell Distribution Width 18.7, Platelet Count 421, Mean Platelet Volume 9.6, Immature Granulocyte % (Auto) 0, Neutrophils (%) (Auto) 61, Lymphocytes (%) (Auto) 28, Monocytes (%) (Auto) 9, Eosinophils (%) (Auto) 1, Basophils (%) (Auto) 1, Neutrophils # (Auto) 3.4, Lymphocytes # (Auto) 1.5, Monocytes # (Auto) 0.5, Eosinophils # (Auto) 0.1, Basophils # (Auto) 0.0, Immature Granulocyte # (Auto) 0.0, Sodium Level 139, Potassium Level 3.5, Chloride Level 114, Carbon Dioxide Level 16, Anion Gap 9, Blood Urea Nitrogen 3, Creatinine 0.64, Estimat Glomerular Filtration Rate > 60, BUN/Creatinine Ratio 5, Glucose Level 98, Calcium Level 7.4, Corrected Calcium 8.7, Total Bilirubin 0.1, Aspartate Amino Transf (AST/SGOT) 9, Alanine Aminotransferase (ALT/SGPT) 6, Alkaline Phosphatase 93, Total Protein 5.0, Albumin 2.4, Vitamin B12 Level 269 01/05/21 09:05: Stool Occult Blood Immunoassay NEGATIVE 01/05/21 12:15: Urine Color YELLOW, Urine Clarity CLEAR, Urine pH 7.0, Urine Specific [place] 1.025, Urine Protein NEGATIVE, Urine Glucose (UA) NEGATIVE, Urine Ketones NEGATIVE, Urine Nitrite NEGATIVE, Urine Bilirubin NEGATIVE, Urine Urobilinogen 0.2, Urine Leukocyte Esterase NEGATIVE, Urine RBC (Auto) NEGATIVE, Urine RBC RARE, Urine WBC RARE, Urine Squamous Epithelial Cells 2-5, Urine Crystals NONE, Urine Bacteria TRACE, Urine Casts NONE, Urine Mucus SMALL, Urine Culture Indicated NO 01/06/21 06:08: White Blood Count 6.4, Red Blood Count 3.11, Hemoglobin 6.9, Hematocrit 23, Mean Corpuscular Volume 75, Mean Corpuscular Hemoglobin 22, Mean Corpuscular Hemoglobin Concent 30, Red Cell Distribution Width 18.7, Platelet Count 430, Mean Platelet Volume 9.2, Immature Granulocyte % (Auto) 1, Neutrophils (%) (Auto) 62, Lymphocytes (%) (Auto) 25, Monocytes (%) (Auto) 9, Eosinophils (%) (Auto) 2, Basophils (%) (Auto) 1, Neutrophils # (Auto) 4.0, Lymphocytes # (Auto) 1.6, Monocytes # (Auto) 0.5, Eosinophils # (Auto) 0.1, Basophils # (Auto) 0.0, Immature Granulocyte # (Auto) 0.1, Sodium Level 141, Potassium Level 4.0, Chloride Level 116, Carbon Dioxide Level 19, Anion Gap 6, Blood Urea Nitrogen < 2, Creatinine 0.62, Estimat Glomerular Filtration Rate > 60, BUN/Creatinine Ratio 3, Glucose Level 84, Calcium Level 7.3, Corrected Calcium 8.8, Total Bilirubin 0.1, Aspartate Amino Transf (AST/SGOT) 13, Alanine Aminotransferase (ALT/SGPT) 6, Alkaline Phosphatase 86, Total Protein 4.6, Albumin 2.1 01/07/21 06:50: White Blood Count 7.0, Red Blood Count 3.91, Hemoglobin 9.2, Hematocrit 30, Mean Corpuscular Volume 76, Mean Corpuscular Hemoglobin 24, Mean Corpuscular Hemoglobin Concent 31, Red Cell Distribution Width 20.4, Platelet Count 473, Mean Platelet Volume 8.8, Immature Granulocyte % (Auto) 1, Neutrophils (%) (Auto) 65, Lymphocytes (%) (Auto) 21, Monocytes (%) (Auto) 8, Eosinophils (%) (Auto) 4, Basophils (%) (Auto) 1, Neutrophils # (Auto) 4.5, Lymphocytes # (Auto) 1.5, Monocytes # (Auto) 0.6, Eosinophils # (Auto) 0.3, Basophils # (Auto) 0.1, Immature Granulocyte # (Auto) 0.1, Sodium Level 139, Potassium Level 4.0, Chloride Level 111, Carbon Dioxide Level 21, Anion Gap 7, Blood Urea Nitrogen 2, Creatinine 0.63, Estimat Glomerular Filtration Rate > 60, BUN/Creatinine Ratio 3, Glucose Level 95, Calcium Level 7.6, Corrected Calcium 8.9, Total Bilirubin 0.4, Aspartate Amino Transf (AST/SGOT) 12, Alanine Aminotransferase (ALT/SGPT) 7, Alkaline Phosphatase 103, Total Protein 5.2, Albumin 2.4 01/08/21 05:00: White Blood Count 9.0, Red Blood Count 3.82, Hemoglobin 9.0, Hematocrit 30, Mean Corpuscular Volume 77, Mean Corpuscular Hemoglobin 24, Mean Corpuscular Hemo globin Concent 31, Red Cell Distribution Width 20.9, Platelet Count 493, Mean Platelet Volume 8.9, Immature Granulocyte % (Auto) 1, Neutrophils (%) (Auto) 71, Lymphocytes (%) (Auto) 17, Monocytes (%) (Auto) 8, Eosinophils (%) (Auto) 3, Basophils (%) (Auto) 0, Neutrophils # (Auto) 6.4, Lymphocytes # (Auto) 1.5, Monocytes # (Auto) 0.7, Eosinophils # (Auto) 0.3, Basophils # (Auto) 0.0, Immature Granulocyte # (Auto) 0.1, Sodium Level 140, Potassium Level 4.3, Chloride Level 111, Carbon Dioxide Level 21, Anion Gap 8, Blood Urea Nitrogen 6, Creatinine 0.62, Estimat Glomerular Filtration Rate > 60, BUN/Creatinine Ratio 10, Glucose Level 111, Calcium Level 7.5, Corrected Calcium 8.8, Total Bilirubin 0.3, Aspartate Amino Transf (AST/SGOT) 16, Alanine Aminotransferase (ALT/SGPT) 10, Alkaline Phosphatase 104, Total Protein 5.1, Albumin 2.4 01/08/21 13:54: Lab Scanned Report Transfusion Reaction Form Discharge Home Medications: Active Scripts Active Nystatin 15 Gm Cream..g. 0 Gm TP BID Lotrimin AF (Miconazole Nitrate) 90 Gm Powder 0 Gm TOP BID Vancomycin HCl 125 Mg Capsule 125 Mg PO Q6HR 1 PO TID for 7 days then 1 PO BID for 7 days then 1 Po daily for 7 days Reported Imodium A-D (Loperamide HCl) 2 Mg Tablet 2-4 Mg PO UD PRN Visine Dry Eye Relief Drop (Peg 400/Hypromellose/Glycerin) 15 Ml Drops 1-2 Drops OU PRN PRN Acetaminophen-Cod #3 Tablet (Acetaminophen with Codeine) 1 Each Tablet 1 Each PO BID Hyoscyamine Sulfate 0.125 Mg Tab.subl 0.125 Mg SL Q4H PRN Ativan (Lorazepam) 0.5 Mg Tablet 0.5 Mg PO HS Dexilant (Dexlansoprazole) 60 Mg Cap.bp 60 Mg PO DAILY LAST FILLED 10-25-2020 #30 Oxybutynin Chloride 5 Mg Tablet 5 Mg PO HS Citalopram HBr (Citalopram Hydrobromide) 40 Mg Tablet 40 Mg PO HS Quetiapine Fumarate 100 Mg Tablet 100 Mg PO HS Prednisone 5 Mg Tablet 5 Mg PO HS Instructions to patient/family Please see electronic discharge instructions given to patient. CORNELIO LARSEN DO Jan 08, 2021 09:53
--- NOTE | 2021-01-08 11:40 | Progress Note ---
DAPHNIE DAILY, MED STUDENT 01/08/21 1140: Progress Note The following information is only a summary of the PT admission while at [facility] and not all inclusive. Please review the entire chart for more information. Ms. Acevedo is a 75 y/o F w/ PMH of bowel perforation s/p colostomy 5 years ago w/ colostomy reversal and hernia repair 1 month ago who is presenting for a month history of abdominal pain, vomiting, and diarrhea. She was admitted on 01/02 because her diarrhea had been getting progressively worse. Vitals at the time of admission were unremarkable but she was noted to have a Hgb of 8.8 and a WBC of 10.7. CT scan done on admission showed concern for colitis and stool cultures were positive for C. diff. Ms. Acevedo was admitted and started on PO vancomycin. While at [facility], Ms. Acevedo was found to have a UTI on UA and was subsequently started on bactrim. During the course of Ms. Acevedo's stay, there was repeated difficult with starting IVs and central lines on her so a port was placed on 01/05. After port placement, she was transfused iron because her Hgb had been 7.5-7.6 over the previous 2 days. On 01/05, Ms. Acevedo also reported a single episode of blood in her stool. On 01/06 her Hgb was found to be 6.9 and she was transfused 1u of blood. Follow up Hgb was 9.2 and no other episodes of blood in stool were noted. FOBT was negative was well. Given her stable Hgb and negative FOBT, the decision was made to have Ms. Acevedo pursue colonoscopy outpatient once her C. Diff infection had resolved. Follow up UA on 01/08 showed resolution of her chronic UTIs and her bactrim was discontinued. Ms. Acevedo is being discharged on 01/08 in stable condition with improvement in her diarrhea and has been advised to finish her course of PO vancomycin. While at [facility], Ms. Acevedo has received 5 days worth of PO Vancomycin. She follows with Angi Sainz APRN for her primary care. CECILE LARSEN DO 01/08/212046: Supervisory-Addendum Brief Verification & Attestation Participated in pt care: history, MDM, physical Personally performed: exam, history, MDM, supervision of care Care discussed with: Medical Student Procedures: n/a Results interpretation: Verified all documentation Verification and Attestation of Medical Student E/M Service A medical student performed and documented this service in my presence. I rev iewed and verified all information documented by the medical student and made modifications to such information, when appropriate. I personally performed the physical exam and medical decision making. Cecile Larsen, Jan 08, 2021,20:47 DAPHNIE DAILY, MED STUDENT Jan 08, 2021 11:40 CECILE LARSEN DO Jan 08, 2021 20:47
== END 2021-01-08 13:00 | disposition home or self-care (01) | DRG 372 ==
LOC: EDUNIT# 09:57 → ER FS 09:59 → 4TH 15:00 → OBSVTOIN 01-03 12:52
PROVIDERS: ADMIT Surgery; ATTEND Surgery
PROC: 02HV33Z Insertion of Infusion Device into Superior Vena Cava, Percutaneous Approach (ICD-10-PCS; 2021-01-05)
PROC: 0JH63XZ Insertion of Tunneled Vascular Access Device into Chest Subcutaneous Tissue and Fascia, Percutaneous Approach (ICD-10-PCS; principal; 2021-01-05 12:36)
DX: A04.72 Enterocolitis due to Clostridium difficile, not specified as recurrent (principal); N39.0 Urinary tract infection, site not specified; K92.1 Melena; K56.7 Ileus, unspecified; D50.9 Iron deficiency anemia, unspecified; E87.6 Hypokalemia; B96.1 Klebsiella pneumoniae [K. pneumoniae] as the cause of diseases classified elsewhere; Z79.52 Long term (current) use of systemic steroids; Z79.899 Other long term (current) drug therapy; K21.9 Gastro-esophageal reflux disease without esophagitis; E88.09 Other disorders of plasma-protein metabolism, not elsewhere classified; M19.90 Unspecified osteoarthritis, unspecified site; F41.9 Anxiety disorder, unspecified; F32.9 Major depressive disorder, single episode, unspecified; E86.0 Dehydration; K59.00 Constipation, unspecified
CPT/HCPCS: 36415; 71045; 74022; 74177; 76000; 80053; 81000; 82274; 82607; 82728; 83540; 83605; 83690; 85025; 85045; 86850; 86900; 86901; 86920; 87015; 87045; 87046; 87077; 87088; 87186; 87324; 87328; 87329; 87449; 87899; 96374; 96375; G0378

== ENCOUNTER → 2021-01-11 | Outpatient (CLI) | payer MEDICARE ==
[~2021-01-11] MED LIST changes: +CATHETER FLUSH 10 ML SYR IV PRN; +CEPH500C PO; +FERR-84 PO; +HOLD METFORMIN - RECEIVED CONTRAST 20 ML VIAL IV SCH; +HYOS-19 SL; +IBUP-2185 PO; +IOHEXOL 350 MG/ML 100 ML (OMNIPAQUE 350) VIAL IV ONE; +LOPE-134 PO; +MICO90PO TOP; +NS 100 ML (IVPB) BAG IV ONE; +NYST15CR TP; +PEG15DRO9 OU; +VANC125C5 PO
[2021-01-11 15:03] LABS: HEMATOCRIT 38 % (35-52); MEAN CORPUSCULAR HEMOGLOBIN 24 PG (25-34); MEAN CORPUSCULAR HGB CONC 29 G/DL (32-36); MEAN CORPUSCULAR VOLUME 81 FL (80-99); PLATELET COUNT 651 10^3/uL (130-400)
[2021-01-11 15:04] LABS: BASOPHILS # (AUTO) 0.1 10^3/uL (0.0-0.1); BASOPHILS % (AUTO) 1 % (0-10); EOSINOPHILS # (AUTO) 0.2 10^3/uL (0.0-0.3); EOSINOPHILS % (AUTO) 2 % (0-10); LYMPHOCYTES # (AUTO) 2.6 X 10^3 (1.0-4.0); LYMPHOCYTES % (AUTO) 24 % (12-44); MONOCYTES # (AUTO) 0.8 X 10^3 (0.0-1.0); MONOCYTES % (AUTO) 7 % (0-12); NEUTROPHILS # (AUTO) 7.2 X 10^3 (1.8-7.8); NEUTROPHILS % (AUTO) 66 % (42-75)
[2021-01-11 15:19] LABS: CHLORIDE 105 MMOL/L (98-107); SODIUM 139 MMOL/L (135-145)
[2021-01-11 15:20] LABS: ALANINE AMINOTRANSFERASE 14 U/L (0-55); ALKALINE PHOSPHATASE 132 U/L (40-136); BILIRUBIN,TOTAL 0.4 MG/DL (0.1-1.0); BUN/CREATININE RATIO 12; CALCIUM 8.5 MG/DL (8.5-10.1); CARBON DIOXIDE 25 MMOL/L (21-32); CREATININE SERUM 0.59 MG/DL (0.60-1.30); GFR ESTIMATED > 60; GLUCOSE 89 MG/DL (70-105)
--- NOTE | 2021-01-11 15:43 | Diagnostic Imaging Report ---
INDICATION: Constipation, recent colostomy reversal. Abdominal film obtained at 0318 p.m. and compared to 01/02/2021. There is a large amount of stool throughout the colon. There are surgical sutures over the pelvis. There is no significant small bowel dilatation. There are surgical clips in the left upper quadrant. IMPRESSION: Prominent stool throughout the colon with no overt obstruction. Dictated by: Dictated on workstation # [id number]
--- NOTE | 2021-01-11 16:46 | Diagnostic Imaging Report ---
PROCEDURE: CT abdomen and pelvis without contrast. TECHNIQUE: Multiple contiguous axial images were obtained through the abdomen and pelvis without the use of intravenous contrast. Auto Exposure Controls were utilized during the CT exam to meet ALARA standards for radiation dose reduction. INDICATION: Abdominal pain. Constipation. Recent colostomy reversal. COMPARISON: 01/02/2021 FINDINGS: Included portions of the lung bases show small bibasilar effusions. There is also moderate hiatal hernia. CT ABDOMEN: Marked amount of air and stool is again identified throughout the colon. Colorectal anastomosis is again identified. The rectum is decompressed. Note is also made of moderate stranding of the pericolonic fat surrounding the descending colon. There is small amount of free fluid within the pelvis. There is however no loculated fluid collection or free air. There is no pneumatosis nor portal venous gas. Cecum also extends into the lower pelvis. Normal appendix cannot be adequately identified, but there is no pericecal inflammation or other indirect evidence of acute appendicitis. Small bowel loops are nondistended. Prominent extrarenal pelvis is noted on the right. Otherwise, kidneys, adrenal glands, spleen, pancreas, and liver have an unremarkable noncontrast CT appearance. No abnormal mesenteric or retroperitoneal adenopathy is seen. Osseous structures show no acute abnormalities. CT PELVIS: Urinary bladder is unopacified. No calculi are seen within the urinary bladder. Again, there is small amount of free fluid. There is no loculated fluid collection or free air. No abnormal adenopathy is seen. There is a right inguinal hernia, which contains a loop of small bowel and small amount of fluid. Osseous structures show no acute abnormalities. IMPRESSION: 1. Interval development of marked amount of air and stool scattered throughout the colon. Rectum is decompressed distal to the rectocolonic anastomosis. This does raise concern for stricture at the anastomotic site. 2. Moderate stranding of the pericolonic fat surrounding the descending colon. Note is made of associated colonic wall thickening on recent CT dated 01/02/2021. These findings are nonspecific and could be on the basis of underlying infectious or inflammatory colitis. 3. Small amount of free fluid within the abdomen and pelvis, but no loculated fluid collection or free air. 4. Right inguinal hernia containing a loop of small bowel, but no evidence of proximal obstruction. 5. Small bilateral pleural effusions. 6. Moderate hiatal hernia. Dictated by: Dictated on workstation # [id number]
== END ==
LOC: RAD FS 14:31
PROVIDERS: ATTEND Nurse Practitioner Family
DX: A04.72 Enterocolitis due to Clostridium difficile, not specified as recurrent (principal); D64.9 Anemia, unspecified; K59.00 Constipation, unspecified; K40.90 Unilateral inguinal hernia, without obstruction or gangrene, not specified as recurrent; K44.9 Diaphragmatic hernia without obstruction or gangrene; J90 Pleural effusion, not elsewhere classified; Z98.890 Other specified postprocedural states
CPT/HCPCS: 36415; 74018; 74176; 80053; 83605; 85025

== ENCOUNTER 2021-01-12 12:33 | Inpatient (IN) | payer MEDICARE ==
[~2021-01-12] VITALS: Ht 152.4 cm; Wt 45.4 kg
[~2021-01-12 12:33] MED LIST changes: -CATHETER FLUSH 10 ML SYR IV PRN; -HOLD METFORMIN - RECEIVED CONTRAST 20 ML VIAL IV SCH; -IOHEXOL 350 MG/ML 100 ML (OMNIPAQUE 350) VIAL IV ONE; -NS 100 ML (IVPB) BAG IV ONE
[2021-01-12] MEDS ORDERED: fentaNYL INJ 100 MCG/2 ML AMP IVP ONE (12:45)
--- NOTE | 2021-01-12 12:56 | ED General ---
General Stated Complaint: ABNORMAL TEST-DR PERSAUD Source of Information: Patient Exam Limitations: No Limitations History of Present Illness Date Seen by Provider: Jan 12, 2021 Time Seen by Provider: 12:51 Initial Comments to ER by private vehicle from [facility] with reports of abdominal pain. She presented for elective colostomy reversal on November 29. She then developed a C. difficile infection for which she remains on oral vancomycin. Yesterday she presented to [facility] in [place] with abdominal distention and pain. She had not had a bowel movement in 5 days. She underwent an outpatient CT which showed marked amount of air and stool throughout the colon and the colon was decompressed distal to the anastomotic site. That raised concern for anastomotic stricture. [facility] reports that they [place] spoke with Dr Mariscal who recommended she be transferred down here. She reports diffuse abdominal cramping. She is passing gas but she has not passing stool. No vomiting. Timing/Duration: 1-2 Days Severity: Moderate Allergies and Home Medications Allergies Coded Allergies: No Known Drug Allergies (Unverified , 12/17/18) Home Medications Acetaminophen with Codeine 1 Each Tablet, 1 EACH PO BID, (Reported) Citalopram Hydrobromide 40 Mg Tablet, 40 MG PO HS, (Reported) Dexlansoprazole 60 Mg Frank., 60 MG PO DAILY, (Reported) LAST FILLED 10-25-2020 #30 Hyoscyamine Sulfate 0.125 Mg Tab.subl, 0.125 MG SL Q4H PRN for ABDOMINAL CRAMPING, (Reported) Loperamide HCl 2 Mg Tablet, 2-4 MG PO UD PRN for DIARRHEA, (Reported) Lorazepam 0.5 Mg Tablet, 0.5 MG PO HS, (Reported) Miconazole Nitrate 90 Gm Powder, 0 GM TOP BID Prescribed by: CORNELIO LARSEN on 01/08/21951 Nystatin 15 Gm Cream..g., 0 GM TP BID Prescribed by: CORNELIO LARSEN on 01/08/21951 Oxybutynin Chloride 5 Mg Tablet, 5 MG PO HS, (Reported) Peg 400/Hypromellose/Glycerin 15 Ml Drops, 1-2 DROPS OU PRN PRN for DRY EYES, (Reported) Prednisone 5 Mg Tablet, 5 MG PO HS, (Reported) Quetiapine Fumarate 100 Mg Tablet, 100 MG PO HS, (Reported) Vancomycin HCl 125 Mg Capsule, 125 MG PO Q6HR 1 PO TID for 7 days then 1 PO BID for 7 days then 1 Po daily for 7 days Prescribed by: CORNELIO LARSEN on 01/08/21 0905 Patient Home Medication List Home Medication List Reviewed: Yes Review of Systems Review of Systems Constitutional: see HPI EENTM: see HPI Respiratory: no symptoms reported Cardiovascular: no symptoms reported Gastrointestinal: abdominal pain Genitourinary: no symptoms reported Musculoskeletal: no symptoms reported Skin: no symptoms reported Psychiatric/Neurological: No Symptoms Reported Hematologic/Lymphatic: No Symptoms Reported Immunological/Allergic: no symptoms reported Past Sjdaxcu-Loedly-Bwnrma Hx Patient Social History 2nd Hand Smoke Exposure: No Recent Hopitalizations: No Immunizations Up To Date Tetanus Booster (TDap): Unknown Seasonal Allergies Seasonal Allergies: No Past Medical History Surgeries: Yes (esophagus, colostomy; BLADDER/RECTAL SURGERY X5, anastomosis, hernia repair) Abdominal, Bladder Surgery, Bowel Surgery, 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, Rectal Respiratory: No Currently Using CPAP: No Currently Using BIPAP: No Cardiac: Yes Heart Murmur 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 (CVA 2019 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) 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: 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 Genitourinary: Yes (incontinent of urine, can't control when it occurs and wears "a pad") UTI-Chronic Gastrointestinal: Yes (Colostomy) Gastroesophageal Reflux, Obstructive Bowel, Esophagitis, Hiatal Hernia Musculoskeletal: Yes Arthritis Endocrine: No HEENT: Yes (detached retina x3-surgeries x 5) Cataract Loss of Vision: Left Hearing Impairment: Denies Cancer: Yes Skin, Colon Did You Recieve Any Treatments: Yes What Type of Treatment Did You: Surgical Intervention Psychosocial: Yes Anxiety, Depression Integumentary: Yes ("BREAK OUT IN HIVES.") Blood Disorders: No Family Medical History Heart Disease, Cancer, Other Conditions/Hx Physical Exam Vital Signs Vital Signs - First Documented 01/12/21 12:33 Temp 35.9 Pulse 63 Resp 16 B/P (MAP) 104/79 (87) Pulse Ox 96 O2 Delivery Room Air Capillary Refill : Height, Weight, BMI Height: 5'0.00" Weight: 100lbs. 3.2oz. 45.522176og; 41.33 BMI Method:Stated General Appearance: No Apparent Distress, WD/WN Eyes: Bilateral Eye Normal Inspection, Bilateral Eye PERRL, Bilateral Eye EOMI Neck: Full Range of Motion, Normal Inspection Respiratory: No Accessory Muscle Use, No Respiratory Distress Cardiovascular: Regular Rate, Rhythm, Normal Peripheral Pulses Gastrointestinal: Normal Bowel Sounds, Soft, Other (Abdomen is distended but with normal bowel sounds. Minimally tender to palpation.) Neurologic/Psychiatric: Alert, Oriented x3 Skin: Normal Color, Warm/Dry Progress/Results/Core Measures Suspected Sepsis SIRS Temperature: Pulse: Respiratory Rate: Laboratory Tests 01/12/21 12:55: White Blood Count 9.4 Blood Pressure / Mean: Laboratory Tests 01/12/21 12:55: Creatinine 0.65, Platelet Count 606H, Total Bilirubin 0.4 Results/Orders Lab Results Laboratory Tests Test 01/12/21 12:55 Range/Units White Blood Count 9.4 4.3-11.0 10^3/uL Red Blood Count 4.30 3.80-5.11 10^6/uL Hemoglobin 10.4 L 11.5-16.0 g/dL Hematocrit 35 35-52 % Mean Corpuscular Volume 80 80-99 fL Mean Corpuscular Hemoglobin 24 L 25-34 pg Mean Corpuscular Hemoglobin Concent 30 L 32-36 g/dL Red Cell Distribution Width 23.6 H 10.0-14.5 % Platelet Count 606 H 130-400 10^3/uL Mean Platelet Volume 9.1 9.0-12.2 fL Immature Granulocyte % (Auto) 0 % Neutrophils (%) (Auto) 63 42-75 % Lymphocytes (%) (Auto) 25 12-44 % Monocytes (%) (Auto) 9 0-12 % Eosinophils (%) (Auto) 2 0-10 % Basophils (%) (Auto) 1 0-10 % Neutrophils # (Auto) 5.9 1.8-7.8 10^3/uL Lymphocytes # (Auto) 2.4 1.0-4.0 10^3/uL Monocytes # (Auto) 0.8 0.0-1.0 10^3/uL Eosinophils # (Auto) 0.2 0.0-0.3 10^3/uL Basophils # (Auto) 0.1 0.0-0.1 10^3/uL Immature Granulocyte # (Auto) 0.0 0.0-0.1 10^3/uL Sodium Level 138 135-145 MMOL/L Potassium Level 3.7 3.6-5.0 MMOL/L Chloride Level 106 98-107 MMOL/L Carbon Dioxide Level 23 21-32 MMOL/L Anion Gap 9 5-14 MMOL/L Blood Urea Nitrogen 7 7-18 MG/DL Creatinine 0.65 0.60-1.30 MG/DL Estimat Glomerular Filtration Rate > 60 BUN/Creatinine Ratio 11 Glucose Level 75 70-105 MG/DL Calcium Level 8.2 L 8.5-10.1 MG/DL Corrected Calcium 9.0 8.5-10.1 MG/DL Total Bilirubin 0.4 0.1-1.0 MG/DL Aspartate Amino Transf (AST/SGOT) 22 5-34 U/L Alanine Aminotransferase (ALT/SGPT) 18 0-55 U/L Alkaline Phosphatase 111 40-136 U/L Total Protein 6.0 L 6.4-8.2 GM/DL Albumin 3.0 L 3.2-4.5 GM/DL My Orders Orders - LEE ANN RAZO APRN Acute Abd Series (01/12/21 12:45) Cbc With Automated Diff (01/12/21 12:45) Comprehensive Metabolic Panel (01/12/21 12:45) Ed Iv/Invasive Line Start (01/12/21 12:45) Fentanyl Inj (Sublimaze Injection) (01/12/21 12:45) Medications Given in ED Current Medications Medications Dose Ordered Sig/Tequila Route Start Time Stop Time Status Last Admin Dose Admin Fentanyl Citrate 50 mcg ONCE ONCE IVP 01/12/21 12:45 01/12/21 12:46 DC 01/12/21 13:02 50 MCG Vital Signs/I&O 01/12/21 12:33 Temp 35.9 Pulse 63 Resp 16 B/P (MAP) 104/79 (87) Pulse Ox 96 O2 Delivery Room Air Capillary Refill : Departure Communication (Admissions) 1355-discussed with Dr. Mariscal, will admit, clear liquids, IV fluids, Zofran nausea medication, fentanyl for pain, fleets enema twice daily. I will continue her oral vancomycin that she is currently taking for C. difficile. Impression Primary Impression: Colonic stricture Disposition: ADMITTED INPATIENT Condition: Stable Admissions Decision to Admit Reason: Admit from ER (General) Decision to Admit/Date: Jan 12, 2021 Time/Decision to Admit Time: 12:56 Departure-Patient Inst. Referrals: ZAHIRA WILCOX APRN (PCP) Primary Care Physician [facility] (Family) Primary Care Physician LEE ANN RAZO APRN Jan 12, 2021 12:56
[2021-01-12 13:31] LABS: BASOPHILS # (AUTO) 0.1 10^3/uL (0.0-0.1); BASOPHILS % (AUTO) 1 % (0-10); EOSINOPHILS # (AUTO) 0.2 10^3/uL (0.0-0.3); EOSINOPHILS % (AUTO) 2 % (0-10); HEMATOCRIT 35 % (35-52); HEMOGLOBIN 10.4 g/dL (11.5-16.0); LYMPHOCYTES # (AUTO) 2.4 10^3/uL (1.0-4.0); LYMPHOCYTES % (AUTO) 25 % (12-44); MEAN CORPUSCULAR HEMOGLOBIN 24 pg (25-34); MEAN CORPUSCULAR HGB CONC 30 g/dL (32-36); MEAN CORPUSCULAR VOLUME 80 fL (80-99); MEAN PLATELET VOLUME 9.1 fL (9.0-12.2); MONOCYTES # (AUTO) 0.8 10^3/uL (0.0-1.0); MONOCYTES % (AUTO) 9 % (0-12); NEUTROPHILS # (AUTO) 5.9 10^3/uL (1.8-7.8); NEUTROPHILS % (AUTO) 63 % (42-75); PLATELET COUNT 606 10^3/uL (130-400); WHITE BLOOD COUNT 9.4 10^3/uL (4.3-11.0)
[2021-01-12 13:41] LABS: ALANINE AMINOTRANSFERASE 18 U/L (0-55); ALKALINE PHOSPHATASE 111 U/L (40-136); BILIRUBIN,TOTAL 0.4 MG/DL (0.1-1.0); BUN/CREATININE RATIO 11; CALCIUM 8.2 MG/DL (8.5-10.1); CARBON DIOXIDE 23 MMOL/L (21-32); CHLORIDE 106 MMOL/L (98-107); CREATININE SERUM 0.65 MG/DL (0.60-1.30); GFR ESTIMATED > 60; GLUCOSE 75 MG/DL (70-105); POTASSIUM 3.7 MMOL/L (3.6-5.0); SODIUM 138 MMOL/L (135-145)
--- NOTE | 2021-01-12 14:01 | Diagnostic Imaging Report ---
INDICATION: Constipation x5 days. Abdominal pain. TECHNIQUE: Single view chest with supine and upright radiographs of the abdomen. CORRELATION STUDY: 01/11/2021 FINDINGS: Right IJ [id number] catheter tip at the cavoatrial junction. Heart size and mediastinum are stable. Lung bases are partially obscured by calcified breast implants. No definitive consolidating infiltrate. Right diaphragm is mildly elevated. Large amount stool within the colon is again demonstrated. However, the amount of stool in the left colon overall appears decreased in severity from prior. Extensive surgical changes with anastomotic suture line and clips in the pelvis. Likely prior bladder suspension surgery as well. Densities in the pelvis may reflect ingested tablets. These were located in the distal colon just proximal to the anastomosis. These do not appear to have migrated. Rather advanced degenerative changes about the thoracolumbar spine with rightward curvature thoracic and leftward lumbar curvature present. IMPRESSION: 1. Negative for acute cardiopulmonary abnormality. 2. Perhaps slight decrease in severity of constipation from previous days examination. It is however noted that what appears to likely be ingested tablets remain within the pelvis which were demonstrated to be just proximal to an anastomotic suture line. Therefore, this does raise concern for potential obstruction at the area of anastomosis. Dictated by: Dictated on workstation # [id number]
[2021-01-12] MEDS: fentaNYL INJ 100 MCG/2 ML AMP IV PRN ×3 (15:59→22:27)
[2021-01-12] MEDS ORDERED: CATHETER FLUSH 10 ML SYR IV PRN (16:00)
[2021-01-12] MEDS: LACTATED RINGERS 1,000 ML IV SCH (16:01)
[2021-01-12 17:00] VITALS: BP 123/75
[2021-01-12] MEDS: VANCOMYCIN 125 MG CAPSULE PO SCH ×2 (17:43→23:28)
[2021-01-12] MEDS: CALCIUM CARBONATE 500 MG (TUMS) TAB.CHEW PO PRN ×2 (18:13→23:31)
--- NOTE | 2021-01-12 20:12 | HISTORY AND PHYSICAL ---
DATE OF SERVICE: ATTENDING OPERATIONS LIAISON: Angi Sainz APRN HISTORY OF PRESENT ILLNESS: The patient is a 75-year-old female who was brought in by private vehicle after visiting [facility] due to abdominal pain and absence from bowel movement for the past 5 days. She reports a history of end colostomy as well as a Tory's due to some form of left-sided bowel perforation, which may indicate diverticulitis and this was in 2013. She was then evaluated by another surgeon and underwent a colonoscopy through the rectal stump as well as through the ostomy on 11/14/2020, which did not show any abnormalities. She then underwent a reversal of the colostomy and a low anterior colorectal anastomosis as well as a parastomal hernia repair on 11/29/2020. She then presented with diarrhea and was found to be Clostridium difficile positive and was treated with oral vancomycin. She reports that on this admission, she has had some abdominal pain and distention, crampy in nature and has not had a bowel movement in the past [address] scan was performed in a different institution, which did show extensive stool throughout the colon and a questionable anastomotic stricture, which was also similarly red on acute abdominal series. She is passing flatus. She does not report any nausea, no vomiting. Vital signs are stable and she is afebrile with a normal white count. PAST MEDICAL HISTORY: Perforated left-sided colon status post colostomy and Tory's pouch with relatively recent reversal, history of CVA in 2018 with no residual deficits, cardiac murmur, urinary incontinence, gastroesophageal reflux disease, esophagitis, hiatal hernia, arthritis, cataracts, anxiety. PAST SURGICAL HISTORY: Bladder and rectal surgery x5, left-sided colonic resection with end colostomy and Tory's pouch 2013, reversal and parastomal hernia , hysterectomy, multiple surgeries, bilateral eyes due to retinal detachment. ALLERGIES: No known drug allergies. MEDICATIONS: Acetaminophen with codeine b.i.d., citalopram 40 mg daily, dexlansoprazole 60 mg daily, hyoscyamine 0.125 mg sublingual q.4 hours p.r.n., loperamide 2 mg p.r.n., lorazepam 0.5 mg daily, miconazole powder b.i.d., oxybutynin 5 mg daily, prednisone 5 mg daily, quetiapine fumarate 100 mg daily, vancomycin 125 mg q.i.d. SOCIAL HISTORY: Negative smoke, negative alcohol. FAMILY HISTORY: Noncontributory. VITAL SIGNS: Temperature 35.9, blood pressure 104/79, pulse 63, respirations 16, pulse ox 96% on room air. REVIEW OF SYSTEMS: This is a well-nourished female, currently in no acute distress. She is not experiencing any shortness of breath or difficulty breathing. No chest pain, palpitations, diaphoresis. Some abdominal distention as well as associated crampy abdominal pain. She is passing flatus, but has not had a bowel movement for the past 5 days. She does not report any red blood per rectum nor any dark tarry stools as well as no nausea or vomiting. No fever, chills with some weight loss in the past few months; however, not severe. All other review of systems negative. PHYSICAL EXAMINATION: CHEST: Clear. Good breath sounds bilaterally. HEART: Regular, no murmurs. EXTREMITIES: No lower extremity edema, negative Homans sign. HEENT: No scleral icterus. NECK: No cervical lymphadenopathy. ABDOMEN: Soft, slightly distended with mild crampy abdominal pain, which is diffuse. No peritoneal signs. No hernias. SKIN: Warm, dry. LABORATORY DATA: WBC 9.4, hemoglobin 10.4, hematocrit 35, platelets 606. BUN 7, creatinine 0.65. ASSESSMENT AND PLAN: A 75-year-old female with a crampy abdominal pain and absence from a bowel movement for the past 5 days. Based on the readings of the previous CT scan as well as the acute abdominal series done here it looks as though she does have significant constipation and we will first proceed with Fleets Enema on a b.i.d. basis in hopes of allowing this to resolve. There is a questionable about anastomotic stricture and on this admission, we will likely proceed with a colonoscopy to evaluate this region as well as the remainder of the colon. Job ID: [id number] DocumentID: [id number] Dictated Date: 01/12/2021 19:47:57 Emergency Planning And Response Manager Date: 01/12/2021 20:11:26 Dictated By: ALLEN FERNÁNDEZ MD
[2021-01-12 21:00] VITALS: BP 145/88
[2021-01-12] MEDS: MINERAL OIL ENEMA 133 ML BTL PR SCH (21:42)
[2021-01-13] VITALS (7 sets, daily range): BP systolic 91–160; BP diastolic 55–73
[2021-01-13] MEDS: fentaNYL INJ 100 MCG/2 ML AMP IV PRN ×5 (01:21→20:03)
[2021-01-13] MEDS: LACTATED RINGERS 1,000 ML IV SCH ×3 (02:02→16:40)
[2021-01-13] MEDS ORDERED: HYOSCYAMINE 0.125 MG (LEVSIN) TAB ONE (03:28)
[2021-01-13] MEDS ORDERED: fentaNYL INJ 100 MCG/2 ML AMP ONE (03:28)
[2021-01-13] MEDS: HYOSCYAMINE 0.125 MG (LEVSIN) TAB PO PRN ×3 (03:36→16:36)
[2021-01-13] MEDS: VANCOMYCIN 125 MG CAPSULE PO SCH ×3 (05:02→16:36)
[2021-01-13] MEDS: MINERAL OIL ENEMA 133 ML BTL PR SCH ×2 (09:52→21:29)
[2021-01-13] MEDS ORDERED: HYDROcodone/APAP 7.5 MG/325 MG (LORTAB, LORCET PLUS) TABLET PO PRN (11:00)
--- NOTE | 2021-01-13 12:09 | Progress Note ---
Standard Progress Note Progress Notes/Assess & Plan Date Seen by a Provider: Jan 13, 2021 Time Seen by a Provider: 11:00 Progress/Assessment & Plan doing ok. one small bm after enema. having crampy abd pain. on fever/chills. will proceed with gradual PO catharctics to promote bm. trial reglan. ambulate. colonoscopy on this admission. ALLEN FERNÁNDEZ MD Jan 13, 2021 12:09
[2021-01-13] MEDS: CALCIUM CARBONATE 500 MG (TUMS) TAB.CHEW PO PRN ×2 (14:46→20:03)
[2021-01-13] MEDS: METOCLOPRAMIDE INJ 10 MG/2 ML (REGLAN) IVP SCH ×2 (16:36→23:48)
[2021-01-13] MEDS: HYDROcodone/APAP 7.5 MG/325 MG (LORTAB, LORCET PLUS) TABLET PO PRN (16:36)
[2021-01-13] MEDS: SENNA W/DOCUSATE (SENOKOT S) TABLET PO SCH (21:29)
[2021-01-13] MEDS ORDERED: PANTOPRAZOLE 40 MG (PROTONIX) TAB PO ONE (21:31)
[2021-01-13] MEDS ORDERED: PANTOPRAZOLE 40 MG (PROTONIX) TAB PO SCH (21:45)
[2021-01-14] MEDS: HYOSCYAMINE 0.125 MG (LEVSIN) TAB PO PRN ×3 (00:52→23:16)
[2021-01-14] MEDS: HYDROcodone/APAP 7.5 MG/325 MG (LORTAB, LORCET PLUS) TABLET PO PRN ×4 (00:52→23:16)
[2021-01-14] MEDS: VANCOMYCIN 125 MG CAPSULE PO SCH ×5 (00:52→23:16)
[2021-01-14 04:09] VITALS: BP 121/76
[2021-01-14 05:35] LABS: BASOPHILS # (AUTO) 0.1 10^3/uL (0.0-0.1); BASOPHILS % (AUTO) 1 % (0-10); EOSINOPHILS # (AUTO) 0.3 10^3/uL (0.0-0.3); EOSINOPHILS % (AUTO) 4 % (0-10); HEMATOCRIT 33 % (35-52); LYMPHOCYTES # (AUTO) 2.4 10^3/uL (1.0-4.0); LYMPHOCYTES % (AUTO) 29 % (12-44); MEAN CORPUSCULAR HEMOGLOBIN 25 pg (25-34); MEAN CORPUSCULAR HGB CONC 30 g/dL (32-36); MEAN CORPUSCULAR VOLUME 81 fL (80-99); MEAN PLATELET VOLUME 9.4 fL (9.0-12.2); MONOCYTES # (AUTO) 0.7 10^3/uL (0.0-1.0); MONOCYTES % (AUTO) 8 % (0-12); NEUTROPHILS # (AUTO) 4.8 10^3/uL (1.8-7.8); NEUTROPHILS % (AUTO) 58 % (42-75); PLATELET COUNT 516 10^3/uL (130-400); WHITE BLOOD COUNT 8.2 10^3/uL (4.3-11.0)
[2021-01-14 05:37] LABS: CHLORIDE 104 MMOL/L (98-107); POTASSIUM 3.7 MMOL/L (3.6-5.0); SODIUM 139 MMOL/L (135-145)
[2021-01-14 05:38] LABS: GLUCOSE 82 MG/DL (70-105)
[2021-01-14 05:40] LABS: CARBON DIOXIDE 25 MMOL/L (21-32)
[2021-01-14 05:42] LABS: CREATININE SERUM 0.63 MG/DL (0.60-1.30); GFR ESTIMATED > 60
[2021-01-14 05:43] LABS: BUN/CREATININE RATIO 6
[2021-01-14] MEDS: PANTOPRAZOLE 40 MG (PROTONIX) TAB PO SCH ×2 (06:29→15:27)
[2021-01-14] MEDS: METOCLOPRAMIDE INJ 10 MG/2 ML (REGLAN) IVP SCH ×4 (06:29→23:17)
[2021-01-14] MEDS: LACTATED RINGERS 1,000 ML IV SCH ×2 (06:55→16:49)
[2021-01-14 08:00] VITALS: BP 125/74
[2021-01-14] MEDS: SENNA W/DOCUSATE (SENOKOT S) TABLET PO SCH ×2 (09:16→20:57)
[2021-01-14] MEDS: MINERAL OIL ENEMA 133 ML BTL PR SCH ×2 (09:49→20:58)
--- NOTE | 2021-01-14 10:31 | Progress Note ---
Subjective Date Seen by a Provider: Jan 14, 2021 Time Seen by a Provider: 09:45 Subjective/Events-last exam Patient seen with Dr. Mariscal. Patient reports her pain has resolved and is just sore. Reports having several soft stools over the night. Denies any N/V. Tolerating clear liquids. Reports that she feels hungry. Objective Exam Vital Signs Date Time Temp Pulse Resp B/P (MAP) Pulse Ox O2 Delivery O2 Flow Rate FiO2 01/14/21 08:00 36.4 64 18 125/74 (91) 94 Room Air 01/14/21 04:09 36.8 82 16 121/76 (91) 95 Room Air 01/13/21 23:50 36.4 66 22 138/68 (91) 97 Room Air 01/13/21 20:00 36.4 64 20 160/68 (98) 98 Room Air 01/13/21 20:00 Room Air 01/13/21 16:00 36.4 66 18 145/73 (97) 96 Room Air 01/13/21 11:50 36.4 56 20 91/55 (67) 95 Room Air I & O 01/14/21 06:59 Intake Total 1900 ml Balance 1900 ml Capillary Refill : Less Than 3 Seconds General Appearance: No Apparent Distress, WD/WN Neck: Normal Inspection, Supple Respiratory: No Accessory Muscle Use, No Respiratory Distress Cardiovascular: Regular Rate, Rhythm, No Edema Gastrointestinal: normal bowel sounds, soft, distended (Minimal), tenderness (diffuse) Extremity: Normal Inspection, Normal Range of Motion Neurologic/Psychiatric: Alert, Oriented x3 Skin: Normal Color, Warm/Dry Results Lab Laboratory Tests 01/14/21 05:10: White Blood Count 8.2, Red Blood Count 4.08, Hemoglobin 10.0L, Hematocrit 33L, Mean Corpuscular Volume 81, Mean Corpuscular Hemoglobin 25, Mean Corpuscular Hemoglobin Concent 30L, Red Cell Distribution Width 23.6H, Platelet Count 516H, Mean Platelet Volume 9.4, Immature Granulocyte % (Auto) 0, Neutrophils (%) (Auto) 58, Lymphocytes (%) (Auto) 29, Monocytes (%) (Auto) 8, Eosinophils (%) (Auto) 4, Basophils (%) (Auto) 1, Neutrophils # (Auto) 4.8, Lymphocytes # (Auto) 2.4, Monocytes # (Auto) 0.7, Eosinophils # (Auto) 0.3, Basophils # (Auto) 0.1, Immature Granulocyte # (Auto) 0.0, Sodium Level 139, Potassium Level 3.7, Chloride Level 104, Carbon Dioxide Level 25, Anion Gap 10, Blood Urea Nitrogen 4L, Creatinine 0.63, Estimat Glomerular Filtration Rate > 60, BUN/Creatinine Ratio 6, Glucose Level 82, Calcium Level 8.0L Assessment/Plan Assessment/Plan Assess & Plan/Chief Complaint Abdominal pain, constipation, possible colonic stricture VSS Having BMs Continue with gradual PO catharctics to promote bm. Continue pain, nausea meds, and reglan ambulate. Will start DYS3 diet Start colonic prep and Clear liquid diet tomorrow NPO at 0400 on 01/16/21 colonoscopy with possible balloon dilation on 01/16/21 JOHNNY GUERRERO APRN Jan 14, 2021 10:31
[2021-01-14 12:00] VITALS: BP 125/76
[2021-01-14] MEDS: fentaNYL INJ 100 MCG/2 ML AMP IV PRN ×3 (15:34→23:58)
[2021-01-14 16:00] VITALS: BP 128/75
[2021-01-14 20:09] VITALS: BP 100/65
[2021-01-14] MEDS: QUEtiapine 100 MG (SEROquel) TAB IMMEDIATE RELEASE PO SCH (20:57)
[2021-01-14] MEDS: LORazepam 0.5 MG (ATIVAN) TABLET PO SCH (20:57)
[2021-01-14 23:22] VITALS: BP 125/68
[2021-01-15] MEDS: LACTATED RINGERS 1,000 ML IV SCH ×2 (03:49→12:30)
[2021-01-15 03:50] VITALS: BP 104/69
[2021-01-15] MEDS: HYOSCYAMINE 0.125 MG (LEVSIN) TAB PO PRN (03:53)
[2021-01-15] MEDS: HYDROcodone/APAP 7.5 MG/325 MG (LORTAB, LORCET PLUS) TABLET PO PRN ×2 (03:53→15:15)
[2021-01-15] MEDS: METOCLOPRAMIDE INJ 10 MG/2 ML (REGLAN) IVP SCH ×3 (05:59→17:30)
[2021-01-15] MEDS: VANCOMYCIN 125 MG CAPSULE PO SCH ×4 (05:59→23:15)
[2021-01-15] MEDS: PANTOPRAZOLE 40 MG (PROTONIX) TAB PO SCH ×2 (06:00→15:55)
[2021-01-15 08:00] VITALS: BP 102/69
[2021-01-15] MEDS: MINERAL OIL ENEMA 133 ML BTL PR SCH (08:40)
[2021-01-15] MEDS: SENNA W/DOCUSATE (SENOKOT S) TABLET PO SCH ×2 (08:40→21:14)
[2021-01-15 11:44] VITALS: BP 108/67
[2021-01-15] MEDS: MAGNESIUM CITRATE 300 ML BTL PO SCH ×2 (12:29→15:54)
[2021-01-15] MEDS: fentaNYL INJ 100 MCG/2 ML AMP IV PRN (12:35)
[2021-01-15] MEDS: CALCIUM CARBONATE 500 MG (TUMS) TAB.CHEW PO PRN (13:30)
[2021-01-15] MEDS: ONDANSETRON 4 MG/2 ML (SDV) Z0FRAN IV PRN (13:31)
[2021-01-15 16:00] VITALS: BP 133/94
[2021-01-15] MEDS ORDERED: HYDROmorphone PF INJECTION 40 MG in NS (IVPB) 96 ML IV SCH (17:00)
[2021-01-15] MEDS ORDERED: FLEET ENEMA ADULT 1 EA BTL PR PRN (17:00)
[2021-01-15] MEDS ORDERED: HYDROmorphone 2 MG/ML VIAL (DILAUDID) ONE (17:08)
--- NOTE | 2021-01-15 17:17 | Progress Note ---
Subjective Date Seen by a Provider: Jan 15, 2021 Time Seen by a Provider: 16:50 Subjective/Events-last exam Patient seen with Dr. Mariscal. Reports that she is having severe abdominal pain and crying. Denies any flatus or BM since yesterday. Reports Nausea and vomiting. She reports that 5 years ago she did have 2 bowel resections for what sounds to be Crohn's disease. Objective Exam Vital Signs Date Time Temp Pulse Resp B/P (MAP) Pulse Ox O2 Delivery O2 Flow Rate FiO2 01/15/21 11:44 36.1 74 18 108/67 (81) 93 Room Air 01/15/21 08:00 93 Room Air 01/15/21 08:00 36.3 85 18 102/69 (80) 91 Room Air 01/15/21 03:50 36.6 86 16 104/69 (81) 92 Room Air 01/14/21 23:32 95 Room Air 01/14/21 23:22 37.2 69 20 125/68 (87) 95 Room Air 01/14/21 20:57 Room Air 01/14/21 20:09 36.4 64 18 100/65 (77) 96 Room Air I & O 01/15/21 07:00 Intake Total 2590 ml Balance 2590 ml Capillary Refill : Less Than 3 Seconds General Appearance: WD/WN, Mild Distress Neck: Normal Inspection, Supple Respiratory: No Accessory Muscle Use, No Respiratory Distress Cardiovascular: Regular Rate, Rhythm, No Edema Gastrointestinal: normal bowel sounds, distended, tenderness, other (There does appear to be a narrowing in the rectum upon JORDAN and pain, most likely consistent with a stricture.) Extremity: Normal Inspection, Normal Range of Motion Neurologic/Psychiatric: Alert, Oriented x3 Skin: Normal Color, Warm/Dry Results Lab Microbiology 01/14/21 MRSA Screen - Final, Complete Assessment/Plan Assessment/Plan Assess & Plan/Chief Complaint Abdominal pain, constipation, possible colonic stricture VSS Having BMs Continue with gradual PO catharctics to promote bm. Continue pain, nausea meds, and reglan ambulate. Start colonic prep and Clear liquid diet tomorrow NPO at 0400 on 01/16/21 colonoscopy with possible balloon dilation on 01/16/21 Will start dilaudid ELECTROLOGIST CT abd/pelvis w/IV contrast JOHNNY GUERRERO COATING AND BAKING OPERATOR Jan 15, 2021 17:17
[2021-01-15] MEDS: NS IV 1000 ML 1,000 ML IV SCH (17:31)
[2021-01-15] MEDS ORDERED: NS 100 ML (IVPB) BAG IV ONE (17:45)
[2021-01-15] MEDS ORDERED: IOHEXOL 350 MG/ML 100 ML (OMNIPAQUE 350) VIAL IV ONE (17:45)
[2021-01-15] MEDS ORDERED: HOLD METFORMIN - RECEIVED CONTRAST 20 ML VIAL IV SCH (17:45)
--- NOTE | 2021-01-15 19:44 | Progress Note-Pre Operative ---
Pre-Operative Progress Note H&P Reviewed The H&P was reviewed, patient examined and no changes noted. Date Seen by Provider: Jan 15, 2021 Time Seen by Provider: 19:45 Date H&P Reviewed: Jan 15, 2021 Time H&P Reviewed: 19:45 Pre-Operative Diagnosis: near obstructing distal colonic stricture ALLEN FERNÁNDEZ MD Jan 15, 2021 19:44
[2021-01-15 20:00] VITALS: BP 113/80
--- NOTE | 2021-01-15 20:46 | Diagnostic Imaging Report ---
EXAMINATION: CT Abdomen and Pelvis with intravenous contrast. TECHNIQUE: Multiple contiguous axial images were obtained through the abdomen and pelvis after the uneventful administration of intravenous contrast. All CT scans use one or more of the following dose optimizing techniques: automated exposure control, MA and/or KvP adjustment based on a patient size and exam type, or iterative reconstruction. HISTORY: History of colon cancer. Abdominal pain. COMPARISON: 01/11/2021. FINDINGS: The heart is unremarkable. Bilateral small pleural effusions are present with subsegmental atelectasis in the lung bases. Moderate hiatal hernia is present. There is a large amount of stool and air throughout the colon. There is focal stenosis and narrowing of the bowel lumen at the anastomotic site in the sigmoid colon. This is similar to the prior exam. No free air is seen in the abdomen and pelvis. No evidence of small bowel obstruction. A small amount of free fluid is seen in the right paracolic gutter. The liver, spleen, adrenal glands, and kidneys have a normal appearance. The gallbladder is unremarkable. Pancreatic atrophy is noted without focal pancreatic lesion. There is no pathologically enlarged mesenteric or retroperitoneal adenopathy. There is left convexity curvature of the lumbar spine. Generalized osteopenia is noted. No acute fracture is seen. The urinary bladder is decompressed. There is no free air, loculated collection, or adenopathy in the pelvis. IMPRESSION: 1. Large amount of stool throughout the colon with focal stricture at the anastomotic site in the sigmoid colon. These findings are similar to the prior exam. Small amount of free fluid is seen in the right paracolic gutter. 2. Moderate hiatal hernia. 3. Bilateral small pleural effusions. Dictated by: Dictated on workstation # [id number]
[2021-01-15] MEDS: FLEET ENEMA ADULT 1 EA BTL PR SCH (20:53)
[2021-01-15] MEDS: QUEtiapine 100 MG (SEROquel) TAB IMMEDIATE RELEASE PO SCH (21:14)
[2021-01-15] MEDS: LORazepam 0.5 MG (ATIVAN) TABLET PO SCH (21:14)
[2021-01-16] VITALS (12 sets, daily range): BP systolic 90–142; BP diastolic 64–88
[2021-01-16] MEDS: ONDANSETRON 4 MG/2 ML (SDV) Z0FRAN IV PRN ×2 (01:54→08:31)
[2021-01-16] MEDS: NS IV 1000 ML 1,000 ML IV SCH ×3 (03:36→19:44)
[2021-01-16] MEDS: FLEET ENEMA ADULT 1 EA BTL PR SCH ×4 (03:48→12:42)
[2021-01-16] MEDS: VANCOMYCIN 125 MG CAPSULE PO SCH ×4 (04:48→23:10)
[2021-01-16] MEDS: PANTOPRAZOLE 40 MG (PROTONIX) TAB PO SCH ×2 (04:49→16:25)
[2021-01-16] MEDS: METOCLOPRAMIDE INJ 10 MG/2 ML (REGLAN) IVP SCH ×5 (05:22→23:10)
[2021-01-16] MEDS: SENNA W/DOCUSATE (SENOKOT S) TABLET PO SCH ×2 (07:47→20:35)
[2021-01-16] MEDS ORDERED: fentaNYL INJ 100 MCG/2 ML AMP ONE (07:58)
[2021-01-16] MEDS ORDERED: LIDOCAINE PF 2% 5 ML (XYLOCAINE) VIAL ONE (07:58)
[2021-01-16] MEDS ORDERED: ROCURONIUM 10 MG/ML 5 ML SYRINGE IV ONE (07:58)
[2021-01-16] MEDS ORDERED: proPOfol 200 MG/20 ML (DIPRIVAN) VIAL IV ONE (07:58)
[2021-01-16] MEDS ORDERED: ONDANSETRON 4 MG/2 ML (SDV) Z0FRAN ONE (07:58)
[2021-01-16] MEDS ORDERED: GLYCOPYRROLATE 0.2 MG/ML (ROBINUL) 2 ML VIAL ONE (12:34)
[2021-01-16] MEDS ORDERED: SUCCINYLCHOLINE INJ 100 MG/5 ML SYR/VIAL ONE (12:34)
[2021-01-16] MEDS ORDERED: NEOSTIGMINE 3 MG/3 ML VIAL ONE (12:34)
[2021-01-16] MEDS ORDERED: SEVOFLURANE (ULTANE) 15 ML INHAL SOLN ONE ×8 (12:34→16:17)
--- NOTE | 2021-01-16 13:23 | Progress Note-Pre Operative ---
Pre-Operative Progress Note H&P Reviewed The H&P was reviewed, patient examined and no changes noted. Date Seen by Provider: Jan 16, 2021 Time Seen by Provider: 13:00 Date H&P Reviewed: Jan 16, 2021 Time H&P Reviewed: 13:00 Pre-Operative Diagnosis: distal esophageal stricture. exploratory laparotomy, end colostomy and knight ALLEN FERNÁNDEZ MD Jan 16, 2021 13:23
[2021-01-16] MEDS: LACTATED RINGERS 1,000 ML IV SCH ×2 (13:27→15:40)
[2021-01-16] MEDS ORDERED: ceFAZolin INJECTION 1,000 MG ONE (13:57)
[2021-01-16] MEDS ORDERED: metroNIDAZOLE 500MG/100ML IVPB 100 ML ONE (13:57)
[2021-01-16] MEDS ORDERED: NS (IVPB) 250 ML ONE (14:18)
[2021-01-16] MEDS ORDERED: PHENYLEPHRINE INJ 10 MG/ML (FOR DRIP KITS ONLY) ONE (14:18)
[2021-01-16] MEDS ORDERED: PHENYLEPHRINE 100 MCG/ML 10 ML (ANESTHESIA) SYR ONE (14:18)
[2021-01-16] MEDS ORDERED: HYDROmorphone 2 MG/ML VIAL (DILAUDID) ONE (14:21)
--- NOTE | 2021-01-16 16:15 | Progress Note-Post Operative ---
Post-Operative Progess Note Surgeon (s)/Tongue Carrier (s) Surgeon ALLEN FERNÁNDEZ MD Tongue Carrier: chelsy ambrosio MEDIA OPERATOR Pre-Operative Diagnosis distal rectal stricture with sx colonic obstruction, sx reducible incisiona Post-Operative Diagnosis same Procedure & Operative Findings Date of Procedure 01/16/21 Procedure Performed/Findings exploratory laparotomy, resection recto-colonic anastomosis, end colostomy, hartmans pouch, repair incisional hernia. Anesthesia Type get Estimated Blood Loss Estimated blood loss (mL): minimal Specimens/Packing Specimens Removed rectocolon ALLEN FERNÁNDEZ MD Jan 16, 2021 16:15
[2021-01-16] MEDS ORDERED: ROPIVACAINE 5MG/ML 30ML VIAL ONE (16:23)
--- NOTE | 2021-01-16 16:45 | Physician Query Clarification ---
Physician Query-General Query to Physician: The medical record reflects the following clinical evidence: Clinical Indicators: Bilateral Plural Effusions noted on CT scan, RR 18-22, Currently post op abdominal surgery on 2L 02. Risk Factor(s): Recent surgical procedure, Abdominal distention Treatment: Close monitoring of Respiratory status, O2 as needed, 1. Pleural effusion, not elsewhere classified 2. Other explanation of clinical findings 3. Unable to determine (no explanation for clinical findings) Please clarify and document your clinical opinion in the progress notes and discharge summary including the definitive and/or presumptive diagnosis, (suspected or probable), related to the above clinical findings. Please include clinical findings supporting your diagnosis. Becky Rowe [phone] PHYSICIAN RESPONSE: Based on the clinical findings in the record, please respond to the query above on this document as an addendum. Physician Response: Physician Response abdominal distention. If you have questions please contact: Greeting Card Editor: Ext: Thank you for your time and cooperation. Clinical Director Of User Experience/Greeting Card Editor This is a permanent part of the medical record BECKY ROWE Jan 16, 2021 16:45 ALLEN FERNÁNDEZ MD Jan 17, 2021 10:41
--- NOTE | 2021-01-16 16:57 | Physician Query Clarification ---
Physician Query-General Query to Physician: The medical record reflects the following clinical evidence: Clinical Indicators: BMI 18.3, wt 48.2 in November 2020, current weight 45 kg, Risk Factor(s): Colonic stricture, Major Abdominal surgery this admission, Not eating well prior to surgery, CLD X 4 days then NPO Treatment: Dietary monitoring, Lab monitoring, Bowel surgery to remove stricture 1. Moderate protein-calorie malnutrition 2. Other explanation of clinical findings 3. Unable to determine (no explanation for clinical findings) Please clarify and document your clinical opinion in the progress notes and discharge summary including the definitive and/or presumptive diagnosis, (suspected or probable), related to the above clinical findings. Please include clinical findings supporting your diagnosis. Becky Rowe [phone] [email or web address] PHYSICIAN RESPONSE: Based on the clinical findings in the record, please respond to the query above on this document as an addendum. Physician Response: Physician Response moderate-severe protein calorie malnutrition, impending colonic obstruction and perforation. If you have questions please contact: Spreading Machine Operator: Ext: Thank you for your time and cooperation. Clinical Adult Neurologist/Spreading Machine Operator This is a permanent part of the medical record BECKY ROWE Jan 16, 2021 16:57 ALLEN FERNÁNDEZ MD Jan 17, 2021 10:43
[2021-01-16] MEDS ORDERED: PIPERACILLIN/TAZO 4.5 GM/NS 100 ML IV ONE ×2 (17:00)
[2021-01-16] MEDS ORDERED: ONDANSETRON 4 MG/2 ML (SDV) Z0FRAN IVP PRN (17:15)
[2021-01-16] MEDS ORDERED: HYDROmorphone 2 MG/ML VIAL (DILAUDID) IV ONE (17:15)
[2021-01-16] MEDS: ENOXAPARIN 30 MG/0.3 ML (LOVENOX) SYR SC SCH (17:58)
[2021-01-16] MEDS: CALCIUM CARBONATE 500 MG (TUMS) TAB.CHEW PO PRN (20:35)
[2021-01-16] MEDS: QUEtiapine 100 MG (SEROquel) TAB IMMEDIATE RELEASE PO SCH (20:35)
[2021-01-16] MEDS: LORazepam 0.5 MG (ATIVAN) TABLET PO SCH (20:35)
[2021-01-16] MEDS: PIPERACILLIN/TAZOBACTAM (BULK) 4.5 GM in NS (IVPB) 100 ML IV SCH (23:10)
--- NOTE | 2021-01-17 02:36 | OPERATIVE REPORT ---
DATE OF SERVICE: 01/16/2021 ATTENDING LOOM FIXER: Angi Sainz APRN. PREOPERATIVE DIAGNOSES: Near obstructing distal colonic stricture, incisional hernia. POSTOPERATIVE DIAGNOSES: Near obstructing distal colonic stricture, incisional hernia with a significant stricture identified at the colorectal anastomosis. PROCEDURE: Sigmoidoscopy, exploratory laparotomy, resection colorectum including the stricture, end-colostomy, Tory's pouch repair of incisional hernia. SURGEON: Neela Mariscal MD TIRE FABRIC INSPECTOR: Jarod Moore APRN. ANESTHESIA: General endotracheal. ESTIMATED BLOOD LOSS: 350 mL. FINDINGS: Near obstructing distal colonic stricture, incisional hernia with a significant stricture identified at the colorectal anastomosis. DISPOSITION: The patient tolerated the procedure well. INDICATIONS: The patient is a 75-year-old female who was seen at [facility] due to significant abdominal pain and absence of bowel movement for five days. She has a history of end colostomy with a Tory's pouch due to what appears to be a perforated inflammatory bowel disease on the left side of the colon. She states then she developed signs and symptoms of inflammatory bowel disease and did require a second surgery in [place], which she cannot remember the details. She was evaluated by another surgeon and underwent a colonoscopy through the rectal stump as well as through the ostomy on 11/14/2020, which did not show any abnormalities. She then underwent reversal of the colostomy as well as a low colorectal anastomosis as well as parastomal hernia repair on 11/29/2020. She then presented with diarrhea and found to be Clostridium difficile positive and was treated on oral vancomycin. She reports on this admission, she has had significant abdominal pain and distention, crampy in nature and had not had a bowel movement for a significant amount of time. She did have abdominal x-ray performed, which did show a questionable stricture. She states that she was passing a small amount of flatus. We initially treated her conservatively with bowel rest, IV hydration as well as pain control and she initially started to improve, however, after starting a diet she did develop crampy abdominal pain. We then wanted to verify the stricture and she was given magnesium citrate, which did cause significant abdominal distention and crampy pain. During her entire admission, she was afebrile, and her white count was normal. We did get another CT scan, which again showed a significant stricture of the distal rectum as well as significantly dilated colon with stool and air throughout the colon. She was adamant about recreating an end colostomy and Tory's pouch due to all the issues that she has confronted. She had also told us about an incisional hernia, which was symptomatic and that she wanted repaired. DESCRIPTION OF PROCEDURE: The patient was brought to the operating room, laid supine on the table. After adequate IV pain and sedative medications and general endotracheal intubation, the abdomen was prepped and draped in standard surgical fashion. The jpatient was placed in frog-leg postition and a digital rectal exam was performed. no stool in rectal vault and palpable tight stricture unable to pass index finger. A sigmoidoiscopy was done with showed a short rectum and and significant colo-rectal anastomotic stricture which the gastroscope was unable to pass through. A 10 blade was used to make an incision along the previous incision line. We then proceeded to identify the hernia sac, which was then dissected out using electrocautery as well as blunt dissection. Through this opening, the peritoneal lining was opened using Metzenbaum scissors and there were no adhesions towards the anterior abdominal wall and the fascia and peritoneal lining were then opened to the length of the skin incision under direct visualization using electrocautery. A 4-quadrant abdominal exploration was performed. There were significant adhesions towards the pelvis including the cecum, which was dissected out using blunt dissection as well as Metzenbaum scissors. With blunt dissection, we were able to dissect the scar tissue in the pelvis, identifying the strictured region. This was close to the pelvis and there was no way to proceed with a staple anastomosis due to how low this anastomosis was. A bowel clamp was then applied to the distal colon and we then proceeded with opening of the rectum distal to the stricture using electrocautery. We then proceeded with a handsewn full-thickness closure of the rectal stump creating a Tory's pouch using 0 silk suture. Good hemostasis was observed. At the open end of the colotomy, we then proceeded with milking all the air and liquid stools through a pool suction as well as emptying into containers and there was a significant amount of liquid stool identified. The colotomy segment including the strictured segment was then stapled and transected using a BENI-75 mm stapler to good viable bowel. The end-colostomy site was then marked at the left upper abdominal quadrant and the skin opened using electrocautery as well as the skin and subcutaneous tissue as well as the peritoneal lining. This was then bluntly dissected open and the end of the staple line and the colostomy was pulled through this area. We then proceeded with seromuscular bites along approximately 2 cm below the staple line and sutured this to the subcutaneous tissue. All 4 quadrants of the abdomen were then copiously irrigated with 4 liters of warm saline and suctioned out. A 19-Stateless Paul-Claudio drain was placed into the right pericolic gutter in the pelvis and brought out the right upper abdominal quadrant and sutured to the skin using 3-0 nylon suture. The fascia was closed using running #1 looped PDS suture, which included the incisional hernia. The skin was closed using skin kavon. The staple line along the end colostomy was then transected using electrocautery on the cut mode. We then proceeded with maturation of the end colostomy using 3-0 silk interrupted sutures circumferentially encompassing the full thickness of the bowel and to the subcuticular layer of the skin everting the edge with visualization of good hemostasis. The colostomy was pink and viable as well. The patient tolerated the procedure well. We will admit her back to the floor and continue with SALESMAN/OWNER pump for pain control as well as DVT prophylaxis with early ambulation and calf SCDs. We will also proceed with antibiotics due to the contamination. Once she has significant end colostomy function and does not have any nausea, vomiting or abdominal distention, we will start a clear liquid diet and advance as tolerated. Job ID: [id number] DocumentID: [id number] Dictated Date: 01/16/2021 16:32:39 Wound Care Coordinator Date: 01/17/2021 02:36:08 Dictated By: NEELA MARISCAL MD [facility]
[2021-01-17 04:00] VITALS: BP 102/62
[2021-01-17] MEDS: NS IV 1000 ML 1,000 ML IV SCH ×2 (05:56→16:40)
[2021-01-17] MEDS: METOCLOPRAMIDE INJ 10 MG/2 ML (REGLAN) IVP SCH ×4 (05:56→23:05)
[2021-01-17] MEDS: VANCOMYCIN 125 MG CAPSULE PO SCH ×2 (05:56→12:59)
[2021-01-17] MEDS: PANTOPRAZOLE 40 MG (PROTONIX) TAB PO SCH ×2 (06:00→16:40)
[2021-01-17] MEDS: PIPERACILLIN/TAZOBACTAM (BULK) 4.5 GM in NS (IVPB) 100 ML IV SCH ×3 (06:01→23:05)
--- NOTE | 2021-01-17 06:51 | Anesthesia-General Post-Op ---
General Patient Condition Mental Status/LOC: Same as Preop Cardiovascular: Satisfactory Nausea/Vomiting: Absent Respiratory: Satisfactory Pain: Controlled Complications: Absent Post Op Complications Complications None Follow Up Care/Instructions Patient Instructions None needed. Anesthesia/Patient Condition Patient Condition Patient is doing well, no complaints, stable vital signs, no apparent adverse anesthesia problems. No complications reported per nursing. JAMI BUTTS CRNA Jan 17, 2021 06:51
[2021-01-17 08:00] VITALS: BP 94/57
[2021-01-17] MEDS: SENNA W/DOCUSATE (SENOKOT S) TABLET PO SCH ×2 (08:44→20:46)
[2021-01-17] MEDS: HYDROcodone/APAP 7.5 MG/325 MG (LORTAB, LORCET PLUS) TABLET PO PRN (08:44)
[2021-01-17] MEDS: LACTATED RINGERS 1,000 ML IV SCH (11:23)
[2021-01-17 11:50] LABS: BASOPHILS % (AUTO) 0 % (0-10); EOSINOPHILS % (AUTO) 0 % (0-10); HEMATOCRIT 24 % (35-52); LYMPHOCYTES # (AUTO) 0.9 10^3/uL (1.0-4.0); LYMPHOCYTES % (AUTO) 7 % (12-44); MEAN CORPUSCULAR HEMOGLOBIN 25 pg (25-34); MEAN CORPUSCULAR HGB CONC 31 g/dL (32-36); MEAN CORPUSCULAR VOLUME 82 fL (80-99); MEAN PLATELET VOLUME 9.9 fL (9.0-12.2); MONOCYTES # (AUTO) 1.2 10^3/uL (0.0-1.0); MONOCYTES % (AUTO) 8 % (0-12); NEUTROPHILS % (AUTO) 85 % (42-75); PLATELET COUNT 381 10^3/uL (130-400); WHITE BLOOD COUNT 14.2 10^3/uL (4.3-11.0)
[2021-01-17 11:56] LABS: HEMOGLOBIN 7.4 g/dL (11.5-16.0)
[2021-01-17 12:00] VITALS: BP 104/51
[2021-01-17 12:05] LABS: CALCIUM 7.1 MG/DL (8.5-10.1); CREATININE SERUM 1.32 MG/DL (0.60-1.30); POTASSIUM 3.4 MMOL/L (3.6-5.0)
[2021-01-17 12:18] LABS: BAND NEUTROPHILS 6 %; BASOPHILS % (MANUAL) 0 %; EOSINOPHILS % (MANUAL) 0 %; HYPOCHROMASIA SLIGHT; LYMPHOCYTES % (MANUAL) 10 %; MONOCYTES % (MANUAL) 9 %; NEUTROPHILS % (MANUAL) 75 %; POLYCHROMASIA SLIGHT
[2021-01-17 12:19] LABS: ANISOCYTOSIS SLIGHT; ELLIPT/OVALOCYTES SLIGHT; POIKILOCYTOSIS SLIGHT; TARGET CELLS SLIGHT; TEAR DROP CELLS SLIGHT
[2021-01-17] MEDS ORDERED: NS IV 1000 ML 1,000 ML IV SCH (15:15)
[2021-01-17] MEDS ORDERED: LACTATED RINGERS 1,000 ML IV SCH (16:00)
[2021-01-17 16:10] VITALS: BP 113/66
[2021-01-17] MEDS: ENOXAPARIN 30 MG/0.3 ML (LOVENOX) SYR SC SCH (16:40)
[2021-01-17 19:25] VITALS: BP 101/63
[2021-01-17] MEDS: QUEtiapine 100 MG (SEROquel) TAB IMMEDIATE RELEASE PO SCH (20:46)
[2021-01-17] MEDS: LORazepam 0.5 MG (ATIVAN) TABLET PO SCH (20:46)
[2021-01-18] VITALS (14 sets, daily range): BP systolic 86–145; BP diastolic 51–78
[2021-01-18] MEDS ORDERED: fentaNYL INJ 100 MCG/2 ML AMP IVP PRN (01:00)
[2021-01-18] MEDS ORDERED: LACTATED RINGERS 1,000 ML IV ONE (01:00)
[2021-01-18] MEDS: NS IV 1000 ML 1,000 ML IV SCH ×3 (03:36→13:57)
[2021-01-18 05:22] LABS: BASOPHILS % (AUTO) 0 % (0-10); EOSINOPHILS % (AUTO) 0 % (0-10); LYMPHOCYTES # (AUTO) 0.9 10^3/uL (1.0-4.0); LYMPHOCYTES % (AUTO) 10 % (12-44); MEAN CORPUSCULAR HEMOGLOBIN 25 pg (25-34); MEAN CORPUSCULAR HGB CONC 31 g/dL (32-36); MEAN CORPUSCULAR VOLUME 81 fL (80-99); MEAN PLATELET VOLUME 9.4 fL (9.0-12.2); MONOCYTES # (AUTO) 0.8 10^3/uL (0.0-1.0); MONOCYTES % (AUTO) 9 % (0-12); NEUTROPHILS # (AUTO) 6.8 10^3/uL (1.8-7.8); NEUTROPHILS % (AUTO) 80 % (42-75); PLATELET COUNT 278 10^3/uL (130-400); WHITE BLOOD COUNT 8.5 10^3/uL (4.3-11.0)
[2021-01-18 05:31] LABS: HEMATOCRIT 19 % (35-52); HEMOGLOBIN 5.7 g/dL (11.5-16.0)
[2021-01-18 05:36] LABS: CHLORIDE 106 MMOL/L (98-107); SODIUM 134 MMOL/L (135-145)
[2021-01-18 05:37] LABS: CALCIUM 6.7 MG/DL (8.5-10.1); GLUCOSE 90 MG/DL (70-105)
[2021-01-18 05:39] LABS: CARBON DIOXIDE 19 MMOL/L (21-32)
[2021-01-18 05:41] LABS: CREATININE SERUM 0.84 MG/DL (0.60-1.30); GFR ESTIMATED > 60
[2021-01-18 05:42] LABS: BUN/CREATININE RATIO 21
[2021-01-18] MEDS ORDERED: KCL 20 MEQ TAB (K-DUR) PO ONE (05:45)
[2021-01-18] MEDS ORDERED: NS IV 500 ML 500 ML IV SCH (05:45)
[2021-01-18] MEDS: PANTOPRAZOLE 40 MG (PROTONIX) TAB PO SCH ×2 (05:55→16:01)
[2021-01-18] MEDS: METOCLOPRAMIDE INJ 10 MG/2 ML (REGLAN) IVP SCH ×3 (05:56→17:25)
[2021-01-18] MEDS: HYDROcodone/APAP 7.5 MG/325 MG (LORTAB, LORCET PLUS) TABLET PO PRN ×2 (09:37→13:55)
[2021-01-18] MEDS: SENNA W/DOCUSATE (SENOKOT S) TABLET PO SCH ×2 (09:38→20:01)
[2021-01-18] MEDS: ONDANSETRON 4 MG/2 ML (SDV) Z0FRAN IV PRN (13:54)
[2021-01-18] MEDS: PIPERACILLIN/TAZOBACTAM (BULK) 4.5 GM in NS (IVPB) 100 ML IV SCH ×2 (14:07→17:56)
--- NOTE | 2021-01-18 14:27 | Progress Note ---
Subjective Date Seen by a Provider: Jan 18, 2021 Time Seen by a Provider: 13:50 Subjective/Events-last exam Patient seen with Dr. Mariscal. Patient reports that she is tired but answers questions appropriately. Reports some abdominal discomfort. Tolerating clear liquid diet. Denies any other issues. Objective Exam Vital Signs Date Time Temp Pulse Resp B/P (MAP) Pulse Ox O2 Delivery O2 Flow Rate FiO2 01/18/21 13:40 36.6 69 20 145/70 97 Nasal Cannula 2.00 01/18/21 11:36 36.7 80 20 121/77 (92) 98 Nasal Cannula 2.00 01/18/21 10:49 36.6 74 24 117/72 97 Nasal Cannula 2.00 01/18/21 10:36 36.8 77 24 109/69 94 Nasal Cannula 2.00 01/18/21 10:33 36.8 77 24 109/69 94 Nasal Cannula 2.00 01/18/21 08:36 36.6 93 20 108/64 97 Nasal Cannula 2.00 01/18/21 08:15 36.5 87 20 110/68 97 Nasal Cannula 2.00 01/18/21 08:09 36.5 87 20 110/68 (82) 97 Nasal Cannula 2.00 01/18/21 08:00 98 Nasal Cannula 2.00 01/18/21 03:33 36.6 105 20 113/65 (81) 96 Nasal Cannula 2.00 01/18/21 02:33 103 90/51 (64) 01/18/21 00:25 36.6 106 16 86/54 (65) 94 Nasal Cannula 2.00 01/17/21 20:50 Room Air 01/17/21 19:25 36.3 100 16 101/63 (76) 94 Nasal Cannula 2.00 01/17/21 16:10 36.3 106 16 113/66 (82) 91 Nasal Cannula 2.00 01/17/21 14:30 Nasal Cannula 2.00 I & O 01/18/21 07:00 Intake Total 2790 ml Output Total 600 ml Balance 2190 ml Capillary Refill : Less Than 3 Seconds General Appearance: No Apparent Distress, WD/WN Neck: Normal Inspection, Supple Respiratory: No Accessory Muscle Use, No Respiratory Distress Cardiovascular: Regular Rate, Rhythm, No Edema Gastrointestinal: soft, tenderness, other (Left colostomy pink and moist with minimal bloody drainage in colostomy bag, no stool.) Extremity: Normal Inspection, Normal Range of Motion Neurologic/Psychiatric: Alert, Oriented x3 Skin: Normal Color, Warm/Dry, Other (Midline abdominal incision with dressing in place, mild bloody drainage noted on dressing, but dry. No signs of infection.) Results Lab Laboratory Tests 01/18/21 05:12: White Blood Count 8.5, Red Blood Count 2.28L, Hemoglobin 5.7#*L, Hematocrit 19*L , Mean Corpuscular Volume 81, Mean Corpuscular Hemoglobin 25, Mean Corpuscular Hemoglobin Concent 31L, Red Cell Distribution Width 24.1H, Platelet Count 278, Mean Platelet Volume 9.4, Immature Granulocyte % (Auto) 0, Neutrophils (%) (Auto) 80H, Lymphocytes (%) (Auto) 10L, Monocytes (%) (Auto) 9, Eosinophils (%) (Auto) 0, Basophils (%) (Auto) 0, Neutrophils # (Auto) 6.8, Lymphocytes # (Auto) 0.9L, Monocytes # (Auto) 0.8, Eosinophils # (Auto) 0.0, Basophils # (Auto) 0.0, Immature Granulocyte # (Auto) 0.0, Sodium Level 134L, Potassium Level 3.0L, Chloride Level 106, Carbon Dioxide Level 19L, Anion Gap 9, Blood Urea Nitrogen 18, Creatinine 0.84, Estimat Glomerular Filtration Rate > 60, BUN/Creatinine Ratio 21, Glucose Level 90, Calcium Level 6.7L Microbiology 01/14/21 MRSA Screen - Final, Complete Assessment/Plan Assessment/Plan Assess & Plan/Chief Complaint A 75 year old female who is s/p Sigmoidoscopy, exploratory laparotomy, resection colorectum including the stricture, end-colostomy, Tory's pouch repair of in cisional hernia. VSS Hgb was 5.7 this morning and received 2 unit PRBCs Continue with IV fluids, pain and nausea medication Clear liquid diet, will advance once patient has functioning ostomy Encourage ambulation Labs in AM JOHNNY GUERRERO APRN Jan 18, 2021 2:27 pm
[2021-01-18] MEDS: ENOXAPARIN 30 MG/0.3 ML (LOVENOX) SYR SC SCH (17:25)
[2021-01-18 20:09] LABS: HEMOGLOBIN 8.6 g/dL (11.5-16.0); MEAN PLATELET VOLUME 9.6 fL (9.0-12.2); WHITE BLOOD COUNT 9.6 10^3/uL (4.3-11.0)
[2021-01-18] MEDS: QUEtiapine 100 MG (SEROquel) TAB IMMEDIATE RELEASE PO SCH (21:00)
[2021-01-18] MEDS: LORazepam 0.5 MG (ATIVAN) TABLET PO SCH (21:00)
[2021-01-19] MEDS: PIPERACILLIN/TAZOBACTAM (BULK) 4.5 GM in NS (IVPB) 100 ML IV SCH ×4 (00:01→23:11)
[2021-01-19] MEDS: METOCLOPRAMIDE INJ 10 MG/2 ML (REGLAN) IVP SCH ×5 (00:01→23:21)
[2021-01-19] MEDS: HYDROcodone/APAP 7.5 MG/325 MG (LORTAB, LORCET PLUS) TABLET PO PRN ×3 (01:48→18:06)
[2021-01-19] MEDS: NS IV 1000 ML 1,000 ML IV SCH (03:31)
[2021-01-19 04:19] VITALS: BP 125/69
[2021-01-19 05:51] LABS: BASOPHILS % (AUTO) 0 % (0-10); EOSINOPHILS # (AUTO) 0.2 10^3/uL (0.0-0.3); EOSINOPHILS % (AUTO) 2 % (0-10); HEMATOCRIT 28 % (35-52); HEMOGLOBIN 8.7 g/dL (11.5-16.0); LYMPHOCYTES # (AUTO) 1.2 10^3/uL (1.0-4.0); LYMPHOCYTES % (AUTO) 12 % (12-44); MEAN CORPUSCULAR HEMOGLOBIN 27 pg (25-34); MEAN CORPUSCULAR HGB CONC 31 g/dL (32-36); MEAN CORPUSCULAR VOLUME 85 fL (80-99); MEAN PLATELET VOLUME 10.1 fL (9.0-12.2); MONOCYTES # (AUTO) 0.8 10^3/uL (0.0-1.0); MONOCYTES % (AUTO) 8 % (0-12); NEUTROPHILS # (AUTO) 7.5 10^3/uL (1.8-7.8); NEUTROPHILS % (AUTO) 77 % (42-75); PLATELET COUNT 312 10^3/uL (130-400); WHITE BLOOD COUNT 9.8 10^3/uL (4.3-11.0)
[2021-01-19] MEDS: PANTOPRAZOLE 40 MG (PROTONIX) TAB PO SCH ×2 (06:02→16:43)
[2021-01-19 06:08] LABS: CHLORIDE 107 MMOL/L (98-107); POTASSIUM 3.4 MMOL/L (3.6-5.0); SODIUM 136 MMOL/L (135-145)
[2021-01-19 06:11] LABS: GLUCOSE 62 MG/DL (70-105); TOTAL PROTEIN 4.2 GM/DL (6.4-8.2)
[2021-01-19 06:12] LABS: CARBON DIOXIDE 18 MMOL/L (21-32)
[2021-01-19 06:13] LABS: BILIRUBIN,TOTAL 1.1 MG/DL (0.1-1.0)
[2021-01-19 06:14] LABS: ALKALINE PHOSPHATASE 67 U/L (40-136); GFR ESTIMATED > 60
[2021-01-19 06:15] LABS: BUN/CREATININE RATIO 15
[2021-01-19 06:17] LABS: ALANINE AMINOTRANSFERASE 14 U/L (0-55)
[2021-01-19 08:00] VITALS: BP 145/68
[2021-01-19] MEDS: SENNA W/DOCUSATE (SENOKOT S) TABLET PO SCH ×2 (08:43→20:28)
[2021-01-19] MEDS: ONDANSETRON 4 MG/2 ML (SDV) Z0FRAN IV PRN (08:43)
[2021-01-19] MEDS: CALCIUM CARBONATE 500 MG (TUMS) TAB.CHEW PO PRN ×2 (08:43→18:30)
--- NOTE | 2021-01-19 10:29 | Consultation - Hospitalist ---
HPI History of Present Illness: HPI/Chief Complaint CC: Colon stricture HPI: This is a 75yoWF known to me from 2 weeks ago admit for C diff colitis with severe anemia and recurrent UTI who had DC in improved condition but returned 4 days after DC due to abdominal pain and found to have a tight colonic stricture requiring exploratory and subsequent reversal of the takedown of the colostomy and reinitiated the colostomy at patient request. Patient did require 2 units of blood. Currently she is doing better but had a bad night with hallucinations from Dilaudid. Source: patient, RN/MD, old records Exam Limitations: no limitations Date Seen 01/19/21 Attending Physician Neela Mariscal MD PCP Angi Sainz Aprn Referring Physician Date of Admission Jan 12, 2021 at 13:54 Home Medications & Allergies Home Medications Reviewed patient Home Medication Reconciliation performed by pharmacy medication reconciliations agronomy technician and/or nursing. Patients Allergies have been reviewed. Allergies Allergies Coded Allergies hydromorphone (Unverified Adverse Reaction, Unknown, PSYCH, 01/19/21) Patient Social History Marrital Status: single Employed/Student: employed Tobacco Use?: No Smoking Status: Never a Smoker Smokeless Tobacco Frequency: Never a User Use of E-Cig and/or Vaping dev: No Substance use?: No Alcohol Use?: No Pt stated abuse/neglect: No Immunizations Up To Date Influenza Vaccine Up-to-Date: No; Not Current Tetanus Booster (TDap): Unknown Hepatitis A: No Hepatitis B: No TB Skin Test: None Current Status status: No status: No Do you have an Advance Directi: No Advance Directive Location: nothing in writing Communicates: Verbally Primary Language: Ethiopian Preferred Spoken Language: Ethiopian Is interpretation needed?: No Implanted or Applied Medical D: None Past Medical History OAB IBS Anemia Family Medical History Family Hx: NC Review of Systems Constitutional: see HPI Gastrointestinal: abdominal pain, loss of appetite Physical Exam Physical Exam Vital Signs Vital Signs - First Documented 01/14/21 01/16/21 04:09 04:16 Temp 36.8 Pulse 82 Resp 16 B/P (MAP) 121/76 (91) Pulse Ox 95 O2 Delivery Room Air O2 Flow Rate 2.00 Capillary Refill : Less Than 3 Seconds Height, Weight, BMI Height: 5'0.00" Weight: 100lbs. 3.2oz. [id number]; 18.25 BMI Method:Stated General Appearance: No Apparent Distress, WD/WN, Chronically ill, Thin Eyes: Bilateral Eye Normal Inspection, Bilateral Eye PERRL, Bilateral Eye EOMI Neck: Normal Inspection, Supple Respiratory: No Accessory Muscle Use, No Respiratory Distress Cardiovascular: Regular Rate, Rhythm, No Edema Gastrointestinal: Normal Bowel Sounds, Soft, Other (Abdomen is distended but with normal bowel sounds. Minimally tender to palpation.) Extremity: Normal Inspection, Normal Range of Motion Neurologic/Psychiatric: Alert, Oriented x3 Skin: Normal Color, Warm/Dry, Other (Midline abdominal incision with dressing in place, mild bloody drainage noted on dressing, but dry. No signs of infection.) Results Results/Procedures Labs Laboratory Tests 01/18/21 20:00 01/19/21 05:36 01/20/21 05:38 Patient resulted labs reviewed. Assessment/Plan Assessment and Plan Assess & Plan/Chief Complaint Assessment: s/p colostomy replacement Recent C diff Anemia s/p 2 units of blood Insomnia Plan: Supportive care Monitor closely CORNELIO LARSEN DO Jan 19, 2021 10:29
--- NOTE | 2021-01-19 10:51 | Progress Note ---
Subjective Date Seen by a Provider: Jan 19, 2021 Time Seen by a Provider: 10:00 Subjective/Events-last exam doing well. pain controlled. minimal ambulation. functional end colostomy. Objective Exam Vital Signs Date Time Temp Pulse Resp B/P (MAP) Pulse Ox O2 Delivery O2 Flow Rate FiO2 01/19/21 10:29 Nasal Cannula 2.00 01/19/21 08:00 96 Nasal Cannula 2.00 01/19/21 08:00 36.7 57 20 145/68 (93) 96 Nasal Cannula 2.00 01/19/21 04:19 36.5 65 18 125/69 (87) 95 Nasal Cannula 2.00 01/18/21 23:23 36.2 68 14 117/78 (91) 97 Nasal Cannula 2.00 01/18/21 20:00 Room Air 01/18/21 19:50 36.2 65 18 119/71 (87) 97 Nasal Cannula 2.00 01/18/21 15:43 36.2 68 20 123/72 (89) 97 Nasal Cannula 2.00 01/18/21 15:00 Nasal Cannula 2.00 01/18/21 13:40 36.6 69 20 145/70 97 Nasal Cannula 2.00 01/18/21 11:36 36.7 80 20 121/77 (92) 98 Nasal Cannula 2.00 01/18/21 10:49 36.6 74 24 117/72 97 Nasal Cannula 2.00 I & O 01/19/21 07:00 Intake Total 1350 ml Output Total 1810 ml Balance -460 ml Capillary Refill : Less Than 3 Seconds General Appearance: No Apparent Distress HEENT: PERRL/EOMI Neck: Full Range of Motion Respiratory: Chest Non Tender, Lungs Clear, Normal Breath Sounds Cardiovascular: Regular Rate, Rhythm Gastrointestinal: normal bowel sounds, soft, tenderness, other (colostomy pink/viable) Extremity: Normal Capillary Refill Neurologic/Psychiatric: Alert, Oriented x3 Skin: Normal Color Lymphatic: No Adenopathy Results Lab Laboratory Tests 01/18/21 20:00: White Blood Count 9.6, Red Blood Count 3.22L, Hemoglobin 8.6#L, Hematocrit 27L, Mean Corpuscular Volume 84, Mean Corpuscular Hemoglobin 27, Mean Corpuscular Hemoglobin Concent 32, Red Cell Distribution Width 22.6H, Platelet Count 292, Mean Platelet Volume 9.6 01/19/21 05:36: White Blood Count 9.8, Red Blood Count 3.28L, Hemoglobin 8.7L, Hematocrit 28L, Mean Corpuscular Volume 85, Mean Corpuscular Hemoglobin 27, Mean Corpuscular Hemoglobin Concent 31L, Red Cell Distribution Width 22.8H, Platelet Count 312, Mean Platelet Volume 10.1, Immature Granulocyte % (Auto) 0, Neutrophils (%) (Auto) 77H, Lymphocytes (%) (Auto) 12, Monocytes (%) (Auto) 8, Eosinophils (%) (Auto) 2, Basophils (%) (Auto) 0, Neutrophils # (Auto) 7.5, Lymphocytes # (Auto) 1.2, Monocytes # (Auto) 0.8, Eosinophils # (Auto) 0.2, Basophils # (Auto) 0.0, Immature Granulocyte # (Auto) 0.0, Sodium Level 136, Potassium Level 3.4L, Chloride Level 107, Carbon Dioxide Level 18L, Anion Gap 11, Blood Urea Nitrogen 9, Creatinine 0.60, Estimat Glomerular Filtration Rate > 60, BUN/Creatinine Ratio 15, Glucose Level 62L, Calcium Level 7.0L, Corrected Calcium 8.6, Total Bilirubin 1.1H, Aspartate Amino Transf (AST/SGOT) 28, Alanine Aminotransferase (ALT/SGPT) 14, Alkaline Phosphatase 67, Total Protein 4.2L, Albumin 2.0L Microbiology 01/14/21 MRSA Screen - Final, Complete Assessment/Plan Assessment/Plan Assess & Plan/Chief Complaint s/p sigmoid-rectal resection, end colostomy and hartmans. advance dys3 diet increase ambulation. consult hospitalist for hypokalemia, anemia, malnutrition, weakness. ALLEN FERNÁNDEZ MD Jan 19, 2021 10:51
--- NOTE | 2021-01-19 11:46 | Physical Therapy Evaluation ---
PT Evaluation-General Medical Diagnosis Admission Date Jan 12, 2021 at 13:54 Medical Diagnosis: colonic stricture Onset Date: Jan 12, 2021 Therapy Diagnosis Therapy Diagnosis: debility/weakness Height/Weight Height (Feet): 5 Height (Inches): 0.00 Weight (Pounds): 100 Weight (Ounces): 3.2 Precautions Precautions/Isolations: Contact Isolation, Fall Prevention Referral Physician: Omkar Reason for Referral: Evaluation/Treatment Medical History Pertinent Medical History: CVA, GERD Additional Medical History colon cancer Current History ER secondary to abnormal test Reviewed History: Yes Social History Home: Single Level Current Living Status: Alone Entry Into Home: Stairs With Railing PT Steps Into Home: 2 Prior Prior Level of Function SCALE: Activities may be completed with or without assistive devices. 9-Wzfoyozsxh-uktphvw completes the activity by him/herself with no assistance from a helper. 5-Set-up or Clean-up Assistance-helper sets up or cleans up; patient completes activity. Welches assists only prior to or following the activity. 4-Supervision or Touching Assistance-helper provides verbal cues and/or touching/steadying and/or contact guard assistance as patient completes activity. Assistance may be provided throughout the activity or intermittently. 3-Partial/Moderate Assistance-helper does LESS THAN HALF the effort. Welches l ifts, holds or supports trunk or limbs, but provides less than half the effort. 2-Substantial/Maximal Assistance-helper does MORE THAN HALF the effort. Welches lifts or holds trunk or limbs and provides more than half the effort. 0-Jmrqfkjkp-cxtzyq does ALL the effort. Patient does none of the effort to complete the activity. Or, the assistance of 2 or more helpers is required for t he patient to complete the activity. If activity was not attempted, code reason: 7-Patient Refused. 9-Not Applicable-not attempted and the patient did not perform the activity before the current illness, exacerbation or injury. 10-Not Attempted due to Environmental Limitations-(lack of equipment, weather restraints, etc.). 88-Not Attempted due to Medical Conditions or Safety Concerns. Bed Mobility: 6 Transfers (B,C,W/C): 6 Gait: 6 Stairs: 6 Indoor Mobility (Ambulation): Independent Stairs: Independent Prior Devices Use: None PT Evaluation-Current Subjective Patient reports fatigue. Agrees to PT. Pain Numeric Pain Scale: 5-Moderate Pain Location: Medial, Lower Location Body Site: Abdomen Pain Description: Pressure Objective Patient Orientation: Normal For Age Attachments: Oxygen, Saba Catheter, IV ROM/Strength ROM Lower Extremities bilateral LE WFL Strength Lower Extremities 3+/5 grossly bilateral LE all planes Integumentary/Posture Integumentary refer to nursing notes Bladder Incontinence: Saba Cath Posture WFL Neuromuscular (Tone, Coordination, Reflexes) grossly intact Sensory Vision: Functional Hearing: Functional Transfers Roll Left to Right (QC): 6 Sit to Lying (QC): 6 Lying to Sitting/Side of Bed(Q: 6 Sit to Stand (QC): 4 Chair/Qpm-ev-Ccklf Xfer(QC): 4 Toilet Transfer (QC): 4 Gait Does the Patient Walk?: Yes Mode of Locomotion: Walk Anticipated Mode of Locomotion: Walk Walk 10 feet (QC): 4 (SBA) Walk 50 ft with 2 Turns(QC): 4 (SBA) Walk 150 ft (QC): 4 (SBA) Distance: 200' Gait Assistive Device: FWW Comments/Gait Description slow, steady Wheelchair Training Does the Pt Use a Wheelchair?: No Balance Sitting Static: Normal Sitting Dynamic: Normal Standing Static: Normal Standing Dynamic: Normal Assessment/Needs 75 y.o. female, will be seen by skilled PT to address functional strength and mobility to ensure safe and independent return to home. 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 Goals Time Frame: February 02, 2021 Roll Left & Right (QC): 6 Sit to Lying (QC): 6 Lying-Sitting on Side/Bed(QC): 6 Sit to Stand (QC): 6 Chair/Wdc-ss-Lrvwj Xfer(QC): 6 Toilet Transfer (QC): 6 Car Transfer (QC): 6 Does the Patient Walk: Yes Walk 10 feet (QC): 6 Walk 50ft with 2 Turns (QC): 6 Walk 150 ft (QC): 6 Walking 10ft on Uneven Surface: 6 1 Step (curb) (QC): 6 PT Plan Problem List Problem List: Activity Tolerance, Functional Strength Treatment/Plan Treatment Plan: Continue Plan of Care Treatment Plan: Education, Functional Activity Snehal, Functional Strength, Gait, Safety, Therapeutic Exercise, Transfers Treatment Duration: February 02, 2021 Frequency: 6 times per week Estimated Hrs Per Day: .25 hour per day Patient and/or Family Agrees t: Yes Discharge Recommendations Therapy Discharge Recommendati: Home & Family Time/GCodes Time In: 1120 Time Out: 1131 Total Billed Treatment Time: 11 Total Billed Treatment 1 visit EVMod 11 min DORIS GIRARD PT Jan 19, 2021 11:46
[2021-01-19] MEDS: D5 1/2 NS 1000 ML IV SOLUTION 1,000 ML IV SCH ×2 (11:50→22:00)
[2021-01-19 12:00] VITALS: BP 125/82
--- NOTE | 2021-01-19 13:43 | Occupational Therapy Eval ---
OT Evaluation-General/PLF Medical Diagnosis Admission Date Jan 12, 2021 at 13:54 Medical Diagnosis: colonic stricture Onset Date: Jan 12, 2021 Therapy Diagnosis Therapy Diagnosis: decreased ADL status, weakness Height/Weight Height (Feet): 5 Height (Inches): 0.00 Weight (Pounds): 100 Weight (Ounces): 3.2 Precautions Precautions/Isolations: Contact Isolation, Fall Prevention Referral Physician: Omkar Referral Reason: Evaluation/Treatment Medical History Pertinent Medical History: CVA, GERD Additional Medical History cardiac murmur, hiatal hernia, arthritis, cataracts, anxiety. Current History ED due to abdominal pain and absence of BM x5 days. 01/16/21 s/p sigmoidoscopy, exploratory laparotomy, resection colorectum including the stricture, end colostomy, Hartmanns' pouch repair of incisional hernia Social History Home: Single Level Current Living Status: Alone Entry Into Home: Stairs With Railing Steps Into Home: 2 ADL-Prior Level of Function SCALE: Activities may be completed with or without assistive devices. 5-Wscvegdimc-gunvyao completes the activity by him/herself with no assistance from a helper. 5-Set-up or Clean-up Assistance-helper sets up or cleans up; patient completes activity. Mercer assists only prior to or following the activity. 4-Supervision or Touching Assistance-helper provides verbal cues and/or touching/steadying and/or contact guard assistance as patient completes activity. Assistance may be provided throughout the activity or intermittently. 3-Partial/Moderate Assistance-helper does LESS THAN HALF the effort. Mercer lifts, holds or supports trunk or limbs, but provides less than half the effort. 2-Substantial/Maximal Assistance-helper does MORE THAN HALF the effort. Mercer lifts or holds trunk or limbs and provides more than half the effort. 1-Xymiyhrgs-orlklr does ALL the effort. Patient does none of the effort to complete the activity. Or, the assistance of 2 or more helpers is required for the patient to complete the activity. If activity was not attempted, code reason: 7-Patient Refused. 9-Not Applicable-not attempted and the patient did not perform the activity before the current illness, exacerbation or injury. 10-Not Attempted due to Environmental Limitations-(lack of equipment, weather restraints, etc.). 88-Not Attempted due to Medical Conditions or Safety Concerns. ADL PLOF Comments Pt reports IND with all I/ADLs at OF, no AD/AE Self Care: Independent Functional Cognition: Independent Occupation: 40 hr/week at [employer] [address] Self: Yes OT Current Status Subjective Pt laying in bed, agreeable to OT evaluation/tx. Pt does not verbalize pain during session. Mental Status/Objective Patient Orientation: Person, Place, Time, Situation Attachments: Colostomy/Ileostomy, Drains, Saba Catheter, IV Current Upper Extremity ROM WFL, BUE shoulder flexion to approx 150 degrees Upper Extremity Coordination WFL Upper Extremity Sensation WFL Upper Extremity Strength grossly 3+/5 ADL-Treatment Eating (QC): 6 (Per pt report, able to open containers and use utensils) Upper Body Dressing (QC): 3 (Min A donning/doffing hospital gown. ) On/Off Footwear (QC): 3 (Mod A. Pt able to don LLE gripper sock, assist with RLE) Toileting Hygiene (QC): 88 (Catheter) Other Treatments Pt laying in bed, transferred supine to EOB with SBA. Pt doffed soiled hospital gown, then min A with donning clean hospital gown. Pt required assistance with threading drain and IV lines. Pt then attempted to don gripper socks, requiring assistance with RLE gripper sock, pt able to complete LLE gripper sock. Pt expresses difficulty due to abdominal dressing/sutures. Pt transferred back supine, SBA. OT educated pt on purpose and benefit of OT with focus on increasing safety and independence with functional mobility and ADLs, she verb alized agreement. 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 Post tx, pt laying in bed, call light in reach and all needs met. Education OT Patient Education: Correct positioning, Modified ADL techniques, Progress toward Goal/Update tx plan, Purpose of tx/functional activities Teaching Recipient: Patient Teaching Methods: Discussion Response to Teaching: Verbalize Understanding OT Fpc Goals Fpc Goals Time Frame: February 02, 2021 Eating (QC): 6 Oral Hygiene (QC): 6 Toileting Hygiene (QC): 6 Shower/Bathe Self (QC): 6 Upper Body Dressing (QC): 6 Lower Body Dressing (QC): 6 On/Off Footwear (QC): 6 Additional Goals: 1-Demonstrate ADL Tasks, 2-Verbalize Understanding, 3- ImproveStrength/Snehal 1=Demonstrate adherence to instructed precautions during ADL tasks. 2=Patient will verbalize/demonstrate understanding of assistive devices/modifications for ADL. 3=Patient will improve strength/tolerance for activity to enable patient to perform ADL's. OT Education/Plan Problem List/Assessment Assessment: Decreased Activ Tolerance, Decreased UE Strength, Impaired Funct Balance, Impaired I ADL's, Impaired Self-Care Skills Pt would benefit from skilled OT services in order to increase BUE strength and activity tolerance as well as increase safety and independence with ADLs and functional mobility in order to maximize LOF for safe return home. Discharge Recommendations Plan/Recommendations: Continue POC Treatment Plan/Plan of Care Patient would benefit from OT for education, treatment and training to promote independence in ADL's, mobility, safety and/or upper extremity function for ADL's. Plan of Care: ADL Retraining, Functional Mobility, UE Funct Exercise/Act Treatment Duration: February 02, 2021 Frequency: 5 times per week Estimated Hrs Per Day: .25 hour per day Rehab Potential: Fair Time/GCodes Start Time: 13:15 Stop Time: 13:33 Total Time Billed (hr/min): 18 Billed Treatment Time 1, JESE ALBERTS OT Jan 19, 2021 13:43
[2021-01-19 15:35] VITALS: BP 146/79
[2021-01-19] MEDS: ENOXAPARIN 30 MG/0.3 ML (LOVENOX) SYR SC SCH (16:44)
[2021-01-19 20:20] VITALS: BP 129/72
[2021-01-19] MEDS: LORazepam 0.5 MG (ATIVAN) TABLET PO SCH (20:28)
[2021-01-19] MEDS: QUEtiapine 100 MG (SEROquel) TAB IMMEDIATE RELEASE PO SCH (20:28)
[2021-01-19 23:54] VITALS: BP 114/73
[2021-01-20 03:25] VITALS: BP 118/74
[2021-01-20] MEDS: METOCLOPRAMIDE INJ 10 MG/2 ML (REGLAN) IVP SCH ×4 (05:36→23:28)
[2021-01-20] MEDS: HYDROcodone/APAP 7.5 MG/325 MG (LORTAB, LORCET PLUS) TABLET PO PRN ×3 (05:47→21:41)
[2021-01-20 05:50] LABS: BASOPHILS % (AUTO) 0 % (0-10); EOSINOPHILS # (AUTO) 0.3 10^3/uL (0.0-0.3); EOSINOPHILS % (AUTO) 4 % (0-10); HEMATOCRIT 29 % (35-52); HEMOGLOBIN 9.3 g/dL (11.5-16.0); LYMPHOCYTES # (AUTO) 1.4 10^3/uL (1.0-4.0); LYMPHOCYTES % (AUTO) 19 % (12-44); MEAN CORPUSCULAR HEMOGLOBIN 27 pg (25-34); MEAN CORPUSCULAR HGB CONC 32 g/dL (32-36); MEAN CORPUSCULAR VOLUME 84 fL (80-99); MEAN PLATELET VOLUME 9.6 fL (9.0-12.2); MONOCYTES # (AUTO) 0.8 10^3/uL (0.0-1.0); MONOCYTES % (AUTO) 11 % (0-12); NEUTROPHILS # (AUTO) 4.9 10^3/uL (1.8-7.8); NEUTROPHILS % (AUTO) 66 % (42-75); PLATELET COUNT 315 10^3/uL (130-400); WHITE BLOOD COUNT 7.4 10^3/uL (4.3-11.0)
[2021-01-20 06:11] LABS: ALANINE AMINOTRANSFERASE 12 U/L (0-55); ALBUMIN 1.9 GM/DL (3.2-4.5); ALKALINE PHOSPHATASE 58 U/L (40-136); BILIRUBIN,TOTAL 0.5 MG/DL (0.1-1.0); BUN/CREATININE RATIO 7; CALCIUM 6.8 MG/DL (8.5-10.1); CARBON DIOXIDE 21 MMOL/L (21-32); CHLORIDE 107 MMOL/L (98-107); CREATININE SERUM 0.55 MG/DL (0.60-1.30); GFR ESTIMATED > 60; GLUCOSE 95 MG/DL (70-105); SODIUM 136 MMOL/L (135-145); TOTAL PROTEIN 4.3 GM/DL (6.4-8.2)
[2021-01-20] MEDS: PIPERACILLIN/TAZOBACTAM (BULK) 4.5 GM in NS (IVPB) 100 ML IV SCH ×3 (06:54→23:28)
[2021-01-20] MEDS: PANTOPRAZOLE 40 MG (PROTONIX) TAB PO SCH ×2 (06:54→15:00)
[2021-01-20] MEDS ORDERED: NON-FORMULARY MEDICATION 1 EA EA (Hyoscyamine Sulfate 0.125 MG) SL PRN (07:00)
[2021-01-20] MEDS ORDERED: APAP 300 MG/CODEINE 30 MG (TYLENOL #3) TAB PO PRN (07:15)
[2021-01-20] MEDS ORDERED: LOPERAMIDE 2 MG (IMODIUM) TABLET PO PRN (07:15)
[2021-01-20] MEDS ORDERED: MAGNESIUM 1 GM/100 ML IVPB 100 ML IV ONE (07:30)
[2021-01-20 08:00] VITALS: BP 115/74
[2021-01-20] MEDS ORDERED: ARTIFICAL TEARS 0.4 ML UNIT DOSE (REFRESH PLUS) OU PRN (08:00)
--- NOTE | 2021-01-20 09:09 | Progress Note ---
Subjective Date Seen by a Provider: Jan 20, 2021 Time Seen by a Provider: 09:00 Subjective/Events-last exam doing well. tolerating diet. functional end colostomy. pain controlled. SS drainage per wound, no redness/erythema/purulence. Objective Exam Vital Signs Date Time Temp Pulse Resp B/P (MAP) Pulse Ox O2 Delivery O2 Flow Rate FiO2 01/20/21 08:00 37.6 68 18 115/74 (88) 91 Room Air 01/20/21 03:25 37.0 69 20 118/74 (89) 91 Room Air 01/19/21 23:54 36.0 67 20 114/73 (87) 92 Room Air 01/19/21 20:30 Room Air 01/19/21 20:20 36.7 64 20 129/72 (91) 94 Room Air 01/19/21 15:35 36.5 63 20 146/79 (101) 93 Room Air 01/19/21 12:00 35.5 58 20 125/82 (96) 94 Nasal Cannula 2.00 01/19/21 10:29 Nasal Cannula 2.00 I & O 01/20/21 07:00 Intake Total 2040 ml Output Total 3355 ml Balance -1315 ml Capillary Refill : Less Than 3 Seconds General Appearance: No Apparent Distress HEENT: PERRL/EOMI Neck: Full Range of Motion Respiratory: Chest Non Tender, Normal Breath Sounds Cardiovascular: Regular Rate, Rhythm Gastrointestinal: normal bowel sounds, soft, tenderness Extremity: Normal Capillary Refill Neurologic/Psychiatric: Alert, Oriented x3 Skin: Normal Color Lymphatic: No Adenopathy Results Lab Laboratory Tests 01/19/21 11:37: Glucometer 78 01/20/21 05:38: White Blood Count 7.4, Red Blood Count 3.48L, Hemoglobin 9.3L, Hematocrit 29L, Mean Corpuscular Volume 84, Mean Corpuscular Hemoglobin 27, Mean Corpuscular Hemoglobin Concent 32, Red Cell Distribution Width 22.7H, Platelet Count 315, Mean Platelet Volume 9.6, Immature Granulocyte % (Auto) 0, Neutrophils (%) (Auto) 66, Lymphocytes (%) (Auto) 19, Monocytes (%) (Auto) 11, Eosinophils (%) (Auto) 4, Basophils (%) (Auto) 0, Neutrophils # (Auto) 4.9, Lymphocytes # (Auto) 1.4, Monocytes # (Auto) 0.8, Eosinophils # (Auto) 0.3, Basophils # (Auto) 0.0, Immature Granulocyte # (Auto) 0.0, Sodium Level 136, Potassium Level 3.0L, Chloride Level 107, Carbon Dioxide Level 21, Anion Gap 8, Blood Urea Nitrogen 4L , Creatinine 0.55L, Estimat Glomerular Filtration Rate > 60, BUN/Creatinine Ratio 7, Glucose Level 95, Calcium Level 6.8L, Corrected Calcium 8.5, Magnesium Level 1.7, Total Bilirubin 0.5, Aspartate Amino Transf (AST/SGOT) 17, Alanine Aminotransferase (ALT/SGPT) 12, Alkaline Phosphatase 58, Total Protein 4.3L, Albumin 1.9L Microbiology 01/14/21 MRSA Screen - Final, Complete Assessment/Plan Assessment/Plan Assess & Plan/Chief Complaint s/p sigmoid-rectal resection, end colostomy and hartmans. advance dys3 diet increase ambulation. consult hospitalist for hypokalemia, anemia, malnutrition, weakness. ALLEN FERNÁNDEZ MD Jan 20, 2021 09:09
[2021-01-20] MEDS: POTASSIUM CL 10MEQ/50ML IVPB 50 ML IV SCH ×2 (09:42→11:51)
[2021-01-20] MEDS: SENNA W/DOCUSATE (SENOKOT S) TABLET PO SCH ×2 (09:42→21:41)
[2021-01-20] MEDS: D5 1/2 NS 1000 ML IV SOLUTION 1,000 ML IV SCH ×2 (09:42→18:36)
[2021-01-20] MEDS: MICONAZOLE 2% POWDER (DESENEX AF) 90 GM TOP SCH ×2 (09:44→21:42)
[2021-01-20] MEDS: NYSTATIN CREAM (MYCOSTATIN) 30 GM TUBE TP SCH ×2 (09:45→21:42)
[2021-01-20] MEDS: HYOSCYAMINE 0.125 MG (LEVSIN) TAB PO PRN (11:15)
[2021-01-20 12:02] VITALS: BP 138/85
[2021-01-20] MEDS: DICYCLOMINE 10 MG (BENTYL) CAP PO SCH ×3 (12:58→21:40)
--- NOTE | 2021-01-20 13:00 | Progress Note - Hospitalist ---
Subjective HPI/CC On Admission Date Seen by Provider: Jan 20, 2021 Time Seen by Provider: 12:00 CC: Colon stricture HPI: This is a 75yoWF known to me from 2 weeks ago admit for C diff colitis with severe anemia and recurrent UTI who had DC in improved condition but returned 4 days after DC due to abdominal pain and found to have a tight colonic stricture requiring exploratory and subsequent reversal of the takedown of the colostomy and reinitiated the colostomy at patient request. Patient did require 2 units of blood. Currently she is doing better but had a bad night with hallucinations from Dilaudid. Subjective/Events-last exam Patient can't eat Labs reviewed Potassium replaced Very weak Appears to be very unmotivated Pain controlled Review of Systems General: Fatigue, Malaise Neurological: Weakness Objective Exam Vital Signs Vital Signs Date Time Temp Pulse Resp B/P (MAP) Pulse Ox O2 Delivery O2 Flow Rate FiO2 01/21/21 04:26 35.7 89 20 101/66 (78) 93 Room Air 01/19/21 12:00 2.00 Capillary Refill : Less Than 3 Seconds General Appearance: No Apparent Distress, WD/WN, Chronically ill, Thin Respiratory: Lungs Clear Cardiovascular: Regular Rate, Rhythm Neurologic/Psychiatric: Alert, Oriented x3 Results/Procedures Lab Laboratory Tests 01/21/21 05:40 Patient resulted labs reviewed. Assessment/Plan Assessment and Plan Assess & Plan/Chief Complaint Assessment: s/p colostomy replacement Recent C diff Anemia s/p 2 units of blood Insomnia Plan: Supportive care Monitor closely 01/20/21: Very weak Replace potassium CORNELIO LARSEN DO Jan 20, 2021 12:59
[2021-01-20] MEDS ORDERED: ACETAMINOPHEN 325 MG TABLET PO PRN (14:00)
[2021-01-20 16:19] VITALS: BP 145/76
[2021-01-20] MEDS: ENOXAPARIN 30 MG/0.3 ML (LOVENOX) SYR SC SCH (18:36)
[2021-01-20 19:50] VITALS: BP 141/78
[2021-01-20] MEDS ORDERED: NON-FORMULARY MEDICATION 1 EA EA (Citalopram Hydrobromide (Citalopram HBr) 40 MG) PO SCH (21:00)
[2021-01-20] MEDS: LORazepam 0.5 MG (ATIVAN) TABLET PO SCH (21:41)
[2021-01-20] MEDS: QUEtiapine 100 MG (SEROquel) TAB IMMEDIATE RELEASE PO SCH (21:41)
[2021-01-20] MEDS: OXYBUTYNIN (DITROPAN) 5 MG TAB PO SCH (21:41)
[2021-01-20] MEDS: predniSONE 5 MG TAB PO SCH (21:42)
[2021-01-21] VITALS (7 sets, daily range): BP systolic 101–143; BP diastolic 62–85
[2021-01-21] MEDS: PANTOPRAZOLE 40 MG (PROTONIX) TAB PO SCH ×2 (05:45→16:45)
[2021-01-21] MEDS: DICYCLOMINE 10 MG (BENTYL) CAP PO SCH ×4 (05:45→21:17)
[2021-01-21] MEDS: METOCLOPRAMIDE INJ 10 MG/2 ML (REGLAN) IVP SCH ×3 (05:45→18:36)
[2021-01-21] MEDS: D5 1/2 NS 1000 ML IV SOLUTION 1,000 ML IV SCH ×2 (05:46→16:55)
[2021-01-21 06:06] LABS: BASOPHILS % (AUTO) 0 % (0-10); EOSINOPHILS # (AUTO) 0.1 10^3/uL (0.0-0.3); EOSINOPHILS % (AUTO) 2 % (0-10); HEMATOCRIT 28 % (35-52); LYMPHOCYTES # (AUTO) 1.1 10^3/uL (1.0-4.0); LYMPHOCYTES % (AUTO) 17 % (12-44); MEAN CORPUSCULAR HEMOGLOBIN 27 pg (25-34); MEAN CORPUSCULAR HGB CONC 32 g/dL (32-36); MEAN CORPUSCULAR VOLUME 85 fL (80-99); MEAN PLATELET VOLUME 9.7 fL (9.0-12.2); MONOCYTES # (AUTO) 0.5 10^3/uL (0.0-1.0); MONOCYTES % (AUTO) 8 % (0-12); NEUTROPHILS # (AUTO) 4.8 10^3/uL (1.8-7.8); NEUTROPHILS % (AUTO) 73 % (42-75); PLATELET COUNT 309 10^3/uL (130-400); WHITE BLOOD COUNT 6.6 10^3/uL (4.3-11.0)
[2021-01-21 06:22] LABS: ALANINE AMINOTRANSFERASE 11 U/L (0-55); ALBUMIN 1.8 GM/DL (3.2-4.5); ALKALINE PHOSPHATASE 55 U/L (40-136); BILIRUBIN,TOTAL 0.3 MG/DL (0.1-1.0); BUN/CREATININE RATIO 6; CALCIUM 7.1 MG/DL (8.5-10.1); CARBON DIOXIDE 24 MMOL/L (21-32); CHLORIDE 110 MMOL/L (98-107); CREATININE SERUM 0.53 MG/DL (0.60-1.30); GFR ESTIMATED > 60; GLUCOSE 110 MG/DL (70-105); POTASSIUM 3.8 MMOL/L (3.6-5.0); SODIUM 140 MMOL/L (135-145)
[2021-01-21] MEDS: PIPERACILLIN/TAZOBACTAM (BULK) 4.5 GM in NS (IVPB) 100 ML IV SCH (06:47)
--- NOTE | 2021-01-21 06:58 | Progress Note - Hospitalist ---
Subjective HPI/CC On Admission Date Seen by Provider: Jan 21, 2021 Time Seen by Provider: 11:00 CC: Colon stricture HPI: This is a 75yoWF known to me from 2 weeks ago admit for C diff colitis with severe anemia and recurrent UTI who had DC in improved condition but returned 4 days after DC due to abdominal pain and found to have a tight colonic stricture requiring exploratory and subsequent reversal of the takedown of the colostomy and reinitiated the colostomy at patient request. Patient did require 2 units of blood. Currently she is doing better but had a bad night with hallucinations from Dilaudid. Subjective/Events-last exam Patient is improved Hgb 9.0 Albumin 1.8 May need TPN DC catheter today Overall very weak Review of Systems General: Fatigue, Malaise Gastrointestinal: Nausea, Abdominal Pain Objective Exam Vital Signs Vital Signs Date Time Temp Pulse Resp B/P (MAP) Pulse Ox O2 Delivery O2 Flow Rate FiO2 01/21/21 19:48 36.7 76 18 143/75 (97) 93 Room Air 01/21/21 10:38 2.00 Capillary Refill : Less Than 3 Seconds General Appearance: No Apparent Distress, WD/WN, Chronically ill Respiratory: Lungs Clear Cardiovascular: Regular Rate, Rhythm Neurologic/Psychiatric: Alert, Oriented x3 Results/Procedures Lab Laboratory Tests 01/21/21 05:40 Patient resulted labs reviewed. Assessment/Plan Assessment and Plan Assess & Plan/Chief Complaint Assessment: s/p colostomy replacement Recent C diff Anemia s/p 2 units of blood Insomnia Plan: Supportive care Monitor closely 01/20/21: Very weak Replace potassium 01/21/21: Monitor weakness DC catheter CORNELIO LARSEN DO Jan 21, 2021 06:58
--- NOTE | 2021-01-21 08:50 | Diagnostic Imaging Report ---
INDICATION: Postoperative ileus COMPARISON: 01/12/2021 and 01/15/2021 TECHNIQUE: 2 radiographs of the abdomen dated 01/21/2021 FINDINGS: Right-sided Port-A-Cath is in place. Bilateral small pleural-parenchymal opacities are identified within the lung bases, slightly increased since the prior examination, particularly on the left. Background vascular calcifications. Peripherally calcified breast implants are again noted. Postsurgical changes associated with the left shoulder. Vertically oriented skin kavon are now identified associated with the abdomen and pelvis. Additional surgical clips overlying the upper abdomen appear unchanged from the prior examination. Rounded density overlying the left mid abdomen is felt to relate to an ostomy. A few gas-filled loops of colon are identified. No definite dilated small bowel. Postsurgical changes associated near the pubic symphysis. No significant free air. Lincoln left curvature of the lumbar spine with significant degenerative changes. No acute osseous abnormality. No suspicious radiopaque foreign body. Tubing, possibly related to a drainage catheter is noted overlying the abdomen extending into the pelvis terminating overlying the left pelvis. IMPRESSION: Interval postsurgical changes within the abdomen without evidence of free air or bowel obstruction. Increasing and developing small bibasilar pleural-parenchymal opacities, related to a combination of pleural fluid with adjacent atelectasis and/or infiltrate. Dictated by: Dictated on workstation # [id number]
[2021-01-21] MEDS: NYSTATIN CREAM (MYCOSTATIN) 30 GM TUBE TP SCH ×2 (09:00→21:19)
[2021-01-21] MEDS: HYDROcodone/APAP 7.5 MG/325 MG (LORTAB, LORCET PLUS) TABLET PO PRN ×3 (09:20→21:17)
[2021-01-21] MEDS: SENNA W/DOCUSATE (SENOKOT S) TABLET PO SCH ×2 (09:20→21:18)
[2021-01-21] MEDS: MICONAZOLE 2% POWDER (DESENEX AF) 90 GM TOP SCH ×2 (09:29→21:19)
[2021-01-21] MEDS ORDERED: SALIVA STIMULANT MOUTH SPRAY (BIOTENE) 1.5 OZ MM PRN (14:45)
[2021-01-21] MEDS: ENOXAPARIN 30 MG/0.3 ML (LOVENOX) SYR SC SCH (16:44)
--- NOTE | 2021-01-21 18:34 | Progress Note ---
Subjective Date Seen by a Provider: Jan 21, 2021 Time Seen by a Provider: 17:00 Subjective/Events-last exam doing better today. less crampy abd pain. functional end colostomy. able to tolerate regular diet but no appetite. has been taking supplemental shakes. pain contolled. Objective Exam Vital Signs Date Time Temp Pulse Resp B/P (MAP) Pulse Ox O2 Delivery O2 Flow Rate FiO2 01/21/21 15:46 36.5 60 18 138/74 (95) 95 Room Air 01/21/21 12:00 36.1 75 18 128/85 (99) 95 Room Air 01/21/21 10:38 Nasal Cannula 2.00 01/21/21 08:00 36.2 63 16 124/80 (95) 96 Room Air 01/21/21 04:26 35.7 89 20 101/66 (78) 93 Room Air 01/21/21 00:01 36.3 75 17 127/77 (94) 91 Room Air 01/20/21 21:40 Room Air 01/20/21 19:50 36.6 66 18 141/78 (99) 94 Room Air I & O 01/21/21 07:00 Intake Total 525 ml Output Total 4530 ml Balance -4005 ml Capillary Refill : Less Than 3 Seconds General Appearance: No Apparent Distress HEENT: PERRL/EOMI Neck: Full Range of Motion Respiratory: Chest Non Tender, Normal Breath Sounds Cardiovascular: Regular Rate, Rhythm Gastrointestinal: normal bowel sounds, tenderness, other (incision clean/dry) Extremity: Normal Capillary Refill Neurologic/Psychiatric: Alert, Oriented x3 Skin: Normal Color Results Lab Laboratory Tests 01/21/21 05:40: White Blood Count 6.6, Red Blood Count 3.30L, Hemoglobin 9.0L, Hematocrit 28L, Mean Corpuscular Volume 85, Mean Corpuscular Hemoglobin 27, Mean Corpuscular Hemoglobin Concent 32, Red Cell Distribution Width 22.9H, Platelet Count 309, Mean Platelet Volume 9.7, Immature Granulocyte % (Auto) 1, Neutrophils (%) (Auto) 73, Lymphocytes (%) (Auto) 17, Monocytes (%) (Auto) 8, Eosinophils (%) ( Auto) 2, Basophils (%) (Auto) 0, Neutrophils # (Auto) 4.8, Lymphocytes # (Auto) 1.1, Monocytes # (Auto) 0.5, Eosinophils # (Auto) 0.1, Basophils # (Auto) 0.0, Immature Granulocyte # (Auto) 0.0, Sodium Level 140, Potassium Level 3.8, Chloride Level 110H, Carbon Dioxide Level 24, Anion Gap 6, Blood Urea Nitrogen 3L, Creatinine 0.53L, Estimat Glomerular Filtration Rate > 60, BUN/Creatinine Ratio 6, Glucose Level 110H, Calcium Level 7.1L, Corrected Calcium 8.9, Total Bilirubin 0.3, Aspartate Amino Transf (AST/SGOT) 14, Alanine Aminotransferase (ALT/SGPT) 11, Alkaline Phosphatase 55, Total Protein 4.0L, Albumin 1.8L Microbiology 01/14/21 MRSA Screen - Final, Complete Assessment/Plan Assessment/Plan Assess & Plan/Chief Complaint s/p sigmoid-rectal resection, end colostomy and hartmans. advance dys3 diet increase ambulation. consult hospitalist for hypokalemia, anemia, malnutrition, weakness. ALLEN FERNÁNDEZ MD Jan 21, 2021 18:34
[2021-01-21] MEDS: QUEtiapine 100 MG (SEROquel) TAB IMMEDIATE RELEASE PO SCH (21:17)
[2021-01-21] MEDS: predniSONE 5 MG TAB PO SCH (21:17)
[2021-01-21] MEDS: LORazepam 0.5 MG (ATIVAN) TABLET PO SCH (21:17)
[2021-01-21] MEDS: OXYBUTYNIN (DITROPAN) 5 MG TAB PO SCH (21:33)
[2021-01-22] MEDS: METOCLOPRAMIDE INJ 10 MG/2 ML (REGLAN) IVP SCH ×4 (00:30→17:05)
[2021-01-22 03:53] VITALS: BP 112/69
[2021-01-22] MEDS: D5 1/2 NS 1000 ML IV SOLUTION 1,000 ML IV SCH ×2 (04:37→10:08)
[2021-01-22 05:07] LABS: BASOPHILS % (AUTO) 0 % (0-10); EOSINOPHILS # (AUTO) 0.4 10^3/uL (0.0-0.3); EOSINOPHILS % (AUTO) 4 % (0-10); HEMATOCRIT 30 % (35-52); HEMOGLOBIN 9.8 g/dL (11.5-16.0); LYMPHOCYTES # (AUTO) 1.1 10^3/uL (1.0-4.0); LYMPHOCYTES % (AUTO) 14 % (12-44); MEAN CORPUSCULAR HEMOGLOBIN 27 pg (25-34); MEAN CORPUSCULAR HGB CONC 32 g/dL (32-36); MEAN CORPUSCULAR VOLUME 84 fL (80-99); MEAN PLATELET VOLUME 9.6 fL (9.0-12.2); MONOCYTES # (AUTO) 0.6 10^3/uL (0.0-1.0); MONOCYTES % (AUTO) 7 % (0-12); NEUTROPHILS # (AUTO) 5.9 10^3/uL (1.8-7.8); NEUTROPHILS % (AUTO) 74 % (42-75); PLATELET COUNT 342 10^3/uL (130-400)
[2021-01-22 05:34] LABS: ALANINE AMINOTRANSFERASE 10 U/L (0-55); ALBUMIN 2.1 GM/DL (3.2-4.5); ALKALINE PHOSPHATASE 66 U/L (40-136); BILIRUBIN,TOTAL 0.2 MG/DL (0.1-1.0); BUN/CREATININE RATIO 4; CALCIUM 7.3 MG/DL (8.5-10.1); CARBON DIOXIDE 22 MMOL/L (21-32); CHLORIDE 110 MMOL/L (98-107); CREATININE SERUM 0.48 MG/DL (0.60-1.30); GFR ESTIMATED > 60; GLUCOSE 99 MG/DL (70-105); POTASSIUM 3.4 MMOL/L (3.6-5.0); SODIUM 139 MMOL/L (135-145); TOTAL PROTEIN 4.6 GM/DL (6.4-8.2)
[2021-01-22] MEDS: PANTOPRAZOLE 40 MG (PROTONIX) TAB PO SCH (06:25)
[2021-01-22] MEDS: DICYCLOMINE 10 MG (BENTYL) CAP PO SCH ×3 (06:25→17:10)
[2021-01-22] MEDS: SENNA W/DOCUSATE (SENOKOT S) TABLET PO SCH (07:56)
[2021-01-22] MEDS: MICONAZOLE 2% POWDER (DESENEX AF) 90 GM TOP SCH (07:57)
[2021-01-22] MEDS: NYSTATIN CREAM (MYCOSTATIN) 30 GM TUBE TP SCH (07:57)
[2021-01-22 08:09] VITALS: BP 146/80
[2021-01-22] MEDS: CALCIUM CARBONATE 500 MG (TUMS) TAB.CHEW PO PRN (09:43)
--- NOTE | 2021-01-22 10:20 | Physical Therapy Daily Note ---
PT Daily Note-Current Subjective Patient is very tearful today and states, "I just want to go home." AGrees to PT. Mental Status Patient Orientation: Normal For Age Attachments: Colostomy/Ileostomy, IV Transfers SCALE: Activities may be completed with or without assistive devices. 2-Tlciexmgcb-pxvoprj completes the activity by him/herself with no assistance from a helper. 5-Set-up or Clean-up Assistance-helper sets up or cleans up; patient completes activity. [place] assists only prior to or following the activity. 4-Supervision or Touching Assistance-helper provides verbal cues and/or touching/steadying and/or contact guard assistance as patient completes activity. Assistance may be provided throughout the activity or intermittently. 3-Partial/Moderate Assistance-helper does LESS THAN HALF the effort. [place] lifts, holds or supports trunk or limbs, but provides less than half the effort. 2-Substantial/Maximal Assistance-helper does MORE THAN HALF the effort. [place] lifts or holds trunk or limbs and provides more than half the effort. 8-Fexatjpow-sdlsld does ALL the effort. Patient does none of the effort to complete the activity. Or, the assistance of 2 or more helpers is required for the patient to complete the activity. If activity was not attempted, code reason: 7-Patient Refused. 9-Not Applicable-not attempted and the patient did not perform the activity before the current illness, exacerbation or injury. 10-Not Attempted due to Environmental Limitations-(lack of equipment, weather restraints, etc.). 88-Not Attempted due to Medical Conditions or Safety Concerns. Lying to Sitting/Side of Bed(Q: 6 Sit to Stand (QC): 6 Chair/Xiv-bf-Yowob Xfer(QC): 6 Gait Training Does the Patient Walk?: Yes Distance: 550' Walk 10 feet (QC): 6 Walk 50 ft with 2 Turns(QC): 6 Walk 150 ft (QC): 6 Gait Assistive Device: FWW safe and functional with no deviation Assessment Patient incontinent urine requiring assist to cleanse and change brief. Patient is up in recliner with needs met. PT Shelter Goals Plate Painter Goals PT Plate Painter Goals Time Frame: February 02, 2021 Roll Left & Right (QC): 6 Sit to Lying (QC): 6 Lying-Sitting on Side/Bed(QC): 6 Sit to Stand (QC): 6 Chair/Fjk-xx-Ijspf Xfer(QC): 6 Toilet Transfer (QC): 6 Car Transfer (QC): 6 Does the Patient Walk: Yes Walk 10 feet (QC): 6 Walk 50ft with 2 Turns (QC): 6 Walk 150 ft (QC): 6 Walking 10ft on Uneven Surface: 6 1 Step (curb) (QC): 6 PT Plan Treatment/Plan Treatment Plan: Continue Plan of Care Treatment Plan: Education, Functional Activity Snehal, Functional Strength, Gait, Safety, Therapeutic Exercise, Transfers Treatment Duration: February 02, 2021 Frequency: 6 times per week Estimated Hrs Per Day: .25 hour per day Patient and/or Family Agrees t: Yes Time/GCodes Time In: 937 Time Out: 954 Total Billed Treatment Time: 17 Total Billed Treatment 1 visit FA 17 min DORIS GIRARD PT Jan 22, 2021 10:20
[2021-01-22 12:26] VITALS: BP 157/90
[2021-01-22] MEDS ORDERED: HYDR-3817 PO (14:30)
[2021-01-22] MEDS ORDERED: AMOX-358 PO (14:33)
[2021-01-22] MEDS ORDERED: PANT40TA52 PO (14:59)
--- NOTE | 2021-01-22 15:05 | D/C HH Face to Face Order ---
D/C Face to Face Orders Instructions for Patient Patient Instructions/FollowUp: Follow up with Dr. Mariscal as directed Follow up with Angi Sainz at [facility] on 01/26 at 1 pm. *EMPTY [place] DRAIN EVERY 8 HOURS INSTRUCTED AND RECORD AMOUNT AND TAKE TO DRManuel APPOINTMENT *NO HEAVY LIFTING, PUSHING, OR PULLING GREATER THAN 10 POUNDS *NO DRIVING *MAY SHOWER. NO TUB BATH. *KEEP DRESSING CLEAN AND DRY. HOME HEALTH CARE WILL ASSESS WOUND. *CALL DOCTOR OR HOME HEALTH CARE IF ANY CONCERNS. Physician to follow Patient: Angi Sainz Discharge Diet for Home: Regular Diet Patient Problems: Colonic stricture s/p ostomy placement Poor nutritional status Patient Data-Allergies,Ht & Wt Patient Allergies: Coded Allergies: hydromorphone (Unverified Adverse Reaction, Unknown, PSYCH, 01/19/21) Height (Feet): 5 Height (Inches): 0.00 Weight (Pounds): 100 Weight (Ounces): 3.2 Home Health Need/Face to Face Date of Face to Face: Jan 22, 2021 Clinical Findings: Generalized weakness and fatigue I have seen Pt omce-ba-brrl: Yes Discharged To: Home Diagnosis/Conditions: Multiple colonic surgeries Colonic stricture with ostomy placement Problems/Diagnosis/Condition: (1) Colostomy in place Patient is Homebound due to: Muscle weakness Homebound Status Due to the above stated illness, injury or surgical procedure (medical condition or diagnosis) and associated clinical findings, the patient is homebound because of his/her inability to leave home except with aid of a supportive device and/or person AND leaving the home requires a considerable and taxing effort or is medically contraindicated. Pt req the following assistanc: Aid of another person Home Health Nursing Orders Home Health Services Order: Nursing Services, Physical Therapy-Evaluate & Treat Certify Stmt I certify that this patient is under my care and that I, a nurse practitioner or a physician; a lead recreation assistant working with me, had a face to face encounter that - meets the physician face to face encounter requirements with this patient as dated. KALIE GONZALEZ MD Jan 22, 2021 15:05
--- NOTE | 2021-01-22 15:06 | Progress Note ---
Subjective Subjective/Events-last exam Patient ate a fairly good breakfast and is trying to drink the Ensure, is anxious to go home and feels she will do better eating at home. She has had a colostomy in the past and is aware of care and still has supplies and will have home nursing. Objective Exam Last Set of Vital Signs Vital Signs Date Time Temp Pulse Resp B/P (MAP) Pulse Ox O2 Delivery O2 Flow Rate FiO2 01/22/21 12:26 36.3 71 16 157/90 (112) 98 Room Air 01/21/21 10:38 2.00 Capillary Refill : Less Than 3 Seconds I&O Intake and Output 01/22/21 00:00 Intake Total 1692 ml Output Total 2655 ml Balance -963 ml Intake Oral 572 ml IV Total 1120 ml Output Urine Total 2300 ml Stool Total 260 ml Drainage Total 95 ml # Voids 1 General: Alert, No Acute Distress Lungs: Clear to Auscultation, Normal Air Movement Heart: Regular Rate, No Murmurs Abdomen: Normal Bowel Sounds, Soft, Other (ostomy in place with dark drainage) Extremities: No Edema Psych/Mental Status: Mood NL Results/Procedures Lab Laboratory Tests 01/22/21 04:57: White Blood Count 8.0, Red Blood Count 3.63L, Hemoglobin 9.8L, Hematocrit 30L, Mean Corpuscular Volume 84, Mean Corpuscular Hemoglobin 27, Mean Corpuscular Hemoglobin Concent 32, Red Cell Distribution Width 23.5H, Platelet Count 342, Mean Platelet Volume 9.6, Immature Granulocyte % (Auto) 0, Neutrophils (%) (Auto) 74, Lymphocytes (%) (Auto) 14, Monocytes (%) (Auto) 7, Eosinophils (%) (Auto) 4, Basophils (%) (Auto) 0, Neutrophils # (Auto) 5.9, Lymphocytes # (Auto) 1.1, Monocytes # (Auto) 0.6, Eosinophils # (Auto) 0.4H, Basophils # (Auto) 0.0, Immature Granulocyte # (Auto) 0.0, Sodium Level 139, Potassium Level 3.4L, Chloride Level 110H, Carbon Dioxide Level 22, Anion Gap 7, Blood Urea Nitrogen 2L, Creatinine 0.48L, Estimat Glomerular Filtration Rate > 60, BUN/Creatinine Ratio 4, Glucose Level 99, Calcium Level 7.3L, Corrected Calcium 8.8, Total Bilirubin 0.2, Aspartate Amino Transf (AST/SGOT) 14, Alanine Aminotransferase (ALT/SGPT) 10, Alkaline Phosphatase 66, Total Protein 4.6L, Albumin 2.1L 01/22/21 13:24: Lab Scanned Report Transfusion Reaction Form Microbiology 01/14/21 MRSA Screen - Final, Complete Assessment/Plan Assessment/Plan (1) Colostomy in place Status: Chronic Assessment & Plan: Management per Surgery. (2) Colonic stricture Status: Acute Assessment & Plan: s/p surgery and ostomy placement. (3) Poor nutrition Status: Acute Assessment & Plan: Doing better currently, tolerating PO, requesting to go home. Continue Ensure. (4) Anxiety and depression Status: Chronic Assessment & Plan: Continue home medications (5) GERD (gastroesophageal reflux disease) Status: Chronic Assessment & Plan: Continue pantoprazole. KALIE GONZALEZ MD Jan 22, 2021 15:06
--- NOTE | 2021-01-22 15:53 | Occupational Ther Daily Note ---
OT Current Status-Daily Note Subjective Pt. tearful about current situation, but no pain reported. Mental Status/Objective Patient Orientation: Person, Place, Time, Situation Attachments: IV ADL-Treatment Therapy Code Descriptions/Definitions Functional [place] Measure: 0=Not Assessed/NA 4=Minimal Assistance 1=Total Assistance 5=Supervision or Setup 2=Maximal Assistance 6=Modified [place] 3=Moderate Assistance 7=Complete IndependenceSCALE: Activities may be completed with or without assistive devices. 0-Elwugvhejk-iclhyfl completes the activity by him/herself with no assistance from a helper. 5-Set-up or Clean-up Assistance-helper sets up or cleans up; patient completes activity. [place] assists only prior to or following the activity. 4-Supervision or Touching Assistance-helper provides verbal cues and/or touching/steadying and/or contact guard assistance as patient completes activity. Assistance may be provided throughout the activity or intermittently. 3-Partial/Moderate Assistance-helper does LESS THAN HALF the effort. [place] lifts, holds or supports trunk or limbs, but provides less than half the effort. 2-Substantial/Maximal Assistance-helper does MORE THAN HALF the effort. [place] lifts or holds trunk or limbs and provides more than half the effort. 8-Wdwsfkoja-pecsih does ALL the effort. Patient does none of the effort to complete the activity. Or, the assistance of 2 or more helpers is required for the patient to complete the activity. If activity was not attempted, code reason: 7-Patient Refused. 9-Not Applicable-not attempted and the patient did not perform the activity before the current illness, exacerbation or injury. 10-Not Attempted due to Environmental Limitations-(lack of equipment, weather restraints, etc.). 88-Not Attempted due to Medical Conditions or Safety Concerns. Eating (QC): 6 Lower Body Dressing (QC): 6 (Pt. able to don brief, and reports that she has been taking self to bathroom and doing this as well.) On/Off Footwear: 6 Toileting Hygiene (QC): 6 Toilet Transfer (QC): 6 Other Treatment Pt. able to transfer supine to/from sit, and stand at bedside with no difficulty. Pt. has been independently pushing IV pole into bathroom. Pt. fin ishing lunch when OT entered room. No further OT needs warranted at this time, as pt. is independent with most daily skills. Declines sponge bath at this time. Education OT Patient Education: Correct positioning, Modified ADL techniques, Progress toward Goal/Update tx plan, Purpose of tx/functional activities, Reviewed precautions, Rehab process, Transfer techniques Teaching Recipient: Patient Teaching Methods: Demonstration, Discussion Response to Teaching: Verbalize Understanding, Return Demonstration OT Fci Goals Fci Goals Time Frame: February 02, 2021 Eating (QC): 6 Oral Hygiene (QC): 6 Toileting Hygiene (QC): 6 Shower/Bathe Self (QC): 6 Upper Body Dressing (QC): 6 Lower Body Dressing (QC): 6 On/Off Footwear (QC): 6 Additional Goals: 1-Demonstrate ADL Tasks, 2-Verbalize Understanding, 3-ImproveStrength/Snehal 1=Demonstrate adherence to instructed precautions during ADL tasks. 2=Patient will verbalize/demonstrate understanding of assistive devices/modifications for ADL. 3=Patient will improve strength/tolerance for activity to enable patient to perform ADL's. OT Education/Plan Problem List/Assessment Assessment: No Skilled OT Needs ID'd Discharge Recommendations Plan/Recommendations: Discharge/Goals Met Therapy Discharge Recommendati: Home & Family Treatment Plan/Plan of Care Treatment,Training & Education: Yes Patient would benefit from OT for education, treatment and training to promote independence in ADL's, mobility, safety and/or upper extremity function for ADL's. Plan of Care: ADL Retraining, Functional Mobility, UE Funct Exercise/Act Treatment Duration: February 02, 2021 Frequency: 5 times per week Estimated Hrs Per Day: .25 hour per day Agreement: Yes Rehab Potential: Good Time/GCodes Start Time: 14:00 Stop Time: 14:20 Total Time Billed (hr/min): 20 Billed Treatment Time 1, ADL DEBBIE BENAVIDES OT Jan 22, 2021 15:53
[2021-01-22 16:00] VITALS: BP 148/82
[2021-01-22] MEDS: ENOXAPARIN 30 MG/0.3 ML (LOVENOX) SYR SC SCH (17:05)
== END 2021-01-22 19:12 | disposition home health service (06) | DRG 329 ==
LOC: EDUNIT# 12:33 → ER 12:34 → 4TH 13:54
PROVIDERS: ADMIT Surgery; ATTEND Family Medicine
PROC: 0D1N0Z4 Bypass Sigmoid Colon to Cutaneous, Open Approach (ICD-10-PCS; 2021-01-16)
PROC: 0WQF0ZZ Repair Abdominal Wall, Open Approach (ICD-10-PCS; 2021-01-16)
PROC: 0DJD8ZZ Inspection of Lower Intestinal Tract, Via Natural or Artificial Opening Endoscopic (ICD-10-PCS; 2021-01-16)
PROC: 0DBN0ZZ Excision of Sigmoid Colon, Open Approach (ICD-10-PCS; principal; 2021-01-16 13:27)
PROC: 0DBP0ZZ Excision of Rectum, Open Approach (ICD-10-PCS; 2021-01-16 13:27)
DX: K91.89 Other postprocedural complications and disorders of digestive system (principal); E43 Unspecified severe protein-calorie malnutrition; K56.600 Partial intestinal obstruction, unspecified as to cause; R44.2 Other hallucinations; Z68.1 Body mass index [BMI] 19.9 or less, adult; K43.2 Incisional hernia without obstruction or gangrene; K59.00 Constipation, unspecified; T40.2X5A Adverse effect of other opioids, initial encounter; F41.9 Anxiety disorder, unspecified; F32.9 Major depressive disorder, single episode, unspecified; K21.9 Gastro-esophageal reflux disease without esophagitis; R32 Unspecified urinary incontinence; D64.9 Anemia, unspecified; E87.6 Hypokalemia; G47.00 Insomnia, unspecified; M19.91 Primary osteoarthritis, unspecified site; H54.62 Unqualified visual loss, left eye, normal vision right eye; Z86.73 Personal history of transient ischemic attack (TIA), and cerebral infarction without residual deficits; Z79.2 Long term (current) use of antibiotics; Z79.891 Long term (current) use of opiate analgesic; Z79.52 Long term (current) use of systemic steroids
CPT/HCPCS: 36415; 74019; 74022; 74177; 80048; 80053; 82962; 83735; 85007; 85025; 85027; 86850; 86900; 86901; 86920; 87081; 88307; 94760; 96374; 96376

== ENCOUNTER 2021-02-15 15:22 | Inpatient (IN) | payer MEDICARE ==
[~2021-02-15] VITALS: Ht 152 cm; Wt 48.5 kg
[~2021-02-15 15:22] MED LIST changes: +AMOX-358 PO; +HYDR-3817 PO; +PANT40TA52 PO
[2021-02-15] MEDS ORDERED: LACTATED RINGERS 1,000 ML IV SCH (15:45)
[2021-02-15] MEDS ORDERED: ONDANSETRON 4 MG/2 ML (SDV) Z0FRAN IVP ONE (15:45)
[2021-02-15] MEDS ORDERED: fentaNYL INJ 100 MCG/2 ML AMP IVP ONE (15:45)
--- NOTE | 2021-02-15 15:56 | ED General ---
General Stated Complaint: STOMA Source of Information: Patient Exam Limitations: No Limitations History of Present Illness Date Seen by Provider: February 15, 2021 Time Seen by Provider: 15:51 Initial Comments To ER with reports of peristomal abdominal wall tenderness, prolapsed stoma and incisional infection. She had longstanding colostomy that was reanastomosed and developed a stricture at the anastomosis site, she then had a takedown of the anastomosis with a repeat diverting colostomy. She reports that she is having normal output from the stoma but she has pain and nausea. She states that no one is to touch her until Dr. Mariscal gets here. Timing/Duration: 1-2 Days Severity: Moderate Associated Systoms: Denies Symptoms; No Fever/Chills Allergies and Home Medications Allergies Coded Allergies: hydromorphone (Unverified Adverse Reaction, Unknown, PSYCH, 01/19/21) Home Medications Acetaminophen with Codeine 1 Each Tablet, 1 EACH PO BID PRN for PAIN-MODERATE (5-7), (Reported) Amoxicillin/Potassium Clav 1 Each Tablet, 1 EACH PO BID Prescribed by: KECIA ARGUELLO on 01/22/21 1433 Citalopram Hydrobromide 40 Mg Tablet, 40 MG PO HS, (Reported) Hydrocodone/Acetaminophen 1 Each Tablet, 1 EACH PO Q4H Prescribed by: KECIA ARGUELLO on 01/22/21 1430 Hyoscyamine Sulfate 0.125 Mg Tab.subl, 0.125 MG SL Q4H PRN for ABDOMINAL CRAMPING, (Reported) Lorazepam 0.5 Mg Tablet, 0.5 MG PO HS, (Reported) Miconazole Nitrate 90 Gm Powder, 0 GM TOP BID Prescribed by: CORNELIO LARSEN on 01/08/21951 Nystatin 15 Gm Cream..g., 0 GM TP BID Prescribed by: CORNELIO LARSEN on 01/08/21 09 Oxybutynin Chloride 5 Mg Tablet, 5 MG PO HS, (Reported) Pantoprazole Sodium 40 Mg Tablet.dr, 40 MG PO 0700 Prescribed by: KALIE GONZALEZ on 01/22/21 1459 Peg 400/Hypromellose/Glycerin 15 Ml Drops, 1-2 DROPS OU PRN PRN for DRY EYES, (Reported) Prednisone 5 Mg Tablet, 5 MG PO HS, (Reported) Quetiapine Fumarate 100 Mg Tablet, 100 MG PO HS, (Reported) Patient Home Medication List Home Medication List Reviewed: Yes Review of Systems Review of Systems Constitutional: see HPI EENTM: see HPI Respiratory: no symptoms reported Cardiovascular: no symptoms reported Gastrointestinal: other (Abdominal pain is located to peristomal location. The remainder of the abdomen on the right side is nontender to palpation with normal bowel sounds. There is one very small 1-1/2 cm area of superficial incisional dehiscence of the midline abdominal incision.) Genitourinary: no symptoms reported Musculoskeletal: no symptoms reported Skin: no symptoms reported Psychiatric/Neurological: No Symptoms Reported Hematologic/Lymphatic: No Symptoms Reported Immunological/Allergic: no symptoms reported Past Rztelqx-Tkduzb-Nmzkaz Hx Patient Social History 2nd Hand Smoke Exposure: No Recent Hopitalizations: No Immunizations Up To Date Tetanus Booster (TDap): Unknown Seasonal Allergies Seasonal Allergies: No Past Medical History Surgeries: Yes (esophagus, colostomy; BLADDER/RECTAL SURGERY X5, anastomosis, hernia repair) Abdominal, Bladder Surgery, Bowel Surgery, 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, Rectal Respiratory: No Currently Using CPAP: No Currently Using BIPAP: No Cardiac: Yes Heart Murmur 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 (CVA 2019 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) Stroke 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 History: 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 Genitourinary: Yes (incontinent of urine, can't control when it occurs and wears "a pad") UTI-Chronic Gastrointestinal: Yes (Colostomy) Gastroesophageal Reflux, Obstructive Bowel, Esophagitis, Hiatal Hernia Musculoskeletal: Yes Arthritis Endocrine: No HEENT: Yes (detached retina x3-surgeries x 5) Cataract Loss of Vision: Left Hearing Impairment: Denies Cancer: Yes Skin, Colon Did You Recieve Any Treatments: Yes What Type of Treatment Did You: Surgical Intervention Psychosocial: Yes Anxiety, Depression Integumentary: Yes ("BREAK OUT IN HIVES.") Blood Disorders: No Family Medical History Heart Disease, Cancer, Other Conditions/Hx NC Physical Exam Vital Signs Capillary Refill : Height, Weight, BMI Height: 5'0.00" Weight: 100lbs. 3.2oz. 45.040005rm; 18.25 BMI Method:Stated General Appearance: No Apparent Distress, WD/WN Eyes: Bilateral Eye Normal Inspection, Bilateral Eye PERRL, Bilateral Eye EOMI Neck: Full Range of Motion, Normal Inspection Respiratory: Normal Breath Sounds, No Accessory Muscle Use, No Respiratory Distress Cardiovascular: Regular Rate, Rhythm, Normal Peripheral Pulses Gastrointestinal: Normal Bowel Sounds, Non Tender, Soft, Other (Abdomen is nontender except for directly around the stoma where there is no cellulitis. The incision has a small area of dehiscence superficially. No drainage. No surrounding cellulitis. No palpable induration. There is prolapse of the stoma) Extremity: Normal Capillary Refill, Normal Inspection Neurologic/Psychiatric: Alert, Oriented x3 Skin: Normal Color, Warm/Dry Progress/Results/Core Measures Suspected Sepsis SIRS Temperature: Pulse: Respiratory Rate: Blood Pressure / Mean: Results/Orders My Orders Vital Signs/I&O Capillary Refill : Departure Communication (Admissions) I spoke with Dr. Mariscal, will admit on clear liquids, pain control nausea control, Cipro and Flagyl. He will take care of any imaging studies that are necessary. Impression Primary Impression: Stomal prolapse Additional Impression: Incisional infection Disposition: ADMITTED INPATIENT Condition: Stable Admissions Decision to Admit Reason: Admit from ER (General) Decision to Admit/Date: February 15, 2021 Time/Decision to Admit Time: 16:00 Departure-Patient Inst. Referrals: ZAHIRA WILCOX APRN (PCP) Primary Care Physician [facility] (Family) Primary Care Physician LEE ANN RAZO APRN February 15, 2021 15:56
[2021-02-15 16:09] LABS: BASOPHILS # (AUTO) 0.1 10^3/uL (0.0-0.1); BASOPHILS % (AUTO) 1 % (0-10); EOSINOPHILS # (AUTO) 0.5 10^3/uL (0.0-0.3); EOSINOPHILS % (AUTO) 5 % (0-10); HEMATOCRIT 34 % (35-52); HEMOGLOBIN 10.5 g/dL (11.5-16.0); LYMPHOCYTES # (AUTO) 2.3 10^3/uL (1.0-4.0); LYMPHOCYTES % (AUTO) 25 % (12-44); MEAN CORPUSCULAR HEMOGLOBIN 28 pg (25-34); MEAN CORPUSCULAR HGB CONC 31 g/dL (32-36); MEAN CORPUSCULAR VOLUME 90 fL (80-99); MEAN PLATELET VOLUME 9.4 fL (9.0-12.2); MONOCYTES # (AUTO) 0.9 10^3/uL (0.0-1.0); MONOCYTES % (AUTO) 10 % (0-12); NEUTROPHILS # (AUTO) 5.4 10^3/uL (1.8-7.8); NEUTROPHILS % (AUTO) 58 % (42-75); PLATELET COUNT 395 10^3/uL (130-400); WHITE BLOOD COUNT 9.2 10^3/uL (4.3-11.0)
[2021-02-15 16:22] LABS: ALBUMIN 2.9 GM/DL (3.2-4.5); CHLORIDE 111 MMOL/L (98-107); POTASSIUM 3.8 MMOL/L (3.6-5.0); SODIUM 141 MMOL/L (135-145)
[2021-02-15 16:23] LABS: CALCIUM 8.1 MG/DL (8.5-10.1)
[2021-02-15 16:24] LABS: GLUCOSE 96 MG/DL (70-105)
[2021-02-15 16:25] LABS: CARBON DIOXIDE 25 MMOL/L (21-32)
[2021-02-15 16:26] LABS: BILIRUBIN,TOTAL 0.2 MG/DL (0.1-1.0)
[2021-02-15 16:28] LABS: ALKALINE PHOSPHATASE 92 U/L (40-136); CREATININE SERUM 0.58 MG/DL (0.60-1.30); GFR ESTIMATED > 60
[2021-02-15 16:29] LABS: BUN/CREATININE RATIO 16
[2021-02-15 16:31] LABS: ALANINE AMINOTRANSFERASE 21 U/L (0-55)
--- NOTE | 2021-02-15 16:50 | Diagnostic Imaging Report ---
INDICATION: Abdominal pain KUB 4:49 PM Lung bases are clear. There are bilateral breast implants with calcified fibrous capsules. There is scoliosis of the lumbar spine convex to the left. There is a moderate amount of stool in the ascending colon. Bowel gas pattern is normal. IMPRESSION: No acute abnormality seen in the abdomen Dictated by: Dictated on workstation # [id number]
[2021-02-15 17:18] VITALS: BP 134/78
[2021-02-15] MEDS: fentaNYL INJ 100 MCG/2 ML AMP IVP PRN (18:00)
[2021-02-15] MEDS: LACTATED RINGERS 1,000 ML IV SCH (18:00)
[2021-02-15] MEDS ORDERED: TPN IV SCH (18:15)
[2021-02-15 19:46] VITALS: BP 134/85
[2021-02-15] MEDS: CIPROFLOXACIN 400 MG/D5W 200 ML (PRE-MIX) IV SCH (21:03)
[2021-02-15] MEDS: HYDROcodone/APAP 7.5 MG/325 MG (LORTAB, LORCET PLUS) TABLET PO PRN (21:05)
[2021-02-15] MEDS: metroNIDAZOLE 500 MG/100 ML IVPB (PRE-MIX) IV SCH (21:06)
--- NOTE | 2021-02-15 21:11 | HISTORY AND PHYSICAL ---
DATE OF SERVICE: ATTENDING MANAGEMENT SERVICES TECHNICIAN: Angi Sainz APRN HISTORY OF PRESENT ILLNESS: The patient is a 75-year-old female who was admitted on 01/12/2021 due to significant abdominal pain, distention and the inability to have a bowel movement for approximately five days. She reports a history of end colostomy as well as a Tory's pouch due to some form of left sided bowel perforation, which may have indicated a benign etiology including diverticulitis as well as colitis, which was done in 2013. She was evaluated by another surgeon and underwent a colonoscopy through the rectal stump as well as to the ostomy on 11/14/2020, which did not show any abnormalities. She then underwent reversal of the colostomy as well as a low anterior colorectal anastomosis and a parastomal hernia repair on 11/29/2020. She then presented with profound diarrhea and found to be Clostridium difficile positive and was treated with oral vancomycin. She reports that on this admission, she has had significant abdominal distention and crampy pain and has not had a bowel movement for about [address] scan was performed, which did show extensive stool throughout the colon and questionable anastomotic stricture, which was also a similar reading on the acute abdominal series. She was able to pass small amounts of flatus. On digital rectal examination, the stricture was palpable and very tight and the index finger was unable to pass through this region consistent with a near obstructing distal colonic lesion. On 01/12/2021, she underwent a sigmoidoscopy, exploratory laparotomy, resection of colorectum including the stricture as well as end colostomy and Tory's pouch and repair of incisional hernia. She did well postoperatively and over time was able to have colostomy function, tolerated diet and had adequate pain control and was ambulating well and was eventually discharged home. She presented to the Emergency Department today with a peristomal hernia as well as stomal prolapse. The mucosa was pink and viable and it is still functional. Her laboratory work is normal and she is afebrile. Her chief complaint is significant amount of pain within the region. PAST MEDICAL HISTORY: Perforated left sided colon status post colostomy and Tory's pouch with reversal, history of c. diff colitis, cardiac murmur, urinary incontinence, gastroesophageal reflux disease, esophagitis, hiatal hernia, arthritis, cataracts, anxiety. PAST SURGICAL HISTORY: Bladder and rectal surgery x5, left sided colonic resection and colostomy and Tory's pouch in 2014, reversal and parastomal hernia repair 11/29/2020, hysterectomy, multiple bilateral eye surgeries due to retinal detachment, colorectal resection, end colostomy and Tory's pouch on 01/17/2021. ALLERGIES: No known drug allergies. MEDICATIONS: Acetaminophen, codeine, citalopram, Dexilant, loperamide, lorazepam, miconazole powder, oxybutynin, prednisone, quetiapine fumarate. SOCIAL HISTORY: Negative smoke, negative alcohol. FAMILY HISTORY: Noncontributory. VITAL SIGNS: Temperature 37.1, blood pressure 134/85, pulse 89, respirations 18, pulse ox 98% on room air. REVIEW OF SYSTEMS: This is a thin female who does look somewhat malnourished with protein calorie malnutrition. No shortness of breath or difficulty breathing or cough or sputum production. No chest pain, palpitations, diaphoresis. No nausea, vomiting. She does have a parastomal hernia as well as prolapse; however, the mucosa was pink and viable and functional at this time. No fever, chills, no recent inadvertent weight loss. All other review of systems negative. PHYSICAL EXAMINATION: CHEST: Clear. Good breath sounds bilaterally. HEART: Regular, no murmurs. EXTREMITIES: No lower extremity edema, negative Homans sign. HEENT: No scleral icterus. NECK: No cervical lymphadenopathy. ABDOMEN: Soft. There is pain around the parastomal hernia along the left lateral abdomen. There is a colostomy prolapse; however, the mucosa was pink and viable and functional. She does have infraumbilical midline incision, and she was seen in the office with a mild superficial infection, which appears to have resolved. No fever, chills with approximately 20-pound weight loss in the past several months. PHYSICAL EXAM: CHEST: Clear. Good breath sounds bilateral. HEART: Regular, no murmurs. EXTREMITIES: No lower extremity edema, negative Homans sign. HEENT: No scleral icterus, no cervical lymphadenopathy. ABDOMEN: Soft, nondistended. There is a left lateral parastomal hernia with colostomy prolapse, which is pink and viable. Midline incision appears to be intact with no hernias. SKIN: Warm, dry. LABORATORY DATA: WBC 9.2, hemoglobin 10.5, hematocrit 34, platelets 395. BUN 9, creatinine 0.58, albumin 2.9. ASSESSMENT AND PLAN: A 75-year-old female with parastomal hernia as well as a stomal prolapse. The patient is thin and malnourished and has been through a lot of surgeries in the past several months. She is, however, symptomatic. She is able to tolerate a regular diet and we will continue that to bolster her nutrition; however, we will also access her [place] port and also start TPN and continue with IV antibiotics. Once her nutritional status is improved, we will likely proceed with reexploration, reseating of the colostomy as well as repair of the fascial hernia site where the existing colostomy is located with biologic mesh. We will do this in the next several days and allow for nutritional supplementation. We will also consult hospitalist for medical management. Job ID: [id number] DocumentID: [id number] Dictated Date: 02/15/2021 20:47:24 In Home Nanny Date: 02/15/2021 21:11:01 Dictated By: ALLEN FERNÁNDEZ MD MTDD
[2021-02-16 01:17] VITALS: BP 101/68
[2021-02-16] MEDS: LACTATED RINGERS 1,000 ML IV SCH ×3 (04:30→17:00)
[2021-02-16 04:58] VITALS: BP 115/71
[2021-02-16] MEDS: ONDANSETRON 4 MG/2 ML (SDV) Z0FRAN IVP PRN ×2 (05:09→12:28)
[2021-02-16 05:38] LABS: BASOPHILS # (AUTO) 0.1 10^3/uL (0.0-0.1); BASOPHILS % (AUTO) 1 % (0-10); EOSINOPHILS # (AUTO) 0.6 10^3/uL (0.0-0.3); EOSINOPHILS % (AUTO) 7 % (0-10); HEMATOCRIT 31 % (35-52); HEMOGLOBIN 9.4 g/dL (11.5-16.0); LYMPHOCYTES # (AUTO) 2.5 10^3/uL (1.0-4.0); LYMPHOCYTES % (AUTO) 32 % (12-44); MEAN CORPUSCULAR HEMOGLOBIN 27 pg (25-34); MEAN CORPUSCULAR HGB CONC 30 g/dL (32-36); MEAN CORPUSCULAR VOLUME 90 fL (80-99); MEAN PLATELET VOLUME 9.7 fL (9.0-12.2); MONOCYTES # (AUTO) 0.7 10^3/uL (0.0-1.0); MONOCYTES % (AUTO) 10 % (0-12); NEUTROPHILS # (AUTO) 3.9 10^3/uL (1.8-7.8); NEUTROPHILS % (AUTO) 50 % (42-75); PLATELET COUNT 371 10^3/uL (130-400); WHITE BLOOD COUNT 7.8 10^3/uL (4.3-11.0)
--- NOTE | 2021-02-16 05:43 | Consultation - Hospitalist ---
HPI History of Present Illness: HPI/Chief Complaint CC: Poor nutrition HPI: This is a 75yoWF clinic pt of [facility] who is known to me from prior C-diff colitis and previous colostomy take down and then redo of the colostomy by Dr. Mariscal who was admitted for nutrition issues, apparently she has not been keeping up with fluids or nutrition so we will work on IV nutrition, pain control, and we will take note of hx of c-diff colitis. Source: patient, RN/MD, old records Exam Limitations: no limitations Date Seen 02/16/21 Attending Physician Neela Mariscal MD PCP Angi Sainz Aprn Referring Physician Date of Admission February 15, 2021 at 15:39 Home Medications & Allergies Home Medications Reviewed patient Home Medication Reconciliation performed by pharmacy medication reconciliations electronic lab technician and/or nursing. Patients Allergies have been reviewed. Allergies Allergies Coded Allergies hydromorphone (Unverified Adverse Reaction, Unknown, PSYCH, 01/19/21) Past Medical/Social/Family Hx Patient Social History Marrital Status: single Employed/Student: employed Tobacco Use?: No Smoking Status: Never a Smoker Pt stated abuse/neglect: No Immunizations Up To Date Influenza Vaccine Up-to-Date: No; Not Current Tetanus Booster (TDap): Unknown Hepatitis A: No Hepatitis B: No TB Skin Test: None Current Status Communicates: Verbally Primary Language: Macanese Preferred Spoken Language: Macanese Is interpretation needed?: No Past Medical History OAB IBS Anemia Family Medical History Family Hx: NC Review of Systems Constitutional: see HPI, malaise, weakness Gastrointestinal: abdominal pain, loss of appetite, nausea, vomiting Physical Exam Physical Exam Vital Signs Vital Signs - First Documented 02/15/21 15:55 Temp 36.9 Pulse 81 Resp 18 B/P (MAP) 142/92 (109) Pulse Ox 99 O2 Delivery Room Air Capillary Refill : Less Than 3 Seconds Height, Weight, BMI Height: 5'0.00" Weight: 100lbs. 3.2oz. [id number]; 19.65 BMI Method:Stated General Appearance: No Apparent Distress, WD/WN, Chronically ill, Thin Eyes: Bilateral Eye Normal Inspection, Bilateral Eye PERRL, Bilateral Eye EOMI Neck: Full Range of Motion, Normal Inspection Respiratory: Normal Breath Sounds, No Accessory Muscle Use, No Respiratory Distress Cardiovascular: Regular Rate, Rhythm, Normal Peripheral Pulses Gastrointestinal: Normal Bowel Sounds, Non Tender, Soft, Other (Abdomen is nontender except for directly around the stoma where there is no cellulitis. The incision has a small area of dehiscence superficially. No drainage. No s urrounding cellulitis. No palpable induration. There is prolapse of the stoma) Extremity: Normal Capillary Refill, Normal Inspection Neurologic/Psychiatric: Alert, Oriented x3 Skin: Normal Color, Warm/Dry Results Results/Procedures Labs Laboratory Tests 02/15/21 16:02 02/16/21 05:26 02/17/21 04:45 Patient resulted labs reviewed. Assessment/Plan Assessment and Plan Assess & Plan/Chief Complaint Assessment: Poor nutrition Recent colostomy C diff hx Abdominal pain Plan: Monitor closely IVF Supportive care CORNELIO LARSEN DO February 16, 2021 05:43
[2021-02-16 06:14] LABS: CHLORIDE 110 MMOL/L (98-107); POTASSIUM 4.1 MMOL/L (3.6-5.0); SODIUM 141 MMOL/L (135-145)
[2021-02-16 06:15] LABS: CALCIUM 7.9 MG/DL (8.5-10.1); GLUCOSE 94 MG/DL (70-105)
[2021-02-16 06:17] LABS: CARBON DIOXIDE 26 MMOL/L (21-32)
[2021-02-16 06:19] LABS: CREATININE SERUM 0.59 MG/DL (0.60-1.30); GFR ESTIMATED > 60
[2021-02-16 06:20] LABS: BUN/CREATININE RATIO 15
[2021-02-16 08:00] VITALS: BP 119/69
[2021-02-16] MEDS: PANTOPRAZOLE 40 MG (PROTONIX) VIAL IV SCH (08:53)
[2021-02-16] MEDS: metroNIDAZOLE 500 MG/100 ML IVPB (PRE-MIX) IV SCH ×3 (08:53→21:16)
[2021-02-16 09:04] LABS: MAGNESIUM 1.8 MG/DL (1.6-2.4); PHOSPHORUS 3.6 MG/DL (2.3-4.7)
[2021-02-16] MEDS: CIPROFLOXACIN 400 MG/D5W 200 ML (PRE-MIX) IV SCH ×2 (10:25→20:35)
--- NOTE | 2021-02-16 10:59 | Progress Note ---
Subjective Date Seen by a Provider: February 16, 2021 Time Seen by a Provider: 10:00 Subjective/Events-last exam doing well. pain better controlled. prolapsed colostomy functional with no signs ischemia. Objective Exam Vital Signs Date Time Temp Pulse Resp B/P (MAP) Pulse Ox O2 Delivery O2 Flow Rate FiO2 02/16/21 08:00 36.3 50 18 119/69 (86) 95 Room Air 02/16/21 04:58 36.0 55 20 115/71 (86) 97 Room Air 02/16/21 01:17 36.2 60 18 101/68 (79) 96 Room Air 02/15/21 20:48 95 Room Air 02/15/21 19:46 37.1 89 18 134/85 (101) 98 Room Air 02/15/21 17:43 98 Room Air 02/15/21 17:18 35.8 58 22 134/78 (96) 98 Room Air 02/15/21 17:10 59 18 145/78 100 Room Air 02/15/21 15:55 36.9 81 18 142/92 (109) 99 Room Air I & O 02/16/21 07:00 Intake Total 850 ml Balance 850 ml Capillary Refill : Less Than 3 Seconds General Appearance: No Apparent Distress HEENT: PERRL/EOMI Neck: Full Range of Motion Respiratory: Chest Non Tender, Lungs Clear, Normal Breath Sounds Cardiovascular: Regular Rate, Rhythm Gastrointestinal: normal bowel sounds, soft, tenderness Extremity: Normal Capillary Refill Neurologic/Psychiatric: Alert, Oriented x3 Skin: Normal Color Lymphatic: No Adenopathy Results Lab Laboratory Tests 02/15/21 16:02: White Blood Count 9.2, Red Blood Count 3.77L, Hemoglobin 10.5L, Hematocrit 34L, Mean Corpuscular Volume 90, Mean Corpuscular Hemoglobin 28, Mean Corpuscular Hemoglobin Concent 31L, Red Cell Distribution Width 22.5H, Platelet Count 395, Mean Platelet Volume 9.4, Immature Granulocyte % (Auto) 0, Neutrophils (%) (Auto) 58, Lymphocytes (%) (Auto) 25, Monocytes (%) (Auto) 10, Eosinophils (%) (Auto) 5, Basophils (%) (Auto) 1, Neutrophils # (Auto) 5.4, Lymphocytes # (Auto) 2.3, Monocytes # (Auto) 0.9, Eosinophils # (Auto) 0.5H, Basophils # (Auto) 0.1, Immature Granulocyte # (Auto) 0.0, Sodium Level 141, Potassium Level 3.8, Chloride Level 111H, Carbon Dioxide Level 25, Anion Gap 5, Blood Urea Nitrogen 9, Creatinine 0.58L, Estimat Glomerular Filtration Rate > 60, BUN/Creatinine Ratio 16, Glucose Level 96, Calcium Level 8.1L, Corrected Calcium 9.0, Total Bilirubin 0.2, Aspartate Amino Transf (AST/SGOT) 16, Alanine Aminotransferase (ALT/SGPT) 21, Alkaline Phosphatase 92, Total Protein 6.0L, Albumin 2.9L 02/16/21 05:26: White Blood Count 7.8, Red Blood Count 3.44L, Hemoglobin 9.4L, Hematocrit 31L, Mean Corpuscular Volume 90, Mean Corpuscular Hemoglobin 27, Mean Corpuscular Hemoglobin Concent 30L, Red Cell Distribution Width 22.7H, Platelet Count 371, Mean Platelet Volume 9.7, Immature Granulocyte % (Auto) 0, Neutrophils (%) (Auto) 50, Lymphocytes (%) (Auto) 32, Monocytes (%) (Auto) 10, Eosinophils (%) (Auto) 7, Basophils (%) (Auto) 1, Neutrophils # (Auto) 3.9, Lymphocytes # (Auto) 2.5, Monocytes # (Auto) 0.7, Eosinophils # (Auto) 0.6H, Basophils # (Auto) 0.1, Immature Granulocyte # (Auto) 0.0, Sodium Level 141, Potassium Level 4.1, Chloride Level 110H, Carbon Dioxide Level 26, Anion Gap 5, Blood Urea Nitrogen 9, Creatinine 0.59L, Estimat Glomerular Filtration Rate > 60, BUN/Creatinine Ratio 15, Glucose Level 94, Calcium Level 7.9L, Phosphorus Level 3.6, Magnesium Level 1.8, Triglycerides Level 71 Assessment/Plan Assessment/Plan Assess & Plan/Chief Complaint prolapsed colostomy with malnutrition. high protein TPN. abx for superficial wound infxn. plan for reseating colostomy and fascial closure with biologic mesh. ALLEN FERNÁNDEZ MD February 16, 2021 10:59
[2021-02-16] MEDS ORDERED: ACET1TAB43 PO (11:16)
[2021-02-16] MEDS ORDERED: DEXL60CA PO (11:16)
[2021-02-16] MEDS ORDERED: AMOX1TAB12 PO (11:16)
[2021-02-16] MEDS ORDERED: IBUP-2473 PO (11:20)
[2021-02-16 12:00] VITALS: BP 126/80
[2021-02-16] MEDS: HYDROcodone/APAP 7.5 MG/325 MG (LORTAB, LORCET PLUS) TABLET PO PRN ×2 (12:28→20:42)
[2021-02-16 16:30] VITALS: BP 110/71
[2021-02-16] MEDS: POTASSIUM CHLORIDE IV SCH ×10 (18:13)
[2021-02-16] MEDS: SODIUM PHOSPHATE IV SCH ×10 (18:13)
[2021-02-16] MEDS: [UNRECOGNIZED DRUG - OTHER] IV SCH ×10 (18:13)
[2021-02-16] MEDS: SODIUM ACETATE IV SCH ×10 (18:13)
[2021-02-16 19:30] VITALS: BP 126/71
[2021-02-16] MEDS: fentaNYL INJ 100 MCG/2 ML AMP IVP PRN (23:19)
[2021-02-17 00:49] VITALS: BP 144/72
[2021-02-17 04:37] VITALS: BP 136/64
[2021-02-17] MEDS: LACTATED RINGERS 1,000 ML IV SCH ×2 (05:03→20:42)
[2021-02-17 05:05] LABS: ALBUMIN 2.7 GM/DL (3.2-4.5); CHLORIDE 106 MMOL/L (98-107); POTASSIUM 4.2 MMOL/L (3.6-5.0); SODIUM 141 MMOL/L (135-145)
[2021-02-17 05:07] LABS: CALCIUM 8.3 MG/DL (8.5-10.1)
[2021-02-17 05:08] LABS: GLUCOSE 103 MG/DL (70-105); TOTAL PROTEIN 5.4 GM/DL (6.4-8.2)
[2021-02-17 05:09] LABS: BILIRUBIN,TOTAL 0.2 MG/DL (0.1-1.0); CARBON DIOXIDE 29 MMOL/L (21-32)
[2021-02-17 05:11] LABS: ALKALINE PHOSPHATASE 81 U/L (40-136); PHOSPHORUS 4.1 MG/DL (2.3-4.7)
[2021-02-17 05:12] LABS: CREATININE SERUM 0.64 MG/DL (0.60-1.30); GFR ESTIMATED > 60
[2021-02-17 05:13] LABS: BUN/CREATININE RATIO 11
[2021-02-17 05:14] LABS: ALANINE AMINOTRANSFERASE 16 U/L (0-55); MAGNESIUM 1.9 MG/DL (1.6-2.4)
[2021-02-17] MEDS: ONDANSETRON 4 MG/2 ML (SDV) Z0FRAN IVP PRN ×2 (05:45→18:22)
--- NOTE | 2021-02-17 06:40 | Progress Note - Hospitalist ---
Subjective HPI/CC On Admission Date Seen by Provider: February 17, 2021 Time Seen by Provider: 11:00 CC: Poor nutrition HPI: This is a 75yoWF clinic pt of [facility] who is known to me from prior C-diff colitis and previous colostomy take down and then redo of the colostomy by Dr. Mariscal who was admitted for nutrition issues, apparently she has not been keeping up with fluids or nutrition so we will work on IV nutrition, pain control, and we will take note of hx of c-diff colitis. Subjective/Events-last exam Patient doing well TPN maintained Not eating well OR this week Pain controlled Review of Systems General: Fatigue, Malaise Neurological: Weakness Objective Exam Vital Signs Vital Signs Date Time Temp Pulse Resp B/P (MAP) Pulse Ox O2 Delivery O2 Flow Rate FiO2 02/18/21 04:36 36.8 67 18 103/69 (80) 95 Room Air Capillary Refill : Less Than 3 Seconds General Appearance: No Apparent Distress, WD/WN, Chronically ill Respiratory: Lungs Clear Cardiovascular: Regular Rate, Rhythm Neurologic/Psychiatric: Alert, Oriented x3 Results/Procedures Lab Patient resulted labs reviewed. Assessment/Plan Assessment and Plan Assess & Plan/Chief Complaint Assessment: Poor nutrition Recent colostomy C diff hx Abdominal pain Plan: Monitor closely IVF Supportive care 02/16/21: TPN Pain control OR this week CORNELIO LARSEN DO February 17, 2021 06:40
[2021-02-17] MEDS: PANTOPRAZOLE 40 MG (PROTONIX) VIAL IV SCH (08:10)
[2021-02-17] MEDS: fentaNYL INJ 100 MCG/2 ML AMP IVP PRN ×3 (08:10→18:22)
[2021-02-17] MEDS: CIPROFLOXACIN 400 MG/D5W 200 ML (PRE-MIX) IV SCH ×2 (08:11→20:41)
[2021-02-17] MEDS: metroNIDAZOLE 500 MG/100 ML IVPB (PRE-MIX) IV SCH ×3 (08:11→20:41)
[2021-02-17 08:17] VITALS: BP 128/82
[2021-02-17] MEDS: HYDROcodone/APAP 7.5 MG/325 MG (LORTAB, LORCET PLUS) TABLET PO PRN ×2 (09:28→20:42)
--- NOTE | 2021-02-17 10:13 | Progress Note ---
Subjective Date Seen by a Provider: February 17, 2021 Time Seen by a Provider: 09:40 Subjective/Events-last exam Patient seen with Dr. Mariscal. Patient reports that she was doing well until this morning when she woke up nauseated and vomited, which she reports was bile. Does report abdominal pain around the ostomy, but reports that it is functioning. Denies any fever or chills. She reports she has been ambulating. Objective Exam Vital Signs Date Time Temp Pulse Resp B/P (MAP) Pulse Ox O2 Delivery O2 Flow Rate FiO2 02/17/21 08:17 36.3 62 18 128/82 (97) 98 Room Air 02/17/21 04:37 36.0 56 18 136/64 (88) 95 Room Air 02/17/21 00:49 36.3 63 20 144/72 (96) 94 Room Air 02/16/21 20:21 94 Room Air 02/16/21 19:30 36.5 60 20 126/71 (89) 97 Room Air 02/16/21 16:30 36.7 60 18 110/71 (84) 96 Room Air 02/16/21 12:00 36.7 61 20 126/80 (95) 97 Room Air I & O 02/17/21 06:59 Intake Total 2230 ml Balance 2230 ml Capillary Refill : Less Than 3 Seconds General Appearance: No Apparent Distress, WD/WN, Thin Neck: Normal Inspection, Supple Respiratory: No Accessory Muscle Use, No Respiratory Distress Cardiovascular: Regular Rate, Rhythm, No Edema Gastrointestinal: normal bowel sounds, soft, tenderness, other (Prolapsed s shavonne, pink and moist, functioning) Extremity: Normal Inspection, Normal Range of Motion Neurologic/Psychiatric: Alert, Oriented x3 Skin: Normal Color, Warm/Dry, Other (Midline abdominal incision C/D/I, there is a small opening toward the superior aspect which is healing with no signs of infection.) Results Lab Laboratory Tests 02/16/21 11:15: Prealbumin 18.7 02/16/21 15:18: Glucometer 113H 02/16/21 18:45: Glucometer 101 02/17/21 00:47: Glucometer 110 02/17/21 04:45: Sodium Level 141, Potassium Level 4.2, Chloride Level 106, Carbon Dioxide Level 29, Anion Gap 6, Blood Urea Nitrogen 7, Creatinine 0.64, Estimat Glomerular Filtration Rate > 60, BUN/Creatinine Ratio 11, Glucose Level 103, Calcium Level 8.3L, Corrected Calcium 9.3, Phosphorus Level 4.1, Magnesium Level 1.9, Total Bilirubin 0.2, Aspartate Amino Transf (AST/SGOT) 13, Alanine Aminotransferase (ALT/SGPT) 16, Alkaline Phosphatase 81, Total Protein 5.4L, Albumin 2.7L Assessment/Plan Assessment/Plan Assess & Plan/Chief Complaint A 75 year old female with a prolapsed colostomy with malnutrition. high protein TPN. abx for superficial wound infxn. Continue pain and nausea meds as needed plan for reseating colostomy and fascial closure with biologic mesh. JONHNY GUERRERO FOREST PATHOLOGY PROFESSOR February 17, 2021 10:13
[2021-02-17 12:05] VITALS: BP 108/57
[2021-02-17 16:30] VITALS: BP 104/67
[2021-02-17] MEDS: [UNRECOGNIZED DRUG - OTHER] IV SCH ×20 (18:32→22:10)
[2021-02-17] MEDS: POTASSIUM CHLORIDE IV SCH ×20 (18:32→22:10)
[2021-02-17] MEDS: SODIUM PHOSPHATE IV SCH ×20 (18:32→22:10)
[2021-02-17] MEDS: SODIUM ACETATE IV SCH ×20 (18:32→22:10)
[2021-02-17 20:00] VITALS: BP 138/64
[2021-02-17] MEDS ORDERED: LORazepam 1 MG (ATIVAN) TAB ONE (20:30)
[2021-02-18 04:36] VITALS: BP 103/69
[2021-02-18 06:14] LABS: ALANINE AMINOTRANSFERASE 10 U/L (0-55); ALBUMIN 2.5 GM/DL (3.2-4.5); ALKALINE PHOSPHATASE 76 U/L (40-136); BILIRUBIN,TOTAL 0.2 MG/DL (0.1-1.0); BUN/CREATININE RATIO 17; CALCIUM 7.9 MG/DL (8.5-10.1); CARBON DIOXIDE 29 MMOL/L (21-32); CHLORIDE 106 MMOL/L (98-107); CREATININE SERUM 0.58 MG/DL (0.60-1.30); GFR ESTIMATED > 60; GLUCOSE 95 MG/DL (70-105); POTASSIUM 4.2 MMOL/L (3.6-5.0); SODIUM 139 MMOL/L (135-145)
--- NOTE | 2021-02-18 06:34 | Progress Note - Hospitalist ---
Subjective HPI/CC On Admission Date Seen by Provider: February 18, 2021 Time Seen by Provider: 10:00 CC: Poor nutrition HPI: This is a 75yoWF clinic pt of [facility] who is known to me from prior C-diff colitis and previous colostomy take down and then redo of the colostomy by Dr. Mariscal who was admitted for nutrition issues, apparently she has not been keeping up with fluids or nutrition so we will work on IV nutrition, pain control, and we will take note of hx of c-diff colitis. Subjective/Events-last exam Patient doing well TPN tolerated OR Friday No pain reported currently No falls Checked meds and labs Review of Systems General: Fatigue, Malaise Objective Exam Vital Signs Vital Signs Date Time Temp Pulse Resp B/P (MAP) Pulse Ox O2 Delivery O2 Flow Rate FiO2 02/18/21 15:59 36.9 63 18 124/66 (85) 97 Room Air Capillary Refill : Less Than 3 Seconds General Appearance: No Apparent Distress, WD/WN, Chronically ill Respiratory: Lungs Clear Cardiovascular: Regular Rate, Rhythm Neurologic/Psychiatric: Alert, Oriented x3 Results/Procedures Lab Laboratory Tests 02/18/21 05:46 Patient resulted labs reviewed. Assessment/Plan Assessment and Plan Assess & Plan/Chief Complaint Assessment: Poor nutrition Recent colostomy C diff hx Abdominal pain Plan: Monitor closely IVF Supportive care 02/16/21: TPN Pain control OR this week 02/18/21: Monitor closely Monitor BP CORNELIO LARSEN DO February 18, 2021 06:34
[2021-02-18 08:50] VITALS: BP 110/59
[2021-02-18] MEDS: PANTOPRAZOLE 40 MG (PROTONIX) VIAL IV SCH (09:15)
[2021-02-18] MEDS: metroNIDAZOLE 500 MG/100 ML IVPB (PRE-MIX) IV SCH ×3 (09:15→21:12)
--- NOTE | 2021-02-18 10:07 | Progress Note ---
Subjective Date Seen by a Provider: February 18, 2021 Time Seen by a Provider: 09:40 Subjective/Events-last exam Patient seen with Dr. Mariscal. Patient reports doing well this morning with no nausea or vomiting. Reports she still has some discomfort around the ostomy, but it continues to function. Tolerating diet. Reports the medication for anxiety helps. Objective Exam Vital Signs Date Time Temp Pulse Resp B/P (MAP) Pulse Ox O2 Delivery O2 Flow Rate FiO2 02/18/21 08:50 36.2 62 18 110/59 (76) 97 Room Air 02/18/21 04:36 36.8 67 18 103/69 (80) 95 Room Air 02/17/21 20:00 Room Air 02/17/21 20:00 37.0 59 18 138/64 (88) 98 Room Air 02/17/21 16:30 36.4 65 18 104/67 (79) 97 Room Air 02/17/21 12:05 36.4 53 18 108/57 (74) 98 Room Air I & O 02/18/21 07:00 Intake Total 1220 ml Output Total 300 ml Balance 920 ml Capillary Refill : Less Than 3 Seconds General Appearance: No Apparent Distress, WD/WN Neck: Normal Inspection, Supple Respiratory: No Accessory Muscle Use, No Respiratory Distress Cardiovascular: Regular Rate, Rhythm, No Edema Gastrointestinal: normal bowel sounds, soft, tenderness (around ostomy), other (Prolapsed ostomy is pink and moist with stool in the bag ) Extremity: Normal Inspection, Normal Range of Motion Neurologic/Psychiatric: Alert, Oriented x3 Skin: Normal Color, Warm/Dry, Other (Mid-abdominal incision has small opening of superior aspect with no signs of infection.) Results Lab Laboratory Tests 02/17/21 11:33: Glucometer 88 02/18/21 05:46: Sodium Level 139, Potassium Level 4.2, Chloride Level 106, Carbon Dioxide Level 29, Anion Gap 4L, Blood Urea Nitrogen 10, Creatinine 0.58L, Estimat Glomerular Filtration Rate > 60, BUN/Creatinine Ratio 17, Glucose Level 95, Calcium Level 7.9L, Corrected Calcium 9.1, Phosphorus Level 4.0, Magnesium Level 2.0, Total Bilirubin 0.2, Aspartate Amino Transf (AST/SGOT) 11, Alanine Aminotransferase (ALT/SGPT) 10, Alkaline Phosphatase 76, Total Protein 5.0L, Albumin 2.5L Assessment/Plan Assessment/Plan Assess & Plan/Chief Complaint A 75 year old female with a prolapsed colostomy with malnutrition. high protein TPN. abx for superficial wound infxn. Continue pain and nausea meds as needed plan for reseating colostomy and fascial closure with biologic mesh. JOHNNY GUERRERO HANDS AND DIAL INSPECTOR February 18, 2021 10:07
[2021-02-18] MEDS: CIPROFLOXACIN 400 MG/D5W 200 ML (PRE-MIX) IV SCH ×2 (11:05→20:04)
[2021-02-18 11:35] VITALS: BP 101/58
[2021-02-18] MEDS ORDERED: polyethylene glycoL POWDER 17 GM (MIRALAX) PACK PO SCH (13:00)
[2021-02-18 15:59] VITALS: BP 124/66
[2021-02-18] MEDS: [UNRECOGNIZED DRUG - OTHER] IV SCH ×20 (17:05→17:26)
[2021-02-18] MEDS: POTASSIUM CHLORIDE IV SCH ×20 (17:05→17:26)
[2021-02-18] MEDS: SODIUM ACETATE IV SCH ×20 (17:05→17:26)
[2021-02-18] MEDS: SODIUM PHOSPHATE IV SCH ×20 (17:05→17:26)
[2021-02-18 19:36] VITALS: BP 132/64
[2021-02-18] MEDS: LACTATED RINGERS 1,000 ML IV SCH ×2 (20:05→22:55)
[2021-02-18] MEDS: LORazepam INJ 2 MG/ML (ATIVAN) VIAL IVP PRN (21:12)
[2021-02-19 00:06] VITALS: BP 97/61
[2021-02-19 03:49] VITALS: BP 101/64
[2021-02-19 06:18] LABS: ALANINE AMINOTRANSFERASE 11 U/L (0-55); ALBUMIN 2.7 GM/DL (3.2-4.5); ALKALINE PHOSPHATASE 78 U/L (40-136); BILIRUBIN,TOTAL 0.2 MG/DL (0.1-1.0); BUN/CREATININE RATIO 12; CALCIUM 7.9 MG/DL (8.5-10.1); CARBON DIOXIDE 28 MMOL/L (21-32); CHLORIDE 109 MMOL/L (98-107); CREATININE SERUM 0.65 MG/DL (0.60-1.30); GFR ESTIMATED > 60; GLUCOSE 102 MG/DL (70-105); PHOSPHORUS 3.7 MG/DL (2.3-4.7); POTASSIUM 4.5 MMOL/L (3.6-5.0); SODIUM 142 MMOL/L (135-145); TOTAL PROTEIN 5.5 GM/DL (6.4-8.2)
[2021-02-19 07:44] VITALS: BP 149/72
[2021-02-19] MEDS: CIPROFLOXACIN 400 MG/D5W 200 ML (PRE-MIX) IV SCH ×2 (08:38→19:36)
[2021-02-19] MEDS: metroNIDAZOLE 500 MG/100 ML IVPB (PRE-MIX) IV SCH ×3 (08:38→21:00)
[2021-02-19] MEDS: PANTOPRAZOLE 40 MG (PROTONIX) VIAL IV SCH (08:38)
[2021-02-19] MEDS: HYDROcodone/APAP 7.5 MG/325 MG (LORTAB, LORCET PLUS) TABLET PO PRN ×2 (08:43→17:39)
[2021-02-19 11:37] VITALS: BP 105/59
[2021-02-19] MEDS: polyethylene glycoL POWDER 17 GM (MIRALAX) PACK PO SCH ×2 (12:13→16:45)
[2021-02-19] MEDS ORDERED: polyethylene glycoL POWDER 17 GM (MIRALAX) PACK PO ONE (13:00)
[2021-02-19 15:29] VITALS: BP 113/54
--- NOTE | 2021-02-19 16:41 | Physician Query Clarification ---
Physician Query-General Query to Physician: The medical record reflects the following clinical scenario: The patient, in the setting of History/Risk factors, Multiple Bowel surgeries with plan for additional surgical procedures, Hx of C Diff, Clinical Findings poor wound healing due to "Malnutrition", Weakness, Wt loss of 10% in last month (5 Kg loss, 50 kg previous wt) Treatment: Supplemental TPN with regular Diet, Nutritional monitoring Question: Can you further specify Malnutrition per the clinical indicators above? Please document your response in the Progress Notes or Discharge Summary. 1. Severe protein Calorie Malnutrition 2. Other, with explanation of clinical findings 3. Clinically undetermined, no explanation for clinical findings Please clarify and document your clinical opinion in the Progress Notes and Discharge Summary including the definitive and/or presumptive diagnosis, (suspected or probable), related to the above clinical findings. Please include clinical findings supporting your diagnosis. In responding to this query, please exercise your independent professional judgment. The purpose of this communication is to more accurately reflect the complexity of your patients condition. The fact that a question is asked does not imply that any particular answer is desired or expected. Please remember a lack of response to the above will prompt a phone page by CDI/coding staff. Thank you for timely response to this clarification. Becky Rowe [phone] PHYSICIAN RESPONSE: Based on the clinical findings in the record, please respond to the query above on this document as an addendum. Physician Response: Physician Response 1. If you have questions please contact: Tetryl Dissolver Operator: Ext: Thank you for your time and cooperation. Clinical Museum Technician/Tetryl Dissolver Operator This is a permanent part of the medical record BECKY ROWE February 19, 2021 16:41 ALLEN FERNÁNDEZ MD February 20, 2021 14:29
[2021-02-19] MEDS: SODIUM ACETATE IV SCH ×10 (16:45)
[2021-02-19] MEDS: SODIUM PHOSPHATE IV SCH ×10 (16:45)
[2021-02-19] MEDS: POTASSIUM CHLORIDE IV SCH ×10 (16:45)
[2021-02-19] MEDS: [UNRECOGNIZED DRUG - OTHER] IV SCH ×10 (16:45)
--- NOTE | 2021-02-19 17:31 | Progress Note ---
Subjective Date Seen by a Provider: February 19, 2021 Time Seen by a Provider: 17:10 Subjective/Events-last exam Patient seen with Dr. Mariscal. Patient reports doing well today. Denies any nausea, vomiting, or significant abdominal pain today. She does report some tenderness around her ostomy. Tolerating diet and colonic prep started. Objective Exam Vital Signs Date Time Temp Pulse Resp B/P (MAP) Pulse Ox O2 Delivery O2 Flow Rate FiO2 02/19/21 15:29 36.9 68 18 113/54 (73) 97 Room Air 02/19/21 11:37 36.8 83 20 105/59 (74) 98 Room Air 02/19/21 08:00 98 Room Air 02/19/21 07:44 36.6 72 18 149/72 (97) 98 Room Air 02/19/21 03:49 37.0 64 17 101/64 (76) 96 Room Air 02/19/21 00:06 36.5 82 18 97/61 (73) 97 Room Air 02/18/21 20:05 Room Air 02/18/21 19:36 37.4 75 20 132/64 (86) 94 Room Air I & O 02/19/21 07:00 Intake Total 2726.73 ml Balance 2726.73 ml Capillary Refill : Less Than 3 Seconds General Appearance: No Apparent Distress, WD/WN Neck: Normal Inspection, Supple Respiratory: No Accessory Muscle Use, No Respiratory Distress Cardiovascular: Regular Rate, Rhythm, No Edema Gastrointestinal: normal bowel sounds, soft, tenderness (Around the ostomy), other (Prolapsed ostomy which is pink and moist with stool in ostomy bag) Extremity: Normal Inspection, Normal Range of Motion Neurologic/Psychiatric: Alert, Oriented x3 Skin: Normal Color, Warm/Dry Results Lab Laboratory Tests 02/19/21 05:30: Glucometer 100 02/19/21 05:45: Sodium Level 142, Potassium Level 4.5, Chloride Level 109H, Carbon Dioxide Level 28, Anion Gap 5, Blood Urea Nitrogen 8, Creatinine 0.65, Estimat Glomerular Filtration Rate > 60, BUN/Creatinine Ratio 12, Glucose Level 102, Calcium Level 7.9L, Corrected Calcium 8.9, Phosphorus Level 3.7, Magnesium Level 2.0, Total Bilirubin 0.2, Aspartate Amino Transf (AST/SGOT) 17, Alanine Aminotransferase (ALT/SGPT) 11, Alkaline Phosphatase 78, Total Protein 5.5L, Albumin 2.7L Microbiology 02/18/21 MRSA Screen - Final, Complete Assessment/Plan Assessment/Plan Assess & Plan/Chief Complaint A 75 year old female with a prolapsed colostomy with malnutrition. high protein TPN. abx for superficial wound infxn. Continue pain and nausea meds as needed plan for reseating colostomy and fascial closure with biologic mesh tomorrow. JOHNNY GUERRERO ASSISTANT TO THE DIRECTOR February 19, 2021 17:31
[2021-02-19] MEDS: LACTATED RINGERS 1,000 ML IV SCH (17:38)
[2021-02-19] MEDS: ONDANSETRON 4 MG/2 ML (SDV) Z0FRAN IVP PRN (17:39)
--- NOTE | 2021-02-19 18:20 | Progress Note ---
Subjective Subjective/Events-last exam Afebrile, no acute events, denies concerns. Plan for surgery tomorrow. Is working on prep now. Objective Exam Last Set of Vital Signs Vital Signs Date Time Temp Pulse Resp B/P (MAP) Pulse Ox O2 Delivery O2 Flow Rate FiO2 02/19/21 15:29 36.9 68 18 113/54 (73) 97 Room Air Capillary Refill : Less Than 3 Seconds I&O Intake and Output 02/19/21 00:00 Intake Total 2726.73 ml Balance 2726.73 ml Intake Oral 1405 ml IV Total 1321.73 ml # Voids 13 # Bowel Movements 4 General: Alert, No Acute Distress Lungs: Clear to Auscultation Heart: Regular Rate Abdomen: Normal Bowel Sounds, Soft, Other (ostomy in place with prolapse) Psych/Mental Status: Mood NL Results/Procedures Lab Laboratory Tests 02/19/21 05:30: Glucometer 100 02/19/21 05:45: Sodium Level 142, Potassium Level 4.5, Chloride Level 109H, Carbon Dioxide Level 28, Anion Gap 5, Blood Urea Nitrogen 8, Creatinine 0.65, Estimat Glomerular Filtration Rate > 60, BUN/Creatinine Ratio 12, Glucose Level 102, Calcium Level 7.9L, Corrected Calcium 8.9, Phosphorus Level 3.7, Magnesium Level 2.0, Total Bilirubin 0.2, Aspartate Amino Transf (AST/SGOT) 17, Alanine Aminotransferase (ALT/SGPT) 11, Alkaline Phosphatase 78, Total Protein 5.5L, Albumin 2.7L Microbiology 02/18/21 MRSA Screen - Final, Complete Assessment/Plan Assessment/Plan (1) Stomal prolapse Status: Acute Assessment & Plan: Management per Dr. Mariscal, plan for surgery tomorrow. (2) Colostomy in place Status: Chronic (3) Poor nutrition Status: Acute Assessment & Plan: Started on TPN on admission. (4) Peristomal hernia Assessment & Plan: Management per Dr. Mariscal, plan for surgery tomorrow. (5) Colostomy in place KALIE GONZALEZ MD February 19, 2021 18:20
[2021-02-19 19:30] VITALS: BP 114/58
[2021-02-19] MEDS: LORazepam INJ 2 MG/ML (ATIVAN) VIAL IVP PRN (21:00)
[2021-02-20] VITALS (13 sets, daily range): BP systolic 103–138; BP diastolic 59–87
[2021-02-20] MEDS: ONDANSETRON 4 MG/2 ML (SDV) Z0FRAN IVP PRN (02:06)
[2021-02-20] MEDS: fentaNYL INJ 100 MCG/2 ML AMP IVP PRN ×5 (02:49→23:51)
[2021-02-20] MEDS: LORazepam INJ 2 MG/ML (ATIVAN) VIAL IVP PRN ×2 (05:37→23:51)
[2021-02-20 06:11] LABS: ALBUMIN 2.8 GM/DL (3.2-4.5); CHLORIDE 106 MMOL/L (98-107); POTASSIUM 4.3 MMOL/L (3.6-5.0); SODIUM 140 MMOL/L (135-145)
[2021-02-20 06:13] LABS: CALCIUM 8.2 MG/DL (8.5-10.1)
[2021-02-20 06:14] LABS: GLUCOSE 113 MG/DL (70-105); TOTAL PROTEIN 5.6 GM/DL (6.4-8.2)
[2021-02-20 06:15] LABS: CARBON DIOXIDE 26 MMOL/L (21-32)
[2021-02-20 06:16] LABS: BILIRUBIN,TOTAL 0.3 MG/DL (0.1-1.0)
[2021-02-20 06:17] LABS: ALKALINE PHOSPHATASE 73 U/L (40-136); PHOSPHORUS 4.1 MG/DL (2.3-4.7)
[2021-02-20 06:18] LABS: CREATININE SERUM 0.64 MG/DL (0.60-1.30); GFR ESTIMATED > 60
[2021-02-20 06:19] LABS: BUN/CREATININE RATIO 14
[2021-02-20 06:20] LABS: ALANINE AMINOTRANSFERASE 11 U/L (0-55)
[2021-02-20] MEDS: CIPROFLOXACIN 400 MG/D5W 200 ML (PRE-MIX) IV SCH (08:47)
[2021-02-20] MEDS: PANTOPRAZOLE 40 MG (PROTONIX) VIAL IV SCH (08:47)
[2021-02-20] MEDS: metroNIDAZOLE 500 MG/100 ML IVPB (PRE-MIX) IV SCH ×2 (08:47→16:22)
[2021-02-20] MEDS ORDERED: fentaNYL INJ 100 MCG/2 ML AMP ONE ×2 (11:21→12:48)
[2021-02-20] MEDS ORDERED: MIDAZOLAM 2 MG/2 ML (VERSED) VIAL ONE (11:21)
[2021-02-20] MEDS ORDERED: proPOfol 200 MG/20 ML (DIPRIVAN) VIAL IV ONE (11:21)
--- NOTE | 2021-02-20 11:23 | Progress Note-Pre Operative ---
Pre-Operative Progress Note H&P Reviewed The H&P was reviewed, patient examined and no changes noted. Date Seen by Provider: February 20, 2021 Time Seen by Provider: 10:00 Date H&P Reviewed: February 20, 2021 Time H&P Reviewed: 10:00 Pre-Operative Diagnosis: end colostomy parastomal hernia and prolapse ALLEN FERNÁNDEZ MD February 20, 2021 11:23
[2021-02-20] MEDS ORDERED: WATER (STERILE) FOR INJECTION 20 ML ONE (11:44)
[2021-02-20] MEDS ORDERED: ceFAZolin INJECTION 1,000 MG ONE (11:44)
[2021-02-20] MEDS ORDERED: LACTATED RINGERS 1,000 ML IV SCH (11:45)
[2021-02-20] MEDS ORDERED: ROCURONIUM 10 MG/ML 5 ML SYRINGE IV ONE (13:22)
[2021-02-20] MEDS ORDERED: ONDANSETRON 4 MG/2 ML (SDV) Z0FRAN ONE (13:22)
[2021-02-20] MEDS ORDERED: SEVOFLURANE (ULTANE) 15 ML INHAL SOLN ONE ×10 (13:22→14:28)
--- NOTE | 2021-02-20 13:59 | Progress Note-Post Operative ---
Post-Operative Progess Note Surgeon (s)/University Archivist (s) Surgeon ALLEN FERNÁNDEZ MD University Archivist: chelsy ambrosio MANUAL LATHE MACHINIST Pre-Operative Diagnosis end colostomy parastomal hernia and prolapse Post-Operative Diagnosis same Procedure & Operative Findings Date of Procedure 02/20/21 Procedure Performed/Findings exploratory laparotomy, reseating end colostomy, repair incisional hernia with biologic mesh. Anesthesia Type get Estimated Blood Loss Estimated blood loss (mL): minimal Specimens/Packing Specimens Removed end colostomy ALLEN FERNÁNDEZ MD February 20, 2021 13:59
[2021-02-20] MEDS ORDERED: BUPIVACAINE 0.5% 30 ML (SENSORCAINE) VIAL ONE (14:29)
[2021-02-20] MEDS ORDERED: morphine INJ 10 MG/ML 1ML (SYR OR VIAL) ONE (14:43)
[2021-02-20] MEDS ORDERED: fentaNYL INJ 100 MCG/2 ML AMP IVP ONE (15:00)
[2021-02-20] MEDS ORDERED: morphine INJ 10 MG/ML 1ML (SYR OR VIAL) IVP ONE (15:00)
[2021-02-20] MEDS ORDERED: ONDANSETRON 4 MG/2 ML (SDV) Z0FRAN IVP PRN (15:00)
--- NOTE | 2021-02-20 15:19 | OPERATIVE REPORT ---
DATE OF SERVICE: 02/20/2021 ATTENDING NO EXPERIENCE: Angi Sainz APRN. PREOPERATIVE DIAGNOSES: Parastomal hernia and colostomy with prolapse, colon. POSTOPERATIVE DIAGNOSES: Parastomal hernia and colostomy with prolapse, colon. PROCEDURES PERFORMED: Exploratory laparotomy, distal colonic resection, re-seating of end colostomy in the right lateral abdomen. Closure of incisional hernia defect with biologic mesh. SURGEON: Allen Fernández MD. CHARGE LPN: Jarod Moore APRN. ANESTHESIA: General endotracheal. ESTIMATED BLOOD LOSS: Minimal. FINDINGS: Parastomal hernia and colostomy with prolapse, colon. DISPOSITION: The patient tolerated the procedure well. INDICATIONS FOR PROCEDURE: The patient is a 75-year-old female who was admitted on 01/12/2021 due to significant abdominal pain, distention and inability to have bowel movements. She has a history of an end colostomy as well as Tory's pouch due to some form of left sided bowel perforation in 2013. She was evaluated by another surgeon and underwent a colonoscopy through the rectal stump as well as ostomy on 11/14/2020, which did not show any abnormalities. She then underwent a reversal of the colostomy as well as a low anterior colorectal anastomosis and parastomal hernia repair on 11/29/2020. She then presented with profound diarrhea and found to have Clostridium difficile infection and treated with oral vancomycin. She reports on admission, she had significant abdominal distention, crampy pain and had bowel movements and eventually did not have a bowel movement for approximately five days. A CT scan was performed, which did show extensive amount of stool throughout the colon and questionable anastomotic stricture. She was able to pass a small amount of flatus. On digital rectal examination, the stricture was palpable and very tight and the index finger was unable to pass through this region consistent with a near obstructing distal colonic lesion. On 01/12/2021, she underwent a sigmoidoscopy, exploratory laparotomy, resection of colorectum including the stricture as well as an end colostomy and Tory's pouch and repair of incisional hernia. She did well postoperatively and over the time, she had colostomy function and was able to tolerate a diet and adequate pain control and was ambulating well and was discharged home. She then presented to the emergency department with a parastomal hernia as well as a stomal prolapse. The mucosa was pink and viable and still functional. Her pain was the chief complaint as well as the growth of the parastomal hernia and the prolapsing end colostomy. There were no signs of any ischemia. DESCRIPTION OF PROCEDURE: The patient was brought to the operating room and laid supine on the table. After adequate IV pain and sedative medications and general endotracheal intubation, the abdomen was prepped and draped in a standard surgical fashion. Before this, the colostomy was closed, skin to skin using a running 0 silk suture. Using the same previous midline laparotomy incision, a skin incision was made using a 10 blade and the subcutaneous tissue was dissected down using electrocautery. Previous suture was also removed. Once entering the peritoneal cavity, a 4-quadrant abdominal exploration was then performed. Remainder of the colon and small bowel appeared viable. No other lesions identified. We then proceeded with a dissection of the end colostomy. Under direct visualization using blunt dissection as well as electrocautery. Once dissected off of the fascia and subcutaneous tissue, the sutured portion of the colostomy was then cut with a 10 blade and dissected free using electrocautery as well as blunt dissection. Good hemostasis was observed. The fascial defect was measured to be approximately 5 x 4 cm in size. We then proceeded to take down the splenic flexure using electrocautery and once we were able to reach to the right lateral abdomen without any tension, the end of the colon was directly observed with a good arterial perfusion identified. The skin was then opened using a Uzma clamp and cautery on the cut mode. This was much smaller than the previous colostomy. The subcutaneous tissue was then opened using electrocautery as well as the fascia. Through this opening, the end of the colostomy was placed and the end of the colostomy pulled through to a good viable colon and sutured to the skin using interrupted 3-0 silk sutures. The end of the previous colostomy was then stapled and transected with a BENI-75 mm stapler with a 3.5 mm thickness load. The staple line was then opened using electrocautery on cut mode and then we proceeded to mature the colostomy using 3-0 silk interrupted sutures. The colostomy was pink and viable. This was then covered. We then changed gloves and proceeded with the repair of the incisional hernia using an 8 x 6 cm Strattice biologic mesh. This was placed in the defect and sutured transfascially in a concentric manner using 0 PDS interrupted sutures. The corners of the mesh were then tacked to the fascia with absorbable tacks. Good hemostasis was observed. The peritoneal cavity was then irrigated with two liters of warm saline and suctioned out. The fascia was then closed using #1 looped PDS suture. Both skin incisions were then closed using skin kavon; however, the previous colostomy sites only a few kavon were placed leaving wide gaps to allow for adequate drainage. These were then covered with a sterile gauze and tape. The patient tolerated the procedure well. We will admit her back to the floor and continue with pain control as well as DVT prophylaxis with early ambulation, calf SCDs as well as Lovenox injections. We will start clear liquid diet and when she has more end colostomy function, we will advance as tolerated. Job ID: [id number] DocumentID: [id number] Dictated Date: 02/20/2021 14:13:18 Utilization Coordinator Date: 02/20/2021 15:18:48 Dictated By: ALLEN FERNÁNDEZ MD MTDD
[2021-02-20] MEDS: HYDROcodone/APAP 7.5 MG/325 MG (LORTAB, LORCET PLUS) TABLET PO PRN ×2 (16:23→20:28)
[2021-02-20] MEDS: SODIUM ACETATE IV SCH ×10 (17:28)
[2021-02-20] MEDS: [UNRECOGNIZED DRUG - OTHER] IV SCH ×10 (17:28)
[2021-02-20] MEDS: POTASSIUM CHLORIDE IV SCH ×10 (17:28)
[2021-02-20] MEDS: SODIUM PHOSPHATE IV SCH ×10 (17:28)
[2021-02-20] MEDS: LACTATED RINGERS 1,000 ML IV SCH ×2 (21:05→21:17)
[2021-02-21] MEDS: fentaNYL INJ 100 MCG/2 ML AMP IVP PRN ×5 (02:37→16:16)
[2021-02-21] MEDS: ONDANSETRON 4 MG/2 ML (SDV) Z0FRAN IVP PRN ×2 (02:37→07:30)
[2021-02-21 04:45] VITALS: BP 124/68
[2021-02-21] MEDS: LORazepam INJ 2 MG/ML (ATIVAN) VIAL IVP PRN ×2 (07:30→21:18)
[2021-02-21 08:08] VITALS: BP 167/78
[2021-02-21] MEDS ORDERED: METOCLOPRAMIDE INJ 10 MG/2 ML (REGLAN) IVP PRN (08:15)
[2021-02-21] MEDS: PANTOPRAZOLE 40 MG (PROTONIX) VIAL IV SCH (08:38)
[2021-02-21] MEDS: PROMETHAZINE INJ 25 MG/ML (PHENERGAN) AMP IVP PRN (08:39)
[2021-02-21 11:48] VITALS: BP 135/84
--- NOTE | 2021-02-21 13:06 | Anesthesia-General Post-Op ---
General Patient Condition Mental Status/LOC: Same as Preop Cardiovascular: Satisfactory Nausea/Vomiting: Absent Respiratory: Satisfactory Pain: Controlled Complications: Absent Post Op Complications Complications None Follow Up Care/Instructions Patient Instructions None needed. Anesthesia/Patient Condition Patient Condition Patient is doing well, no complaints, stable vital signs, no apparent adverse anesthesia problems. No complications reported per nursing. LEON ROWE CRNA February 21, 2021 13:06
--- NOTE | 2021-02-21 14:03 | Progress Note ---
Subjective Date Seen by a Provider: February 21, 2021 Time Seen by a Provider: 13:00 Subjective/Events-last exam doing well. pain better controlled. one episode emesis in am but none since. ambulating well. Objective Exam Vital Signs Date Time Temp Pulse Resp B/P (MAP) Pulse Ox O2 Delivery O2 Flow Rate FiO2 02/21/21 11:48 37.2 83 20 135/84 (101) 96 Room Air 02/21/21 08:08 37.0 83 20 167/78 (107) 95 Room Air 02/21/21 08:00 Room Air 02/21/21 04:45 36.7 88 20 124/68 (86) 95 Room Air 02/20/21 23:40 36.5 76 20 117/65 (82) 95 Room Air 02/20/21 20:49 Room Air 02/20/21 20:32 37.0 91 18 138/74 (95) 96 Room Air 02/20/21 19:20 36.9 02/20/21 16:54 Nasal Cannula 1.50 02/20/21 15:35 36.9 100 16 110/69 (83) 95 Nasal Cannula 2.00 02/20/21 15:30 OxyMask 2 02/20/21 15:20 36.6 20 103/68 (80) 93 OxyMask 2 02/20/21 15:15 OxyMask 2 02/20/21 15:10 16 115/75 (88) 95 OxyMask 2 02/20/21 15:00 OxyMask 2 02/20/21 15:00 20 115/72 (86) 95 OxyMask 2 02/20/21 14:50 20 133/74 (93) 96 OxyMask 2 02/20/21 14:45 OxyMask 4 02/20/21 14:40 16 138/87 (104) 96 OxyMask 4 02/20/21 14:30 15 135/86 (102) 97 OxyMask 6 02/20/21 14:30 OxyMask 6 02/20/21 14:21 OxyMask 8 02/20/21 14:21 36.2 20 113/74 (87) 99 OxyMask 8 I & O 02/21/21 06:59 Intake Total 1390 ml Output Total 300 ml Balance 1090 ml Capillary Refill : Less Than 3 Seconds General Appearance: No Apparent Distress HEENT: PERRL/EOMI Neck: Full Range of Motion Respiratory: Chest Non Tender, Lungs Clear Cardiovascular: Regular Rate, Rhythm Gastrointestinal: soft, tenderness, other (colostomy pink/viable) Extremity: Normal Capillary Refill Neurologic/Psychiatric: Alert, Oriented x3 Skin: Normal Color Lymphatic: No Adenopathy Results Lab Microbiology 02/18/21 MRSA Screen - Final, Complete Assessment/Plan Assessment/Plan Assess & Plan/Chief Complaint prolapsed colostomy with malnutrition s/p reseating colostomy and repair incisional hernia with biologic mesh. ambulate. cont clears for now and await colostomy fxn. ALLEN FERNÁNDEZ MD February 21, 2021 14:03
[2021-02-21] MEDS: LACTATED RINGERS 1,000 ML IV SCH (14:12)
[2021-02-21] MEDS: HYDROcodone/APAP 7.5 MG/325 MG (LORTAB, LORCET PLUS) TABLET PO PRN ×2 (14:14→18:43)
[2021-02-21 15:00] VITALS: BP 148/80
[2021-02-21 19:27] VITALS: BP 130/77
[2021-02-22] VITALS (7 sets, daily range): BP systolic 107–144; BP diastolic 68–91
[2021-02-22] MEDS: HYDROcodone/APAP 7.5 MG/325 MG (LORTAB, LORCET PLUS) TABLET PO PRN ×3 (00:10→22:01)
[2021-02-22 05:52] LABS: BASOPHILS # (AUTO) 0.1 10^3/uL (0.0-0.1); BASOPHILS % (AUTO) 0 % (0-10); EOSINOPHILS # (AUTO) 0.8 10^3/uL (0.0-0.3); EOSINOPHILS % (AUTO) 6 % (0-10); HEMATOCRIT 32 % (35-52); LYMPHOCYTES # (AUTO) 2.1 10^3/uL (1.0-4.0); LYMPHOCYTES % (AUTO) 17 % (12-44); MEAN CORPUSCULAR HEMOGLOBIN 28 pg (25-34); MEAN CORPUSCULAR HGB CONC 31 g/dL (32-36); MEAN CORPUSCULAR VOLUME 89 fL (80-99); MEAN PLATELET VOLUME 9.3 fL (9.0-12.2); MONOCYTES # (AUTO) 1.3 10^3/uL (0.0-1.0); MONOCYTES % (AUTO) 11 % (0-12); NEUTROPHILS # (AUTO) 7.9 10^3/uL (1.8-7.8); NEUTROPHILS % (AUTO) 65 % (42-75); PLATELET COUNT 382 10^3/uL (130-400); WHITE BLOOD COUNT 12.2 10^3/uL (4.3-11.0)
[2021-02-22 06:01] LABS: CHLORIDE 105 MMOL/L (98-107); POTASSIUM 4.1 MMOL/L (3.6-5.0); SODIUM 137 MMOL/L (135-145)
[2021-02-22 06:02] LABS: CALCIUM 8.5 MG/DL (8.5-10.1)
[2021-02-22 06:03] LABS: GLUCOSE 92 MG/DL (70-105)
[2021-02-22 06:04] LABS: CARBON DIOXIDE 24 MMOL/L (21-32)
[2021-02-22 06:07] LABS: CREATININE SERUM 0.61 MG/DL (0.60-1.30); GFR ESTIMATED > 60
[2021-02-22 06:08] LABS: BUN/CREATININE RATIO 10
[2021-02-22] MEDS: fentaNYL INJ 100 MCG/2 ML AMP IVP PRN ×3 (08:50→18:20)
[2021-02-22] MEDS: PANTOPRAZOLE 40 MG (PROTONIX) VIAL IV SCH (08:55)
[2021-02-22] MEDS: PROMETHAZINE INJ 25 MG/ML (PHENERGAN) AMP IVP PRN (08:56)
[2021-02-22] MEDS: ONDANSETRON 4 MG/2 ML (SDV) Z0FRAN IVP PRN (12:01)
[2021-02-22] MEDS: LORazepam INJ 2 MG/ML (ATIVAN) VIAL IVP PRN ×2 (12:01→18:19)
--- NOTE | 2021-02-22 15:09 | Progress Note ---
Subjective Date Seen by a Provider: February 22, 2021 Time Seen by a Provider: 14:40 Subjective/Events-last exam Patient seen with Dr. Mariscal. Patient reports having some abdominal discomfort as well as nausea. She does report that she has been having gas from her colostomy. She reports that she is hungry and would like to try some food. Denies any other issues. Objective Exam Vital Signs Date Time Temp Pulse Resp B/P (MAP) Pulse Ox O2 Delivery O2 Flow Rate FiO2 02/22/21 12:00 36.7 82 14 137/91 (106) 97 Room Air 02/22/21 08:00 36.3 97 14 121/83 (96) 95 Room Air 02/22/21 08:00 Room Air 02/22/21 03:41 36.8 81 16 144/86 (105) 94 Room Air 02/22/21 00:19 37.2 85 16 139/82 (101) 94 Room Air 02/21/21 19:45 Room Air 02/21/21 19:27 37.2 80 18 130/77 (94) 94 Room Air I & O 02/22/21 07:00 Intake Total 390 ml Balance 390 ml Capillary Refill : Less Than 3 Seconds General Appearance: No Apparent Distress, WD/WN, Anxious Neck: Full Range of Motion, Supple Respiratory: No Accessory Muscle Use, No Respiratory Distress Cardiovascular: Regular Rate, Rhythm, No Edema Gastrointestinal: normal bowel sounds, soft, tenderness, other (Right side end colostomy, pink and moist with some bloody drainage in bag) Extremity: Normal Inspection, Normal Range of Motion Neurologic/Psychiatric: Alert, Oriented x3 Skin: Normal Color, Warm/Dry, Other (Midline and right side abdominal incisions C/D/I with some mild localized erythema, no drainage or redness.) Results Lab Laboratory Tests 02/22/21 05:45: White Blood Count 12.2H, Red Blood Count 3.59L, Hemoglobin 10.0L, Hematocrit 32L , Mean Corpuscular Volume 89, Mean Corpuscular Hemoglobin 28, Mean Corpuscular Hemoglobin Concent 31L, Red Cell Distribution Width 22.1H, Platelet Count 382, Mean Platelet Volume 9.3, Immature Granulocyte % (Auto) 0, Neutrophils (%) (Auto) 65, Lymphocytes (%) (Auto) 17, Monocytes (%) (Auto) 11, Eosinophils (%) (Auto) 6, Basophils (%) (Auto) 0, Neutrophils # (Auto) 7.9H, Lymphocytes # (Auto) 2.1, Monocytes # (Auto) 1.3H, Eosinophils # (Auto) 0.8H, Basophils # (Auto) 0.1, Immature Granulocyte # (Auto) 0.0, Sodium Level 137, Potassium Level 4.1, Chloride Level 105, Carbon Dioxide Level 24, Anion Gap 8, Blood Urea Nitrogen 6L, Creatinine 0.61, Estimat Glomerular Filtration Rate > 60, BUN/Creatinine Ratio 10, Glucose Level 92, Calcium Level 8.5 Microbiology 02/18/21 MRSA Screen - Final, Complete Assessment/Plan Assessment/Plan Assess & Plan/Chief Complaint prolapsed colostomy with malnutrition s/p reseating colostomy and repair incisional hernia with biologic mesh. VSS WBC 12.2 ambulate. Will advance to DYS3 diet JOHNNY GUERRERO [employer] February 22, 2021 15:09
[2021-02-22] MEDS: LACTATED RINGERS 1,000 ML IV SCH (22:55)
[2021-02-23] MEDS: HYDROcodone/APAP 7.5 MG/325 MG (LORTAB, LORCET PLUS) TABLET PO PRN ×3 (03:16→16:49)
[2021-02-23 03:27] VITALS: BP 134/82
[2021-02-23 03:51] LABS: HEMATOCRIT 31 % (35-52); HEMOGLOBIN 9.7 g/dL (11.5-16.0); MEAN CORPUSCULAR HEMOGLOBIN 28 pg (25-34); MEAN CORPUSCULAR HGB CONC 31 g/dL (32-36); MEAN CORPUSCULAR VOLUME 89 fL (80-99); MEAN PLATELET VOLUME 9.5 fL (9.0-12.2); PLATELET COUNT 388 10^3/uL (130-400); WHITE BLOOD COUNT 10.4 10^3/uL (4.3-11.0)
[2021-02-23 04:07] LABS: ALBUMIN 2.8 GM/DL (3.2-4.5); CHLORIDE 103 MMOL/L (98-107); SODIUM 137 MMOL/L (135-145)
[2021-02-23 04:08] LABS: CALCIUM 8.7 MG/DL (8.5-10.1)
[2021-02-23 04:09] LABS: TRIGLYCERIDES 81 MG/DL (<150)
[2021-02-23 04:10] LABS: GLUCOSE 82 MG/DL (70-105); TOTAL PROTEIN 5.6 GM/DL (6.4-8.2)
[2021-02-23 04:11] LABS: BILIRUBIN,TOTAL 0.7 MG/DL (0.1-1.0); CARBON DIOXIDE 23 MMOL/L (21-32)
[2021-02-23 04:13] LABS: ALKALINE PHOSPHATASE 72 U/L (40-136); CREATININE SERUM 0.58 MG/DL (0.60-1.30); GFR ESTIMATED > 60; PHOSPHORUS 4.1 MG/DL (2.3-4.7)
[2021-02-23 04:14] LABS: BUN/CREATININE RATIO 9
[2021-02-23 04:16] LABS: ALANINE AMINOTRANSFERASE 10 U/L (0-55); MAGNESIUM 1.8 MG/DL (1.6-2.4)
[2021-02-23 07:30] VITALS: BP 120/81
[2021-02-23] MEDS: PANTOPRAZOLE 40 MG (PROTONIX) VIAL IV SCH (08:10)
--- NOTE | 2021-02-23 09:23 | Progress Note ---
Subjective Date Seen by a Provider: February 23, 2021 Time Seen by a Provider: 09:20 Subjective/Events-last exam doing ok. pain contolled tolerating dys2 diet. Objective Exam Vital Signs Date Time Temp Pulse Resp B/P (MAP) Pulse Ox O2 Delivery O2 Flow Rate FiO2 02/23/21 08:00 96 02/23/21 07:30 36.5 65 18 120/81 (94) 96 Room Air 02/23/21 03:27 36.5 83 16 134/82 (99) 97 Room Air 02/22/21 23:26 36.7 87 16 116/72 (87) 98 Room Air 02/22/21 20:35 Room Air 02/22/21 19:39 36.9 93 18 125/89 (101) 95 Room Air 02/22/21 16:10 36.7 84 18 107/68 (81) 94 Room Air 02/22/21 12:00 36.7 82 14 137/91 (106) 97 Room Air I & O 02/23/21 07:00 Intake Total 920 ml Balance 920 ml Capillary Refill : Less Than 3 Seconds General Appearance: No Apparent Distress HEENT: PERRL/EOMI Neck: Full Range of Motion Respiratory: Chest Non Tender, Lungs Clear, Normal Breath Sounds Cardiovascular: Regular Rate, Rhythm Gastrointestinal: normal bowel sounds, soft, tenderness Extremity: Normal Capillary Refill Neurologic/Psychiatric: Alert, Oriented x3 Skin: Normal Color Lymphatic: No Adenopathy Results Lab Laboratory Tests 02/23/21 03:20: White Blood Count 10.4, Red Blood Count 3.49L, Hemoglobin 9.7L, Hematocrit 31L, Mean Corpuscular Volume 89, Mean Corpuscular Hemoglobin 28, Mean Corpuscular Hemoglobin Concent 31L, Red Cell Distribution Width 21.8H, Platelet Count 388, Mean Platelet Volume 9.5, Sodium Level 137, Potassium Level 4.0, Chloride Level 103, Carbon Dioxide Level 23, Anion Gap 11, Blood Urea Nitrogen 5L, Creatinine 0.58L, Estimat Glomerular Filtration Rate > 60, BUN/Creatinine Ratio 9, Glucose Level 82, Calcium Level 8.7, Corrected Calcium 9.7, Phosphorus Level 4.1, Magnesium Level 1.8, Total Bilirubin 0.7, Aspartate Amino Transf (AST/SGOT) 17, Alanine Aminotransferase (ALT/SGPT) 10, Alkaline Phosphatase 72, Total Protein 5.6L, Albumin 2.8L, Triglycerides Level 81 Microbiology 02/18/21 MRSA Screen - Final, Complete Assessment/Plan Assessment/Plan Assess & Plan/Chief Complaint prolapsed colostomy with malnutrition s/p reseating colostomy and repair incisional hernia with biologic mesh. ambulate. advance diet. ALLEN FERNÁNDEZ MD February 23, 2021 09:23
[2021-02-23 11:16] VITALS: BP 100/67
[2021-02-23] MEDS ORDERED: HYDR-3817 PO (13:57)
--- NOTE | 2021-02-23 13:58 | Discharge Inst-Surgical ---
D/C Lap Instructions-JOLENE New, Converted, or Re-Newed RX: RX on Chart Follow Up Appt in 2 weeks Activity as tolerated No driving for 24 hours No driving while on pain medications Incentive Spirometry use every 2 hours while awake Regular Diet Symptoms to Report: Fever over 101 degree F, Nausea/Vomiting Infection Signs and Symptoms to report: Increased redness, Foul odor of wound, Increased drainage Bathing instructions: May shower Operative Area Clean/Dry; Keep incision clean/dry If any problems/questions: Contact your physician or go to Emergency Room ALLEN FERNÁNDEZ MD February 23, 2021 13:58
--- NOTE | 2021-02-23 14:47 | D/C HH Face to Face Order ---
D/C Face to Face Orders Reconcile Patient Problems Problems Reviewed?: Yes Instructions for Patient Via [facility], Patient Instructions/FollowUp: colostomy and wound care. weakness no heavy lifting/exertion 2 weeks. Physician to follow Patient: 2 weeks Discharge Diet for Home: No Restrictions, Regular Diet Patient Data-Allergies,Ht & Wt Patient Allergies: Coded Allergies: hydromorphone (Unverified Adverse Reaction, Unknown, PSYCH, 01/19/21) Height (Feet): 5 Height (Inches): 0.00 Weight (Pounds): 100 Weight (Ounces): 3.2 Home Health Need/Face to Face Date of Face to Face: February 23, 2021 Clinical Findings: Generalized weakness and fatigue, Other-list in note (co lostomy care) I have seen Pt [id number]: Yes Discharged To: Home Diagnosis/Conditions: parastomal hernia and colostomy prolapse Patient is Homebound due to: Muscle weakness Homebound Status Due to the above stated illness, injury or surgical procedure (medical condition or diagnosis) and associated clinical findings, the patient is homebound because of his/her inability to leave home except with aid of a supportive device and/or person AND leaving the home requires a considerable and taxing effort or is medically contraindicated. Pt req the following assistanc: Aid of another person, Medically contraindicated Home Health Infusion Therapy Line Start Date: February 20, 2021 Certify Stmt I certify that this patient is under my care and that I, a nurse practitioner or a physician; a manufacturing assistant working with me, had a face to face encounter that - meets the physician face to face encounter requirements with this patient as dated. ALLEN FERNÁNDEZ MD February 23, 2021 14:47
[2021-02-23 15:09] VITALS: BP 104/67
[2021-02-23] MEDS: ONDANSETRON 4 MG/2 ML (SDV) Z0FRAN IVP PRN (16:50)
[2021-02-23 19:14] VITALS: BP 101/55
[2021-02-23] MEDS: fentaNYL INJ 100 MCG/2 ML AMP IVP PRN (19:53)
[2021-02-23] MEDS: LORazepam INJ 2 MG/ML (ATIVAN) VIAL IVP PRN (21:55)
[2021-02-23 23:55] VITALS: BP 136/77
[2021-02-24] MEDS: HYDROcodone/APAP 7.5 MG/325 MG (LORTAB, LORCET PLUS) TABLET PO PRN ×3 (02:03→22:13)
[2021-02-24 07:59] VITALS: BP 105/59
--- NOTE | 2021-02-24 08:09 | Progress Note - Hospitalist ---
Subjective HPI/CC On Admission Date Seen by Provider: February 24, 2021 Time Seen by Provider: 11:00 CC: Poor nutrition HPI: This is a 75yoWF clinic pt of [facility] who is known to me from prior C-diff colitis and previous colostomy take down and then redo of the colostomy by Dr. Mariscal who was admitted for nutrition issues, apparently she has not been keeping up with fluids or nutrition so we will work on IV nutrition, pain control, and we will take note of hx of c-diff colitis. Subjective/Events-last exam Patient doing pretty well Dramatic weight loss is noted since I last saw her a week and a half ago Pain is pretty well controlled now No output in the colostomy still working on that Patient appears to be very withdrawn and debilitated Review of Systems General: Fatigue, Malaise Objective Exam Vital Signs Vital Signs Date Time Temp Pulse Resp B/P (MAP) Pulse Ox O2 Delivery O2 Flow Rate FiO2 02/24/21 23:53 37.2 88 18 98/61 (73) 96 Room Air 02/20/21 16:54 1.50 Capillary Refill : Less Than 3 Seconds General Appearance: No Apparent Distress, WD/WN, Chronically ill, Thin Respiratory: Lungs Clear Cardiovascular: Regular Rate, Rhythm Neurologic/Psychiatric: Alert, Oriented x3 Results/Procedures Lab Laboratory Tests 02/24/21 10:26 Patient resulted labs reviewed. Assessment/Plan Assessment and Plan Assess & Plan/Chief Complaint Assessment: Poor nutrition Recent colostomy with ostomy hernia repair C diff hx Abdominal pain Plan: Monitor closely IVF Supportive care 02/16/21: TPN Pain control OR this week 02/18/21: Monitor closely Monitor BP 02/24/21: Pain control Monitor closely CORNELIO LARSEN DO February 24, 2021 08:09
[2021-02-24] MEDS: PANTOPRAZOLE 40 MG (PROTONIX) VIAL IV SCH (08:19)
[2021-02-24] MEDS: fentaNYL INJ 100 MCG/2 ML AMP IVP PRN (08:19)
[2021-02-24] MEDS: ONDANSETRON 4 MG/2 ML (SDV) Z0FRAN IVP PRN (08:20)
[2021-02-24] MEDS: PROMETHAZINE INJ 25 MG/ML (PHENERGAN) AMP IVP PRN (09:18)
[2021-02-24 09:21] VITALS: BP 126/63
--- NOTE | 2021-02-24 10:19 | Progress Note ---
Subjective Date Seen by a Provider: February 24, 2021 Time Seen by a Provider: 10:00 Subjective/Events-last exam having nausea without vomiting. scant ostomy output. complains of back pain. Objective Exam Vital Signs Date Time Temp Pulse Resp B/P (MAP) Pulse Ox O2 Delivery O2 Flow Rate FiO2 02/24/21 09:21 37.0 88 24 126/63 (84) 96 Room Air 02/24/21 07:59 36.5 86 20 105/59 (74) 96 Room Air 02/23/21 23:55 37.1 93 20 136/77 (96) 94 Room Air 02/23/21 19:14 36.6 65 22 101/55 (70) 100 Room Air 02/23/21 15:09 36.6 74 16 104/67 (79) 95 Room Air 02/23/21 11:16 36.6 74 18 100/67 (78) 95 Room Air I & O 02/24/21 06:59 Intake Total 910 ml Balance 910 ml Capillary Refill : Less Than 3 Seconds General Appearance: No Apparent Distress HEENT: PERRL/EOMI Neck: Full Range of Motion Respiratory: Chest Non Tender, Lungs Clear Cardiovascular: Regular Rate, Rhythm Gastrointestinal: normal bowel sounds, soft Extremity: Normal Capillary Refill Neurologic/Psychiatric: Alert, Oriented x3 Skin: Normal Color Lymphatic: No Adenopathy Results Lab Microbiology 02/18/21 MRSA Screen - Final, Complete Assessment/Plan Assessment/Plan Assess & Plan/Chief Complaint prolapsed colostomy with malnutrition s/p reseating colostomy and repair incisional hernia with biologic mesh. ileus ambulate. check lab work. toradol for back pain. ALLEN FERNÁNDEZ MD February 24, 2021 10:19
[2021-02-24 10:33] LABS: BASOPHILS % (AUTO) 0 % (0-10); EOSINOPHILS # (AUTO) 0.7 10^3/uL (0.0-0.3); EOSINOPHILS % (AUTO) 6 % (0-10); HEMATOCRIT 29 % (35-52); HEMOGLOBIN 9.3 g/dL (11.5-16.0); LYMPHOCYTES # (AUTO) 1.6 10^3/uL (1.0-4.0); LYMPHOCYTES % (AUTO) 14 % (12-44); MEAN CORPUSCULAR HEMOGLOBIN 28 pg (25-34); MEAN CORPUSCULAR HGB CONC 32 g/dL (32-36); MEAN CORPUSCULAR VOLUME 89 fL (80-99); MEAN PLATELET VOLUME 9.4 fL (9.0-12.2); MONOCYTES # (AUTO) 1.1 10^3/uL (0.0-1.0); MONOCYTES % (AUTO) 10 % (0-12); NEUTROPHILS % (AUTO) 70 % (42-75); PLATELET COUNT 376 10^3/uL (130-400); WHITE BLOOD COUNT 11.6 10^3/uL (4.3-11.0)
[2021-02-24 10:51] LABS: ALANINE AMINOTRANSFERASE 7 U/L (0-55); ALBUMIN 2.7 GM/DL (3.2-4.5); ALKALINE PHOSPHATASE 64 U/L (40-136); BILIRUBIN,TOTAL 0.6 MG/DL (0.1-1.0); BUN/CREATININE RATIO 9; CALCIUM 8.1 MG/DL (8.5-10.1); CARBON DIOXIDE 23 MMOL/L (21-32); CHLORIDE 104 MMOL/L (98-107); CREATININE SERUM 0.55 MG/DL (0.60-1.30); GFR ESTIMATED > 60; GLUCOSE 90 MG/DL (70-105); SODIUM 135 MMOL/L (135-145); TOTAL PROTEIN 5.5 GM/DL (6.4-8.2)
[2021-02-24] MEDS: KETOROLAC 15 MG/ML VIAL IVP PRN ×2 (13:25→18:56)
[2021-02-24] MEDS ORDERED: ENOXAPARIN 40 MG/0.4 ML (LOVENOX) SYR SC SCH (14:00)
[2021-02-24 15:59] VITALS: BP 102/65
[2021-02-24] MEDS: LORazepam INJ 2 MG/ML (ATIVAN) VIAL IVP PRN (22:09)
[2021-02-24 23:53] VITALS: BP 98/61
--- NOTE | 2021-02-25 06:34 | Progress Note - Hospitalist ---
Subjective HPI/CC On Admission Date Seen by Provider: February 25, 2021 Time Seen by Provider: 11:00 CC: Poor nutrition HPI: This is a 75yoWF clinic pt of [facility] who is known to me from prior C-diff colitis and previous colostomy take down and then redo of the colostomy by Dr. Mariscal who was admitted for nutrition issues, apparently she has not been keeping up with fluids or nutrition so we will work on IV nutrition, pain control, and we will take note of hx of c-diff colitis. Subjective/Events-last exam Patient doing much better Very thin and frail Had a large bowel movement in her colostomy Ready to go home Labs stable Review of Systems General: Fatigue, Malaise Focused Exam Lactate Level 02/25/21 06:45: Lactic Acid Level 0.57 Objective Exam Vital Signs Vital Signs Date Time Temp Pulse Resp B/P (MAP) Pulse Ox O2 Delivery O2 Flow Rate FiO2 02/25/21 12:40 02/25/21 08:00 Room Air 02/25/21 07:55 36.4 83 20 94 02/20/21 16:54 1.50 Capillary Refill : Less Than 3 Seconds General Appearance: No Apparent Distress, WD/WN, Chronically ill, Thin Respiratory: Lungs Clear Cardiovascular: Regular Rate, Rhythm Neurologic/Psychiatric: Alert, Oriented x3, Depressed Affect Results/Procedures Lab Laboratory Tests 02/25/21 06:45 Patient resulted labs reviewed. Assessment/Plan Assessment and Plan Assess & Plan/Chief Complaint Assessment: Poor nutrition Recent colostomy with ostomy hernia repair C diff hx Abdominal pain Plan: Monitor closely IVF Supportive care 02/16/21: TPN Pain control OR this week 02/18/21: Monitor closely Monitor BP 02/24/21: Pain control Monitor closely 02/25/2021: Discharge home CORNELIO LARSEN DO February 25, 2021 06:34
[2021-02-25 06:55] LABS: BASOPHILS # (AUTO) 0.1 10^3/uL (0.0-0.1); BASOPHILS % (AUTO) 1 % (0-10); EOSINOPHILS # (AUTO) 0.8 10^3/uL (0.0-0.3); EOSINOPHILS % (AUTO) 8 % (0-10); HEMATOCRIT 29 % (35-52); HEMOGLOBIN 9.1 g/dL (11.5-16.0); LYMPHOCYTES # (AUTO) 1.8 10^3/uL (1.0-4.0); LYMPHOCYTES % (AUTO) 18 % (12-44); MEAN CORPUSCULAR HEMOGLOBIN 28 pg (25-34); MEAN CORPUSCULAR HGB CONC 32 g/dL (32-36); MEAN CORPUSCULAR VOLUME 89 fL (80-99); MEAN PLATELET VOLUME 9.8 fL (9.0-12.2); MONOCYTES % (AUTO) 10 % (0-12); NEUTROPHILS # (AUTO) 6.3 10^3/uL (1.8-7.8); NEUTROPHILS % (AUTO) 64 % (42-75); PLATELET COUNT 382 10^3/uL (130-400); WHITE BLOOD COUNT 9.9 10^3/uL (4.3-11.0)
[2021-02-25 07:16] LABS: ALANINE AMINOTRANSFERASE 9 U/L (0-55); ALBUMIN 2.6 GM/DL (3.2-4.5); ALKALINE PHOSPHATASE 75 U/L (40-136); BILIRUBIN,TOTAL 0.4 MG/DL (0.1-1.0); BUN/CREATININE RATIO 16; CARBON DIOXIDE 24 MMOL/L (21-32); CHLORIDE 106 MMOL/L (98-107); CREATININE SERUM 0.61 MG/DL (0.60-1.30); GFR ESTIMATED > 60; GLUCOSE 105 MG/DL (70-105); POTASSIUM 4.1 MMOL/L (3.6-5.0); SODIUM 137 MMOL/L (135-145); TOTAL PROTEIN 5.5 GM/DL (6.4-8.2)
[2021-02-25 07:55] VITALS: BP 118/74
[2021-02-25] MEDS: PANTOPRAZOLE 40 MG (PROTONIX) VIAL IV SCH (08:26)
[2021-02-25] MEDS: KETOROLAC 15 MG/ML VIAL IVP PRN (08:27)
[2021-02-25] MEDS: ONDANSETRON 4 MG/2 ML (SDV) Z0FRAN IVP PRN (08:27)
--- NOTE | 2021-02-25 09:23 | Diagnostic Imaging Report ---
INDICATION: Ileus. COMPARISON: Abdominal radiograph of 02/15/2021. FINDINGS: Capsular calcifications of bilateral breast implants. Surgical skin kavon are present in abdomen likely from laparotomy. There are air-filled but nondilated loops of small bowel and colon. No features of free intraperitoneal air. Lung bases are clear. Degenerative levoscoliosis lumbar spine. IMPRESSION: 1. Air-filled but nondilated small bowel and colon are most compatible with postoperative ileus. Dictated by: Dictated on workstation # [id number]
--- NOTE | 2021-02-25 10:49 | Progress Note ---
Subjective Date Seen by a Provider: February 25, 2021 Time Seen by a Provider: 10:00 Subjective/Events-last exam doing well. pain controlled. had large BM per ostomy this am. ambulating well. Focused Exam Lactate Level 02/25/21 06:45: Lactic Acid Level 0.57 Objective Exam Vital Signs Date Time Temp Pulse Resp B/P (MAP) Pulse Ox O2 Delivery O2 Flow Rate FiO2 02/25/21 07:55 36.4 83 20 118/74 (89) 94 Room Air 02/24/21 23:53 37.2 88 18 98/61 (73) 96 Room Air 02/24/21 20:15 Room Air 02/24/21 15:59 36.2 76 16 102/65 (77) 94 Room Air I & O 02/25/21 07:00 Intake Total 1430 ml Balance 1430 ml Capillary Refill : Less Than 3 Seconds General Appearance: No Apparent Distress HEENT: PERRL/EOMI Neck: Full Range of Motion Respiratory: Chest Non Tender, Lungs Clear, Normal Breath Sounds Cardiovascular: Regular Rate, Rhythm Gastrointestinal: normal bowel sounds, soft, tenderness Extremity: Normal Capillary Refill Neurologic/Psychiatric: Oriented x3 Skin: Normal Color Results Lab Laboratory Tests 02/25/21 06:45: White Blood Count 9.9, Red Blood Count 3.21L, Hemoglobin 9.1L, Hematocrit 29L, Mean Corpuscular Volume 89, Mean Corpuscular Hemoglobin 28, Mean Corpuscular Hemoglobin Concent 32, Red Cell Distribution Width 20.8H, Platelet Count 382, Mean Platelet Volume 9.8, Immature Granulocyte % (Auto) 0, Neutrophils (%) (Auto) 64, Lymphocytes (%) (Auto) 18, Monocytes (%) (Auto) 10, Eosinophils (%) (Auto) 8, Basophils (%) (Auto) 1, Neutrophils # (Auto) 6.3, Lymphocytes # (Auto) 1.8, Monocytes # (Auto) 1.0, Eosinophils # (Auto) 0.8H, Basophils # (Auto) 0.1, Immature Granulocyte # (Auto) 0.0, Sodium Level 137, Potassium Level 4.1, Chloride Level 106, Carbon Dioxide Level 24, Anion Gap 7, Blood Urea Nitrogen 10, Creatinine 0.61, Estimat Glomerular Filtration Rate > 60, BUN/Creatinine Ratio 16, Glucose Level 105, Lactic Acid Level 0.57, Calcium Level 8.0L, Corrected Calcium 9.1, Total Bilirubin 0.4, Aspartate Amino Transf (AST/SGOT) 16, Alanine Aminotransferase (ALT/SGPT) 9, Alkaline Phosphatase 75, Total Protein 5.5L, Albumin 2.6L, Procalcitonin 0.14H Microbiology 02/18/21 MRSA Screen - Final, Complete Assessment/Plan Assessment/Plan Assess & Plan/Chief Complaint prolapsed colostomy with malnutrition s/p reseating colostomy and repair incisional hernia with biologic mesh. ileus resolved, had large BM ambulate. toradol for back pain. home with home health soon. ALLEN FERNÁNDEZ MD February 25, 2021 10:49
[2021-02-25] MEDS: HYDROcodone/APAP 7.5 MG/325 MG (LORTAB, LORCET PLUS) TABLET PO PRN (11:39)
== END 2021-02-25 12:40 | disposition home health service (06) | DRG 329 ==
LOC: EDUNIT# 15:22 → ER 15:25 → 4TH 15:39
PROVIDERS: ADMIT Surgery; ATTEND Surgery
PROC: 0WUF0JZ Supplement Abdominal Wall with Synthetic Substitute, Open Approach (ICD-10-PCS; 2021-02-20)
PROC: 0D1E0Z4 Bypass Large Intestine to Cutaneous, Open Approach (ICD-10-PCS; principal; 2021-02-20 11:45)
DX: K94.09 Other complications of colostomy (principal); E43 Unspecified severe protein-calorie malnutrition; T81.31XA Disruption of external operation (surgical) wound, not elsewhere classified, initial encounter; K43.5 Parastomal hernia without obstruction or gangrene; Z68.21 Body mass index [BMI] 21.0-21.9, adult; R32 Unspecified urinary incontinence; K21.9 Gastro-esophageal reflux disease without esophagitis; M19.91 Primary osteoarthritis, unspecified site; H54.7 Unspecified visual loss; F41.9 Anxiety disorder, unspecified; F32.9 Major depressive disorder, single episode, unspecified; Z79.2 Long term (current) use of antibiotics; Z79.891 Long term (current) use of opiate analgesic; Z79.52 Long term (current) use of systemic steroids; Z88.6 Allergy status to analgesic agent
CPT/HCPCS: 36415; 74019; 80048; 80053; 82947; 83540; 83605; 83735; 84100; 84134; 84145; 84478; 85025; 85027; 87081; 96361; 96374; 96375

== ENCOUNTER 2021-04-18 17:39 | Emergency (ER) | payer MEDICARE ==
[~2021-04-18] VITALS: Ht 152.4 cm; Wt 44.2 kg
[~2021-04-18 17:39] MED LIST changes: +AMOX1TAB12 PO; +IBUP-2473 PO
--- NOTE | 2021-04-18 17:47 | ED GI ---
General Stated Complaint: ABD PAIN History of Present Illness Date Seen by Provider: Apr 18, 2021 Time Seen by Provider: 17:47 Initial Comments 75-year-old female with past medical history significant for multiple abdominal surgeries, primarily of her colon with a colostomy bag which was recently moved about 2 months ago. All of her surgeries have been done in [place] at [facility]. States today she has had significant nausea with onset this afternoon after she got home from work. Denies any vomiting, but has had loose stool in her colostomy bag recently. Denies black or tarry stools, denies bloody stool. Took her last Zofran at home today and went to urgent care, was sent to the ER due to complicated history. Allergies and Home Medications Allergies Coded Allergies: hydromorphone (Unverified Adverse Reaction, Unknown, PSYCH, 01/19/21) Home Medications Acetaminophen with Codeine 1 Each Tablet, 1 EACH PO BID PRN for PAIN-MODERATE (5-7), (Reported) Ciprofloxacin HCl 500 Mg Tablet, 500 MG PO BID Prescribed by: JULIA HARDY on 04/18/211914 Citalopram Hydrobromide 40 Mg Tablet, 40 MG PO HS, (Reported) LAST FILLED 10-16-2020 #90/90 DAY SUPPLY Dexlansoprazole 60 Mg , 60 MG PO DAILY, (Reported) Hyoscyamine Sulfate 0.125 Mg Tab.subl, 0.125 MG SL Q4H PRN for ABDOMINAL CRAMPING, (Reported) Ibuprofen 200 Mg Tablet, 400 MG PO BID PRN for PAIN-MILD (1-4), (Reported) Lorazepam 0.5 Mg Tablet, 0.5 MG PO HS, (Reported) Metronidazole 500 Mg Tablet, 500 MG PO BID Prescribed by: JULIA HARDY on 04/18/211914 Ondansetron 4 Mg Tab.rapdis, 4 MG PO Q6H PRN for NAUSEA/VOMITING Prescribed by: JULIA HARDY on 04/18/211915 Oxybutynin Chloride 5 Mg Tablet, 5 MG PO BID, (Reported) FILLED 11-24-2020 #60/30 DAY SUPPLY Peg 400/Hypromellose/Glycerin 15 Ml Drops, 1-2 DROPS OU PRN PRN for DRY EYES, (Reported) Prednisone 5 Mg Tablet, 5 MG PO HS, (Reported) Quetiapine Fumarate 100 Mg Tablet, 100 MG PO HS, (Reported) Patient Home Medication List Home Medication List Reviewed: Yes Review of Systems Review of Systems Constitutional: No dizziness, No fever, No malaise, No weakness EENTM: No Symptoms Reported Respiratory: Denies Cough, Denies Shortness of Air Cardiovascular: Denies Chest Pain, Denies Edema, Denies Palpitations Gastrointestinal: Abdominal Pain (But states no worse than normal.); Denies Constipated; Nausea, Poor Appetite; Denies Vomiting Musculoskeletal: No back pain, No muscle pain, No neck pain Skin: No change in color, No rash Past Ziqspmi-Jvaczx-Zscsav Hx Patient Social History Tobacco Use?: Yes Immunizations Up To Date Tetanus Booster (TDap): Unknown Seasonal Allergies Seasonal Allergies: No Past Medical History Surgeries: Yes (esophagus, colostomy; BLADDER/RECTAL SURGERY X5, anastomosis, hernia repair) Abdominal, Bladder Surgery, Bowel Surgery, 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, Rectal Respiratory: No Currently Using CPAP: No Currently Using BIPAP: No Cardiac: Yes Heart Murmur 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 (CVA 2019 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) Stroke [employer] History: 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 Genitourinary: Yes (incontinent of urine, can't control when it occurs and wears "a pad") UTI-Chronic Gastrointestinal: Yes (Colostomy) Gastroesophageal Reflux, Obstructive Bowel, Esophagitis, Hiatal Hernia Musculoskeletal: Yes Arthritis Endocrine: No HEENT: Yes (detached retina x3-surgeries x 5) Cataract Loss of Vision: Left Hearing Impairment: Denies Cancer: Yes Skin, Colon Did You Recieve Any Treatments: Yes What Type of Treatment Did You: Surgical Intervention Psychosocial: Yes Anxiety, Depression Integumentary: Yes ("BREAK OUT IN HIVES.") Blood Disorders: No Family Medical History Heart Disease, Cancer, Other Conditions/Hx NC Physical Exam Vital Signs Vital Signs - First Documented 04/18/21 17:40 Temp 36.4 Pulse 78 Resp 22 B/P (MAP) 151/105 (120) Pulse Ox 96 O2 Delivery Room Air Capillary Refill : Height/Weight/BMI Height: 5'0.00" Weight: 100lbs. 3.2oz. [id number]; 19.65 BMI Method:Stated General Appearance: WD/WN, no apparent distress Respiratory: chest non-tender, lungs clear, normal breath sounds, no respiratory distress, no accessory muscle use Cardiovascular: regular rate, rhythm, no edema, no JVD Gastrointestinal: normal bowel sounds, soft, no pulsatile mass; No guarding, No rebound; tenderness (Diffuse nonlocalized), other (Colostomy bag with loose brown stool) Extremities: non-tender, no pedal edema Progress/Results/Core Measures Results/Orders Lab Results Laboratory Tests Test 04/18/21 17:55 Range/Units White Blood Count 16.5 H 4.3-11.0 10^3/uL Red Blood Count 4.34 L 4.35-5.85 10^6/uL Hemoglobin 12.4 11.5-16.0 G/DL Hematocrit 39 35-52 % Mean Corpuscular Volume 90 80-99 FL Mean Corpuscular Hemoglobin 29 25-34 PG Mean Corpuscular Hemoglobin Concent 32 32-36 G/DL Red Cell Distribution Width 14.6 H 10.0-14.5 % Platelet Count 404 H 130-400 10^3/uL Mean Platelet Volume 9.6 7.4-10.4 FL Immature Granulocyte % (Auto) 0 % Neutrophils (%) (Auto) 77 H 42-75 % Lymphocytes (%) (Auto) 14 12-44 % Monocytes (%) (Auto) 6 0-12 % Eosinophils (%) (Auto) 2 0-10 % Basophils (%) (Auto) 1 0-10 % Neutrophils # (Auto) 12.6 H 1.8-7.8 X 10^3 Lymphocytes # (Auto) 2.4 1.0-4.0 X 10^3 Monocytes # (Auto) 1.1 H 0.0-1.0 X 10^3 Eosinophils # (Auto) 0.3 0.0-0.3 10^3/uL Basophils # (Auto) 0.1 0.0-0.1 10^3/uL Immature Granulocyte # (Auto) 0.1 0.0-0.1 10^3/uL Neutrophils % (Manual) 74 % Lymphocytes % (Manual) 6 % Monocytes % (Manual) 4 % Eosinophils % (Manual) 4 % Basophils % (Manual) 1 % Band Neutrophils 4 % Atypical Lymphocytes 7 % Blood Morphology Comment NORMAL Sodium Level 136 135-145 MMOL/L Potassium Level 3.5 L 3.6-5.0 MMOL/L Chloride Level 104 98-107 MMOL/L Carbon Dioxide Level 24 21-32 MMOL/L Anion Gap 8 5-14 MMOL/L Blood Urea Nitrogen 7 7-18 MG/DL Creatinine 0.51 L 0.60-1.30 MG/DL Estimat Glomerular Filtration Rate 118 BUN/Creatinine Ratio 14 Glucose Level 100 70-105 MG/DL Calcium Level 8.4 L 8.5-10.1 MG/DL Corrected Calcium 9.0 8.5-10.1 MG/DL Total Bilirubin 0.5 0.1-1.0 MG/DL Aspartate Amino Transf (AST/SGOT) 9 5-34 U/L Alanine Aminotransferase (ALT/SGPT) 5 0-55 U/L Alkaline Phosphatase 119 40-136 U/L Total Protein 6.5 6.4-8.2 GM/DL Albumin 3.2 3.2-4.5 GM/DL My Orders Orders - JULIA HARDY DO Ed Iv/Invasive Line Start (04/18/21 18:25) Cbc With Automated Diff (04/18/21 18:25) Comprehensive Metabolic Panel (04/18/21 18:25) Abdomen Flat & Upright/Decub (04/18/21 18:25) Ns Iv 1000 Ml (Sodium Chloride 0.9%) (04/18/21 18:30) Ondansetron Injection (Zofran Injectio (04/18/21 18:30) Manual Differential (04/18/21 17:55) Ondansetron Injection (Zofran Injectio (04/18/21 19:15) Ciprofloxacin Iv 400mg/200ml (Cipro Iv S (04/18/21 19:15) Metoclopramide Injection (Reglan Injecti (04/18/21 20:00) Medications Given in ED Current Medications Medications Dose Ordered Sig/Tequila Route Start Time Stop Time Status Last Admin Dose Admin Ciprofloxacin/ Dextrose 200 ml @ 200 mls/hr ONCE ONCE IV 04/18/21 19:15 04/18/21 20:14 DC 04/18/21 19:21 200 MLS/HR Metoclopramide HCl 5 mg ONCE ONCE IV 04/18/21 20:00 04/18/21 20:01 DC 04/18/21 20:00 5 MG Ondansetron HCl 4 mg ONCE ONCE IVP 04/18/21 18:30 04/18/21 18:31 DC 04/18/21 18:43 4 MG Ondansetron HCl 4 mg ONCE ONCE IVP 04/18/21 19:15 04/18/21 19:16 DC 04/18/21 19:21 4 MG Vital Signs/I&O 04/18/21 04/18/21 17:40 20:25 Temp 36.4 Pulse 78 75 Resp 22 16 B/P (MAP) 151/105 (120) 129/77 Pulse Ox 96 96 O2 Delivery Room Air Room Air Progress Progress Note : Progress Note still nauseated without vomiting, reviewed labs and elevated WBC's. Called Dr Mariscal @ 1915 and he advised po Abx: cipro/ flagyl and he will see her in office on Friday. Much better after 5mg IV REGLAN Diagnostic Imaging Diagonstic Imaging: Xray Comments Date of Exam:04/18/21 ABDOMEN FLAT & UPRIGHT/DECUB INDICATION: Nausea, generalized abdominal pain COMPARISON: 02/25/2021 FINDINGS: KUB and upright views of the abdomen demonstrate nondistended bowel gas pattern. There is no free air or significant constipation. Osseous structures are age-appropriate. IMPRESSION: No bowel obstruction or free air identified. Dictated on workstation # [id number] Dict: 04/18/21 1835 Trans: 04/18/21 1844 [facility] [id number] Interpreted by: KUSHAL CORTES Electronically signed by: Departure Impression Primary Impression: Abdominal pain Qualified Codes: R10.84 - Generalized abdominal pain Additional Impression: Nausea and vomiting Qualified Codes: R11.2 - Nausea with vomiting, unspecified Disposition: 01 HOME, SELF-CARE Condition: Improved Departure-Patient Inst. Decision time for Depature: 19:16 Referrals: ZAHIRA WILCOX APRN (PCP) Primary Care Physician [facility] (Family) Primary Care Physician Patient Instructions: Nausea and Vomiting, Adult (DC), Abdominal Pain, Adult ED Add. Discharge Instructions: Call Dr Mariscal tomorrow to schedule a follow up appointment for this Friday. Scripts Ondansetron (Ondansetron Odt) 4 Mg Tab.rapdis 4 MG PO Q6H PRN for NAUSEA/VOMITING, #20 TAB 0 Refills Prov: JULIA HARDY DO 04/18/21 Metronidazole (Metronidazole) 500 Mg Tablet 500 MG PO BID, #14 TAB 0 Refills Prov: JULIA HARDY DO 04/18/21 Ciprofloxacin HCl (Ciprofloxacin HCl) 500 Mg Tablet 500 MG PO BID, #14 TAB Prov: JULIA HARDY DO 04/18/21 JULIA HARDY DO Apr 18, 2021 17:47
[2021-04-18] MEDS ORDERED: NS IV 1000 ML 1,000 ML IV SCH (18:30)
[2021-04-18] MEDS ORDERED: ONDANSETRON 4 MG/2 ML (SDV) Z0FRAN IVP ONE ×2 (18:30→19:15)
[2021-04-18 18:37] LABS: HEMATOCRIT 39 % (35-52); HEMOGLOBIN 12.4 G/DL (11.5-16.0); MEAN CORPUSCULAR HEMOGLOBIN 29 PG (25-34); MEAN CORPUSCULAR HGB CONC 32 G/DL (32-36); MEAN CORPUSCULAR VOLUME 90 FL (80-99); MEAN PLATELET VOLUME 9.6 FL (7.4-10.4); PLATELET COUNT 404 10^3/uL (130-400); WHITE BLOOD COUNT 16.5 10^3/uL (4.3-11.0)
[2021-04-18 18:38] LABS: BASOPHILS # (AUTO) 0.1 10^3/uL (0.0-0.1); BASOPHILS % (AUTO) 1 % (0-10); EOSINOPHILS # (AUTO) 0.3 10^3/uL (0.0-0.3); EOSINOPHILS % (AUTO) 2 % (0-10); LYMPHOCYTES # (AUTO) 2.4 X 10^3 (1.0-4.0); LYMPHOCYTES % (AUTO) 14 % (12-44); MONOCYTES # (AUTO) 1.1 X 10^3 (0.0-1.0); MONOCYTES % (AUTO) 6 % (0-12); NEUTROPHILS # (AUTO) 12.6 X 10^3 (1.8-7.8); NEUTROPHILS % (AUTO) 77 % (42-75)
--- NOTE | 2021-04-18 18:45 | Diagnostic Imaging Report ---
INDICATION: Nausea, generalized abdominal pain COMPARISON: 02/25/2021 FINDINGS: KUB and upright views of the abdomen demonstrate nondistended bowel gas pattern. There is no free air or significant constipation. Osseous structures are age-appropriate. IMPRESSION: No bowel obstruction or free air identified. Dictated by: Dictated on workstation # [id number]
[2021-04-18 18:47] LABS: ALBUMIN 3.2 GM/DL (3.2-4.5); BILIRUBIN,TOTAL 0.5 MG/DL (0.1-1.0); CALCIUM 8.4 MG/DL (8.5-10.1); CREATININE SERUM 0.51 MG/DL (0.60-1.30); TOTAL PROTEIN 6.5 GM/DL (6.4-8.2)
[2021-04-18 18:53] LABS: BAND NEUTROPHILS 4 %; EOSINOPHILS % (MANUAL) 4 %; LYMPHOCYTES % (MANUAL) 6 %; MONOCYTES % (MANUAL) 4 %; NEUTROPHILS % (MANUAL) 74 %; POTASSIUM 3.5 MMOL/L (3.6-5.0)
[2021-04-18 18:54] LABS: ATYPICAL LYMPHOCYTES 7 %; BASOPHILS % (MANUAL) 1 %; RBC MORPH NORMAL
[2021-04-18] MEDS ORDERED: CIPROFLOXACIN IV 400MG/200ML 200 ML IV ONE (19:15)
[2021-04-18] MEDS ORDERED: CIPR500T5 PO (19:15)
[2021-04-18] MEDS ORDERED: METR-145 PO (19:15)
[2021-04-18] MEDS ORDERED: ONDA4TAB11 PO (19:16)
[2021-04-18] MEDS ORDERED: METOCLOPRAMIDE INJ 10 MG/2 ML (REGLAN) IV ONE (20:00)
[2021-04-18 20:25] VITALS: BP 129/77
== END 2021-04-18 20:25 | disposition home or self-care (01) ==
LOC: EDUNIT# 17:39 → ER FS 17:40
DX: R10.84 Generalized abdominal pain (principal); R11.2 Nausea with vomiting, unspecified; K21.9 Gastro-esophageal reflux disease without esophagitis; F41.9 Anxiety disorder, unspecified; F32.9 Major depressive disorder, single episode, unspecified; Z86.73 Personal history of transient ischemic attack (TIA), and cerebral infarction without residual deficits; Z79.52 Long term (current) use of systemic steroids; Z79.899 Other long term (current) drug therapy
CPT/HCPCS: 36415; 74019; 80053; 85007; 85027

== ENCOUNTER 2021-04-28 15:15 | Inpatient (IN) | payer MEDICARE ==
[~2021-04-28] VITALS: Ht 152.4 cm; Wt 45.9 kg
[~2021-04-28 15:15] MED LIST changes: +CIPR500T5 PO; +METR-145 PO
[2021-04-28] MEDS ORDERED: fentaNYL INJ 100 MCG/2 ML AMP IVP STA (15:22)
[2021-04-28] MEDS ORDERED: ONDANSETRON 4 MG/2 ML (SDV) Z0FRAN IVP ONE (15:30)
[2021-04-28 15:48] LABS: BASOPHILS # (AUTO) 0.1 10^3/uL (0.0-0.1); BASOPHILS % (AUTO) 0 % (0-10); EOSINOPHILS # (AUTO) 0.4 10^3/uL (0.0-0.3); EOSINOPHILS % (AUTO) 1 % (0-10); HEMATOCRIT 46 % (35-52); HEMOGLOBIN 14.7 G/DL (11.5-16.0); LYMPHOCYTES # (AUTO) 1.6 X 10^3 (1.0-4.0); LYMPHOCYTES % (AUTO) 4 % (12-44); MEAN CORPUSCULAR HEMOGLOBIN 29 PG (25-34); MEAN CORPUSCULAR HGB CONC 32 G/DL (32-36); MEAN CORPUSCULAR VOLUME 92 FL (80-99); MEAN PLATELET VOLUME 9.1 FL (7.4-10.4); MONOCYTES # (AUTO) 1.4 X 10^3 (0.0-1.0); MONOCYTES % (AUTO) 4 % (0-12); NEUTROPHILS # (AUTO) 36.2 X 10^3 (1.8-7.8); NEUTROPHILS % (AUTO) 91 % (42-75); PLATELET COUNT 556 10^3/uL (130-400)
[2021-04-28 16:02] LABS: PROTHROMBIN TIME PATIENT 13.7 SEC (12.2-14.7)
[2021-04-28 16:11] LABS: POTASSIUM 3.6 MMOL/L (3.6-5.0); SODIUM 140 MMOL/L (135-145)
[2021-04-28 16:12] LABS: ALANINE AMINOTRANSFERASE 9 U/L (0-55); ALBUMIN 3.7 GM/DL (3.2-4.5); ALKALINE PHOSPHATASE 133 U/L (40-136); BILIRUBIN,TOTAL < 0.3 MG/DL (0.1-1.0); BUN/CREATININE RATIO 9; CALCIUM 9.5 MG/DL (8.5-10.1); CARBON DIOXIDE 19 MMOL/L (21-32); CHLORIDE 107 MMOL/L (98-107); GFR ESTIMATED 54; GLUCOSE 205 MG/DL (70-105); TOTAL PROTEIN 7.7 GM/DL (6.4-8.2)
--- NOTE | 2021-04-28 16:14 | Diagnostic Imaging Report ---
INDICATION: Generalized pain. TIME OF EXAM: 3:46 p.m. COMPARISON: Correlation is made with prior chest 01/05/2021. FINDINGS: Heart size is stable. There is a right chest wall port with tip overlying the SVC. Lungs appear to be clear. No infiltrate is detected. There is no no effusion or pneumothorax. Bilateral breast implants with calcified implant shells are noted. IMPRESSION: No acute cardiopulmonary process is detected. Dictated by: Dictated on workstation # [id number]
[2021-04-28] MEDS ORDERED: NS IV 500 ML 500 ML IV ONE (16:15)
[2021-04-28 16:18] LABS: LYMPHOCYTES % (MANUAL) 3 %; MONOCYTES % (MANUAL) 1 %; NEUTROPHILS % (MANUAL) 96 %; SMEAR SCAN COMMENT PLTS INCREASED
[2021-04-28 16:19] LABS: TOXIC GRANULATION/VACUOLAZATIO 2+
--- NOTE | 2021-04-28 16:23 | ED Abdominal Pain ---
General Chief Complaint: Abdominal/GI Problems Stated Complaint: NAUSEA; VOMITING Source of Information: Patient, EMS Exam Limitations: No Limitations History of Present Illness Date Seen by Provider: Apr 28, 2021 Time Seen by Provider: 15:15 Initial Comments Here with report of severe abdominal pain associated with nausea and vomiting. Patient has colostomy to the right lower abdomen. Apparently she had failed colonoscopy reversal earlier this year. She has had abdominal problems since. Seen 10 days ago for abdominal pain and started on antibiotics and is to follow- up with Dr. Mariscal. She states that the pain got worse and started having nausea and vomiting yesterday. She has tried to take her meds and believes that she did but started having shaking chills today and severe back pain in the low back. Has old ostomy wound leaking purulent drainage with new ostomy on the right side. She could not get her colostomy bag to stick and so it is open right now. Patient arrives in [facility] covered in vomit. Appears quite ill. Timing/Duration: 24 Hours, Getting Worse Severity/Quality: Moderate, Severe, Aching Location: Generalized Abdomen Radiation: Back Activities at Onset: None Modifying Factors: Worsens With Eating Associated Symptoms: Back Pain; No Chest Pain; Fever/Chills, Nausea/Vomiting; No Shortness of Air, No Swelling/Mass in Abdomen; Weakness Allergies and Home Medications Allergies Coded Allergies: hydromorphone (Unverified Adverse Reaction, Unknown, PSYCH, 01/19/21) Home Medications Acetaminophen with Codeine 1 Each Tablet, 1 EACH PO BID PRN for PAIN-MODERATE (5-7), (Reported) Ciprofloxacin HCl 500 Mg Tablet, 500 MG PO BID Prescribed by: JULIA HARDY on 04/18/211914 Citalopram Hydrobromide 40 Mg Tablet, 40 MG PO HS, (Reported) LAST FILLED 10-16-2020 #90/90 DAY SUPPLY Dexlansoprazole 60 Mg , 60 MG PO DAILY, (Reported) Hyoscyamine Sulfate 0.125 Mg Tab.subl, 0.125 MG SL Q4H PRN for ABDOMINAL CRAMPING, (Reported) Ibuprofen 200 Mg Tablet, 400 MG PO BID PRN for PAIN-MILD (1-4), (Reported) Lorazepam 0.5 Mg Tablet, 0.5 MG PO HS, (Reported) Metronidazole 500 Mg Tablet, 500 MG PO BID Prescribed by: JULIA HARDY on 04/18/211914 Ondansetron 4 Mg Tab.rapdis, 4 MG PO Q6H PRN for NAUSEA/VOMITING Prescribed by: JULIA HARDY on 04/18/211915 Oxybutynin Chloride 5 Mg Tablet, 5 MG PO BID, (Reported) FILLED 11-24-2020 #60/30 DAY SUPPLY Peg 400/Hypromellose/Glycerin 15 Ml Drops, 1-2 DROPS OU PRN PRN for DRY EYES, (Reported) Prednisone 5 Mg Tablet, 5 MG PO HS, (Reported) Quetiapine Fumarate 100 Mg Tablet, 100 MG PO HS, (Reported) Patient Home Medication List Home Medication List Reviewed: Yes Review of Systems Review of Systems Constitutional: chills; No diaphoresis, No fever; weakness EENTM: No Nose Congestion, No Throat Pain Respiratory: Denies Cough, Denies SOA at Rest Cardiovascular: Denies Chest Pain, Denies Edema Gastrointestinal: Abdominal Pain; Denies Diarrhea; Nausea, Vomiting Genitourinary: No Symptoms Reported Musculoskeletal: back pain; No muscle pain Skin: no symptoms reported Psychiatric/Neurological: Anxiety; Denies Headache; Weakness All Other Systems Reviewed Negative Unless Noted: Yes Past Gedlclh-Uvemmq-Hwsvrn Hx Patient Social History Tobacco Use?: Yes Smoking Status: Current Everyday Smoker Immunizations Up To Date Tetanus Booster (TDap): Unknown Seasonal Allergies Seasonal Allergies: No Past Medical History Surgery/Hospitalization HX: Multiple colon surgeries after colon perforation Surgeries: Yes (esophagus, colostomy; BLADDER/RECTAL SURGERY X5, anastomosis, hernia repair) Abdominal, Bladder Surgery, Bowel Surgery, 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, Rectal Respiratory: No Currently Using CPAP: No Currently Using BIPAP: No Cardiac: Yes Heart Murmur 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 (CVA 2019 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) 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 Genitourinary: Yes (incontinent of urine, can't control when it occurs and wears "a pad") UTI-Chronic Gastrointestinal: Yes (Colostomy) Gastroesophageal Reflux, Obstructive Bowel, Esophagitis, Hiatal Hernia Musculoskeletal: Yes Arthritis Endocrine: No HEENT: Yes (detached retina x3-surgeries x 5) Cataract Loss of Vision: Left Hearing Impairment: Denies Cancer: Yes Skin, Colon Did You Recieve Any Treatments: Yes What Type of Treatment Did You: Surgical Intervention Psychosocial: Yes Anxiety, Depression Integumentary: Yes ("BREAK OUT IN HIVES.") Blood Disorders: No Family Medical History Reviewed Nursing Family Hx Heart Disease, Cancer, Other Conditions/Hx NC Physical Exam Vital Signs Capillary Refill : Height/Weight/BMI Height: 5'0.00" Weight: 100lbs. 3.2oz. 45.417230pa; 19.00 BMI Method:Stated General Appearance: WD/WN, moderate distress HEENT: PERRL/EOMI, pharynx normal Neck: full range of motion, supple Respiratory: lungs clear, no accessory muscle use Cardiovascular: no murmur, tachycardia Peripheral Pulses: 2+ Dorsalis Pedis (R), 2+ Left Dors-Pedis (L), 2+ Radial Pulses (R), 2+ Radial Pulses (L) Gastrointestinal: soft, tenderness (Diffusely) Extremities: non-tender, normal inspection Back: normal inspection, no CVA tenderness, no vertebral tenderness Neurologic/Psychiatric: alert, oriented x 3 Skin: normal color, warm/dry Focused Exam Lactate Level 04/28/21 15:51: Lactic Acid Level 5.00*H 04/28/21 17:51: Lactic Acid Level 1.36 Lactic Acid Level Laboratory Tests Test 04/28/21 15:51 04/28/21 17:51 Lactic Acid Level 5.00 MMOL/L (0.50-2.00) *H 1.36 MMOL/L (0.50-2.00) Progress/Results/Core Measures Results/Orders Lab Results Laboratory Tests Test 04/28/21 15:38 04/28/21 15:51 04/28/21 17:12 04/28/21 17:51 Range/Units White Blood Count 40.0 *H 4.3-11.0 10^3/uL Red Blood Count 5.06 4.35-5.85 10^6/uL Hemoglobin 14.7 11.5-16.0 G/DL Hematocrit 46 35-52 % Mean Corpuscular Volume 92 80-99 FL Mean Corpuscular Hemoglobin 29 25-34 PG Mean Corpuscular Hemoglobin Concent 32 32-36 G/DL Red Cell Distribution Width 15.1 H 10.0-14.5 % Platelet Count 556 H 130-400 10^3/uL Mean Platelet Volume 9.1 7.4-10.4 FL Immature Granulocyte % (Auto) 1 % Neutrophils (%) (Auto) 91 H 42-75 % Lymphocytes (%) (Auto) 4 L 12-44 % Monocytes (%) (Auto) 4 0-12 % Eosinophils (%) (Auto) 1 0-10 % Basophils (%) (Auto) 0 0-10 % Neutrophils # (Auto) 36.2 H 1.8-7.8 X 10^3 Lymphocytes # (Auto) 1.6 1.0-4.0 X 10^3 Monocytes # (Auto) 1.4 H 0.0-1.0 X 10^3 Eosinophils # (Auto) 0.4 H 0.0-0.3 10^3/uL Basophils # (Auto) 0.1 0.0-0.1 10^3/uL Immature Granulocyte # (Auto) 0.3 H 0.0-0.1 10^3/uL Neutrophils % (Manual) 96 % Lymphocytes % (Manual) 3 % Monocytes % (Manual) 1 % Toxic Granulation 2+ Prothrombin Time 13.7 12.2-14.7 SEC INR Comment 1.0 0.8-1.4 Activated Partial Thromboplast Time 25 24-35 SEC Sodium Level 140 135-145 MMOL/L Potassium Level 3.6 3.6-5.0 MMOL/L Chloride Level 107 98-107 MMOL/L Carbon Dioxide Level 19 L 21-32 MMOL/L Anion Gap 14 5-14 MMOL/L Blood Urea Nitrogen 9 7-18 MG/DL Creatinine 1.00 0.60-1.30 MG/DL Estimat Glomerular Filtration Rate 54 BUN/Creatinine Ratio 9 Glucose Level 205 H 70-105 MG/DL Calcium Level 9.5 8.5-10.1 MG/DL Corrected Calcium 9.7 8.5-10.1 MG/DL Total Bilirubin < 0.3 0.1-1.0 MG/DL Aspartate Amino Transf (AST/SGOT) 18 5-34 U/L Alanine Aminotransferase (ALT/SGPT) 9 0-55 U/L Alkaline Phosphatase 133 40-136 U/L C-Reactive Protein 0.30 <0.50 MG/DL Total Protein 7.7 6.4-8.2 GM/DL Albumin 3.7 3.2-4.5 GM/DL Smear Scan PLTS INCREASED Lactic Acid Level 5.00 *H 1.36 0.50-2.00 MMOL/L Urine Color YELLOW Urine Clarity CLEAR Urine pH 7.0 5-9 Urine Specific [place] 1.015 L 1.016-1.022 Urine Protein 1+ H NEGATIVE Urine Glucose (UA) NEGATIVE NEGATIVE Urine Ketones NEGATIVE NEGATIVE Urine Nitrite NEGATIVE NEGATIVE Urine Bilirubin NEGATIVE NEGATIVE Urine Urobilinogen 0.2 < = 1.0 MG/DL Urine Leukocyte Esterase NEGATIVE NEGATIVE Urine RBC (Auto) NEGATIVE NEGATIVE Urine RBC NONE /HPF Urine WBC 5-10 H /HPF Urine Squamous Epithelial Cells 0-2 /HPF Urine Crystals NONE /LPF Urine Bacteria FEW H /HPF Urine Casts PRESENT /LPF Urine Hyaline Casts 5-10 H /LPF Urine Granular Casts /LPF Urine Coarse Granular Casts 5-10 H /LPF Urine Mucus SMALL H /LPF Urine Culture Indicated NO My Orders Orders - MILLIE HOLLINS MD Cbc With Automated Diff (04/28/21 15:22) Comprehensive Metabolic Panel (04/28/21 15:22) Crp Fs (04/28/21 15:22) Fentanyl Inj (Sublimaze Injection) (04/28/21 15:22) Ondansetron Injection (Zofran Injectio (04/28/21 15:30) Manual Differential (04/28/21 15:38) Blood Culture (04/28/21 15:52) Urinalysis (04/28/21 15:52) Urine Culture (04/28/21 15:52) Protime With Inr (04/28/21 15:52) Partial Thromboplastin Time (04/28/21 15:52) Chest 1 View Ap/Pa Only (04/28/21 15:52) Vital Signs Adult Sepsis Patie Q15M (04/28/21 15:52) Remove Rings In Anticipation O (04/28/21 15:52) Lactic Acid Analyzer (04/28/21 15:52) Ns Iv 500 Ml (Sodium Chloride 0.9%) (04/28/21 16:15) Ct Abdomen/Pelvis W (04/28/21 16:27) Piperacillin Sodium/Tazobactam (Zosyn Vi (04/28/21 16:30) Iohexol Injection (Omnipaque 350 Mg/Ml 1 (04/28/21 16:30) Received Contrast (Hold Metformin- Contr (04/28/21 16:30) Sodium Chloride Flush (Catheter Flush Sy (04/28/21 16:30) Ns (Ivpb) (Sodium Chloride 0.9% Ivpb Bag (04/28/21 16:30) Medications Given in ED Current Medications Medications Dose Ordered Sig/Tequila Route Start Time Stop Time Status Last Admin Dose Admin Iohexol 70 ml ONCE ONCE IV 04/28/21 16:30 04/28/21 16:31 DC 04/28/21 16:42 70 ML Ondansetron HCl 4 mg ONCE ONCE IVP 04/28/21 15:30 04/28/21 15:31 DC 04/28/21 15:45 4 MG Piperacillin Sod/ Tazobactam Sod 4.5 gm/Sodium Chloride 100 ml @ 200 mls/hr ONCE ONCE IV 04/28/21 16:30 04/28/21 16:59 DC 04/28/21 18:00 200 MLS/HR Sodium Chloride 10 ml NEEDED PRN IV 04/28/21 16:30 04/28/21 16:43 10 ML Sodium Chloride 100 ml ONCE ONCE IV 04/28/21 16:30 04/28/21 16:31 DC 04/28/21 16:43 100 ML Sodium Chloride 500 ml @ 0 mls/hr Q0M ONCE IV 04/28/21 16:15 04/28/21 16:16 DC 04/28/21 18:00 0 MLS/HR Progress Progress Note : Progress Note Seen and evaluated. IV via EMS with 1 L normal saline running. We will co ntinue that. Patient does have a port but did not have card for it so we are unsure if it is PowerPort. Nursing did access that to draw blood and we will continue fluids through that. Fentanyl 50 mcg IV and Zofran 4 mg IV ordered. 1552: White count noted to be 40,000 so we will go ahead and upgrade to sepsis protocol. 1613: Lactic acid 5.0. Concerns for intra-abdominal infection. We will continue IV fluids to achieve 30 mL/kg bolus by adding 500 mL normal saline to the 1 L already running which will give us greater then required based on estimated 45 kg weight. We will initiate Zosyn. Patient has been on Cipro and Flagyl outpatient. Patient will require admission. We are going to go ahead and get CT abdomen and pelvis but waiting on chemistry to determine contrast capability. Monitor patient. O2 initiated via nasal cannula at 2 L/min. 162: CT abdomen pelvis with contrast ordered. Monitor patient. 1819: CT results noted. I did discuss the case with Dr. Varela and after discussion with surgeon on-call, he accepts patient for admission. Patient is a Dr. Mariscal patient and apparently has history with Dr. Arias that she would not want to see him. She would see him in emergent condition. We will initiate Zosyn and vancomycin and admit to the ICU. Dr. Varela has graciously accepted. Dr. Arias will follow if needed otherwise Dr. Mariscal can see her on Friday. She does have wound to the left lower abdominal area that does have some what appears to be purulent or milky drainage. CT does not indicate any intra-abdominal abscesses. Lactic acid has improved to normal now. Patient still has markedly elevated white count. Admit, inpatient status. Patient agrees to plan. Diagnostic Imaging Diagonstic Imaging: Xray Plain Films/CT/US/NM/MRI: chest Comments [facility] [place], [place] NAME: NYDIA KIRK [facility] REC#: [id number] PT STATUS: REG ER : 1945 PHYSICIAN: MILLIE HOLLINS MD ADMIT DATE: 04/28/21/ER FS Signed Date of Exam:04/28/21 CHEST 1 VIEW AP/PA ONLY INDICATION: Generalized pain. TIME OF EXAM: 3:46 p.m. COMPARISON: Correlation is made with prior chest 01/05/2021. FINDINGS: Heart size is stable. There is a right chest wall port with tip overlying the SVC. Lungs appear to be clear. No infiltrate is detected. There is no no effusion or pneumothorax. Bilateral breast implants with calcified implant shells are noted. IMPRESSION: No acute cardiopulmonary process is detected. Dictated by: Dictated on workstation # [id number] Dict: 04/28/21 1609 Trans: 04/28/21 1641 [facility] [id number] Interpreted by: REGGIE BEGUM MD Electronically signed by: REGGIE BEGUM MD 04/28/21 3305 Diagonstic Imaging: CT Plain Films/CT/US/NM/MRI: abdomen, pelvis Comments [facility] [place], [place] NAME: NYDIA KIRK [facility] REC#: [id number] PT STATUS: REG ER : 1945 PHYSICIAN: MILLIE HOLLINS MD ADMIT DATE: 04/28/21/ER FS Draft Date of Exam:04/28/21 CT ABDOMEN/PELVIS W PROCEDURE: CT abdomen and pelvis with contrast. TECHNIQUE: Multiple contiguous axial images were obtained through the abdomen and pelvis after administration of intravenous contrast. Auto Exposure Controls were utilized during the CT exam to meet ALARA standards for radiation dose reduction. All CT scans use one or more of the following dose optimizing techniques: automated exposure control, MA and/or KvP adjustment based on patient size and exam type or iterative reconstruction. INDICATION: Nausea and vomiting, abdominal pain with elevated white blood cell count. Patient has history of colon carcinoma. COMPARISON: Prior CT from 01/15/2021. FINDINGS: Lung bases are clear. There is a moderate-sized hiatal hernia. The liver and gallbladder are unremarkable. Pancreas and spleen are unremarkable. No adrenal mass is identified. Kidneys are unremarkable. Aorta is nonaneurysmal. Postsurgical changes of colectomy are noted. This appears to be an ostomy in the right lower quadrant. Small bowel is normal caliber. No definite obstruction is seen. No free fluid or fluid collection is seen. Bladder is decompressed. IMPRESSION: Interval performance of colectomy since prior CT. Visualized small bowel loops appear to be normal caliber and there is no evidence of obstruction. No free fluid, fluid collection or free air is identified. Dictated on workstation # [id number] Dict: 04/28/21 1654 Trans: 04/28/21 1702 [facility] [id number] Interpreted by: REGGIE BEGUM MD Electronically signed by: Reviewed: Reviewed by Me Departure Communication (Admissions) Time/Spoke to Admitting Phy: 17:51 Time/Spoke to Consulting Phy: 18:12 Impression Primary Impression: Severe sepsis Additional Impressions: Abdominal pain Qualified Codes: R10.84 - Generalized abdominal pain Back pain Qualified Codes: M54.6 - Pain in thoracic spine Vomiting Qualified Codes: R11.2 - Nausea with vomiting, unspecified Disposition: ADMITTED INPATIENT Condition: Stable Admissions Decision to Admit Reason: Admit from ER (General) Decision to Admit/Date: Apr 28, 2021 Time/Decision to Admit Time: 17:51 Departure-Patient Inst. Referrals: ZAHIRA WILCOX APRN (PCP) Primary Care Physician [facility]/ (Family) Primary Care Physician MILLIE HOLLINS MD Apr 28, 2021 16:23
[2021-04-28] MEDS ORDERED: CATHETER FLUSH 10 ML SYR IV PRN (16:30)
[2021-04-28] MEDS ORDERED: NS 100 ML (IVPB) BAG IV ONE (16:30)
[2021-04-28] MEDS ORDERED: IOHEXOL 350 MG/ML 100 ML (OMNIPAQUE 350) VIAL IV ONE (16:30)
[2021-04-28] MEDS ORDERED: HOLD METFORMIN - RECEIVED CONTRAST 20 ML VIAL IV SCH (16:30)
[2021-04-28] MEDS ORDERED: PIPERACILLIN SODIUM/TAZOBACTAM 4.5 GM in NS (IVPB) 100 ML IV ONE (16:30)
--- NOTE | 2021-04-28 17:03 | Diagnostic Imaging Report ---
PROCEDURE: CT abdomen and pelvis with contrast. TECHNIQUE: Multiple contiguous axial images were obtained through the abdomen and pelvis after administration of intravenous contrast. Auto Exposure Controls were utilized during the CT exam to meet ALARA standards for radiation dose reduction. All CT scans use one or more of the following dose optimizing techniques: automated exposure control, MA and/or KvP adjustment based on patient size and exam type or iterative reconstruction. INDICATION: Nausea and vomiting, abdominal pain with elevated white blood cell count. Patient has history of colon carcinoma. COMPARISON: Prior CT from 01/15/2021. FINDINGS: Lung bases are clear. There is a moderate-sized hiatal hernia. The liver and gallbladder are unremarkable. Pancreas and spleen are unremarkable. No adrenal mass is identified. Kidneys are unremarkable. Aorta is nonaneurysmal. Postsurgical changes of colectomy are noted. This appears to be an ostomy in the right lower quadrant. Small bowel is normal caliber. No definite obstruction is seen. No free fluid or fluid collection is seen. Bladder is decompressed. IMPRESSION: Interval performance of colectomy since prior CT. Visualized small bowel loops appear to be normal caliber and there is no evidence of obstruction. No free fluid, fluid collection or free air is identified. Dictated by: Dictated on workstation # [id number]
[2021-04-28 17:23] LABS: BACTERIA,URINE FEW /HPF; BILIRUBIN,URINE NEGATIVE (NEGATIVE); CLARITY,URINE CLEAR; COLOR,URINE YELLOW; GLUCOSE, URINE (UA) NEGATIVE (NEGATIVE); KETONES,URINE NEGATIVE (NEGATIVE); LEUKOCYTE ESTERASE ,URINE NEGATIVE (NEGATIVE); NITRITE,URINE NEGATIVE (NEGATIVE); PROTEIN,URINE 1+ (NEGATIVE); SQUAMOUS EPITHELIAL CELL,UR 0-2 /HPF
[2021-04-28] MEDS ORDERED: fentaNYL INJ 100 MCG/2 ML AMP IVP PRN (21:15)
[2021-04-28] MEDS ORDERED: morphine INJ 4 MG/ML 1 ML (VIAL/SYRINGE) IV PRN (21:45)
[2021-04-28] MEDS ORDERED: ANTACID SUSP 30 ML UDC (MYLANTA) PO PRN (21:45)
[2021-04-28] MEDS ORDERED: NALOXONE 0.4 MG/ML 1 ML (NARCAN) VIAL IV PRN (21:45)
[2021-04-28] MEDS ORDERED: diphenhydrAMINE 25 MG TAB (BENADRYL) PO PRN (21:45)
[2021-04-28] MEDS ORDERED: ACETAMINOPHEN 325 MG TABLET PO PRN (21:45)
[2021-04-28] MEDS ORDERED: VANCOMYCIN 750 MG/NS 250 ML IVPB IV NR ×2 (22:00)
--- NOTE | 2021-04-28 22:24 | Tele-ICU Consult ---
Progress Note Laboratory Tests 04/28/21 15:38 Current Medications Vital Signs 04/28/21 04/28/21 04/28/21 20:15 20:59 21:26 Temp 37.6 Pulse 85 Resp 18 B/P (MAP) 99/70 (80) Pulse Ox 95 O2 Delivery Room Air O2 Flow Rate 2.00 Medications Dose Ordered Sig/Tequila Route Start Time Stop Time Status Last Admin Dose Admin Iohexol 70 ml ONCE ONCE IV 04/28/21 16:30 04/28/21 16:31 DC 04/28/21 16:42 70 ML Ondansetron HCl 4 mg ONCE ONCE IVP 04/28/21 15:30 04/28/21 15:31 DC 04/28/21 15:45 4 MG Piperacillin Sod/ Tazobactam Sod 4.5 gm/Sodium Chloride 100 ml @ 200 mls/hr ONCE ONCE IV 04/28/21 16:30 04/28/21 16:59 DC 04/28/21 18:00 200 MLS/HR Sodium Chloride 10 ml NEEDED PRN IV 04/28/21 16:30 04/28/21 16:43 10 ML Sodium Chloride 100 ml ONCE ONCE IV 04/28/21 16:30 04/28/21 16:31 DC 04/28/21 16:43 100 ML Sodium Chloride 500 ml @ 0 mls/hr Q0M ONCE IV 04/28/21 16:15 04/28/21 16:16 DC 04/28/21 18:00 0 MLS/HR 04/28/21 15:51: Lactic Acid Level 5.00*H 04/28/21 17:51: Lactic Acid Level 1.36 Vital Signs Date Time Temp Pulse Resp B/P (MAP) Pulse Ox O2 Delivery O2 Flow Rate FiO2 04/28/21 15:15 36.3 100 24 101/87 (92) 97 Room Air 04/28/21 20:15 2.00 Allergies Coded Allergies hydromorphone (Unverified Adverse Reaction, Unknown, PSYCH, 01/19/21) paiten hpi of operation for colostomy reversal, arrives with increased abdominal pain, looking at Ed physician documentation, old colostomy sight with purlulent drainage, paitent started on zosyn, admitted to primary with surgery on consult patient has minimal drainage, has liquid diarrhea from colostomy states order was consistent with odor in past vitals and labs per above ct of abdomen and pelvis done, no free air or fluid some post op changes patient lactic acid improved after fluid started on zosyn, patient on iv vanco c diff is a concern, iv flagyl, po vanco continue supportive care, order cdiff when has bowel movemnt Focused Exam Lactate Level 04/28/21 15:51: Lactic Acid Level 5.00*H 04/28/21 17:51: Lactic Acid Level 1.36 Height, Weight, BMI Height: 5'0.00" Weight: 100lbs. 3.2oz. 45.622206mv; 18.60 BMI Method:Stated JACIEL ALAS MD Apr 28, 2021 22:24
[2021-04-28] MEDS ORDERED: NS (IVPB) 250 ML ONE (22:56)
[2021-04-28 22:57] VITALS: BP 101/87
[2021-04-28] MEDS: ENOXAPARIN 30 MG/0.3 ML (LOVENOX) SYR SC SCH (23:03)
[2021-04-28] MEDS: LACTATED RINGERS 1,000 ML IV SCH (23:03)
[2021-04-28] MEDS: VANCOMYCIN 125 MG CAPSULE PO SCH (23:05)
[2021-04-28] MEDS: CEFEPIME 1,000 MG/SWFI 10 ML IV PUSH IV SCH ×2 (23:05)
[2021-04-28] MEDS: metroNIDAZOLE 500MG/100ML IVPB 100 ML IV SCH (23:05)
[2021-04-28] MEDS: MELATONIN 3 MG TABLET PO PRN (23:08)
[2021-04-28] MEDS ORDERED: RT-ALBUTEROL SULF 2.5 MG/3 ML PRE-MIX VIAL INH PRN (23:15)
[2021-04-29] MEDS ORDERED: PIPERACILLIN/TAZO 4.5 GM/NS 100 ML IV SCH ×2
[2021-04-29] MEDS ORDERED: NS IV 500 ML 500 ML ONE (00:12)
[2021-04-29] MEDS ORDERED: NS 100 ML (IVPB) BAG IV ONE (00:15)
[2021-04-29] MEDS: NOREPINEPHRINE 8 MG/250 ML 250 ML IV SCH (01:11)
[2021-04-29] MEDS: LACTATED RINGERS 1,000 ML IV SCH ×3 (03:56→17:13)
[2021-04-29 04:32] LABS: BASOPHILS % (AUTO) 0 % (0-10); EOSINOPHILS # (AUTO) 0.5 10^3/uL (0.0-0.3); EOSINOPHILS % (AUTO) 2 % (0-10); HEMATOCRIT 34 % (35-52); HEMOGLOBIN 10.9 g/dL (11.5-16.0); LYMPHOCYTES # (AUTO) 2.7 X 10^3 (1.0-4.0); LYMPHOCYTES % (AUTO) 10 % (12-44); MEAN CORPUSCULAR HEMOGLOBIN 29 pg (25-34); MEAN CORPUSCULAR HGB CONC 32 g/dL (32-36); MEAN CORPUSCULAR VOLUME 92 fL (80-99); MEAN PLATELET VOLUME 9.1 fL (9.0-12.2); MONOCYTES # (AUTO) 1.2 X 10^3 (0.0-1.0); MONOCYTES % (AUTO) 4 % (0-12); NEUTROPHILS # (AUTO) 23.6 X 10^3 (1.8-7.8); NEUTROPHILS % (AUTO) 84 % (42-75); PLATELET COUNT 450 10^3/uL (130-400)
[2021-04-29 05:07] LABS: CALCIUM 7.3 MG/DL (8.5-10.1); CREATININE SERUM 0.71 MG/DL (0.60-1.30); MAGNESIUM 1.9 MG/DL (1.6-2.4); PHOSPHORUS 4.2 MG/DL (2.3-4.7); POTASSIUM 3.8 MMOL/L (3.6-5.0)
[2021-04-29] MEDS: KCL 20 MEQ TAB (K-DUR) PO SCH (05:10)
[2021-04-29] MEDS: MAGNESIUM 1 GM/100 ML IVPB 100 ML IV SCH (05:10)
[2021-04-29] MEDS: POTASSIUM CL 10MEQ/50ML IVPB 50 ML IV SCH (05:10)
[2021-04-29] MEDS: VANCOMYCIN 125 MG CAPSULE PO SCH ×3 (06:20→17:13)
[2021-04-29] MEDS: metroNIDAZOLE 500MG/100ML IVPB 100 ML IV SCH ×3 (06:21→23:12)
[2021-04-29] MEDS: CEFEPIME 1,000 MG/SWFI 10 ML IV PUSH IV SCH ×6 (06:21→23:12)
[2021-04-29] MEDS: RT-ALBUTEROL SULF 2.5 MG/3 ML PRE-MIX VIAL INH SCH ×2 (07:23→20:48)
[2021-04-29] MEDS: ONDANSETRON 4 MG/2 ML (SDV) Z0FRAN IVP PRN (10:27)
--- NOTE | 2021-04-29 10:46 | Tele-ICU Progress Note ---
Subjective Date Seen by a Provider: Apr 29, 2021 Time Seen by a Provider: 10:46 Sepsis Event Evaluation Height, Weight, BMI Height: 5'0.00" Weight: 100lbs. 3.2oz. 45.329088st; 18.60 BMI Method:Stated Focused Exam Lactate Level 04/28/21 15:51: Lactic Acid Level 5.00*H 04/28/21 17:51: Lactic Acid Level 1.36 Exam Exam Patient acknowledged, consented, and participated in this virtual visit which was conducted using real time audio/video Vital Signs Date Time Temp Pulse Resp B/P (MAP) Pulse Ox O2 Delivery O2 Flow Rate FiO2 04/29/21 10:00 76 20 116/67 (83) 97 Room Air 04/29/21 09:00 60 19 116/64 (81) 97 Room Air 04/29/21 08:00 Room Air 04/29/21 08:00 36.0 04/29/21 08:00 99 18 149/74 (99) 97 Room Air 04/29/21 07:24 98 Room Air 04/29/21 07:00 60 04/29/21 07:00 61 16 138/82 (103) 98 Room Air 04/29/21 06:00 58 19 133/75 (94) 97 Room Air 04/29/21 05:00 Room Air 04/29/21 05:00 63 23 125/74 (91) 97 Room Air 04/29/21 04:00 56 23 121/73 (89) 99 Room Air 04/29/21 03:00 68 16 100/61 (74) 96 Room Air 04/29/21 02:00 63 16 93/57 (69) 98 Room Air 04/29/21 01:11 66 62/41 04/29/21 01:00 71 04/29/21 01:00 Room Air 04/29/21 01:00 36.6 04/29/21 00:00 74 18 72/41 (51) 94 Room Air 04/28/21 23:00 78 13 90/64 (73) 98 Room Air 04/28/21 22:57 36.3 100 97 04/28/21 22:00 76 10 106/65 (79) 99 Room Air 04/28/21 21:26 Room Air 04/28/21 20:59 85 04/28/21 20:59 37.6 76 18 99/70 (80) 95 Room Air 04/28/21 20:15 36.1 94 22 98/61 (92) 99 Nasal Cannula 2.00 04/28/21 15:15 36.3 100 24 101/87 (92) 97 Room Air I & O 04/29/21 07:00 Intake Total 5400 ml Output Total 670 ml Balance 4730 ml Height & Weight Height: 5'0.00" Weight: 100lbs. 3.2oz. 45.945520zt; 18.60 BMI Method:Stated General Appearance: No Apparent Distress Capillary Refill: Less Than 3 Seconds Peripheral Pulses: 2+ Dorsalis Pedis (R), 2+ Left Dors-Pedis (L), 2+ Radial Pulses (R), 2+ Radial Pulses (L) Gastrointestinal: soft, tenderness (Diffusely) Results Lab Laboratory Tests 04/28/21 15:38 04/29/21 04:10 Assessment/Plan Assessment/Plan (Tele-ICU Physician , Progress Note ) Available chart/ vitals / labs / Images reviewed Video assessment done using teleICU camera, rest of exam as per RN Discussed with RN Events overnight : Afebrile I/O = Drips: Pressors: , hemodynamically stable EXAM PER RN Consultants: SX Hospital course: 04/28 - sepsis , ? abd sourse A/P Sepsis , shock - old colostomy sight with purlulent drainage, Ct - unremarcable - diarrhea with elev WBC - tx empirically with PO vanco, cefepime and flagyl IV - received IVF - to continue - cx pending , SX consult pending Lines : PORT on place [place]: 04/28 OG: Nutrition: npo Analgesia: po opioids- chronic? Anxiety/ delirium VTE Prophylaxis: lovenox sq Stress Ulcer Prophylaxis: ? take PO after Sx eval Glycemic Control: Plans in collaboration with bedside consultants and IM MDs. Discussed with RN to reach out if any questions or concerns A total of 25 minutes of critical care time was devoted to this patient today, required to treat and/or prevent further deterioration of critical care condition ( as above) . ALEXEI RUBIN MD Apr 29, 2021 10:46
--- NOTE | 2021-04-29 13:12 | History & Physical-Hospitalist ---
History of Present Illness HPI/Chief Complaint Loan Acevedo is a 75-year-old female with past medical history of multiple abdominal surgeries, history of bowel perforation, history of colectomy, history of colostomy, history of abdominal wall hernia repair, who presented with abdominal pain. She reports that she had been in Dr. Mariscal's clinic a week or 2 ago. They were concerned about her left-sided colostomy which had been reversed. She has been having purulent drainage from the site. She had been placed on antibiotics. She says they stated if this did not improve they might have to "open it up". She reports that she was also having nausea and vomiting. She was having watery output from her colostomy. She has been having fevers. She has not had any nausea or vomiting since her admission. Her abdominal pain has improved, but is still present. She has not had any ostomy output. She denies any shortness of breath or cough. She denies any dysuria. Date Seen 04/29/21 Time Seen by a Provider: 09:20 Attending Physician Peri Bagley MD PCP Angi Sainz Aprn Referring Physician Date of Admission Apr 28, 2021 at 20:55 Home Medications & Allergies Home Medications Reviewed patient Home Medication Reconciliation performed by pharmacy medication reconciliations assistant technician and/or nursing. Patients Allergies have been reviewed. Allergies Allergies Coded Allergies hydromorphone (Unverified Adverse Reaction, Unknown, PSYCH, 01/19/21) Past Chumeve-Bhywnj-Rhlebz Hx Patient Social History Tobacco Use?: No Smoking Status: Never a Smoker Smokeless Tobacco Frequency: Never a User Substance use?: No Alcohol Use?: No Pt feels they are or have been: No Immunizations Up To Date First/Initial COVID19 Vaccinat: NONE Second COVID19 Vaccination [place]: NONE Tetanus Booster (TDap): Unknown Hepatitis A: No Hepatitis B: No Seasonal Allergies Seasonal Allergies: No Current Status status: No status: No Advance Directives: No Communicates: Verbally Primary Language: Yakut Preferred Spoken Language: Yakut Is interpretation needed?: No Sensory deficits: Vision impairment Implanted or Applied Medical D: Port-a-cath Past Medical History Surgeries: Abdominal, Bladder Surgery, Bowel Surgery, 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, Rectal Currently Using CPAP: No Currently Using BIPAP: No Heart Murmur 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 History: 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 UTI-Chronic Gastroesophageal Reflux, Obstructive Bowel, Esophagitis, Hiatal Hernia Arthritis Cataract Loss of Vision: Left Hearing Impairment: Denies Skin, Colon Did You Recieve Any Treatments: Yes What Type of Treatment Did You: Surgical Intervention Anxiety, Depression Blood Disorders: No OAB IBS Anemia Family Medical History Reviewed Nursing Family Hx Heart Disease, Cancer, Other Conditions/Hx NC Review of Systems Constitutional: chills, fever EENTM: no symptoms reported Respiratory: no symptoms reported Cardiovascular: no symptoms reported Gastrointestinal: abdominal pain, diarrhea, nausea, vomiting Genitourinary: no symptoms reported Musculoskeletal: no symptoms reported Skin: no symptoms reported Psychiatric/Neurological: No Symptoms Reported Physical Exam Physical Exam Vital Signs Vital Signs - First Documented 04/28/21 04/28/21 15:15 20:15 Temp 36.3 Pulse 100 Resp 24 B/P (MAP) 101/87 (92) Pulse Ox 97 O2 Delivery Room Air O2 Flow Rate 2.00 Capillary Refill : Less Than 3 Seconds Height, Weight, BMI Height: 5'0.00" Weight: 100lbs. 3.2oz. [id number]; 18.60 BMI Method:Stated General Appearance: Mild Distress (Uncomfortable), Thin HEENT: PERRL/EOMI, Pharynx Normal Neck: Normal Inspection, Supple Respiratory: Lungs Clear, Normal Breath Sounds, No Respiratory Distress Cardiovascular: No Edema, No Murmur, Tachycardia Gastrointestinal: Soft, Abnormal Bowel Sounds; No Distended, No Guarding; Tenderness, Other (Right-sided colostomy with no output, left-sided previous colostomy with purulent drainage) Extremity: Normal Inspection, Non Tender, No Pedal Edema Neurologic/Psychiatric: Alert, Oriented x3, No Motor/Sensory Deficits, Depressed Affect Skin: Normal Color, Warm/Dry Results Results/Procedures Labs Laboratory Tests 04/28/21 15:38 04/29/21 04:10 Patient resulted labs reviewed. Imaging: Reviewed Imaging Films, Reviewed Imaging Report Assessment/Plan Admission Diagnosis Septic shock Admission Status: Inpatient Order (span 2 midnights) Reason for Inpatient Admission: IV fluids, pressors, and antibiotics Assessment and Plan Septic shock Lactic acidosis Acute kidney injury Likely peristomal abscess History of left-sided colostomy Right-sided colostomy History of bowel perforation History of partial colectomy History of abdominal wall hernia repair History of C diff SIRS+ with WBC 40, tachycardic on arrival Requiring pressor support this morning Lactic acid 5 Procalcitonin 18 CXR negative UA negative Right-sided peristomal purulent drainage, obtain culture CT abdomen with no fluid collection reported Concern remains for intraabdominal infection Started on Vancomycin and Zosyn Transitioned to Vancomycin, Cefepime, and Flagyl Started on oral Vancomycin with concern for recurrent C diff Obtain stool sample, no output thus far IV fluids Consider repeat abdominal imaging Consult surgery, follows with Dr. Mariscal, Dr. Arias substation technician and notified, appreciate assistance DVT prophylaxis: Lovex Critical Care Critically Ill Patient Diagnosis/Problems Diagnosis/Problems (1) Septic shock Status: Acute (2) Lactic acidosis Status: Acute (3) JUNIOR (acute kidney injury) Status: Acute (4) History of colostomy reversal Status: Chronic (5) History of Clostridioides difficile infection Status: Chronic (6) History of hernia repair Status: Chronic (7) Colostomy in place Status: Chronic (8) History of small bowel obstruction Status: Chronic PERI BAGLEY MD Apr 29, 2021 13:12
--- NOTE | 2021-04-29 14:10 | Consultation - Surgery ---
History of Present Illness History of Present Illness Patient Consulted On(ree/time) 04/29/21 14:05 Time Seen by Provider: 13:44 History of Present Illness Surgery is asked to consult regarding septic shock, unknown source; question intra-abdominal. HPI per ED: Here with report of severe abdominal pain associated with nausea and vomiting. Patient has colostomy to the right lower abdomen. Apparently she had failed colonoscopy reversal earlier this year. She has had abdominal problems since. Seen 10 days ago for abdominal pain and started on antibiotics and is to follow-up with Dr. Mariscal. She states that the pain got worse and started having nausea and vomiting yesterday. She has tried to take her meds and believes that she did but started having shaking chills today and severe back pain in the low back. Has old ostomy wound leaking purulent drainage with new ostomy on the right side. She could not get her colostomy bag to stick and so it is open right now. Patient arrives in nightgown covered in vomit. Appears quite ill. Timing/Duration: 24 Hours, Getting Worse Severity/Quality: Moderate, Severe, Aching Location: Generalized Abdomen Radiation: Back Activities at Onset: None Modifying Factors: Worsens With Eating Associated Symptoms: Back Pain; No Chest Pain; Fever/Chills, Nausea/Vomiting; No Shortness of Air, No Swelling/Mass in Abdomen; Weakness Pt is known to me, she actually fired me as her doctor. ED physician and Hospitalist have spoken to her and convinced her to allow me to see her in case she would need emergency surgery. When I walked in she was pleasant, had been eating lunch and states her pain is better compared to yesterday. No nausea or vomiting Allergies and Home Medications Allergies Coded Allergies: hydromorphone (Unverified Adverse Reaction, Unknown, PSYCH, 01/19/21) Home Medications Acetaminophen with Codeine 1 Each Tablet, 1 EACH PO BID PRN for PAIN-MODERATE (5-7), (Reported) Ciprofloxacin HCl 500 Mg Tablet, 500 MG PO BID Prescribed by: JULIA HARDY on 04/18/211914 Citalopram Hydrobromide 40 Mg Tablet, 40 MG PO HS, (Reported) LAST FILLED 10-16-2020 #90/90 DAY SUPPLY Dexlansoprazole 60 Mg Frank., 60 MG PO DAILY, (Reported) Hyoscyamine Sulfate 0.125 Mg Tab.subl, 0.125 MG SL Q4H PRN for ABDOMINAL CRAMPING, (Reported) Ibuprofen 200 Mg Tablet, 400 MG PO BID PRN for PAIN-MILD (1-4), (Reported) Lorazepam 0.5 Mg Tablet, 0.5 MG PO HS, (Reported) Metronidazole 500 Mg Tablet, 500 MG PO BID Prescribed by: JULIA HARDY on 04/18/211914 Ondansetron 4 Mg Tab.rapdis, 4 MG PO Q6H PRN for NAUSEA/VOMITING Prescribed by: JULIA HARDY on 04/18/211915 Oxybutynin Chloride 5 Mg Tablet, 5 MG PO BID, (Reported) FILLED 11-24-2020 #60/30 DAY SUPPLY Peg 400/Hypromellose/Glycerin 15 Ml Drops, 1-2 DROPS OU PRN PRN for DRY EYES, (Reported) Prednisone 5 Mg Tablet, 5 MG PO HS, (Reported) Quetiapine Fumarate 100 Mg Tablet, 100 MG PO HS, (Reported) Patient Home Medication List Home Medication List Reviewed: Yes Past Dhllhjr-Tqvexv-Jwehcp Hx Patient Social History Smoking Status: Never a Smoker 2nd Hand Smoke Exposure: No Recent Hopitalizations: No Alcohol Use?: No Have you traveled recently?: No Immunizations Up To Date Tetanus Booster (TDap): Unknown Seasonal Allergies Seasonal Allergies: No Surgeries History of Surgeries: Yes (esophagus, colostomy; BLADDER/RECTAL SURGERY X5, anastomosis, hernia repair) Surgeries: Abdominal, Bladder Surgery, Bowel Surgery, 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, Rectal Respiratory History of Respiratory Disorde: No Cardiovascular History of Cardiac Disorders: Yes Cardiac Disorders: Heart Murmur Neurological History of Neurological Disord: Yes (CVA 2019 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) Neurological Disorders: Stroke Reproductive System 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 Genitourinary History of Genitourinary Disor: Yes (incontinent of urine, can't control when it occurs and wears "a pad") Genitourinary Disorders: UTI-Chronic Gastrointestinal History of Gastrointestinal Di: Yes (Colostomy) Gastrointestinal Disorders: Gastroesophageal Reflux, Obstructive Bowel, Esophagitis, Hiatal Hernia Musculoskeletal History of Musculoskeletal Dis: Yes Musculoskeletal Disorders: Arthritis Endocrine History of Endocrine Disorders: No HEENT History of HEENT Disorders: Yes (detached retina x3-surgeries x 5) HEENT Disorders: Cataract Loss of Vision: Left Hearing Impairment: Denies Cancer History of Cancer: Yes Cancer: Skin, Colon Psychosocial History of Psychiatric Problem: Yes Behavioral Health Disorders: Anxiety, Depression Integumentary History of Skin or Integumenta: Yes ("BREAK OUT IN HIVES.") Blood Transfusions History of Blood Disorders: No Family Medical History Significant Family History: Heart Disease, Cancer, Other Conditions/Hx Review of Systems-General Constitutional: fever, malaise, weakness EENTM: No blurred vision, No double vision, No mouth pain, No mouth swelling, No epistaxis Respiratory: No cough, No dyspnea on exertion, No hemoptysis Cardiovascular: No chest pain, No palpitations Gastrointestinal: abdominal pain; No hematemesis; nausea, vomiting Genitourinary: No dysuria, No frequency, No hematuria Musculoskeletal: joint pain, joint swelling, muscle pain, muscle stiffness Skin: No change in color, No change in hair/nails Psychiatric/Neurological: Anxiety, Depressed; Denies Seizure, Denies Tremors Physical Exam-General Problems Physical Exam Vital Signs Vital Signs - First Documented 04/28/21 04/28/21 15:15 20:15 Temp 36.3 Pulse 100 Resp 24 B/P (MAP) 101/87 (92) Pulse Ox 97 O2 Delivery Room Air O2 Flow Rate 2.00 Capillary Refill : Less Than 3 Seconds General Appearance: no apparent distress, cachetic Eyes: Bilateral Eye PERRL, Bilateral Eye EOMI HEENT: pharynx normal; No scleral icterus (R), No scleral icterus (L) Neck: non-tender, supple Respiratory: lungs clear, normal breath sounds, no respiratory distress, no accessory muscle use Cardiovascular: no murmur, tachycardia Gastrointestinal: soft, no organomegaly, tenderness (diffusely, ?? more on left), other (ostomy in RUQ pink and functioning, left abd old colostomy site no signs of erythema, tender and ? fistula; there is a small lump of tissue in the middle but nothing draining at this time) Back: no CVA tenderness, no vertebral tenderness Extremities: no pedal edema, no calf tenderness, normal capillary refill Neurologic/Psychiatric: monitoring analyst II-XII nml as tested, alert, oriented x 3, depressed affect Skin: normal color, warm/dry Lymphatic: no adenopathy (neck, axilla or groin) Data Review Labs Laboratory Tests 04/28/21 15:38: White Blood Count 40.0*H, Red Blood Count 5.06, Hemoglobin 14.7, Hematocrit 46, Mean Corpuscular Volume 92, Mean Corpuscular Hemoglobin 29, Mean Corpuscular Hemoglobin Concent 32, Red Cell Distribution Width 15.1H, Platelet Count 556H, Mean Platelet Volume 9.1, Immature Granulocyte % (Auto) 1, Neutrophils (%) (Auto) 91H, Lymphocytes (%) (Auto) 4L, Monocytes (%) (Auto) 4, Eosinophils (%) (Auto) 1, Basophils (%) (Auto) 0, Neutrophils # (Auto) 36.2H, Lymphocytes # (Auto) 1.6, Monocytes # (Auto) 1.4H, Eosinophils # (Auto) 0.4H, Basophils # (Auto) 0.1, Immature Granulocyte # (Auto) 0.3H, Neutrophils % (Manual) 96, Lymphocytes % (Manual) 3, Monocytes % (Manual) 1, Toxic Granulation 2+, Prothrombin Time 13.7, INR Comment 1.0, Activated Partial Thromboplast Time 25, Sodium Level 140, Potassium Level 3.6, Chloride Level 107, Carbon Dioxide Level 19L, Anion Gap 14, Blood Urea Nitrogen 9, Creatinine 1.00, Estimat Glomerular Filtration Rate 54, BUN/Creatinine Ratio 9, Glucose Level 205H, Calcium Level 9.5, Corrected Calcium 9.7, Total Bilirubin < 0.3, Aspartate Amino Transf (AST/SGOT) 18, Alanine Aminotransferase (ALT/SGPT) 9, Alkaline Phosphatase 133, C-Reactive Protein 0.30, Total Protein 7.7, Albumin 3.7, Smear Scan PLTS INCREASED 04/28/21 15:51: Lactic Acid Level 5.00*H 04/28/21 17:12: Urine Color YELLOW, Urine Clarity CLEAR, Urine pH 7.0, Urine Specific [place] 1.015L, Urine Protein 1+H, Urine Glucose (UA) NEGATIVE, Urine Ketones NEGATIVE, Urine Nitrite NEGATIVE, Urine Bilirubin NEGATIVE, Urine Urobilinogen 0.2, Urine Leukocyte Esterase NEGATIVE, Urine RBC (Auto) NEGATIVE, Urine RBC NONE, Urine WBC 5-10H, Urine Squamous Epithelial Cells 0-2, Urine Crystals NONE, Urine Bacteria FEWH, Urine Casts PRESENT, Urine Hyaline Casts 5-10H, Urine Granular Casts , Urine Coarse Granular Casts 5-10H, Urine Mucus SMALLH, Urine Culture Indicated NO 04/28/21 17:51: Lactic Acid Level 1.36 04/28/21 23:30: Procalcitonin 18.16H 04/29/21 04:10: White Blood Count 28.0H, Red Blood Count 3.75L, Hemoglobin 10.9L, Hematocrit 34L , Mean Corpuscular Volume 92, Mean Corpuscular Hemoglobin 29, Mean Corpuscular Hemoglobin Concent 32, Red Cell Distribution Width 15.2H, Platelet Count 450H, Mean Platelet Volume 9.1, Immature Granulocyte % (Auto) 0, Neutrophils (%) (Auto) 84H, Lymphocytes (%) (Auto) 10L, Monocytes (%) (Auto) 4, Eosinophils (%) (Auto) 2, Basophils (%) (Auto) 0, Neutrophils # (Auto) 23.6H, Lymphocytes # (Auto) 2.7, Monocytes # (Auto) 1.2H, Eosinophils # (Auto) 0.5H, Basophils # (Auto) 0.0, Immature Granulocyte # (Auto) 0.1, Sodium Level 140, Potassium Level 3.8, Chloride Level 114H, Carbon Dioxide Level 20L, Anion Gap 6, Blood Urea Nitrogen 10, Creatinine 0.71, Estimat Glomerular Filtration Rate 81, BUN/Creatinine Ratio 14, Glucose Level 117H, Calcium Level 7.3L, Phosphorus Level 4.2, Magnesium Level 1.9, C-Reactive Protein High Sensitivity 5.10H Radiology Date of Exam:04/28/21 CT ABDOMEN/PELVIS W PROCEDURE: CT abdomen and pelvis with contrast. TECHNIQUE: Multiple contiguous axial images were obtained through the abdomen and pelvis after administration of intravenous contrast. Auto Exposure Controls were utilized during the CT exam to meet ALARA standards for radiation dose reduction. All CT scans use one or more of the following dose optimizing techniques: automated exposure control, MA and/or KvP adjustment based on patient size and exam type or iterative reconstruction. INDICATION: Nausea and vomiting, abdominal pain with elevated white blood cell count. Patient has history of colon carcinoma. COMPARISON: Prior CT from 01/15/2021. FINDINGS: Lung bases are clear. There is a moderate-sized hiatal hernia. The liver and gallbladder are unremarkable. Pancreas and spleen are unremarkable. No adrenal mass is identified. Kidneys are unremarkable. Aorta is nonaneurysmal. Postsurgical changes of colectomy are noted. This appears to be an ostomy in the right lower quadrant. Small bowel is normal caliber. No definite obstruction is seen. No free fluid or fluid collection is seen. Bladder is decompressed. IMPRESSION: Interval performance of colectomy since prior CT. Visualized small bowel loops appear to be normal caliber and there is no evidence of obstruction. No free fluid, fluid collection or free air is identified. Dictated by: Dictated on workstation # [id number] Dict: 04/28/21 1654 Trans: 04/29/21 0738 [facility] [id number] Interpreted by: REGGIE BEGUM MD Electronically signed by: REGGIE BEGUM MD 04/29/21 0738 Assessment/Plan Assessment/Plan Assessment/Plan Septic Shock, unknown source R/O intrabdominal Lactic Acidosis ??Fistula vs Hypertrophied tissue at previous ostomy site Pt has improved since yesterday and is eating today, pain still not controlled. I looked at the CT myself and could not really see anything intrabdominal (no abscess or inflammation); there may be some very mild inflammation in the left abdominal wall. I spoke with the ER physician and with IM about this pt; she does not look septic today and nothing to indicate emergent surgical operation needed. I believe she will be fine until tomorrow when Dr. Mariscal can see her. She was happy about this. Would continue IV fluids, monitor labs, pain control and anti-emetics as needed. LONA SY DO Apr 29, 2021 14:10
[2021-04-29] MEDS: ENOXAPARIN 30 MG/0.3 ML (LOVENOX) SYR SC SCH (20:33)
[2021-04-29] MEDS: VANCOMYCIN 750 MG/NS 250 ML IVPB IV SCH ×2 (20:33)
[2021-04-29] MEDS: MELATONIN 3 MG TABLET PO PRN (23:12)
[2021-04-30] MEDS: NOREPINEPHRINE 8 MG/250 ML 250 ML IV SCH (01:19)
[2021-04-30] MEDS: LACTATED RINGERS 1,000 ML IV SCH ×4 (01:19→21:28)
[2021-04-30 03:55] LABS: BASOPHILS % (AUTO) 0 % (0-10); EOSINOPHILS # (AUTO) 0.8 10^3/uL (0.0-0.3); EOSINOPHILS % (AUTO) 6 % (0-10); HEMATOCRIT 33 % (35-52); HEMOGLOBIN 10.7 g/dL (11.5-16.0); LYMPHOCYTES # (AUTO) 2.8 10^3/uL (1.0-4.0); LYMPHOCYTES % (AUTO) 22 % (12-44); MEAN CORPUSCULAR HEMOGLOBIN 29 pg (25-34); MEAN CORPUSCULAR HGB CONC 32 g/dL (32-36); MEAN CORPUSCULAR VOLUME 92 fL (80-99); MONOCYTES # (AUTO) 0.8 10^3/uL (0.0-1.0); MONOCYTES % (AUTO) 6 % (0-12); NEUTROPHILS # (AUTO) 8.2 10^3/uL (1.8-7.8); NEUTROPHILS % (AUTO) 65 % (42-75); PLATELET COUNT 336 10^3/uL (130-400); WHITE BLOOD COUNT 12.6 10^3/uL (4.3-11.0)
[2021-04-30 04:13] LABS: POTASSIUM 3.7 MMOL/L (3.6-5.0)
[2021-04-30 04:14] LABS: CALCIUM 7.9 MG/DL (8.5-10.1)
[2021-04-30 04:18] LABS: PHOSPHORUS 3.3 MG/DL (2.3-4.7)
[2021-04-30 04:19] LABS: CREATININE SERUM 0.65 MG/DL (0.60-1.30)
[2021-04-30 04:21] LABS: MAGNESIUM 1.8 MG/DL (1.6-2.4)
[2021-04-30] MEDS: MAGNESIUM 1 GM/100 ML IVPB 100 ML IV SCH (05:45)
[2021-04-30] MEDS: KCL 20 MEQ TAB (K-DUR) PO SCH (05:45)
[2021-04-30] MEDS: POTASSIUM CL 10MEQ/50ML IVPB 50 ML IV SCH (05:45)
[2021-04-30] MEDS: LORazepam 0.5 MG (ATIVAN) TABLET PO PRN ×2 (06:17→22:23)
[2021-04-30] MEDS: metroNIDAZOLE 500MG/100ML IVPB 100 ML IV SCH ×3 (06:18→23:41)
[2021-04-30] MEDS: CEFEPIME 1,000 MG/SWFI 10 ML IV PUSH IV SCH ×6 (06:18→23:41)
[2021-04-30] MEDS: RT-ALBUTEROL SULF 2.5 MG/3 ML PRE-MIX VIAL INH SCH ×2 (07:12→22:32)
[2021-04-30] MEDS: ONDANSETRON 4 MG/2 ML (SDV) Z0FRAN IVP PRN (07:27)
--- NOTE | 2021-04-30 10:22 | Tele-ICU Progress Note ---
Subjective Date Seen by a Provider: Apr 30, 2021 Time Seen by a Provider: 10:22 Sepsis Event Evaluation Height, Weight, BMI Height: 5'0.00" Weight: 100lbs. 3.2oz. 45.839136nu; 18.60 BMI Method:Stated Focused Exam Lactate Level 04/28/21 15:51: Lactic Acid Level 5.00*H 04/28/21 17:51: Lactic Acid Level 1.36 Exam Exam Patient acknowledged, consented, and participated in this virtual visit which was conducted using real time audio/video Vital Signs Date Time Temp Pulse Resp B/P (MAP) Pulse Ox O2 Delivery O2 Flow Rate FiO2 04/30/21 08:00 Room Air 04/30/21 08:00 35.2 04/30/21 07:12 10 Room Air 04/30/21 07:00 42 04/30/21 06:00 52 12 148/108 (123) 97 Room Air 04/30/21 05:00 44 11 153/77 (119) 95 Room Air 04/30/21 04:14 Room Air 04/30/21 04:00 51 11 118/74 (94) 99 Room Air 04/30/21 03:00 62 13 126/85 (104) 96 Room Air 04/30/21 02:00 64 12 111/62 (88) 95 Room Air 04/30/21 01:00 54 19 127/88 (105) 94 Room Air 04/30/21 01:00 54 04/30/21 00:00 75 12 90/66 (82) 95 Room Air 04/30/21 00:00 Room Air 04/29/21 23:25 36.8 04/29/21 23:00 64 19 118/82 (94) 98 Room Air 04/29/21 22:00 69 26 121/72 (88) 98 Room Air 04/29/21 21:00 68 17 112/71 (85) 100 Room Air 04/29/21 20:48 100 Room Air 04/29/21 20:07 Room Air 04/29/21 20:04 36.9 58 17 143/94 (110) 99 Room Air 04/29/21 19:00 63 04/29/21 19:00 63 16 138/76 (96) 98 Room Air 04/29/21 18:00 75 19 108/85 (93) 97 Room Air 04/29/21 17:00 55 21 111/63 (99) 97 Room Air 04/29/21 16:07 Room Air 04/29/21 16:00 56 17 96/61 (70) 97 Room Air 04/29/21 15:00 57 20 101/58 (85) 96 Room Air 04/29/21 14:00 59 12 120/75 (90) 98 Room Air 04/29/21 13:00 65 11 120/75 (90) 98 Room Air 04/29/21 12:55 62 04/29/21 12:00 Room Air 04/29/21 12:00 58 19 102/68 (79) 97 Room Air 04/29/21 11:00 61 14 122/77 (92) 98 Room Air l I & O 04/30/21 07:00 Intake Total 7967.5 ml Output Total 3450 ml Balance 4517.5 ml Height & Weight Height: 5'0.00" Weight: 100lbs. 3.2oz. 45.286687js; 18.60 BMI Method:Stated General Appearance: Mild Distress (Uncomfortable), Thin HEENT: PERRL/EOMI, Pharynx Normal Neck: Normal Inspection, Supple Respiratory: Lungs Clear, Normal Breath Sounds, No Respiratory Distress Cardiovascular: No Edema, No Murmur, Tachycardia Capillary Refill: Less Than 3 Seconds Peripheral Pulses: 2+ Dorsalis Pedis (R), 2+ Left Dors-Pedis (L), 2+ Radial Pulses (R), 2+ Radial Pulses (L) Gastrointestinal: soft, no organomegaly, tenderness (diffusely, ?? more on left), other (ostomy in RUQ pink and functioning, left abd old colostomy site no signs of erythema, tender and ? fistula; there is a small lump of tissue in the middle but nothing draining at this time) Extremity: Normal Inspection, Non Tender, No Pedal Edema Neurologic/Psychiatric: Alert, Oriented x3, No Motor/Sensory Deficits, Depressed Affect Skin: Normal Color, Warm/Dry Results Lab Laboratory Tests 04/28/21 15:38 04/29/21 04:10 04/30/21 03:45 Assessment/Plan Assessment/Plan (Tele-ICU Physician , Progress Note ) Available chart/ vitals / labs / Images reviewed Video assessment done using teleICU camera, rest of exam as per RN Discussed with RN Events overnight : Afebrile I/O = POS 6L Drips: Pressors: OFF, hemodynamically stable EXAM PER RN Consultants: SX Hospital course: 04/28 - sepsis , ? abd sourse A/P Sepsis , shock - old colostomy sight with purlulent drainage, Ct - unremarkable - diarrhea with elev WBC - tx empirically with PO vanco, cefepime and flagyl IV - received IVF - to continue - decrease dose , pressors off - cx neg so far , no more diarrhea , c diff negative - will cont abx today with significant improvement - narrow down tomorrow SX consult Lines : PORT on place [place]: 04/28 OG: Nutrition: npo Analgesia: po opioids- chronic? Anxiety/ delirium VTE Prophylaxis: lovenox sq Stress Ulcer Prophylaxis: ? take PO after Sx eval Glycemic Control: Plans in collaboration with bedside consultants and IM MDs. Discussed with RN to reach out if any questions or concerns A total of 25 minutes of critical care time was devoted to this patient today, required to treat and/or prevent further deterioration of critical care condition ( as above) . ALEXEI RUBIN MD Apr 30, 2021 10:22
[2021-04-30] MEDS ORDERED: ONDA4TAB11 PO (13:35)
--- NOTE | 2021-04-30 15:34 | Progress Note ---
Subjective Subjective/Events-last exam Patient states that she is feeling much better then when she got here. States that she has not had any more N/V. She has had multiple surgeries since Sep. She is wanting to know what is going on and why she keep having abdominal pain. Review of Systems General: Fatigue Pulmonary: No Dyspnea, No Cough Cardiovascular: No: Chest Pain, Palpitations, Edema Gastrointestinal: Abdominal Pain, Diarrhea (yesterday, now improving); No: Nausea, Vomiting Neurological: Weakness Focused Exam Lactate Level 04/28/21 15:51: Lactic Acid Level 5.00*H 04/28/21 17:51: Lactic Acid Level 1.36 Objective Exam Last Set of Vital Signs Vital Signs Date Time Temp Pulse Resp B/P (MAP) Pulse Ox O2 Delivery O2 Flow Rate FiO2 04/30/21 13:00 57 04/30/21 12:00 Room Air 04/30/21 11:45 35.7 04/30/21 07:12 10 04/30/21 06:00 12 148/108 (123) 04/28/21 20:15 2.00 Capillary Refill : Less Than 3 Seconds I&O Intake and Output 04/30/21 00:00 Intake Total 8667.5 ml Output Total 2420 ml Balance 6247.5 ml Intake Oral 2300 ml IV Total 6367.5 ml Output Urine Total 2420 ml General: Alert, Oriented X3, No Acute Distress Lungs: Clear to Auscultation, Normal Air Movement Heart: Regular Rate, No Murmurs Abdomen: Normal Bowel Sounds, Soft, No Tenderness, No Masses, Other (Colostomy present R sided, old stoma on left abdomen, mild purulent drainage at site of stoma) Extremities: No Edema, No Tenderness/Swelling Neuro: Normal Speech, Sensation Intact, Cranial Nerves 3-12 NL Results/Procedures Lab Laboratory Tests 04/30/21 03:45: White Blood Count 12.6H, Red Blood Count 3.64L, Hemoglobin 10.7L, Hematocrit 33L , Mean Corpuscular Volume 92, Mean Corpuscular Hemoglobin 29, Mean Corpuscular Hemoglobin Concent 32, Red Cell Distribution Width 15.1H, Platelet Count 336, Mean Platelet Volume 9.0, Immature Granulocyte % (Auto) 0, Neutrophils (%) (Auto) 65, Lymphocytes (%) (Auto) 22, Monocytes (%) (Auto) 6, Eosinophils (%) (Auto) 6, Basophils (%) (Auto) 0, Neutrophils # (Auto) 8.2H, Lymphocytes # (Auto) 2.8, Monocytes # (Auto) 0.8, Eosinophils # (Auto) 0.8H, Basophils # (Auto) 0.0, Immature Granulocyte # (Auto) 0.0, Sodium Level 144, Potassium Level 3.7, Chloride Level 113H, Carbon Dioxide Level 22, Anion Gap 9, Blood Urea Nitrogen 6L, Creatinine 0.65, Estimat Glomerular Filtration Rate 89, BUN/Creatinine Ratio 9, Glucose Level 89, Calcium Level 7.9L, Phosphorus Level 3.3, Magnesium Level 1.8 Microbiology 04/29/21 C. difficile GDH Antigen & Toxins - Final, Complete 04/28/21 Blood Culture - Preliminary, Resulted No growth Radiology Date of Exam:04/28/21 CT ABDOMEN/PELVIS W PROCEDURE: CT abdomen and pelvis with contrast. TECHNIQUE: Multiple contiguous axial images were obtained through the abdomen and pelvis after administration of intravenous contrast. Auto Exposure Controls were utilized during the CT exam to meet ALARA standards for radiation dose reduction. All CT scans use one or more of the following dose optimizing techniques: automated exposure control, MA and/or KvP adjustment based on patient size and exam type or iterative reconstruction. INDICATION: Nausea and vomiting, abdominal pain with elevated white blood cell count. Patient has history of colon carcinoma. COMPARISON: Prior CT from 01/15/2021. FINDINGS: Lung bases are clear. There is a moderate-sized hiatal hernia. The liver and gallbladder are unremarkable. Pancreas and spleen are unremarkable. No adrenal mass is identified. Kidneys are unremarkable. Aorta is nonaneurysmal. Postsurgical changes of colectomy are noted. This appears to be an ostomy in the right lower quadrant. Small bowel is normal caliber. No definite obstruction is seen. No free fluid or fluid collection is seen. Bladder is decompressed. IMPRESSION: Interval performance of colectomy since prior CT. Visualized small bowel loops appear to be normal caliber and there is no evidence of obstruction. No free fluid, fluid collection or free air is identified. Dictated by: Dictated on workstation # [id number] Dict: 04/28/21 1654 Trans: 04/29/21 0738 [facility] [id number] Interpreted by: REGGIE BEGUM MD Electronically signed by: REGGIE BEGUM MD 04/29/21 0738 Assessment/Plan Assessment/Plan (1) Severe sepsis Status: Acute Assessment & Plan: 04/30: Leukocytosis much improved, continue empiric treatment for c.diff since there is not occult source of infection found, HDS (2) Lactic acidosis Status: Resolved (3) Abdominal pain Status: Acute Assessment & Plan: 04/30: Dr Mariscal to see patient Qualifiers: Qualified Codes: R10.84 - Generalized abdominal pain (4) Nausea and vomiting Status: Resolved (5) Colostomy in place Status: Chronic Assessment & Plan: 04/30 draining stool (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
--- NOTE | 2021-04-30 16:42 | Physician Query Clarification ---
Physician Query-General Query to Physician: The medical record reflects the following clinical scenario: The patient, in the setting of History/Risk factors, multiple abdominal surgeries, multiple bouts of colitis with decrease oral intake Clinical Findings "purulent drainage" from previous colostomy site, Admission VS/LABS: HR 100, RR 24, BP 101/87 decreased to the 60-70's systolic within a few hours, T 36.3, WBC40.0, PCT 18.16, LA 5.0, Treatment Had more than 13L of fluids in less than 48 hours, Norepi gtt for approx 12 hours, Vanco, Metronidazole. Cefepime, and Zosyn IV, Question: Do you agree with the impression of Septic shock per Dr. Licha Varela? 1. Yes; will document Sepsis with Septic shock present on admission, Shock now resolved in the Progress Notes 2. No; will continue current documentation in the Progress Notes 3. Other; will document explanation of clinical findings 4. Clinically undetermined; no explanation for clinical findings Please clarify and document your clinical opinion in the Progress Notes and Discharge Summary including the definitive and/or presumptive diagnosis, (s uspected or probable), related to the above clinical findings. Please include clinical findings supporting your diagnosis. In responding to this query, please exercise your independent professional judgment. The purpose of this communication is to more accurately reflect the complexity of your patients condition. The fact that a question is asked does not imply that any particular answer is desired or expected. Please remember a lack of response to the above will prompt a phone page by CDI/coding staff Thank you for timely response to this clarification. Becky Rowe MSN, RN Clinical Documenation Specialist [phone] [email or web address] PHYSICIAN RESPONSE: Based on the clinical findings in the record, please respond to the query above on this document as an addendum. Physician Response: Physician Response Patient meets criteria for severe sepsis If you have questions please contact: Convenience Store Clerk: Ext: Thank you for your time and cooperation. Clinical Senior Marketing Associate/Convenience Store Clerk This is a permanent part of the medical record BECKY ROWE Apr 30, 2021 16:42 PHUONG VILLATORO MD May 02, 2021 22:55
[2021-04-30] MEDS: VANCOMYCIN 750 MG/NS 250 ML IVPB IV SCH ×2 (21:28)
[2021-04-30] MEDS: ENOXAPARIN 40 MG/0.4 ML (LOVENOX) SYR SC SCH (21:28)
[2021-04-30] MEDS ORDERED: ONDANSETRON 4 MG (ZOFRAN) ORAL DISSOLVE TAB PO PRN (22:00)
[2021-04-30] MEDS ORDERED: ARTIFICAL TEARS 0.4 ML UNIT DOSE (REFRESH PLUS) OU PRN (22:15)
[2021-04-30] MEDS ORDERED: APAP 300 MG/CODEINE 30 MG (TYLENOL #3) TAB PO PRN (22:15)
[2021-04-30] MEDS: QUEtiapine 100 MG (SEROquel) TAB IMMEDIATE RELEASE PO SCH (22:23)
[2021-05-01] MEDS: NOREPINEPHRINE 8 MG/250 ML 250 ML IV SCH (01:18)
[2021-05-01 01:33] VITALS: BP 100/65
[2021-05-01 05:35] LABS: BASOPHILS % (AUTO) 1 % (0-10); EOSINOPHILS # (AUTO) 0.6 10^3/uL (0.0-0.3); EOSINOPHILS % (AUTO) 9 % (0-10); HEMATOCRIT 34 % (35-52); HEMOGLOBIN 10.8 g/dL (11.5-16.0); LYMPHOCYTES # (AUTO) 2.3 10^3/uL (1.0-4.0); LYMPHOCYTES % (AUTO) 33 % (12-44); MEAN CORPUSCULAR HEMOGLOBIN 29 pg (25-34); MEAN CORPUSCULAR HGB CONC 32 g/dL (32-36); MEAN CORPUSCULAR VOLUME 92 fL (80-99); MEAN PLATELET VOLUME 9.4 fL (9.0-12.2); MONOCYTES # (AUTO) 0.5 10^3/uL (0.0-1.0); MONOCYTES % (AUTO) 8 % (0-12); NEUTROPHILS # (AUTO) 3.5 10^3/uL (1.8-7.8); NEUTROPHILS % (AUTO) 50 % (42-75); PLATELET COUNT 298 10^3/uL (130-400); WHITE BLOOD COUNT 6.9 10^3/uL (4.3-11.0)
[2021-05-01 05:46] LABS: POTASSIUM 3.7 MMOL/L (3.6-5.0)
[2021-05-01 05:47] LABS: CALCIUM 7.9 MG/DL (8.5-10.1)
[2021-05-01 05:52] LABS: CREATININE SERUM 0.64 MG/DL (0.60-1.30)
[2021-05-01 05:54] LABS: MAGNESIUM 1.7 MG/DL (1.6-2.4)
[2021-05-01] MEDS: MAGNESIUM 1 GM/100 ML IVPB 100 ML IV SCH (05:54)
[2021-05-01] MEDS: POTASSIUM CL 10MEQ/50ML IVPB 50 ML IV SCH (05:54)
[2021-05-01] MEDS: KCL 20 MEQ TAB (K-DUR) PO SCH (05:55)
[2021-05-01] MEDS: CEFEPIME 1,000 MG/SWFI 10 ML IV PUSH IV SCH ×6 (06:46→23:29)
[2021-05-01] MEDS: metroNIDAZOLE 500MG/100ML IVPB 100 ML IV SCH ×3 (06:46→23:29)
[2021-05-01] MEDS: OXYBUTYNIN (DITROPAN) 5 MG TAB PO SCH ×2 (07:28→19:44)
[2021-05-01] MEDS: PANTOPRAZOLE 40 MG (PROTONIX) TAB PO SCH (07:28)
[2021-05-01] MEDS: LACTATED RINGERS 1,000 ML IV SCH ×2 (07:36→21:00)
[2021-05-01] MEDS: ONDANSETRON 4 MG/2 ML (SDV) Z0FRAN IVP PRN (09:52)
--- NOTE | 2021-05-01 10:02 | Diagnostic Imaging Report ---
INDICATION: Abdominal pain Gallbladder sonography performed in a routine fashion. The liver shows normal echogenicity with no focal lesions. Gallbladder is unremarkable with no stones or wall thickening. Common duct measured 3 mm. Pancreas is unremarkable to the extent seen. The visualized portions of aorta and IVC are normal. The right kidney measured 10.5 x 5.2 x 5.1 cm. There is extrarenal pelvis on the right side with moderate hydronephrosis. IMPRESSION: No gallstones or gallbladder pathology. No biliary dilatation. There is extrarenal pelvis on the right side with moderate hydronephrosis. Dictated by: Dictated on workstation # [id number]
--- NOTE | 2021-05-01 14:53 | Progress Note ---
Subjective Date Seen by a Provider: May 01, 2021 Time Seen by a Provider: 14:30 Subjective/Events-last exam doing well. pain controlled. no fever/chills. no nausea/vomiting. Focused Exam Lactate Level 04/28/21 15:51: Lactic Acid Level 5.00*H 04/28/21 17:51: Lactic Acid Level 1.36 Objective Exam Vital Signs Date Time Temp Pulse Resp B/P (MAP) Pulse Ox O2 Delivery O2 Flow Rate FiO2 05/01/21 13:00 76 12 93 Room Air 05/01/21 12:05 36.6 05/01/21 12:00 56 15 106/73 (84) 93 Room Air 05/01/21 11:00 65 17 109/68 (82) 96 Room Air 05/01/21 10:00 60 24 133/76 (95) 96 Room Air 05/01/21 09:00 66 19 148/79 (102) 97 Room Air 05/01/21 08:00 55 15 93/58 (70) 93 Room Air 05/01/21 07:57 Room Air 05/01/21 07:45 36.9 05/01/21 07:00 63 05/01/21 07:00 58 24 95/72 (80) 92 Room Air 05/01/21 06:01 48 11 80/58 (65) 93 Room Air 05/01/21 05:00 54 8 96/64 (79) 95 Room Air 05/01/21 04:00 66 10 92/54 (71) 92 Room Air 05/01/21 04:00 Room Air 05/01/21 03:06 68 12 88/55 (68) 92 Room Air 05/01/21 02:00 61 22 88/65 (74) 93 Room Air 05/01/21 01:33 36.3 96 90 05/01/21 01:06 71 21 97/43 (64) 92 Room Air 05/01/21 01:00 73 05/01/21 00:00 Room Air 05/01/21 00:00 96 16 100/65 (77) 90 Room Air 04/30/21 23:43 36.3 04/30/21 23:00 67 15 102/60 (74) 94 Room Air 04/30/21 22:32 100 Room Air 04/30/21 22:00 55 12 145/87 (106) 97 Room Air 04/30/21 21:00 54 16 136/89 (105) 100 Room Air 04/30/21 20:00 54 18 124/87 (99) 99 Room Air 04/30/21 20:00 Room Air 04/30/21 19:59 35.2 04/30/21 19:00 51 04/30/21 19:00 51 15 117/76 (90) 94 Room Air 04/30/21 18:00 52 10 121/73 (89) 95 Room Air 04/30/21 17:00 66 12 110/58 (75) 92 Room Air 04/30/21 16:00 47 16 134/91 (105) 98 Room Air 04/30/21 15:35 Room Air 04/30/21 15:34 35.7 04/30/21 15:00 52 11 148/99 (115) 99 Room Air I & O 05/01/21 07:00 Intake Total 6670 ml Output Total 2320 ml Balance 4350 ml Capillary Refill : Less Than 3 Seconds General Appearance: No Apparent Distress HEENT: PERRL/EOMI Neck: Full Range of Motion Respiratory: Chest Non Tender Cardiovascular: Regular Rate, Rhythm Gastrointestinal: normal bowel sounds, soft, tenderness Extremity: Normal Capillary Refill Neurologic/Psychiatric: Alert, Oriented x3 Skin: Normal Color Lymphatic: No Adenopathy Results Lab Laboratory Tests 05/01/21 05:05: White Blood Count 6.9, Red Blood Count 3.71L, Hemoglobin 10.8L, Hematocrit 34L, Mean Corpuscular Volume 92, Mean Corpuscular Hemoglobin 29, Mean Corpuscular Hemoglobin Concent 32, Red Cell Distribution Width 14.9H, Platelet Count 298, Mean Platelet Volume 9.4, Immature Granulocyte % (Auto) 0, Neutrophils (%) (Auto) 50, Lymphocytes (%) (Auto) 33, Monocytes (%) (Auto) 8, Eosinophils (%) (Auto) 9, Basophils (%) (Auto) 1, Neutrophils # (Auto) 3.5, Lymphocytes # (Auto) 2.3, Monocytes # (Auto) 0.5, Eosinophils # (Auto) 0.6H, Basophils # (Auto) 0.0, Immature Granulocyte # (Auto) 0.0, Sodium Level 142, Potassium Level 3.7, Chloride Level 110H, Carbon Dioxide Level 24, Anion Gap 8, Blood Urea Nitrogen 7, Creatinine 0.64, Estimat Glomerular Filtration Rate 91, BUN/Creatinine Ratio 11, Glucose Level 82, Calcium Level 7.9L, Phosphorus Level 4.0, Magnesium Level 1.7 Microbiology 04/29/21 C. difficile GDH Antigen & Toxins - Final, Complete 04/28/21 Urine Culture - Final, Complete See Report 04/28/21 Blood Culture - Preliminary, Resulted No growth Assessment/Plan Assessment/Plan Assess & Plan/Chief Complaint abdominal pain, nausea/vomiting, diarrhea. hydronephrosis on u/s. consult urology. ALLEN FERNÁNDEZ MD May 01, 2021 14:53
--- NOTE | 2021-05-01 19:12 | Progress Note ---
Subjective Subjective/Events-last exam Patient states that she is feeling better. She is frustrated that there is not a straight forward cause of her elevated WBCs. Tolerating PO diet. Review of Systems General: Fatigue Pulmonary: No Dyspnea, No Cough Cardiovascular: No: Chest Pain, Palpitations Gastrointestinal: Abdominal Pain; No: Nausea, Vomiting, Diarrhea, Constipation Neurological: Weakness Objective Exam Last Set of Vital Signs Vital Signs Date Time Temp Pulse Resp B/P (MAP) Pulse Ox O2 Delivery O2 Flow Rate FiO2 05/01/21 18:20 Room Air 05/01/21 16:04 36.6 50 16 125/57 (79) 97 04/28/21 20:15 2.00 Capillary Refill : Less Than 3 Seconds I&O Intake and Output 05/01/21 00:00 Intake Total 6720 ml Output Total 3120 ml Balance 3600 ml Intake Oral 520 ml IV Total 6200 ml Output Urine Total 3120 ml General: Alert, Oriented X3, Cooperative, No Acute Distress HEENT: Mucous Memb Moist/Obetz Lungs: Clear to Auscultation, Normal Air Movement Heart: Regular Rate, No Murmurs Abdomen: Normal Bowel Sounds, Soft, Other (colostomy draining stool) Extremities: No Edema, No Tenderness/Swelling Neuro: Normal Speech, Strength at 5/5 X4 Ext, Sensation Intact, Cranial Nerves 3-12 NL Results/Procedures Lab Laboratory Tests 05/01/21 05:05: White Blood Count 6.9, Red Blood Count 3.71L, Hemoglobin 10.8L, Hematocrit 34L, Mean Corpuscular Volume 92, Mean Corpuscular Hemoglobin 29, Mean Corpuscular Hemoglobin Concent 32, Red Cell Distribution Width 14.9H, Platelet Count 298, Mean Platelet Volume 9.4, Immature Granulocyte % (Auto) 0, Neutrophils (%) (Auto) 50, Lymphocytes (%) (Auto) 33, Monocytes (%) (Auto) 8, Eosinophils (%) (Auto) 9, Basophils (%) (Auto) 1, Neutrophils # (Auto) 3.5, Lymphocytes # (Auto) 2.3, Monocytes # (Auto) 0.5, Eosinophils # (Auto) 0.6H, Basophils # (Auto) 0.0, Immature Granulocyte # (Auto) 0.0, Sodium Level 142, Potassium Level 3.7, Chloride Level 110H, Carbon Dioxide Level 24, Anion Gap 8, Blood Urea Nitrogen 7, Creatinine 0.64, Estimat Glomerular Filtration Rate 91, BUN/Creatinine Ratio 11, Glucose Level 82, Calcium Level 7.9L, Phosphorus Level 4.0, Magnesium Level 1.7 Microbiology 04/29/21 C. difficile GDH Antigen & Toxins - Final, Complete 04/28/21 Urine Culture - Final, Complete See Report 04/28/21 Blood Culture - Preliminary, Resulted No growth Radiology Date of Exam:04/28/21 CT ABDOMEN/PELVIS W PROCEDURE: CT abdomen and pelvis with contrast. TECHNIQUE: Multiple contiguous axial images were obtained through the abdomen and pelvis after administration of intravenous contrast. Auto Exposure Controls were utilized during the CT exam to meet ALARA standards for radiation dose reduction. All CT scans use one or more of the following dose optimizing techniques: automated exposure control, MA and/or KvP adjustment based on patient size and exam type or iterative reconstruction. INDICATION: Nausea and vomiting, abdominal pain with elevated white blood cell count. Patient has history of colon carcinoma. COMPARISON: Prior CT from 01/15/2021. FINDINGS: Lung bases are clear. There is a moderate-sized hiatal hernia. The liver and gallbladder are unremarkable. Pancreas and spleen are unremarkable. No adrenal mass is identified. Kidneys are unremarkable. Aorta is nonaneurysmal. Postsurgical changes of colectomy are noted. This appears to be an ostomy in the right lower quadrant. Small bowel is normal caliber. No definite obstruction is seen. No free fluid or fluid collection is seen. Bladder is decompressed. IMPRESSION: Interval performance of colectomy since prior CT. Visualized small bowel loops appear to be normal caliber and there is no evidence of obstruction. No free fluid, fluid collection or free air is identified. Dictated by: Dictated on workstation # [id number] Dict: 04/28/21 1654 Trans: 04/29/21 0738 [facility] [id number] Interpreted by: REGGIE BEGUM MD Electronically signed by: REGGIE BEGUM MD 04/29/21 0738 Assessment/Plan Assessment/Plan (1) Severe sepsis Status: Resolved Assessment & Plan: 04/30: Leukocytosis much improved, continue empiric treatment for c.diff since there is not occult source of infection found, HDS 05/01: Leukocytosis resolved, continue IV antibiotics, C diff neg, blood culture NGTD (2) Lactic acidosis Status: Resolved (3) Abdominal pain Status: Acute Assessment & Plan: 04/30: Dr Mariscal to see patient 05/01: HIDA scan pending for today, US showed dilation in uretral, Urology was consulted by Dr Mariscal Qualifiers: Qualified Codes: R10.84 - Generalized abdominal pain (4) Nausea and vomiting Status: Resolved (5) Colostomy in place Status: Chronic Assessment & Plan: 04/30 draining stool (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
[2021-05-01] MEDS: ENOXAPARIN 40 MG/0.4 ML (LOVENOX) SYR SC SCH (19:44)
[2021-05-01] MEDS: QUEtiapine 100 MG (SEROquel) TAB IMMEDIATE RELEASE PO SCH (19:44)
--- NOTE | 2021-05-01 19:56 | Diagnostic Imaging Report ---
INDICATION: Nausea, vomiting, diarrhea, abdominal pain.. FINDINGS: The patient was administered 4.9 mCi of Tc 99m Choletec and sequential imaging was performed over the right upper abdomen. There is progressive, homogeneous accumulation of radiotracer within the liver parenchyma. There is a somewhat unusual configuration of the liver. There is filling of the bile ducts and subsequent filling of the gallbladder. There is progressive clearance of activity from the liver parenchyma and free flow of radiotracer into loops of small bowel. Ejection fraction not performed. IMPRESSION: 1. Hepatobiliary scan demonstrates a patent biliary tree. Dictated by: Dictated on workstation # [id number]
--- NOTE | 2021-05-01 19:57 | CONSULTATION REPORT ---
DATE OF SERVICE: 04/30/2021 ATTENDING PRIMARY CARE PHYSICIAN: Demi Husain APRN. ADMITTING PHYSICIAN: Cecile Espitia DO HISTORY OF PRESENT ILLNESS: The patient is a 75-year-old female well known to us. She was admitted on 01/12/2021 due to significant abdominal pain and distention as well as obstipation for five days. She had a history of end colostomy as well as a Tory's pouch due to some form of left sided bowel perforation, which was not a malignancy. This was done in 2013. She was evaluated by another surgeon and underwent a colonoscopy through the rectal stump as well as through the ostomy on 11/14/2020, which did not show any abnormalities. She then underwent reversal of the colostomy with a low anterior colorectal anastomosis as well as a parastomal hernia repair on 11/29/2020. She presented with profound diarrhea and was found to have Clostridium difficile colitis and treated with antibiotics. She was discharged home for approximately 1 to 2 days; however, returned with abdominal distention and significant pain. On 01/12/2021, she underwent a sigmoidoscopy, exploratory laparotomy, resection of a stricture at the colorectal anastomosis as well as an end colostomy and Tory's pouch and repair of incisional hernia. She did well postoperatively and over time was able to have bowel function and was tolerating a diet and had adequate pain control and was discharged home. She then presented on 02/15/2021 with a parastomal hernia as well as a stomal prolapse. The mucosa was pink and viable and functional. On 02/20/2021, she underwent reseating of the end colostomy on the right mid abdomen. Again, she did well postoperatively and was able to have bowel function and was tolerating a regular diet and had adequate pain control with oral pain medication. She presented to the Emergency Department with nausea, vomiting and severe watery diarrhea from her colostomy. She was found to be profoundly dehydrated and also had a significant leukocytosis at 40,000. She reports that she had a similar episode a week prior; however, it was not as severe. A CT scan was performed, which did not show any intra-abdominal abscess as well as no inflammatory changes throughout the colon. C. difficile cultures were negative. She did have a mild urinary tract infection. Blood cultures are pending. After admission and being placed on IV antibiotics as well as IV hydration, she has improved dramatically. She does not have any diarrhea as well as no nausea, no vomiting and with IV antibiotics alone, her white count is now normal. PAST MEDICAL HISTORY: Perforated left sided colon, status post colostomy and Tory's pouch with reversal, history of Clostridium difficile colitis, cardiac murmur, urinary incontinence, gastroesophageal reflux disease, hiatal hernia, arthritis, cataracts, anxiety. PAST SURGICAL HISTORY: Bladder and rectal surgery x5, left sided colonic resection and colostomy and Tory's pouch 14, reversal and parastomal hernia repair on 11/29/2020, hysterectomy, multiple bilateral eye surgery due to retinal detachment, colorectal resection and colostomy and Tory's pouch 01/17/2021, revision of parastomal hernia and colostomy prolapse with a repair of hernia with biologic mesh 02/20/2021. ALLERGIES: No known drug allergies. MEDICATIONS: Codeine, citalopram, Dexilant, loperamide, lorazepam, miconazole powder, oxybutynin, prednisone, quetiapine fumarate. SOCIAL HISTORY: Negative smoke, negative alcohol. FAMILY HISTORY: Noncontributory. VITAL SIGNS: Temperature 36.6, blood pressure 125/57, pulse 50, respirations 16, pulse ox 97% on room air. REVIEW OF SYSTEMS: A well-nourished female, currently in no acute distress. She is not experiencing any shortness of breath or difficulty breathing. No chest pain, palpitations, diaphoresis. On presentation, she had significant severe nausea and vomiting as well as watery brown diarrhea, no red blood per end colostomy. She does not report any fever nor chills at home as well as no recent inadvertent weight loss. She also does not report any recent travel or change in drinking water sources or food sources. PHYSICAL EXAMINATION: CHEST: Good breath sounds bilaterally. HEART: Regular, no murmurs. EXTREMITIES: No lower extremity edema, negative Homans sign. HEENT: No scleral icterus. NECK: No cervical lymphadenopathy. ABDOMEN: Soft, nondistended. There is mild discomfort along the right lateral abdomen as well as a right upper abdominal quadrant. No peritoneal signs. No hernias. SKIN: Warm, dry. LABORATORY DATA: WBC 12.6, hemoglobin 10.7, hematocrit 33, platelets 336. BUN 6, creatinine 0.65. ASSESSMENT AND PLAN: A 75-year-old female with nausea, vomiting, diarrhea and abdominal pain. She also had presented with significant leukocytosis and dehydration; however, after IV hydration and IV antibiotics this is resolving. We will get a gallbladder ultrasound and if this does not show any abnormalities, then proceed with a HIDA scan. We will also continue with medical management. Job ID: [id number] DocumentID: [id number] Dictated Date: 05/01/2021 19:34:48 Vice President Of Software Development Date: 05/01/2021 19:56:46 Dictated By: ALLEN FERNÁNDEZ MD
[2021-05-01] MEDS ORDERED: QUEtiapine 100 MG (SEROquel) TAB IMMEDIATE RELEASE PO SCH (21:00)
[2021-05-01] MEDS ORDERED: LORazepam 0.5 MG (ATIVAN) TABLET PO SCH (21:00)
[2021-05-01] MEDS: VANCOMYCIN 750 MG/NS 250 ML IVPB IV SCH ×2 (21:00)
[2021-05-02] MEDS: NOREPINEPHRINE 8 MG/250 ML 250 ML IV SCH (02:16)
[2021-05-02 04:24] LABS: BASOPHILS # (AUTO) 0.1 10^3/uL (0.0-0.1); BASOPHILS % (AUTO) 1 % (0-10); EOSINOPHILS # (AUTO) 0.7 10^3/uL (0.0-0.3); EOSINOPHILS % (AUTO) 11 % (0-10); HEMATOCRIT 35 % (35-52); LYMPHOCYTES % (AUTO) 30 % (12-44); MEAN CORPUSCULAR HEMOGLOBIN 29 pg (25-34); MEAN CORPUSCULAR HGB CONC 32 g/dL (32-36); MEAN CORPUSCULAR VOLUME 92 fL (80-99); MEAN PLATELET VOLUME 9.5 fL (9.0-12.2); MONOCYTES # (AUTO) 0.5 10^3/uL (0.0-1.0); MONOCYTES % (AUTO) 7 % (0-12); NEUTROPHILS # (AUTO) 3.4 10^3/uL (1.8-7.8); NEUTROPHILS % (AUTO) 51 % (42-75); PLATELET COUNT 296 10^3/uL (130-400); WHITE BLOOD COUNT 6.6 10^3/uL (4.3-11.0)
[2021-05-02 04:35] LABS: POTASSIUM 3.6 MMOL/L (3.6-5.0)
[2021-05-02 04:36] LABS: CALCIUM 8.1 MG/DL (8.5-10.1)
[2021-05-02 04:40] LABS: PHOSPHORUS 3.5 MG/DL (2.3-4.7)
[2021-05-02 04:41] LABS: CREATININE SERUM 0.64 MG/DL (0.60-1.30)
[2021-05-02 04:43] LABS: MAGNESIUM 1.8 MG/DL (1.6-2.4)
[2021-05-02] MEDS: MAGNESIUM 1 GM/100 ML IVPB 100 ML IV SCH (04:49)
[2021-05-02] MEDS: POTASSIUM CL 10MEQ/50ML IVPB 50 ML IV SCH (04:50)
[2021-05-02] MEDS: KCL 20 MEQ TAB (K-DUR) PO SCH (04:53)
[2021-05-02] MEDS: CEFEPIME 1,000 MG/SWFI 10 ML IV PUSH IV SCH ×2 (06:14)
[2021-05-02] MEDS: metroNIDAZOLE 500MG/100ML IVPB 100 ML IV SCH (06:15)
[2021-05-02] MEDS: ONDANSETRON 4 MG/2 ML (SDV) Z0FRAN IVP PRN (08:11)
[2021-05-02] MEDS ORDERED: KCL 20 MEQ TAB (K-DUR) PO ONE (09:00)
[2021-05-02] MEDS: PANTOPRAZOLE 40 MG (PROTONIX) TAB PO SCH (09:46)
[2021-05-02] MEDS: OXYBUTYNIN (DITROPAN) 5 MG TAB PO SCH (09:46)
[2021-05-02] MEDS ORDERED: METR500T PO (09:47)
[2021-05-02] MEDS ORDERED: CIPR500T5 PO (09:47)
--- NOTE | 2021-05-02 09:47 | Discharge Summary ---
Discharge [facility] Reconcile Patient Problems Problems Reviewed?: Yes Discharge Medications New, Converted or Re-Newed RX: Transmitted to Pharmacy New Medications: Ciprofloxacin HCl (Ciprofloxacin HCl) 500 Mg Tablet 500 MG PO BID, #10 TAB Metronidazole (Flagyl) 500 Mg Tablet 500 MG PO BID, #10 TAB Continued Medications: Acetaminophen with Codeine (Acetaminophen-Cod #3 Tablet) 1 Each Tablet 1 EACH PO BID PRN for PAIN-MODERATE (5-7), TAB Citalopram Hydrobromide (Citalopram HBr) 40 Mg Tablet 40 MG PO HS, TAB Dexlansoprazole (Dexilant) 60 Mg Cap.bp 60 MG PO DAILY Ibuprofen (Ibuprofen) 200 Mg Tablet 400 MG PO BID PRN for PAIN-MILD (1-4), TAB Lorazepam (Ativan) 0.5 Mg Tablet 0.5 MG PO HS, TAB Ondansetron (Ondansetron Odt) 4 Mg Tab.rapdis 4 MG PO Q6H PRN for NAUSEA/VOMITING-1ST LINE, TAB Oxybutynin Chloride (Oxybutynin Chloride) 5 Mg Tablet 5 MG PO BID, TAB Peg 400/Hypromellose/Glycerin (Visine Dry Eye Relief Drop) 15 Ml Drops 1-2 DROPS OU PRN PRN for DRY EYES, DROPS Prednisone (Prednisone) 5 Mg Tablet 5 MG PO HS, TAB Quetiapine Fumarate (Quetiapine Fumarate) 100 Mg Tablet 100 MG PO HS, TAB Patient Instructions Goal/Follow Up Appt: F/u with PCP 1-2 weeks Activity & Diet Discharge Diet: Regular Diet Activity as Tolerated: Yes PHUONG VILLATORO MD May 02, 2021 09:47
--- NOTE | 2021-05-02 10:15 | Physical Therapy Evaluation ---
PT Evaluation-General Medical Diagnosis Admission Date Apr 28, 2021 at 20:55 Medical Diagnosis: abdominal pain Onset Date: Apr 28, 2021 Therapy Diagnosis Therapy Diagnosis: impaired strength Height/Weight Height (Feet): 5 Height (Inches): 0.00 Weight (Pounds): 100 Weight (Ounces): 3.2 Precautions Precautions/Isolations: Fall Prevention, Standard Precautions Weight Bear Status Right Lower Extremity: Right Weight Bearing/Tolerated Left Lower Extremity: Left Weight Bearing/Tolerated Referral Physician: Roberto Reason for Referral: Evaluation/Treatment Medical History Pertinent Medical History: CVA, GERD Additional Medical History Past Medical History Surgeries: Abdominal, Bladder Surgery, Bowel Surgery, 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, Rectal Currently Using CPAP: No Currently Using BIPAP: No Heart Murmur 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 8-Pnhajblbba-xbvnzri completes the activity by him/herself with no assistance from a helper. 5-Set-up or Clean-up Assistance-helper sets up or cleans up; patient completes activity. [place] assists only prior to or following the activity. 4-Supervision or Touching Assistance-helper provides verbal cues and/or touching/steadying and/or contact guard assistance as patient completes activity. Assistance may be provided throughout the activity or intermittently. 3-Partial/Moderate Assistance-helper does LESS THAN HALF the effort. [place] lifts, holds or supports trunk or limbs, but provides less than half the effort. 2-Substantial/Maximal Assistance-helper does MORE THAN HALF the effort. [place] lifts or holds trunk or limbs and provides more than half the effort. 4-Ibllwzeoi-lmzibz does ALL the effort. Patient does none of the effort to complete the activity. Or, the assistance of 2 or more helpers is required for the patient to complete the activity. If activity was not attempted, code reason: 7-Patient Refused. 9-Not Applicable-not attempted and the patient did not perform the activity before the current illness, exacerbation or injury. 10-Not Attempted due to Environmental Limitations-(lack of equipment, weather restraints, etc.). 88-Not Attempted due to Medical Conditions or Safety Concerns. Bed Mobility: 6 Transfers (B,C,W/C): 6 Gait: 6 Stairs: 6 Indoor Mobility (Ambulation): Independent Stairs: Independent PT Evaluation-Current Subjective Patient in bed pre tx, agrees to PT, has 4/10 pain in legs. Pt/Family Goals to be independent at home Objective Patient Orientation: Person, Place, Situation Attachments: Saba Catheter, IV ROM/Strength ROM Lower Extremities WNL Strength Lower Extremities 4+/5 gross BLE Sensory Hearing: Functional Sensation Right Lower Extremit: Intact Sensation Left Lower Extremity: Intact Transfers Roll Left to Right (QC): 6 Sit to Lying (QC): 6 Lying to Sitting/Side of Bed(Q: 6 Sit to Stand (QC): 6 Chair/Jhs-eh-Yzotc Xfer(QC): 6 Gait Does the Patient Walk?: Yes Mode of Locomotion: Walk Anticipated Mode of Locomotion: Walk Walk 10 feet (QC): 6 Walk 50 ft with 2 Turns(QC): 6 Distance: 50' Gait Assistive Device: None Comments/Gait Description Patient ambulated about her room, pushing her own IV pole, no LOB or unsteadiness. Patient states she has not had any falls at home, has occasional unsteadiness but no LOB. Balance Sitting Static: Normal Sitting Dynamic: Normal Standing Static: Normal Standing Dynamic: Normal Treatment standing LE strengthening x15 (heel raises, mini squats, marching) Assessment/Needs Patient in bed post tx with nurse call, phone, tray, all needs met. Patient is independent with mobility but does have slight LE weakness. Encouraged patient to perform exercises on her own but to watch out for her lines so she doesn't trip on them. Rehab Potential: Fair PT Accreditation Manager Goals Usp Goals PT Usp Goals Time Frame: May 09, 2021 Roll Left & Right (QC): 6 Sit to Lying (QC): 6 Lying-Sitting on Side/Bed(QC): 6 Sit to Stand (QC): 6 Chair/Ljg-iq-Zymhu Xfer(QC): 6 Walk 10 feet (QC): 6 Walk 50ft with 2 Turns (QC): 6 Walk 150 ft (QC): 6 PT Plan Problem List Problem List: Activity Tolerance, Functional Strength, Safety, Balance, Gait, Transfer Treatment/Plan Treatment Plan: Continue Plan of Care Treatment Plan: Education, Functional Activity Snehal, Functional Strength, Gait, Safety, Therapeutic Exercise, Transfers Treatment Duration: May 09, 2021 Frequency: 6 times per week Estimated Hrs Per Day: .25 hour per day Patient and/or Family Agrees t: Yes Safety Risks/Education Patient Education: Gait Training, Transfer Techniques, Correct Positioning, Safety Issues Teaching Recipient: Patient Teaching Methods: Demonstration, Discussion Response to Teaching: Reinforcement Needed Discharge Recommendations Plan Patient will perform bed mobility and transfer training, balance and endurance training, functional strengthening, stair training, gait training, and education, to improve functional mobility and independence at home. Therapy Discharge Recommendati: Home & Family, Post Acute PT Time/GCodes Time In: 935 Time Out: 946 Total Billed Treatment Time: 11 Total Billed Treatment 1 visit GRAZYNAM 11' SILVIA POE PT May 02, 2021 10:15
--- NOTE | 2021-05-02 10:17 | CONSULTATION REPORT ---
DATE OF SERVICE: 05/02/2021 ATTENDING PHYSICIAN: Neela Mariscal MD and Dr. Varela. SUMMARY: After reviewing the patient's record, history and physical, x-rays, interviewing her, this is a 75-year-old pleasant lady with multiple medical issues, several abdominal surgeries and colon surgeries admitted with a possibility of sepsis, put on appropriate antibiotic, IV and responding well. She feels better. Pain is less. No fever. Labs are better. Her kidney functions are normal from the very beginning. Her ultrasound as well as her CAT scan of the abdomen and pelvis noncontrast showed an extrarenal pelvis on the right side with some hydro and pyelocaliectasis. It is different than the one she had at an earlier time, so this is not a chronic situation or a UPJ obstruction. It is hard to see the ureter over its course, but there is definitely no stones and no extrinsic obstruction. She has no gross or microscopic hematuria. She has no voiding symptoms. She is recovering surely, but slowly from her event. IMPRESSION: Right renal obstruction versus inflammatory -- infective. PLAN: We will let the patient recover from her present problem as well as her infections and we will see her back as an outpatient and we will plan cystoscopy with right retrograde urogram with a possible ureteroscopy in case there is a filling defect in the ureter to rule out any ureteral pathology or lesions. The plan was fully explained to the patient. Job ID: [id number] DocumentID: [id number] Dictated Date: 05/02/2021 09:39:46 Senior Data Quality Analyst Date: 05/02/2021 10:16:14 Dictated By: CAROLYN NAPOLES MD
[2021-05-02] MEDS: LACTATED RINGERS 1,000 ML IV SCH (10:30)
[2021-05-02 13:45] VITALS: BP 113/72
--- NOTE | 2021-05-02 22:53 | Discharge Summary ---
Diagnosis/Chief Complaint Date of Admission Apr 28, 2021 at 20:55 Date of Discharge May 02, 2021 at 12:15 Admission Diagnosis Admission Diagnosis See problem list Discharge Diagnosis See below Problems/Diagnosis: (1) Severe sepsis Assessment & Plan: 04/30: Leukocytosis much improved, continue empiric treatment for c.diff since there is not occult source of infection found, HDS 05/01: Leukocytosis resolved, continue IV antibiotics, C diff neg, blood culture NGTD 05/02: Will d/c with PO antibiotics for 5 more days to cover GI causes of infection Status: Resolved Resolution Date/Time: 05/01/21 @ 19:12 (2) Lactic acidosis Status: Resolved Resolution Date/Time: 04/30/21 @ 15:33 (3) Abdominal pain Assessment & Plan: 04/30: Dr Mariscal to see patient 05/01: HIDA scan pending for today, US showed dilation in uretral, Urology was consulted by Dr Mariscal 05/02: Normal HIDA, will have close f.u with Dr Mariscal Qualifiers: Qualified Codes: R10.84 - Generalized abdominal pain Status: Acute (4) Nausea and vomiting Status: Resolved Resolution Date/Time: 04/30/21 @ 15:34 (5) Colostomy in place Assessment & Plan: 04/30 draining stool Status: Chronic (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 Discharge Summary-Simple/Stand Procedures HIDA Scan: Normal Consultations Dr Mariscal: General Surgery Discharge Physical Examination Allergies: Coded Allergies: hydromorphone (Unverified Adverse Reaction, Unknown, PSYCH, 01/19/21) Vitals & I&Os Vital Sign - Last 12Hours Date Time Temp Pulse Resp B/P (MAP) Pulse Ox O2 Delivery O2 Flow Rate FiO2 05/02/21 13:45 36.7 55 18 113/72 95 Room Air 2.00 Intake and Output 05/02/21 00:00 Intake Total 4067.5 ml Output Total 1150 ml Balance 2917.5 ml General Appearance: Alert, Oriented X3, Cooperative, No Acute Distress HEENT: Mucous Memb Moist/Bement Respiratory: Clear to Auscultation, Normal Air Movement Cardiovascular: Regular Rate, No Murmurs Abdominal: Normal Bowel Sounds, Soft, Other (Colostomy present in right abdomen) Extremities: No Edema, No Tenderness/Swelling Skin: No Rashes, No Breakdown Neuro: Normal Speech, Strength at 5/5 X4 Ext, Sensation Intact, Cranial Nerves 3-12 NL Psych/Mental Status: Mental Status NL, Mood NL Hospital Course Was the Problem List Reviewed?: Yes See final discharge diagnosis. Radiology Reviewed Date of Exam:04/28/21 CT ABDOMEN/PELVIS W PROCEDURE: CT abdomen and pelvis with contrast. TECHNIQUE: Multiple contiguous axial images were obtained through the abdomen and pelvis after administration of intravenous contrast. Auto Exposure Controls were utilized during the CT exam to meet ALARA standards for radiation dose reduction. All CT scans use one or more of the following dose optimizing techniques: automated exposure control, MA and/or KvP adjustment based on patient size and exam type or iterative reconstruction. INDICATION: Nausea and vomiting, abdominal pain with elevated white blood cell count. Patient has history of colon carcinoma. COMPARISON: Prior CT from 01/15/2021. FINDINGS: Lung bases are clear. There is a moderate-sized hiatal hernia. The liver and gallbladder are unremarkable. Pancreas and spleen are unremarkable. No adrenal mass is identified. Kidneys are unremarkable. Aorta is nonaneurysmal. Postsurgical changes of colectomy are noted. This appears to be an ostomy in the right lower quadrant. Small bowel is normal caliber. No definite obstruction is seen. No free fluid or fluid collection is seen. Bladder is decompressed. IMPRESSION: Interval performance of colectomy since prior CT. Visualized small bowel loops appear to be normal caliber and there is no evidence of obstruction. No free fluid, fluid collection or free air is identified. Dictated by: Dictated on workstation # [id number] Dict: 04/28/21 1654 Trans: 04/29/21 0738 [facility] [phone] Interpreted by: REGGIE BEGUM MD Electronically signed by: REGGIE BEGUM MD 04/29/21 0738 Discussion & Recommendations 75 yo F with extensive h/o abdominal surgeries and colostomy. Previous colostomy site inflamed and draining purulent material. Severe Sepsis resolved on day 2. Will be discharged home on PO antibiotics to cover GI causes of infection. Will have close f.u with Dr Mariscal. Discharge Condition at discharge Stable Instructions to patient/family Please see electronic discharge instructions given to patient. Discharge Medications Reviewed and agree with Discharge Medication list on patient's Discharge Instruction sheet PHUONG VILLATORO MD May 02, 2021 22:53
--- NOTE | 2021-05-04 01:38 | Physician Query Clarification ---
PQ-Link Infection to Dev/Proc Admission/Discharge Admission Date: Apr 28, 2021 at 20:55 Discharge Date: May 02, 2021 at 12:15 PHUONG Humphries MD The medical record reflects the following clinical scenario: History/Risk Factors: 75 y/o with history of colectomy, colostomy and abdominal wall hernia rep, air presented with abdominal pain, has been having pleurent drainage from colostomy site found to have severe sepsis. Hand P, 04/29: Septic shock, lactic acidosis , acute kidney injury likely peristomal abscess. Progress notes, 04/30: Severe sepsis, leukocytosis, abdominal pain. Discharge summary, 05/02: Previous colostomy site inflamed and draining purulent material, severe sepsis resolved. Clinical Findings: WBC- 12.6 H, 28.0 H, lactic acid- 5.0 H, Treatment: IV antibiotics. Question: Can you specify if the sepsis is due to/associated with colostomy? Please document a response in Progress Note or Discharge Summary. 1. Yes - sepsis is due to/associated with colostomy. 2. No - sepsis is not due to/associated with colostomy. 3. Other, with explanation of the clinical findings. 4. Clinically undetermined, no explanation for the clinical findings. PHYSICIAN RESPONSE Specify if infection: 1 Please remember a lack of response to the above will prompt a phone page by CDI/Coding staff. In responding to this query, please exercise your independent professional judgment. The purpose of this communication is to more accurately reflect the complexity of your patients condition. The fact that a question is asked does not imply that any particular answer is desired or expected. Thank you for your timely response to this clarification. Requestors name: [ ] Phone # [ ] THIS PHYSICIAN QUERY FORM IS A PERMANENT PART OF THE MEDICAL RECORD RAMIREZ KNOX May 04, 2021 01:37 PHUONG VILLATORO MD May 22, 2021 21:45
== END 2021-05-02 12:15 | disposition home or self-care (01) | DRG 393 ==
LOC: EDUNIT# 15:15 → ER FS 15:16 → ICU 20:55 → CSD 05-01 13:30
PROVIDERS: ADMIT Internal Medicine; ATTEND Family Medicine
DX: K94.02 Colostomy infection (principal); A41.9 Sepsis, unspecified organism; R65.20 Severe sepsis without septic shock; E87.2 Acidosis; L02.211 Cutaneous abscess of abdominal wall; N17.9 Acute kidney failure, unspecified; N13.30 Unspecified hydronephrosis; K21.9 Gastro-esophageal reflux disease without esophagitis; M19.90 Unspecified osteoarthritis, unspecified site; F41.9 Anxiety disorder, unspecified; F32.9 Major depressive disorder, single episode, unspecified; R10.84 Generalized abdominal pain; M54.6 Pain in thoracic spine; E86.0 Dehydration; Z79.2 Long term (current) use of antibiotics; Z90.49 Acquired absence of other specified parts of digestive tract; Z79.899 Other long term (current) drug therapy; Z86.73 Personal history of transient ischemic attack (TIA), and cerebral infarction without residual deficits
CPT/HCPCS: 36415; 71045; 74177; 76705; 78226; 80048; 80053; 81000; 83605; 83735; 84100; 84145; 85007; 85025; 85027; 85610; 85730; 86141; 87040; 87088; 87324; 87449; 94640; 96374; 96375

== ENCOUNTER 2021-05-08 07:44 | Outpatient (CLI) | payer MEDICARE ==
[~2021-05-08 07:44] MED LIST changes: +METR500T PO
== END 2021-05-08 12:20 | disposition home or self-care (01) ==
LOC: PREOP 07:44
PROVIDERS: ATTEND Urology
DX: Z01.818 Encounter for other preprocedural examination (principal)

== ENCOUNTER 2021-05-09 05:52 | Day surgery (SDC) | payer MEDICARE ==
[2021-05-09] VITALS (9 sets, daily range): BP systolic 89–130; BP diastolic 58–88
[~2021-05-09] VITALS: Ht 152 cm; Wt 45.9 kg
[2021-05-09] MEDS ORDERED: cefTRIAXone 1,000 MG in WATER (STERILE) FOR INJECTION 10 ML IV ONE (06:45)
[2021-05-09] MEDS: LACTATED RINGERS 1,000 ML IV PRN ×2 (06:52→07:57)
[2021-05-09] MEDS ORDERED: FAMOTIDINE 20MG/2ML IV (PEPCID) ONE (06:54)
[2021-05-09] MEDS ORDERED: FAMOTIDINE 20MG/2ML IV (PEPCID) IV ONE (07:00)
[2021-05-09] MEDS ORDERED: ONDANSETRON 4 MG/2 ML (SDV) Z0FRAN ONE (07:02)
[2021-05-09] MEDS ORDERED: SEVOFLURANE (ULTANE) 15 ML INHAL SOLN ONE (07:02)
[2021-05-09] MEDS ORDERED: fentaNYL INJ 100 MCG/2 ML AMP ONE (07:02)
[2021-05-09] MEDS ORDERED: proPOfol 200 MG/20 ML (DIPRIVAN) VIAL IV ONE (07:02)
[2021-05-09] MEDS ORDERED: LIDOCAINE PF 2% 5 ML (XYLOCAINE) VIAL ONE (07:02)
--- NOTE | 2021-05-09 07:19 | Progress Note-Pre Operative ---
Pre-Operative Progress Note H&P Reviewed The H&P was reviewed, patient examined and no changes noted. Date Seen by Provider: May 09, 2021 Time Seen by Provider: 07:19 Date H&P Reviewed: May 09, 2021 Time H&P Reviewed: 07:19 Pre-Operative Diagnosis: RT RENAL OBSTRUCTION CAROLYN NAPOLES MD May 09, 2021 07:19
--- NOTE | 2021-05-09 07:59 | Progress Note-Post Operative ---
Post-Operative Progess Note Surgeon (s)/Dag Sprayer (s) Surgeon CAROLYN NAPOLES MD Dag Sprayer: NONE Pre-Operative Diagnosis RT RENAL OBSTRUCTION Post-Operative Diagnosis SAME SECONDARY TO UPJ OBSTRUCTION Procedure & Operative Findings Date of Procedure 05/09/21 Procedure Performed/Findings CYSTO AND RT RETROGRADE UROGRAM Anesthesia Type GENERAL Estimated Blood Loss Estimated blood loss (mL): NONE Specimens/Packing Specimens Removed NONE Packing: NONE CAROLYN NAPOLES MD May 09, 2021 07:59
--- NOTE | 2021-05-09 08:01 | Discharge Inst-Urology ---
Discharge Inst-Urology Reconcile Patient Problems Problems Reviewed?: Yes Final Diagnosis RT UPJ OBSTRUCTION Patient Instructions/Follow Up Plan/Assessment/Instructions Please make appointment to been seen in office in 1 week Increase oral fluids for 48 hours and then as needed. Diet and Activity as tolerated. If questions or concerns contact your physician Or seek help at emergency department. CAROLYN NAPOLES MD May 09, 2021 08:01
--- NOTE | 2021-05-09 08:03 | Anesthesia-General Post-Op ---
General Patient Condition Mental Status/LOC: Same as Preop Cardiovascular: Satisfactory Nausea/Vomiting: Absent Respiratory: Satisfactory Pain: Controlled Complications: Absent Post Op Complications Complications None Follow Up Care/Instructions Patient Instructions None needed. Anesthesia/Patient Condition Patient Condition Patient is doing well, no complaints, stable vital signs, no apparent adverse anesthesia problems. No complications reported per nursing. ERWIN ALAS CRNA May 09, 2021 08:03
[2021-05-09] MEDS ORDERED: ONDANSETRON 4 MG/2 ML (SDV) Z0FRAN IVP PRN (08:15)
[2021-05-09] MEDS ORDERED: fentaNYL INJ 100 MCG/2 ML AMP IVP ONE (08:15)
--- NOTE | 2021-05-09 08:58 | Diagnostic Imaging Report ---
INDICATION: Fluoroscopy during retrograde pyelogram. FINDINGS: Fluoroscopy was provided for Dr. Guillaume during performance of a retrograde pyelogram. 30 seconds of fluoroscopic time was utilized. 3D images were obtained. The images demonstrate significant dilatation of the right renal pelvis and right renal collecting system with abrupt tapering at the UPJ. IMPRESSION: Fluoroscopy during retrograde pyelography. Dictated by: Dictated on workstation # [id number]
--- NOTE | 2021-05-10 11:51 | OPERATIVE REPORT ---
DATE OF SERVICE: 05/09/2021 PREOPERATIVE DIAGNOSES: Right renal obstruction, possible UPJ obstruction. POSTOPERATIVE DIAGNOSES: Right UPJ obstruction. OPERATION PERFORMED: Cystoscopy with right retrograde urogram. SURGEON: Jasbir Napoles MD ANESTHESIA: General. COMPLICATIONS: None. DESCRIPTION OF PROCEDURE: Under satisfactory general anesthesia, the patient in lithotomy position, genitalia were prepped and draped in the usual sterile fashion. Cystoscope was introduced under vision. The bladder was inspected and was normal except for a sluggish efflux on the right side. Using the foroblique lens, I passed a 6-Mauritian ureteral catheter into the distal ureter, injected contrast and the ureter was completely clean. No filling defect, nice and thin, but it had a high insertion into the right renal pelvis causing the right UPJ obstruction with pelvocaliectasis. I removed the catheter. The ureter drained nicely, but the pelvicaliceal system remained full. I emptied the bladder, removed the cystoscope. The patient tolerated the procedure and anesthesia well and was sent to recovery room in stable condition. PLAN: We will see her back in the office next week. We will schedule her for a diuretic nuclear renal scan and manage accordingly. We take into consideration her general condition and her 75-year-old age and go from there. Job ID: [id number] DocumentID: [id number] Dictated Date: 05/09/2021 08:19:32 Photographic Process Worker Date: 05/09/2021 11:32:40 Dictated By: JASBIR NAPOLES MD
== END 2021-05-09 09:40 | disposition home or self-care (01) ==
LOC: SDC 05:52
PROVIDERS: ATTEND Urology
DX: N13.5 Crossing vessel and stricture of ureter without hydronephrosis (principal); J44.9 Chronic obstructive pulmonary disease, unspecified; K21.9 Gastro-esophageal reflux disease without esophagitis; Z79.899 Other long term (current) drug therapy
CPT/HCPCS: 76000; 87081

== ENCOUNTER → 2021-05-28 | Outpatient (CLI) | payer MEDICARE ==
[~2021-05-28] MED LIST changes: +CATHETER FLUSH 10 ML SYR IV PRN; +FUROSEMIDE 40 MG/4 ML INJ (LASIX) ONE
--- NOTE | 2021-05-28 13:03 | Diagnostic Imaging Report ---
RENAL SCAN WITH LASIX Technique: Posterior scintigraphic imaging of the abdomen and pelvis was performed after the intravenous administration of 5.3 mCi of technetium 99m MAG3. 20 minutes after radiopharmaceutical was administered, 40 of furosemide was administered intravenously. Indication: Ureteral obstruction. Comparison: CT abdomen pelvis of 04/28/2021 Findings: Right side: There is normal flow to the right kidney. Normal renal cortical concentration is present. There is normal excretion of radiotracer activity into the renal collecting system. There is a prominent extrarenal pelvis that acutely to radiotracer but progressively clears. The T1/2 diuretic time on the right is 18 minutes. Split renal function activity on the right is 46%. Left side: There is normal flow to the left kidney. Normal renal cortical concentration is present. There is normal excretion of radiotracer activity into the renal collecting system. The T1/2 diuretic time on the left is 11 minutes. Split renal function activity on the left is 54%. Impression: 1. No obstructive uropathy. 2. Large extrarenal pelvis on the right. Dictated by: Dictated on workstation # [id number]
== END ==
LOC: CARD 09:00
PROVIDERS: ATTEND Urology
DX: N20.1 Calculus of ureter (principal)
CPT/HCPCS: 78708; A9562

== ENCOUNTER → 2021-08-03 | Outpatient (CLI) | payer MEDICARE ==
[~2021-08-03] MED LIST changes: -CATHETER FLUSH 10 ML SYR IV PRN; -FUROSEMIDE 40 MG/4 ML INJ (LASIX) ONE
[2021-08-03 14:33] LABS: HEMATOCRIT 44 % (35-52); HEMOGLOBIN 14.4 g/dL (11.5-16.0); MEAN CORPUSCULAR HEMOGLOBIN 29 pg (25-34); MEAN CORPUSCULAR HGB CONC 33 g/dL (32-36); MEAN CORPUSCULAR VOLUME 90 fL (80-99); MEAN PLATELET VOLUME 9.4 fL (9.0-12.2); PLATELET COUNT 434 10^3/uL (130-400); WHITE BLOOD COUNT 15.9 10^3/uL (4.3-11.0)
[2021-08-03 14:34] LABS: BASOPHILS # (AUTO) 0.1 10^3/uL (0.0-0.1); BASOPHILS % (AUTO) 1 % (0-10); EOSINOPHILS # (AUTO) 0.2 10^3/uL (0.0-0.3); EOSINOPHILS % (AUTO) 1 % (0-10); LYMPHOCYTES # (AUTO) 2.4 X 10^3 (1.0-4.0); LYMPHOCYTES % (AUTO) 15 % (12-44); MONOCYTES # (AUTO) 1.3 X 10^3 (0.0-1.0); MONOCYTES % (AUTO) 8 % (0-12); NEUTROPHILS # (AUTO) 11.4 X 10^3 (1.8-7.8); NEUTROPHILS % (AUTO) 71 % (42-75)
[2021-08-03 14:42] LABS: POTASSIUM 3.9 MMOL/L (3.6-5.0)
[2021-08-03 14:43] LABS: ALBUMIN 2.9 GM/DL (3.2-4.5); BILIRUBIN,TOTAL 0.3 MG/DL (0.1-1.0); CALCIUM 8.9 MG/DL (8.5-10.1); CREATININE SERUM 0.9 MG/DL (0.60-1.30)
[2021-08-03 14:50] LABS: BAND NEUTROPHILS 6 %; BASOPHILS % (MANUAL) 1 %; EOSINOPHILS % (MANUAL) 1 %; LYMPHOCYTES % (MANUAL) 21 %; METAMYELOCYTES % 2 %; MONOCYTES % (MANUAL) 6 %; MYELOCYTES % 1 %; NEUTROPHILS % (MANUAL) 62 %
[2021-08-03 14:51] LABS: PLATELET ESTIMATE INCREASED; RBC MORPH NORMAL
== END ==
LOC: LAB FS 13:58
PROVIDERS: ATTEND Nurse Practitioner Family
DX: Z51.81 Encounter for therapeutic drug level monitoring (principal); A04.72 Enterocolitis due to Clostridium difficile, not specified as recurrent
CPT/HCPCS: 36415; 80053; 85007; 85027

== ENCOUNTER 2021-12-15 14:37 | Emergency (ER) | payer MEDICARE ==
[~2021-12-15] VITALS: Ht 152 cm; Wt 50.0 kg
[~2021-12-15 14:37] MED LIST changes: -CITA40TA11 PO; +CITA40TA13 PO
[2021-12-15 15:03] LABS: BASOPHILS # (AUTO) 0.1 10^3/uL (0.0-0.1); BASOPHILS % (AUTO) 1 % (0-10); EOSINOPHILS # (AUTO) 0.7 10^3/uL (0.0-0.3); EOSINOPHILS % (AUTO) 8 % (0-10); HEMATOCRIT 38 % (35-52); HEMOGLOBIN 12.1 g/dL (11.5-16.0); LYMPHOCYTES # (AUTO) 2.7 X 10^3 (1.0-4.0); LYMPHOCYTES % (AUTO) 32 % (12-44); MEAN CORPUSCULAR HEMOGLOBIN 30 pg (25-34); MEAN CORPUSCULAR HGB CONC 32 g/dL (32-36); MEAN CORPUSCULAR VOLUME 92 fL (80-99); MEAN PLATELET VOLUME 9.4 fL (9.0-12.2); MONOCYTES # (AUTO) 0.7 X 10^3 (0.0-1.0); MONOCYTES % (AUTO) 8 % (0-12); NEUTROPHILS # (AUTO) 4.3 X 10^3 (1.8-7.8); NEUTROPHILS % (AUTO) 51 % (42-75); PLATELET COUNT 352 10^3/uL (130-400); WHITE BLOOD COUNT 8.5 10^3/uL (4.3-11.0)
--- NOTE | 2021-12-15 15:03 | ED Cardiac General ---
History of Present Illness General Chief Complaint: Chest Pain Stated Complaint: CP Source: patient Exam Limitations: no limitations History of Present Illness Date Seen by Provider: Dec 15, 2021 Time Seen by Provider: 14:47 Initial Comments This is a well-appearing 76-year-old female who presented to the ER via [facility] for complaints of chest pressure. Allergies and Home Medications Allergies Coded Allergies: hydromorphone (Unverified Adverse Reaction, Unknown, PSYCH, 01/19/21) Patient Home Medication List Acetaminophen with Codeine (Acetaminophen-Cod #3 Tablet) 1 Each Tablet, 1 EACH PO BID PRN for PAIN-MODERATE (5-7), (Reported) Entered as Reported by: NORIS HARRELL on 02/16/21 1116 Ciprofloxacin HCl (Ciprofloxacin HCl) 500 Mg Tablet, 500 MG PO BID Prescribed by: PHUONG VILLATORO on 05/02/21 0947 Citalopram Hydrobromide (Citalopram HBr) 40 Mg Tablet, 40 MG PO HS, (Reported) Entered as Reported by: JERI LAKHANI on 12/17/18 1314 Dexlansoprazole (Dexilant) 60 Mg Cap., 60 MG PO DAILY, (Reported) Entered as Reported by: NORIS HARRELL on 02/16/21 1116 Ibuprofen (Ibuprofen) 200 Mg Tablet, 400 MG PO BID PRN for PAIN-MILD (1-4), (Reported) Entered as Reported by: NORIS HARRELL on 02/16/21 1120 Lorazepam (Ativan) 0.5 Mg Tablet, 0.5 MG PO HS, (Reported) Entered as Reported by: NORIS HARRELL on 01/03/21 0950 Metronidazole (Flagyl) 500 Mg Tablet, 500 MG PO BID Prescribed by: PHUONG VILLATORO on 05/02/21 0947 Ondansetron (Ondansetron Odt) 4 Mg Tab.rapdis, 4 MG PO Q6H PRN for NAUSEA/VOMITING-1ST LINE, (Reported) Entered as Reported by: TAVO QUICK on 04/30/21 1335 Oxybutynin Chloride (Oxybutynin Chloride) 5 Mg Tablet, 5 MG PO BID, (Reported) Entered as Reported by: JERI LAKHANI on 12/17/18 1314 Peg 400/Hypromellose/Glycerin (Visine Dry Eye Relief Drop) 15 Ml Drops, 1-2 DROPS OU PRN PRN for DRY EYES, (Reported) Entered as Reported by: NORIS HARRELL on 01/03/21 0950 Prednisone (Prednisone) 5 Mg Tablet, 5 MG PO HS, (Reported) Entered as Reported by: JERI LAKHANI on 12/17/18 1314 Quetiapine Fumarate (Quetiapine Fumarate) 100 Mg Tablet, 100 MG PO HS, (Reported) Entered as Reported by: JERI LAKHANI on 12/17/18 1314 Past Fbyqply-Bohtpq-Ccmkkt Hx Immunizations Up To Date Tetanus Booster (TDap): Unknown Seasonal Allergies Seasonal Allergies: No Past Medical History Surgery/Hospitalization HX: Multiple colon surgeries after colon perforation Surgeries: Yes (esophagus, colostomy; BLADDER/RECTAL SURGERY X5, anastomosis, hernia repair) Abdominal, Bladder Surgery, Bowel Surgery, 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, Rectal Respiratory: No Currently Using CPAP: No Currently Using BIPAP: No Cardiac: Yes Heart Murmur 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 (CVA 2019 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) Stroke [place] History: 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 Genitourinary: Yes (incontinent of urine, can't control when it occurs and wears "a pad") UTI-Chronic Gastrointestinal: Yes (Colostomy) Gastroesophageal Reflux, Obstructive Bowel, Esophagitis, Hiatal Hernia Musculoskeletal: Yes Arthritis Endocrine: No HEENT: Yes (detached retina x3-surgeries x 5) Cataract Loss of Vision: Left Hearing Impairment: Denies Cancer: Yes Skin, Colon Did You Recieve Any Treatments: Yes What Type of Treatment Did You: Surgical Intervention Psychosocial: Yes Anxiety, Depression Integumentary: Yes ("BREAK OUT IN HIVES.") Blood Disorders: No Family Medical History Heart Disease, Cancer, Other Conditions/Hx NC Physical Exam Vital Signs Vital Signs - First Documented 12/15/21 14:40 Temp 36.1 Pulse 62 Resp 18 B/P (MAP) /78 Pulse Ox 96 O2 Delivery Room Air Capillary Refill : Height, Weight, BMI Height: 5'0.00" Weight: 100lbs. 3.2oz. [id number]; 19.86 BMI Method:Stated Progress/Results/Core Measures Results/Orders Lab Results Laboratory Tests Test 12/15/21 14:45 12/15/21 17:24 Range/Units White Blood Count 8.5 4.3-11.0 10^3/uL Red Blood Count 4.10 3.80-5.11 10^6/uL Hemoglobin 12.1 11.5-16.0 g/dL Hematocrit 38 35-52 % Mean Corpuscular Volume 92 80-99 fL Mean Corpuscular Hemoglobin 30 25-34 pg Mean Corpuscular Hemoglobin Concent 32 32-36 g/dL Red Cell Distribution Width 14.4 10.0-14.5 % Platelet Count 352 130-400 10^3/uL Mean Platelet Volume 9.4 9.0-12.2 fL Immature Granulocyte % (Auto) 0 % Neutrophils (%) (Auto) 51 42-75 % Lymphocytes (%) (Auto) 32 12-44 % Monocytes (%) (Auto) 8 0-12 % Eosinophils (%) (Auto) 8 0-10 % Basophils (%) (Auto) 1 0-10 % Neutrophils # (Auto) 4.3 1.8-7.8 X 10^3 Lymphocytes # (Auto) 2.7 1.0-4.0 X 10^3 Monocytes # (Auto) 0.7 0.0-1.0 X 10^3 Eosinophils # (Auto) 0.7 H 0.0-0.3 10^3/uL Basophils # (Auto) 0.1 0.0-0.1 10^3/uL Immature Granulocyte # (Auto) 0.0 0.0-0.1 10^3/uL Prothrombin Time 13.2 12.2-14.7 SEC INR Comment 1.0 0.8-1.4 Activated Partial Thromboplast Time 29 24-35 SEC D-Dimer 0.80 H 0.00-0.49 UG/ML Sodium Level 140 135-145 MMOL/L Potassium Level 3.9 3.6-5.0 MMOL/L Chloride Level 109 H 98-107 MMOL/L Carbon Dioxide Level 22 21-32 MMOL/L Anion Gap 9 5-14 MMOL/L Blood Urea Nitrogen 13 7-18 MG/DL Creatinine 0.69 0.60-1.30 MG/DL Estimat Glomerular Filtration Rate 91 BUN/Creatinine Ratio 19 Glucose Level 82 70-105 MG/DL Calcium Level 8.5 8.5-10.1 MG/DL Corrected Calcium 9.1 8.5-10.1 MG/DL Magnesium Level 2.0 1.6-2.4 MG/DL Total Bilirubin 0.5 0.1-1.0 MG/DL Aspartate Amino Transf (AST/SGOT) 14 5-34 U/L Alanine Aminotransferase (ALT/SGPT) 9 0-55 U/L Alkaline Phosphatase 88 40-136 U/L Myoglobin 29.1 10.0-92.0 NG/ML Troponin I < 0.028 <0.028 NG/ML B-Type Natriuretic Peptide 81.0 <100.0 PG/ML Total Protein 5.9 L 6.4-8.2 GM/DL Albumin 3.2 3.2-4.5 GM/DL My Orders Orders - RONEL GROVE APRN Cbc With Automated Diff (12/15/21 14:41) Magnesium (12/15/21 14:41) Chest 1 View, Ap/Pa Only (12/15/21 14:41) Ekg Tracing (12/15/21 14:41) Comprehensive Metabolic Panel (12/15/21 14:41) Myoglobin Serum (12/15/21 14:41) Protime With Inr (12/15/21 14:41) Partial Thromboplastin Time (12/15/21 14:41) O2 (12/15/21 14:41) Monitor-Rhythm Ecg Trace Only (12/15/21 14:41) Ed Iv/Invasive Line Start (12/15/21 14:41) Bnp [place] (12/15/21 14:41) Fibrin Degradation Products (12/15/21 14:41) Troponin I [place] (12/15/21 14:41) Troponin I [place] (12/15/21 17:00) Vital Signs/I&O 12/15/21 14:40 Temp 36.1 Pulse 62 Resp 18 B/P (MAP) /78 Pulse Ox 96 O2 Delivery Room Air Departure Impression Primary Impression: Chest pain Disposition: 01 HOME, SELF-CARE Condition: Improved Departure-Patient Inst. Decision time for Depature: 17:30 Referrals: ZAHIRA WILCOX APRN (PCP) Primary Care Physician [facility] (Family) Primary Care Physician Patient Instructions: Troponin Test, Chest Pain (DC) Add. Discharge Instructions: Plan: 1. Rest. Avoid any strenuous lifting. 2. Follow up with your doctor next week. 3. Return immediately to ER if you develop any new, concerning, or worsening symptoms. All discharge instructions reviewed with patient and/or family. Voiced understanding. RONEL GROVE A[employer]ARI[employer] SPECIALIST Dec 15, 2021 15:03
[2021-12-15 15:12] LABS: ALBUMIN 3.2 GM/DL (3.2-4.5); POTASSIUM 3.9 MMOL/L (3.6-5.0); PROTHROMBIN TIME PATIENT 13.2 SEC (12.2-14.7)
[2021-12-15 15:14] LABS: CALCIUM 8.5 MG/DL (8.5-10.1)
[2021-12-15 15:15] LABS: TOTAL PROTEIN 5.9 GM/DL (6.4-8.2)
[2021-12-15 15:16] LABS: BILIRUBIN,TOTAL 0.5 MG/DL (0.1-1.0)
[2021-12-15 15:18] LABS: CREATININE SERUM 0.69 MG/DL (0.60-1.30)
--- NOTE | 2021-12-15 16:12 | Diagnostic Imaging Report ---
INDICATION: Chest pain. EXAMINATION: Chest, 12/15/2021. COMPARISON: 04/28/2021. FINDINGS: Bilateral peripherally calcified breast implants noted. The lungs are clear. No infiltrates, effusions or pneumothorax. There is cardiomegaly. Pulmonary vasculature normal. Right chest port is stable. There is postoperative change of left shoulder. IMPRESSION: Chronic findings, as above, with no acute cardiopulmonary process. Dictated by: Dictated on workstation # [id number]
[2021-12-15 18:36] VITALS: BP 133/78
== END 2021-12-15 18:36 | disposition home or self-care (01) ==
LOC: EDUNIT# 14:37 → ER 14:38
DX: R07.9 Chest pain, unspecified (principal)
CPT/HCPCS: 36415; 71045; 80053; 83735; 83874; 83880; 84484; 85025; 85379; 85610; 85730; 93005